=== PATIENT | male | born 1970 | race Caucasian/White ===

== ENCOUNTER 2017-08-23 12:36 | Inpatient (IN) ==
[2017-08-23 15:19] VITALS: BMI 29.9
[2017-08-23] MEDS: HYDRALAZINE 25 MG TABLET PO SCH (18:23)
[2017-08-23] MEDS: GlipiZIDE 5 MG TABLET PO SCH (18:23)
[2017-08-23] MEDS: METFORMIN 500 MG TABLET PO SCH (18:23)
[2017-08-23] MEDS: HYDROCODONE/APAP 5mg/325mg TABLET PO PRN (20:31)
[2017-08-23] MEDS: CLARITHROMYCIN 500 MG TABLET PO SCH (20:33)
[2017-08-23] MEDS: TAMSULOSIN 0.4 MG CAPSULE PO SCH (20:34)
[2017-08-23] MEDS: MAGNESIUM OXIDE 400 MG TABLET PO SCH (20:35)
[2017-08-23] MEDS: BACLOFEN 10 MG TABLET PO SCH (20:36)
[2017-08-23] MEDS: LEVETIRACETAM 500 MG TABLET PO SCH (20:38)
[2017-08-23] MEDS: ATORVASTATIN 40 MG TABLET PO SCH (20:39)
[2017-08-23] MEDS: SENNA + DOCUSATE TABLET PO SCH (20:40)
[2017-08-23] MEDS: GABAPENTIN 100 MG CAPSULE PO SCH (20:40)
[2017-08-23] MEDS: ENOXAPARIN 30 MG/0.3 ML INJECTION SQ SCH (20:40)
[2017-08-23] MEDS ORDERED: LIDOCAINE 2% JELLY (Urojet) 20ml MM ONE (22:09)
[2017-08-24] MEDS: GlipiZIDE 5 MG TABLET PO SCH ×2 (08:49→17:31)
[2017-08-24] MEDS: BACLOFEN 10 MG TABLET PO SCH ×3 (08:49→21:09)
[2017-08-24] MEDS: CLARITHROMYCIN 500 MG TABLET PO SCH ×2 (08:49→17:32)
[2017-08-24] MEDS: FUROSEMIDE 20 MG TABLET PO SCH (08:50)
[2017-08-24] MEDS: LISINOPRIL 40 MG TABLET PO SCH (08:51)
[2017-08-24] MEDS: HYDRALAZINE 25 MG TABLET PO SCH ×3 (08:52→17:32)
[2017-08-24] MEDS: ASPIRIN *EC* 81 MG TABLET PO SCH (08:52)
[2017-08-24] MEDS: METFORMIN 500 MG TABLET PO SCH ×2 (08:52→17:31)
[2017-08-24] MEDS: LEVETIRACETAM 500 MG TABLET PO SCH ×2 (08:52→21:16)
[2017-08-24] MEDS: MAGNESIUM OXIDE 400 MG TABLET PO SCH ×2 (08:52→21:42)
[2017-08-24] MEDS: GABAPENTIN 100 MG CAPSULE PO SCH ×3 (08:53→21:15)
--- NOTE | 2017-08-24 08:58 | Consult Note ---
Consult Information - Data of Consult Consult date: 08/24/17 Requesting Physician: Chucho Solis MD Primary Care Provider: None Family Provider: Dr Bro - Consult Narrative Reason for consult: medical management History of present illness: Patient is a 47-year-old male who has right hemophoresis secondary to history of stroke. On 08/19 he lost his balance and fell. He was found to have a right hip fracture. He was taken to [facility] where he was admitted. On he underwent a right heme arthroplasty by Dr. Minor. Postoperatively, he has continued to have increased blood pressures in the 180s currently. Records from [facility] indicated that blood pressure be greater than 200 at times during activity. As he has been stable. He was evaluated and accepted to [facility] for inpatient rehabilitation for ongoing strengthening and postoperative function improvement. Patient is seen today for initial consultation. He is alert, oriented and pleasant. He does have significant amount of this expressive aphasia, however, can answer easy questions. He does not appear to be in any distress. He does indicate that his bowels have not yet moved since surgery. Morning labs are reviewed. CBC is stable with a hemoglobin of 11.9. Chemistry panel is unremarkable. Past Medical History Medical History: Medical History (Last Updated 08/24/17 @ 09:02 by Mae Diaz APRN) MYRON (obstructive sleep apnea) CVA (cerebral vascular accident) Cerebral seizure Diabetes HTN (hypertension) Hyperlipidemia Osteoarthritis Surgical History: Right hip arthoplasty- 08/20/17- Dr Minor at [place]. Cholecystectomy. CABG x3. Appendectomy. Liver biopsy. Left pelvis ORIF Family History: Unable to Obtain - Social History Smoking status: Never smoker Substance use type: does not use Alcohol intake frequency: does not drink Housing: house Household members: family (Brother) Current occupational status: disabled Social history: Resides at home with brother It appears that primary care provider is Dr. Bro Review of Systems All systems PM: 10-point ROS was reviewed, no additional remarkable complaints except - Musculoskeletal Musculoskeletal Comments: Post-op right hip pain Medications Home Medications Medication Instructions Recorded Confirmed Type Aspirin [Adult Low Dose Aspirin EC] 81 mg PO DAILY 10/27/16 08/23/17 History Atorvastatin Calcium 10 mg PO HS 10/27/16 08/23/17 History Baclofen [Lioresal] 5 mg PO TID 10/27/16 08/23/17 History Furosemide [Lasix] 20 mg PO DAILY 10/27/16 08/23/17 History Gabapentin [Neurontin] 100 mg PO TID 10/27/16 08/23/17 History Hydralazine HCl 50 mg PO TID 10/27/16 08/23/17 History Lisinopril [Prinivil] 40 mg PO DAILY 10/27/16 08/23/17 History Magnesium Oxide [Magnesium] 400 mg PO BID 10/27/16 08/23/17 History Metformin HCl [Fortamet] 500 mg PO BID 10/27/16 08/23/17 History Metoprolol Succinate 25 mg PO BID 10/27/16 08/23/17 History Potassium Chloride [K-Dur] 10 meq PO DAILY 10/27/16 08/23/17 History Tamsulosin [Flomax] 0.4 mg PO HS 10/27/16 08/23/17 History glipiZIDE [Glipizide] 5 mg PO BID 10/27/16 08/23/17 History levETIRAcetam [Keppra Xr] 500 mg PO Q12HR 10/27/16 08/23/17 History clarithromycin 500 mg tablet 500 mg PO BID 01/31/17 08/23/17 History Allergies Allergy/AdvReac Type Severity Reaction Status Date / Time codeine Allergy Verified 10/26/16 22:56 Penicillins Allergy Verified 10/26/16 22:56 Sulfa (Sulfonamide Allergy Verified 10/26/16 22:56 Antibiotics) Exam Vital Signs: Temperature 97.9 F 08/24/17 07:00 Pulse Rate 72 08/24/17 07:00 Respiratory Rate 20 08/24/17 07:00 Blood Pressure 182/86 H 08/24/17 07:00 Pulse Oximetry 93 08/24/17 07:00 Height/Weight/BMI: Height 1.83 m Weight 100.3 kg Body Mass Index 29.9 - Constitutional Present: no acute distress, well nourished, well developed - Routine HEENT Exam Eye: Present: EOMI ENT: Present: mucous membranes moist, dentition normal - Routine Respiratory Exam Present: CTA bilaterally. Absent: wheezes - Routine Cardiovascular Exam Present: RRR, S1, S2. Absent: murmur - Routine Abdominal Exam Present: soft, normoactive bowel sounds, non distended. Absent: tenderness - Routine Skin Exam Present: intact, dry, warm - Routine Neurological Exam Present: alert, oriented X3, CN II-XII intact, motor deficit (Right arm) Aphasia - Routine Psychiatric Exam Present: cooperative Results - Labs CBC & Chem 7: 08/24/17 05:35 08/24/17 05:35 Assessment and Plan (1) S/P hip hemiarthroplasty Current visit: Yes Status: Acute Assessment and Plan: Impression Uncontrolled blood pressure Status post right humeral arthroplasty-repaired 08/20/17 Fall Hx of CVA with right hemiparesis Chronic dysphasia Coronary artery disease Hypertension Diabetes Seizures Obstructive sleep apnea Plan Agree with admission to inpatient rehabilitation for ongoing strengthening and improved function. Patient continues to have uncontrolled hypertension 180s systolic. Medication list reviewed carefully along with marked from Gerald. Different beta jonathan was reconciled on admission from medication list. Toprol-XL discontinued, patient placed on metoprolol tartrate, Lopressor 50 milligrams 3 times a day. Continue with lisinopril 40, hydralazine 50mg 3 times a day. Hgb is has remained stable at 11.9. Patient is on Keppra for history of seizures. Patient also takes clarithromycin 500 twice a day. Brother does confirm patient was on this prior to hospitalization, however, exact reason is unknown Monitor Accu-Cheks and continue on metformin twice a day. Dalton as needed for postoperative pain control. Will add MiraLAX and senna plus twice a day for postoperative bowel motivation. Encouraged patient to work with PT and OT for ongoing strengthening At time of discharge medical care will return to primary care provider at [facility], Dr. Bro DVT Prophylaxis: Lovenox Resuscitation Status: Full Code - Physician Narrative Physician: Zee Izquierdo MD Narrative: Date: 08/24/17 Time: 2124 I have independently evaluated and examined this patient. I reviewed the chart, the patient's history, and the NUCLEAR TEST TECHNICIAN/PA's documented findings as above. We discussed and formulated the assessment and plan as above with additions as below: Mr. Ling was seen this evening at which time he reports having a bad headache today-this is atypical has not been associated with nausea or visual changes. Nursing expressed concern that therapy has been working aggressively with the patient to mobilize his right arm and on upper extremity strengthening today and that he may have increased motor pain in the upper back. Patient in the hip has had variable response to Dalton and headache is poorly controlled with Dalton. Patient is drowsy as he was sleeping shortly before I arrived There is tenderness on palpation in the right upper back although I do not appreciate spasm per se Respirations nonlabored, airflow good, breath sounds clear Regular rhythm Right hemiparesis present-upper/lower extremity In addition to above diagnoses please add: Headache, probable muscle spasm Flexeril added at 5 mg 3 times a day when necessary and Dilaudid IM ordered if it becomes necessary. Warm packs as needed-may benefit from alternating cold packs. Blood pressure improving-most recent reading 148/82. Hospital Course Summary Disclaimer: The visit summary below is not to be considered part of the above Progress Note. 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 Patient continues to have uncontrolled hypertension 180s systolic. Medication list reviewed carefully along with marked from Gerald. Different beta jonathan was reconciled on admission from medication list. Toprol-XL discontinued, patient placed on metoprolol tartrate, Lopressor 50 milligrams 3 times a day. Continue with lisinopril 40, hydralazine 50mg 3 times a day. Hgb is has remained stable at 11.9. Patient is on Keppra for history of seizures. Patient also takes clarithromycin 500 twice a day. Brother does confirm patient was on this prior to hospitalization, however, exact reason is unknown Monitor Accu-Cheks and continue on metformin twice a day. Dalton as needed for postoperative pain control. Will add MiraLAX and senna plus twice a day for postoperative bowel motivation. Encouraged patient to work with PT and OT for ongoing strengthening At time of discharge medical care [facility] Bro
[2017-08-24] MEDS: ENOXAPARIN 30 MG/0.3 ML INJECTION SQ SCH ×2 (09:23→21:08)
[2017-08-24] MEDS: HYDROCODONE/APAP 5mg/325mg TABLET PO PRN ×4 (09:23→22:16)
--- NOTE | 2017-08-24 09:35 | IRU History & Physical Report ---
[facility] IRU Date: Date: 08/24/17 Time: 931 HPI: 47-year-old male admitted with post surgical treatment for a right hip fracture. He sustained this fracture on August 19 and was treated in [place]. He underwent a right hemiarthroplasty by Dr. Minor. Postoperatively, he has had problems with blood pressure historically he has expressive aphasia from prior CVA. He is transferred here for rehabilitation. [facility] Patient Stated Medical History Cerebrovascular Accident Yes Migraine Yes Paralysis Yes Seizures Yes Transient Ischemic Attacks ( Yes TIA) Dental Problems Yes: partials Dysphagia Yes Other HEENT Yes: WEARS GLASSES Coronary Artery Disease Yes Hypertension Yes Other Cardiology Yes: CHRONIC EDEMA LE Bronchitis Yes Sleep Apnea Yes Diabetes Mellitus Type 2 Yes Hx Incontinence Yes Osteoarthritis Yes Other Musculoskeletal Yes: CRUSH INJURY LT HIP/PELVIS Cellulitis Yes Other Infectious Yes: MULTIPLE OPEN SORES DOCUMENTED Depression Yes Clinic Medical History (Last Updated 08/24/17 @ 09:02 by Mae Diaz, AIME) MYRON (obstructive sleep apnea) (Acute Medical) CVA (cerebral vascular accident) (Chronic Medical) Cerebral seizure (Chronic Medical) Diabetes (Chronic Medical) HTN (hypertension) (Chronic Medical) Hyperlipidemia (Chronic Medical) Osteoarthritis (Chronic Medical) Surgical History: Right hip arthoplasty- 08/20/17- Dr Minor at [place]. Cholecystectomy. CABG x3. Appendectomy. Liver biopsy. Left pelvis ORIF - Social History Smoking status: Never smoker Substance use type: does not use Alcohol intake frequency: does not drink Housing: house Household members: family (Brother) Current occupational status: disabled Current residence: Apartment/Private Home Review of Systems Comprehensive ROS: completed and no additional positive findings except those as stated - Musculoskeletal Musculoskeletal: Present: as per [facility] Medications Home Medications Medication Instructions Recorded Confirmed Type Aspirin [Adult Low Dose Aspirin EC] 81 mg PO DAILY 10/27/16 08/23/17 History Atorvastatin Calcium 10 mg PO HS 10/27/16 08/23/17 History Baclofen [Lioresal] 5 mg PO TID 10/27/16 08/23/17 History Furosemide [Lasix] 20 mg PO DAILY 10/27/16 08/23/17 History Gabapentin [Neurontin] 100 mg PO TID 10/27/16 08/23/17 History Hydralazine HCl 50 mg PO TID 10/27/16 08/23/17 History Lisinopril [Prinivil] 40 mg PO DAILY 10/27/16 08/23/17 History Magnesium Oxide [Magnesium] 400 mg PO BID 10/27/16 08/23/17 History Metformin HCl [Fortamet] 500 mg PO BID 10/27/16 08/23/17 History Metoprolol Succinate 25 mg PO BID 10/27/16 08/23/17 History Potassium Chloride [K-Dur] 10 meq PO DAILY 10/27/16 08/23/17 History Tamsulosin [Flomax] 0.4 mg PO HS 10/27/16 08/23/17 History glipiZIDE [Glipizide] 5 mg PO BID 10/27/16 08/23/17 History levETIRAcetam [Keppra Xr] 500 mg PO Q12HR 10/27/16 08/23/17 History clarithromycin 500 mg tablet 500 mg PO BID 01/31/17 08/23/17 History Allergies Allergy/AdvReac Type Severity Reaction Status Date / Time codeine Allergy Verified 10/26/16 22:56 Penicillins Allergy Verified 10/26/16 22:56 Sulfa (Sulfonamide Allergy Verified 10/26/16 22:56 Antibiotics) Exam Vital Signs: Temperature 97.9 F 08/24/17 07:00 Pulse Rate 72 08/24/17 07:00 Respiratory Rate 20 08/24/17 07:00 Blood Pressure 182/86 H 08/24/17 07:00 Pulse Oximetry 93 08/24/17 07:00 Height/Weight/BMI: Height 1.83 m Weight 100.3 kg Body Mass Index 29.9 - Constitutional Present: mild distress, well nourished - Routine HEENT Exam Head: Present: normocephalic - Routine Respiratory Exam Present: CTA bilaterally. Absent: accessory muscle use, decreased breath sounds , prolonged expiratory phase, rales, respiratory distress, rhonchi, stridor, wheezes, crackles, distant breath sounds - Routine Cardiovascular Exam Present: RRR - Routine Abdominal Exam Present: soft - Routine Extremities Exam Comments: R side weak Leg ext rotated - Routine Neurological Exam Present: alert aphasia IRU A/P (1) S/P hip hemiarthroplasty Current visit: Yes Status: Acute improve mobility DVT Prophylaxis: Lovenox Resuscitation Status: Full Code - Course Hospital Course: Chucho Solis MD: - Interventions to Obtain Goals PT Treatment Plan: Functional Activities, Gait Training, Therapeutic Exercise OT Treatment Plan: ADL (Basic Care), Balance Training, IADL, Pt./Family Education, Ther. Exercise for ADL
--- NOTE | 2017-08-24 09:47 | IRU 24Hr Post Admit Eval ---
24 Hr Post Admission Physical - Relevant Changes Reviewed: I have reviewed the patient's information and concur with the finding and results of the pre-admission screen. Certification: I certify the patient for rehabilitation. - Patient Condition (1) S/P hip hemiarthroplasty Status: Acute Code(s): Z96.649 - Presence of unspecified artificial hip joint Classification: Present on IRF Admission (2) Hypertension Status: Acute Qualifiers: Hypertension type: unspecified Qualified Code(s): I10 - Essential (primary ) hypertension Code(s): I10 - Essential (primary) hypertension Classification: Present on IRF Admission Additional Information: to be managed by hospitalist - Prior Functional Status Lives With: Sibiling Residence Type: Apartment/Private Home Assitive Devices: Standard Walker Prior Functional Status: Need assist w/ home ADL, Unable to Work-2 Sx - Current Functional Status Current Level of Function: recovering from hip surgery Failed Alternative Therapy: Arrived from Acute Care Patient Requirements: The patient requires oversight by rehabilitation physician to manage their rehabilitation treatment plan and multidisciplinary approach to care that can only be provided in an IRF and requires a multidisciplinary approach to care, provided by professional PTs, OTs, STs, dieticians, RTs, rehabilitation nurses and is not available in lesser levels of care. Limitations Req: Mobility Impairment, ADL Impairment Physical Therapy Minutes: 90 Occupational Therapy Minutes: 90 Therapy: The patient is to receive therapy at least 5 days a week. - Complications/Comorbidities Barriers to Discharge: Weakness, Balance, Medical Limitation - Plan to Avoid Complications Plan to Avoid Complications: The patient cannot receive this care in a lesser intensive setting such as Shelter or Outpatient Therapy due to the patient requiring the following .
--- NOTE | 2017-08-24 10:39 | IRU Plan of Care ---
IRU Overall Plan of Care - Patient Impairments (1) S/P hip hemiarthroplasty Code(s): Z96.649 - Presence of unspecified artificial hip joint Status: Acute Classification: Present on IRF Admission (2) Hypertension Qualifiers: Hypertension type: unspecified Qualified Code(s): I10 - Essential (primary ) hypertension Code(s): I10 - Essential (primary) hypertension Status: Acute Classification: Present on IRF Admission - Relevant Changes Relevant Changes: No Reviewed: I have reviewed the patient's information and concur with the finding and results of the pre-admission screen. Certification: I certify the patient for rehabilitation. - Medical Prognosis Medical Prognosis: Fair Vital Signs: Last Vital Signs Temp 97.9 F 08/24/17 07:00 Pulse 72 08/24/17 07:00 Resp 20 08/24/17 07:00 BP 182/86 H 08/24/17 07:00 Pulse Ox 93 08/24/17 07:00 - Anticipated Interventions Anticipated Interventions: The patient requires inpatient IRF care for PT, OT, and/or ST for residuals remaining from [] resulting in muscular weakness and strength deficits. ROM Deficit: Right Upper Extremity, Right Lower Extremity Strength Deficits: Right Upper Extremity, Right Lower Extremity - Current Functional Status Failed Alternative Therapy: Arrived from Acute Care Patient Requires: The patient requires oversight by rehabilitation physician to manage their rehabilitation treatment plan and multidisciplinary approach to care that can only be provided in an IRF and requires a multidisciplinary approach to care, provided by professional PTs, OTs, STs, rehabilitation nurses, and may require STs, dieticians, and RTS. This is not available in lesser levels of care. Physical Therapy Minutes: 90 Occupational Therapy Minutes: 90 Therapy: The patient is to receive therapy at least 5 days a week. - Anticipated LOS/Outcomes Anticipated Functional Outcome: gain ambulatory function Anticipated Length of Stay (days): 14 Anticipated DC Destination: Home Health Service Home Safety Plan: The patient will be provided with the development of a Home Safety Plan for return to a home or home-like environment and and to ensure safety post discharge. - Plan to Avoid Complications Barriers to Attaining Goals: Weakness, Balance, Endurance, Comprehension Plan to Avoid Complications: The patient cannot receive this care in a lesser intensive setting such as [facility] or Outpatient Therapy due to the patient requiring the following .
--- NOTE | 2017-08-24 11:09 | IRU Progress Note ---
- Subjective/Serverity of Illness Date: 08/24/17 fairly comfortable has stood at bedside needed to be cathed last night Exam Vital Signs: Temperature 97.9 F 08/24/17 07:00 Pulse Rate 72 08/24/17 07:00 Respiratory Rate 20 08/24/17 07:00 Blood Pressure 182/86 H 08/24/17 07:00 Pulse Oximetry 93 08/24/17 07:00 Height/Weight/BMI: Height 1.83 m Weight 100.3 kg Body Mass Index 29.9 - Constitutional Present: no acute distress - Routine Extremities Exam Comments: Right hip dressing dry IRU A/P (1) S/P hip hemiarthroplasty Current visit: Yes Status: Acute (2) Hypertension Qualifiers: Hypertension type: unspecified Qualified Code(s): I10 - Essential (primary ) hypertension Current visit: Yes Status: Acute DVT Prophylaxis: Lovenox Resuscitation Status: Full Code - Course Hospital Course: Chucho Solis MD: - Interventions to Obtain Goals PT Treatment Plan: Functional Activities, Gait Training, Therapeutic Exercise OT Treatment Plan: ADL (Basic Care), Balance Training, IADL, Pt./Family Education, Ther. Exercise for ADL Goals Progress/Modifications: continue PT
[2017-08-24] MEDS: INSULIN ASPART 100unit/ml INJECTION SQ PRN ×2 (11:23→21:08)
[2017-08-24] MEDS: POLYETHYL GLYCOL 3350 17gm PACKET PO SCH (11:23)
[2017-08-24] MEDS ORDERED: FALL RISK - PHARMACY CONSULT MC ONE (14:16)
[2017-08-24] MEDS: SENNA + DOCUSATE TABLET PO SCH ×2 (20:11→21:15)
[2017-08-24] MEDS: ATORVASTATIN 40 MG TABLET PO SCH (21:09)
[2017-08-24] MEDS: TAMSULOSIN 0.4 MG CAPSULE PO SCH (21:10)
[2017-08-24] MEDS ORDERED: HYDROMORPHONE 2 MG/ML INJECTION IM PRN (21:27)
[2017-08-25] MEDS: GABAPENTIN 100 MG CAPSULE PO SCH ×3 (09:11→20:25)
[2017-08-25] MEDS: LISINOPRIL 40 MG TABLET PO SCH (09:11)
[2017-08-25] MEDS: METFORMIN 500 MG TABLET PO SCH ×2 (09:11→17:06)
[2017-08-25] MEDS: MAGNESIUM OXIDE 400 MG TABLET PO SCH ×2 (09:11→20:26)
[2017-08-25] MEDS: LEVETIRACETAM 500 MG TABLET PO SCH ×2 (09:11→20:26)
[2017-08-25] MEDS: ASPIRIN *EC* 81 MG TABLET PO SCH (09:12)
[2017-08-25] MEDS: CLARITHROMYCIN 500 MG TABLET PO SCH (09:12)
[2017-08-25] MEDS: GlipiZIDE 5 MG TABLET PO SCH ×2 (09:12→17:06)
[2017-08-25] MEDS: BACLOFEN 10 MG TABLET PO SCH ×3 (09:13→20:25)
[2017-08-25] MEDS: FUROSEMIDE 20 MG TABLET PO SCH (09:13)
[2017-08-25] MEDS: ENOXAPARIN 30 MG/0.3 ML INJECTION SQ SCH ×2 (09:13→20:26)
[2017-08-25] MEDS: HYDRALAZINE 25 MG TABLET PO SCH ×3 (09:13→17:06)
[2017-08-25] MEDS: SENNA + DOCUSATE TABLET PO SCH ×3 (09:14→21:18)
[2017-08-25] MEDS: POLYETHYL GLYCOL 3350 17gm PACKET PO SCH (09:14)
[2017-08-25] MEDS: HYDROCODONE/APAP 5mg/325mg TABLET PO PRN ×3 (09:14→20:19)
[2017-08-25] MEDS ORDERED: MAG-AL + SIM ORAL LIQUID 30ml PO PRN (10:42)
[2017-08-25] MEDS: INSULIN ASPART 100unit/ml INJECTION SQ PRN (12:32)
--- NOTE | 2017-08-25 14:46 | Progress Note ---
- Date 08/25/17 Subjective: Jorge is seen today in follow up due to nursing concern re: chest pain/pressure with therapy. Nursing was concerned this could be due to reflux, but standard cardiac evaluation was ordered as well as antacid. His troponin was normal, but EKG was concerning for possible ischemia, unknown if acute or chronic. Due to atypical chest pain with EKG changes, pt. was examined. He has a history of stroke with chronic deficits, including expressive aphasia and word finding deficits. He also has chronic right sided weakness. Adamantly says no when asked if he is having chest pain or pressure. He repetitively points to his right shoulder and arm, and down into his leg. Patient reports no history of heart problems when asked in a yes/no fashion. Fortunately, PT is at bedside, and reports they are concerned that patient may have a minor subluxation of his right shoulder. They plan to follow up with occupational therapy for further assessment. Patient does indicate yes, when asked if he feels his pain is primarily in his shoulder. He denies any GI upset or back pain when asked as well. He does appear mildly pale, but he is not clammy or diaphoretic. I did review his prior chart. Records from report a history of CABG in 2016. I do not have a prior EKG to compare this current EKG to, so unclear if changes are acute or chronic. There is no evidence STEMI. I did discuss with patient that I would like to put him on telemetry and monitor serial cardiac enzymes. He is in agreement with plan of care. He is obviously higher risk for vascular issues given past history of significant stroke at a young age. Objective Vital signs: Temperature 98.3 F 08/25/17 07:26 Pulse Rate 64 08/25/17 12:30 Respiratory Rate 18 08/25/17 07:26 Blood Pressure 127/68 08/25/17 12:30 Pulse Oximetry 98 08/25/17 10:40 Height/Weight/BMI: Height 1.83 m Weight 100.3 kg Body Mass Index 29.9 Comments: Gen.: Patient is awake and alert. Again, chronic speech deficits. He is mildly pale, but not diaphoretic or clammy. He is mildly anxious. ENT: No acute ear nose or throat changes. Speech is limited. Neck: Supple. Cardiovascular: S1, S2. Regular rate and rhythm. No focal edema appreciated. Pulmonary: Lungs are clear to auscultation bilaterally. Respirations are even, unlabored. Abdomen: Soft, nontender, nondistended. Active 4 quadrants. Extremities No edema, no cyanosis or clubbing. Right shoulder pain is reported. Neuro: Chronic deficits, including dysarthria, expressive aphasia. Chronic right sided weakness. Results - Labs CBC & Chem 7: 08/24/17 05:35 08/24/17 05:35 Labs: Troponin negative 1 - ECG Data Tracing #1 I reviewed this ECG and interpreted as documented below: Sinus rhythm. Bundle-branch block. Possible septal lateral changes. No acute STEMI appreciated. Assessment and Plan (1) S/P hip hemiarthroplasty Current visit: Yes Status: Acute Assessment and Plan: Impression Uncontrolled blood pressure Status post right humeral arthroplasty-repaired 08/20/17 Fall Hx of CVA with right hemiparesis Chronic dysphasia Coronary artery disease Hypertension Diabetes Seizures Obstructive sleep apnea CAD with history of CABG, 2015 Plan 08/25/2017 Patient was seen today secondary to reports of possible chest pain. Prior baseline is unknown, so will err on the side of caution. Start telemetry. Serial troponin. We'll obtain chest x-ray, as well as a right shoulder film due to concern for subluxation. GI upset is certainly a possibility, particularly since he is on clarithromycin. May need to get further information on that on Sunday from his PCP. We'll continue remainder current care. Assess lab in the morning for stability. Discussed with patient, he is in agreement with plan of care. - Physician Narrative Narrative: Date: 08/25/17 Time: 1439 Hospital Course Summary Disclaimer: The visit summary below is not to be considered part of the above Progress Note. 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 Patient continues to have uncontrolled hypertension 180s systolic. Medication list reviewed carefully along with marked from Gerald. Different beta ojnathan was reconciled on admission from medication list. Toprol-XL discontinued, patient placed on metoprolol tartrate, Lopressor 50 milligrams 3 times a day. Continue with lisinopril 40, hydralazine 50mg 3 times a day. Hgb is has remained stable at 11.9. Patient is on Keppra for history of seizures. Patient also takes clarithromycin 500 twice a day. Brother does confirm patient was on this prior to hospitalization, however, exact reason is unknown Monitor Accu-Cheks and continue on metformin twice a day. [place] as needed for postoperative pain control. Will add MiraLAX and senna plus twice a day for postoperative bowel motivation. Encouraged patient to work with PT and OT for ongoing strengthening At time of discharge medical care will return to primary care provider at [facility], Dr. Adali Izquierdo 08/25/2017 Patient was seen today secondary to reports of possible chest pain. Prior baseline is unknown, so will err on the side of caution. Start telemetry. Serial troponin. We'll obtain chest x-ray, as well as a right shoulder film due to concern for subluxation. GI upset is certainly a possibility, particularly since he is on clarithromycin. May need to get further information on that on Sunday from his PCP. We'll continue remainder current care. Assess lab in the morning for stability. Discussed with patient, he is in agreement with plan of care.
[2017-08-25] MEDS: ATORVASTATIN 10 MG TABLET PO SCH (20:26)
[2017-08-25] MEDS: TAMSULOSIN 0.4 MG CAPSULE PO SCH (20:26)
[2017-08-26] MEDS: HYDROCODONE/APAP 5mg/325mg TABLET PO PRN ×3 (04:14→20:37)
[2017-08-26] MEDS: ASPIRIN *EC* 81 MG TABLET PO SCH (09:16)
[2017-08-26] MEDS: GlipiZIDE 5 MG TABLET PO SCH ×2 (09:16→17:11)
[2017-08-26] MEDS: POLYETHYL GLYCOL 3350 17gm PACKET PO SCH (09:16)
[2017-08-26] MEDS: METFORMIN 500 MG TABLET PO SCH ×2 (09:17→17:12)
[2017-08-26] MEDS: HYDRALAZINE 25 MG TABLET PO SCH ×3 (09:17→17:11)
[2017-08-26] MEDS: BACLOFEN 10 MG TABLET PO SCH ×3 (09:17→20:28)
[2017-08-26] MEDS: FUROSEMIDE 20 MG TABLET PO SCH (09:18)
[2017-08-26] MEDS: ENOXAPARIN 30 MG/0.3 ML INJECTION SQ SCH ×2 (09:18→20:33)
[2017-08-26] MEDS: GABAPENTIN 100 MG CAPSULE PO SCH ×3 (09:19→20:36)
[2017-08-26] MEDS: MAGNESIUM OXIDE 400 MG TABLET PO SCH ×2 (09:19→20:33)
[2017-08-26] MEDS: LEVETIRACETAM 500 MG TABLET PO SCH ×2 (09:19→20:37)
[2017-08-26] MEDS: LISINOPRIL 40 MG TABLET PO SCH (09:19)
[2017-08-26] MEDS: SENNA + DOCUSATE TABLET PO SCH ×3 (09:20→20:39)
--- NOTE | 2017-08-26 10:23 | XRay Report ---
Indication: Chest pain PROCEDURE: XR chest 1V: Encounter: Initial Comparison: None Findings: No focal consolidative pneumonia, gross pleural effusion or pneumothorax. Prior CABG. Heart size and mediastinal contours are within normal limits. Impression: No acute cardiopulmonary disease. .
--- NOTE | 2017-08-26 10:24 | XRay Report ---
Indication: Possible sublux PROCEDURE: XR shoulder RT 2-3 views: Encounter: Initial Comparison: October 26, 2016 Findings: There is no acute fracture, dislocation or malalignment identified. Mild degenerative change in the acromioclavicular and glenohumeral joints. Impression: No acute osseous abnormality. .
[2017-08-26] MEDS: INSULIN ASPART 100unit/ml INJECTION SQ PRN (11:16)
[2017-08-26] MEDS: ATORVASTATIN 10 MG TABLET PO SCH (20:28)
[2017-08-26] MEDS: TAMSULOSIN 0.4 MG CAPSULE PO SCH (20:35)
[2017-08-27] MEDS: HYDROCODONE/APAP 5mg/325mg TABLET PO PRN ×4 (07:24→20:46)
[2017-08-27] MEDS: POLYETHYL GLYCOL 3350 17gm PACKET PO SCH (08:19)
[2017-08-27] MEDS: ENOXAPARIN 30 MG/0.3 ML INJECTION SQ SCH ×2 (08:20→20:44)
[2017-08-27] MEDS: GlipiZIDE 5 MG TABLET PO SCH ×2 (08:20→18:14)
[2017-08-27] MEDS: HYDRALAZINE 25 MG TABLET PO SCH ×3 (08:20→18:15)
[2017-08-27] MEDS: METFORMIN 500 MG TABLET PO SCH ×2 (08:21→18:15)
[2017-08-27] MEDS: SENNA + DOCUSATE TABLET PO SCH ×3 (08:21→21:33)
[2017-08-27] MEDS: MAGNESIUM OXIDE 400 MG TABLET PO SCH ×2 (08:21→20:44)
[2017-08-27] MEDS: GABAPENTIN 100 MG CAPSULE PO SCH ×3 (08:21→20:45)
[2017-08-27] MEDS: ASPIRIN *EC* 81 MG TABLET PO SCH (08:21)
[2017-08-27] MEDS: FUROSEMIDE 20 MG TABLET PO SCH (08:21)
[2017-08-27] MEDS: LISINOPRIL 40 MG TABLET PO SCH (08:21)
[2017-08-27] MEDS: LEVETIRACETAM 500 MG TABLET PO SCH ×2 (08:21→20:45)
[2017-08-27] MEDS: BACLOFEN 10 MG TABLET PO SCH ×3 (08:22→20:45)
--- NOTE | 2017-08-27 10:06 | IRU Progress Note ---
- Subjective/Serverity of Illness Date: 08/27/17 Patient's complaining of pain right shoulder. X-rays revealed no fracture or dislocation. He does have some arthritis in the right AC joint. Otherwise progressing fairly well. Blood pressures remain relatively stable since admission. Exam Vital Signs: Temperature 97.6 F 08/27/17 07:12 Pulse Rate 62 08/27/17 08:32 Respiratory Rate 16 08/27/17 07:12 Blood Pressure 157/82 H 08/27/17 07:12 Pulse Oximetry 98 08/27/17 07:12 Height/Weight/BMI: Height 1.83 m Weight 100.3 kg Body Mass Index 29.9 - Constitutional Present: mild distress - Detailed Upper Extremity Exam Shoulder/Upper Arm: Right normal inspection, Right tenderness IRU A/P (1) S/P hip hemiarthroplasty Current visit: Yes Status: Acute (2) Hypertension Qualifiers: Hypertension type: unspecified Qualified Code(s): I10 - Essential (primary ) hypertension Current visit: Yes Status: Acute DVT Prophylaxis: Lovenox Resuscitation Status: Full Code - Course Hospital Course: Chucho Solis MD: - Interventions to Obtain Goals PT Treatment Plan: Functional Activities, Gait Training, Therapeutic Exercise OT Treatment Plan: ADL (Basic Care), Balance Training, IADL, Pt./Family Education, Ther. Exercise for ADL Goals Progress/Modifications: will try [place] taping to the R shoulder per PT request ontinue rehab
--- NOTE | 2017-08-27 11:42 | Progress Note ---
- Date 08/27/17 Subjective: Jorge is seen today in his room. He is alert and pleasant. He denies having any pain or feeling short of breath. Right hand remains in resting hand splint. He is noted to be bradycardia at time in the 40-50's. blood sugars are well controlled. Objective Vital signs: Temperature 97.6 F 08/27/17 07:12 Pulse Rate 62 08/27/17 08:32 Respiratory Rate 16 08/27/17 07:12 Blood Pressure 157/82 H 08/27/17 07:12 Pulse Oximetry 98 08/27/17 07:12 Height/Weight/BMI: Height 1.83 m Weight 100.3 kg Body Mass Index 29.9 - Constitutional Present: no acute distress, well nourished, well developed - Routine HEENT Exam Eye: Present: EOMI ENT: Present: mucous membranes moist, dentition normal - Routine Respiratory Exam Present: CTA bilaterally. Absent: wheezes - Routine Cardiovascular Exam Present: RRR. Absent: murmur - Routine Abdominal Exam Present: soft, normoactive bowel sounds, non distended. Absent: tenderness - Routine Extremities Exam Present: normal capillary refill - Routine Skin Exam Present: dry, warm - Routine Neurological Exam Present: alert, oriented X3, CN II-XII intact, motor deficit (Right) - Routine Lymphatic Exam Lymphatic: Absent: adenopathy - Routine Psychiatric Exam Present: cooperative Results - Labs CBC & Chem 7: 08/26/17 04:14 08/26/17 04:14 Assessment and Plan (1) S/P hip hemiarthroplasty Current visit: Yes Status: Acute Assessment and Plan: Impression Uncontrolled blood pressure - improved with medication adjustments Status post right humeral arthroplasty-repaired 08/20/17 Fall Hx of CVA with right hemiparesis Chronic dysphasia Coronary artery disease Hypertension Diabetes Seizures Obstructive sleep apnea CAD with history of CABG, 2016 Plan Overall appears to be medically stable. Given bradycardia will decreased Metoprolol to 50mg BID Will need to continue monitor BP. Did contact PCP office at [facility]- their old records from last January patient was not taking erythromycin. It is unclear exactly prescribed clarithromycin and for what reason. Will attempt to contact patient's brother regarding this medication. BGMs are well controlled on current regimen. Continue to encourage work with PT and OT for ongoing strengthening. - Physician Narrative Physician: Franco Figueredo MD Narrative: Date: 08/27/17 Time: 1630 Have independently interviewed & examined pt. Chart reviewed. Case d/w my MOLDER PIPE COVERING. Above care plan developed with my supervision; agree with above. Doing okay. Tolerating therapy-challenging. Pain controlled. Breathing well. BP showing improvement. Lungs: clear bilaterally, no distress CV: regular AB: soft nt Plan: Continue with IRU to maximize functional status. Frequency of metoprolol decrease as HR with decreased. Encourage therapy. Medically doing well - is medically stable for IRU floor activities. Hospital Course Summary Disclaimer: The visit summary below is not to be considered part of the above Progress Note. 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 Patient continues to have uncontrolled hypertension 180s systolic. Medication list reviewed carefully along with marked from Gerald. Different beta jonathan was reconciled on admission from medication list. Toprol-XL discontinued, patient placed on metoprolol tartrate, Lopressor 50 milligrams 3 times a day. Continue with lisinopril 40, hydralazine 50mg 3 times a day. Hgb is has remained stable at 11.9. Patient is on Keppra for history of seizures. Patient also takes clarithromycin 500 twice a day. Brother does confirm patient was on this prior to hospitalization, however, exact reason is unknown Monitor Accu-Cheks and continue on metformin twice a day. [place] as needed for postoperative pain control. Will add MiraLAX and senna plus twice a day for postoperative bowel motivation. Encouraged patient to work with PT and OT for ongoing strengthening At time of discharge medical care will return to primary [facility] provider at [facility], Dr. Bro 08/25/2017 Patient was seen today secondary to reports of possible chest pain. Prior baseline is unknown, so will err on the side of caution. Start telemetry. Serial troponin. We'll obtain chest x-ray, as well as a right shoulder film due to concern for subluxation. GI upset is certainly a possibility, particularly since he is on clarithromycin. May need to get further information on that on Sunday from his PCP. We'll continue remainder current care. Assess lab in the morning for stability. Discussed with patient, he is in agreement with plan of care. 08/27/17 Overall appears to be medically stable. Given bradycardia will decreased Metoprolol to 50mg BID Will need to continue monitor BP. Did contact PCP office at [facility]- their old records from last January patient was not taking erythromycin. It is unclear exactly prescribed clarithromycin and for what reason. Will attempt to contact patient's brother regarding this medication. BGMs are well controlled on current regimen. Continue to encourage work with PT and OT for ongoing strengthening.
[2017-08-27] MEDS: TAMSULOSIN 0.4 MG CAPSULE PO SCH (20:44)
[2017-08-27] MEDS: CYCLOBENZAPRINE 5 MG TABLET PO PRN (20:44)
[2017-08-27] MEDS: ATORVASTATIN 10 MG TABLET PO SCH (20:45)
[2017-08-27] MEDS: INSULIN ASPART 100unit/ml INJECTION SQ PRN (21:39)
[2017-08-28] MEDS: CYCLOBENZAPRINE 5 MG TABLET PO PRN (06:12)
[2017-08-28] MEDS: HYDROCODONE/APAP 5mg/325mg TABLET PO PRN ×3 (06:12→17:34)
[2017-08-28] MEDS: POLYETHYL GLYCOL 3350 17gm PACKET PO SCH (08:34)
[2017-08-28] MEDS: ENOXAPARIN 30 MG/0.3 ML INJECTION SQ SCH ×2 (08:34→20:09)
[2017-08-28] MEDS: HYDRALAZINE 25 MG TABLET PO SCH ×3 (08:35→17:35)
[2017-08-28] MEDS: GlipiZIDE 5 MG TABLET PO SCH ×2 (08:35→17:35)
[2017-08-28] MEDS: LEVETIRACETAM 500 MG TABLET PO SCH ×2 (08:35→20:09)
[2017-08-28] MEDS: FUROSEMIDE 20 MG TABLET PO SCH (08:35)
[2017-08-28] MEDS: GABAPENTIN 100 MG CAPSULE PO SCH ×3 (08:35→20:09)
[2017-08-28] MEDS: METFORMIN 500 MG TABLET PO SCH ×2 (08:35→17:34)
[2017-08-28] MEDS: MAGNESIUM OXIDE 400 MG TABLET PO SCH ×2 (08:35→20:09)
[2017-08-28] MEDS: ASPIRIN *EC* 81 MG TABLET PO SCH (08:35)
[2017-08-28] MEDS: BACLOFEN 10 MG TABLET PO SCH ×3 (08:36→20:08)
[2017-08-28] MEDS: LISINOPRIL 40 MG TABLET PO SCH (08:36)
[2017-08-28] MEDS: SENNA + DOCUSATE TABLET PO SCH ×3 (08:37→20:10)
--- NOTE | 2017-08-28 14:53 | IRU Progress Note ---
- Subjective/Serverity of Illness Date: 08/28/17 continues to complain of pain in the shoulder and elbow shoulder xrays negativewill check elbow Exam Vital Signs: Temperature 98.1 F 08/28/17 07:28 Pulse Rate 55 L 08/28/17 12:24 Respiratory Rate 16 08/28/17 07:28 Blood Pressure 139/74 08/28/17 12:24 Pulse Oximetry 97 08/28/17 07:28 Height/Weight/BMI: Height 1.83 m Weight 100.3 kg Body Mass Index 29.9 - Constitutional Present: moderate distress - Detailed Upper Extremity Exam Elbow: Right swelling, Right tenderness, Right decreased ROM, Right pain with passive ROM IRU A/P (1) S/P hip hemiarthroplasty Problem details: Surgery done for subcapital , femoral neck Fx Current visit: Yes Status: Acute (2) Hypertension Qualifiers: Hypertension type: unspecified Qualified Code(s): I10 - Essential (primary ) hypertension Current visit: Yes Status: Acute (3) Right shoulder pain Qualifiers: Chronicity: acute Qualified Code(s): M25.511 - Pain in right shoulder Current visit: No Status: Acute (4) Right elbow pain Current visit: Yes Status: Acute will check xray DVT Prophylaxis: Lovenox Resuscitation Status: Full Code - Course Hospital Course: Chucho Solis MD: - Interventions to Obtain Goals PT Treatment Plan: Functional Activities, Gait Training, Therapeutic Exercise OT Treatment Plan: ADL (Basic Care), Balance Training, IADL, Pt./Family Education, Ther. Exercise for ADL
--- NOTE | 2017-08-28 15:29 | XRay Report ---
Indication: pain PROCEDURE: XR elbow RT min 3V: Encounter: Initial Comparison: None Findings: Nondisplaced radial head fracture with a small elbow joint effusion. No additional acute fracture. No dislocation. Impression: Closed posttraumatic radial head fracture. .
[2017-08-28] MEDS: ATORVASTATIN 10 MG TABLET PO SCH (20:09)
[2017-08-28] MEDS: TAMSULOSIN 0.4 MG CAPSULE PO SCH (20:09)
[2017-08-29] MEDS: HYDROCODONE/APAP 5mg/325mg TABLET PO PRN ×3 (00:59→20:06)
[2017-08-29] MEDS: LEVETIRACETAM 500 MG TABLET PO SCH ×2 (08:39→20:10)
[2017-08-29] MEDS: ASPIRIN *EC* 81 MG TABLET PO SCH (08:39)
[2017-08-29] MEDS: HYDRALAZINE 25 MG TABLET PO SCH ×3 (08:39→17:43)
[2017-08-29] MEDS: MAGNESIUM OXIDE 400 MG TABLET PO SCH ×2 (08:39→20:11)
[2017-08-29] MEDS: GABAPENTIN 100 MG CAPSULE PO SCH ×3 (08:39→20:08)
[2017-08-29] MEDS: FUROSEMIDE 20 MG TABLET PO SCH (08:40)
[2017-08-29] MEDS: METFORMIN 500 MG TABLET PO SCH ×2 (08:40→17:43)
[2017-08-29] MEDS: BACLOFEN 10 MG TABLET PO SCH ×3 (08:40→20:09)
[2017-08-29] MEDS: GlipiZIDE 5 MG TABLET PO SCH ×2 (08:41→17:43)
[2017-08-29] MEDS: LISINOPRIL 40 MG TABLET PO SCH (08:41)
[2017-08-29] MEDS: SENNA + DOCUSATE TABLET PO SCH ×3 (08:42→20:14)
[2017-08-29] MEDS: POLYETHYL GLYCOL 3350 17gm PACKET PO SCH (08:42)
[2017-08-29] MEDS: ENOXAPARIN 30 MG/0.3 ML INJECTION SQ SCH ×2 (08:51→20:12)
--- NOTE | 2017-08-29 13:14 | Orthopedic Consult Note ---
Orthopedic Consultation HPI - Consultation Info Consult Date: 08/29/17 Attending Physician: Chucho Solis MD - History of Present Illness Patient is a 47-year-old male who has right hemophoresis and expressive aphasia secondary to history of stroke. On 08/19 he lost his balance and fell. He was found to have a right hip fracture. He was taken to [facility] where he was admitted. On 08/20/17 he underwent a right heme arthroplasty by Dr. Minor. He continued to report right shoulder and elbow pain. Xrays completed, right nondisplaced radial head fracture noted. Patient has been in sling for comfort. PT has been working on ROM. Patient has limited ROM due to hemophoresis. Review of Systems - Constitutional Constitutional: Present: as per HPI - Musculoskeletal Musculoskeletal: Present: as per HPI, limited range of motion, muscle weakness - Neurological Neurological: Present: as per HPI PFSH Patient Stated Medical History Cerebrovascular Accident Yes Migraine Yes Paralysis Yes Seizures Yes Transient Ischemic Attacks ( Yes TIA) Dental Problems Yes: partials Dysphagia Yes Other HEENT Yes: WEARS GLASSES Coronary Artery Disease Yes Hypertension Yes Other Cardiology Yes: CHRONIC EDEMA LE Bronchitis Yes Sleep Apnea Yes Diabetes Mellitus Type 2 Yes Hx Incontinence Yes Osteoarthritis Yes Other Musculoskeletal Yes: CRUSH INJURY LT HIP/PELVIS Cellulitis Yes Other Infectious Yes: MULTIPLE OPEN SORES DOCUMENTED Depression Yes Clinic Medical History (Last Updated 08/24/17 @ 09:02 by Mae Diaz APRN) MYRON (obstructive sleep apnea) (Acute Medical) CVA (cerebral vascular accident) (Chronic Medical) Cerebral seizure (Chronic Medical) Diabetes (Chronic Medical) HTN (hypertension) (Chronic Medical) Hyperlipidemia (Chronic Medical) Osteoarthritis (Chronic Medical) Surgical History: Right hip arthoplasty- 08/20/17- Dr Minor at [place]. Cholecystectomy. CABG x3. Appendectomy. Liver biopsy. Left pelvis ORIF - Social History Smoking status: Never smoker Substance use type: does not use Alcohol intake frequency: does not drink Housing: house Household members: family (Brother) Current occupational status: disabled Current residence: Apartment/Private Home Medications Home Medications Medication Instructions Recorded Confirmed Type Aspirin [Adult Low Dose Aspirin EC] 81 mg PO DAILY 10/27/16 08/23/17 History Atorvastatin Calcium 10 mg PO HS 10/27/16 08/23/17 History Baclofen [Lioresal] 5 mg PO TID 10/27/16 08/23/17 History Furosemide [Lasix] 20 mg PO DAILY 10/27/16 08/23/17 History Gabapentin [Neurontin] 100 mg PO TID 10/27/16 08/23/17 History Hydralazine HCl 50 mg PO TID 10/27/16 08/23/17 History Lisinopril [Prinivil] 40 mg PO DAILY 10/27/16 08/23/17 History Magnesium Oxide [Magnesium] 400 mg PO BID 10/27/16 08/23/17 History Metformin HCl [Fortamet] 500 mg PO BID 10/27/16 08/23/17 History Metoprolol Succinate 25 mg PO BID 10/27/16 08/23/17 History Potassium Chloride [K-Dur] 10 meq PO DAILY 10/27/16 08/23/17 History Tamsulosin [Flomax] 0.4 mg PO HS 10/27/16 08/23/17 History glipiZIDE [Glipizide] 5 mg PO BID 10/27/16 08/23/17 History levETIRAcetam [Keppra Xr] 500 mg PO Q12HR 10/27/16 08/23/17 History clarithromycin 500 mg tablet 500 mg PO BID 01/31/17 08/23/17 History Allergies Allergy/AdvReac Type Severity Reaction Status Date / Time codeine Allergy Verified 10/26/16 22:56 Penicillins Allergy Verified 10/26/16 22:56 Sulfa (Sulfonamide Allergy Verified 10/26/16 22:56 Antibiotics) Exam - Constitutional Vital Signs: Temperature 98 F 08/29/17 07:26 Pulse Rate 60 08/29/17 08:00 Respiratory Rate 18 08/29/17 07:26 Blood Pressure 151/79 H 08/29/17 07:26 Pulse Oximetry 94 08/29/17 07:26 General: cooperative, well developed Orientation: alert Constitutional Comments: expressive aphasia. is able to communicate well. - RUE General: no obvious deformity Skin: wounds noted (right lateral elbow with serous drainage- cleansed and mepilex applied ) Range of Motion: Limited ROM of right elbow, with minimal tenderness Neurological: other (right hemiparesthesis ) - Labs Result Diagrams: 08/26/17 04:14 08/26/17 04:14 H & H 08/24/17 08/26/17 Range/Units 05:35 04:14 Hgb 11.9 L 11.2 L (13.5-17.5) GM/DL Hct 34.5 L 33.0 L (41-53) % Impression and Recommendation (1) Nondisplaced fracture of head of right radius Current visit: Yes Qualifiers: Encounter type: initial encounter Fracture type: closed Qualified Code(s) : S52.124A - Nondisplaced fracture of head of right radius, initial encounter for closed fracture Status: Acute Sling for comfort. PT/OT may perform active assist ROM. No weight bearing through right arm. Recommend repeating films in 2 weeks. Follow up with ortho outpatient. Hospital Course Summary Disclaimer: The visit summary below is not to be considered part of the above Progress Note. 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 Patient continues to have uncontrolled hypertension 180s systolic. Medication list reviewed carefully along with marked from Gerald. Different beta jonathan was reconciled on admission from medication list. Toprol-XL discontinued, patient placed on metoprolol tartrate, Lopressor 50 milligrams 3 times a day. Continue with lisinopril 40, hydralazine 50mg 3 times a day. Hgb is has remained stable at 11.9. Patient is on Keppra for history of seizures. Patient also takes clarithromycin 500 twice a day. Brother does confirm patient was on this prior to hospitalization, however, exact reason is unknown Monitor Accu-Cheks and continue on metformin twice a day. [place] as needed for postoperative pain control. Will add MiraLAX and senna plus twice a day for postoperative bowel motivation. Encouraged patient to work with PT and OT for ongoing strengthening At time of discharge medical care will return to primary care provider at [facility], Dr. Bro 08/25/2017 Patient was seen today secondary to reports of possible chest pain. Prior baseline is unknown, so will err on the side of caution. Start telemetry. Serial troponin. We'll obtain chest x-ray, as well as a right shoulder film due to concern for subluxation. GI upset is certainly a possibility, particularly since he is on clarithromycin. May need to get further information on that on Sunday from his PCP. We'll continue remainder current care. Assess lab in the morning for stability. Discussed with patient, he is in agreement with plan of care. 08/27/17 Overall appears to be medically stable. Given bradycardia will decreased Metoprolol to 50mg BID Will need to continue monitor BP. Did contact PCP office at [facility]- their old records from last January patient was not taking erythromycin. It is unclear exactly prescribed clarithromycin and for what reason. Will attempt to contact patient's brother regarding this medication. BGMs are well controlled on current regimen. Continue to encourage work with PT and OT for ongoing strengthening.
--- NOTE | 2017-08-29 13:52 | IRU Team Meeting ---
IRU Team Meeting - Nursing Bladder Assistive Devices Utilized:: Catheter Bladder Management Level of Assist: Total Assistance Bladder Frequency of Accidents: No accidents Bowel Assistive Devices Utilized:: Medication Bowel Management Level of Assist: Modified Independent Bowel Frequency of Accidents: No accidents Number of Bowel Accidents: 1 Vital Signs: Vital Signs - 24 hr 08/28/17 15:15 08/28/17 15:39 08/28/17 17:54 Temperature 98.5 F Pulse Rate 59 L 62 57 L Respiratory Rate 18 Blood Pressure 144/76 H 154/71 H Pulse Oximetry 97 08/28/17 20:43 08/29/17 00:00 08/29/17 07:26 Temperature 98.4 F 98 F Pulse Rate 60 51 L 56 L Respiratory Rate 18 18 Blood Pressure 143/75 H 151/79 H Pulse Oximetry 95 94 08/29/17 08:00 Temperature Pulse Rate 60 Respiratory Rate Blood Pressure Pulse Oximetry Current Medications: Hydrocodone Bitart/Acetaminophen ([place] 5/325) 1 - 2 tab PO Q4H PRN PRN Reason: Pain Last Admin: 08/29/17 11:55 Dose: 2 tab Al Hydroxide/Mg Hydroxide (Maalox Plus) 30 ml PO Q3H PRN PRN Reason: Indigestion Last Admin: 08/25/17 10:48 Dose: 30 ml Aspirin (Ecotrin) 81 mg PO DAILY [facility] Last Admin: 08/29/17 08:39 Dose: 81 mg Atorvastatin Calcium (Lipitor) 10 mg PO [facility] Last Admin: 08/28/17 20:09 Dose: 10 mg Baclofen (Lioresal) 5 mg PO TID [facility] Last Admin: 08/29/17 08:40 Dose: 5 mg Clonidine HCl (Catapres) 0.2 mg PO TID [facility] Last Admin: 08/29/17 08:39 Dose: 0.2 mg Cyclobenzaprine HCl (Flexeril) 5 mg PO TID PRN PRN Reason: Muscle spasm Last Admin: 08/28/17 06:12 Dose: 5 mg Enoxaparin Sodium (Lovenox) 30 mg SQ BID [facility] Last Admin: 08/29/17 08:51 Dose: 30 mg Furosemide (Lasix 20 Mg Tab) 20 mg PO DAILY [facility] Last Admin: 08/29/17 08:40 Dose: 20 mg Gabapentin (Neurontin) 100 mg PO TID [facility] Last Admin: 08/29/17 08:39 Dose: 100 mg Glipizide (Glucotrol) 5 mg PO BIDBS [facility] Last Admin: 08/29/17 08:41 Dose: 5 mg Hydralazine HCl (Apresoline) 50 mg PO WM [facility] Last Admin: 08/29/17 12:30 Dose: 50 mg Hydromorphone HCl (Dilaudid) 0.5 mg IM Q3H PRN PRN Reason: Pain uncontrolled by po meds Insulin Aspart (Novolog) 1 - 5 unit SQ SS PRN; Protocol PRN Reason: Hyperglycemia Last Admin: 08/27/17 21:39 Dose: 1 unit Levetiracetam (Keppra) 500 mg PO Q12HR [facility] Last Admin: 08/29/17 08:39 Dose: 500 mg Lisinopril (Prinivil) 40 mg PO DAILY [facility] Last Admin: 08/29/17 08:41 Dose: 40 mg Magnesium Hydroxide (Mom) 30 ml PO DAILY PRN PRN Reason: Constipation Magnesium Oxide (Magox) 400 mg PO BID [facility] Last Admin: 08/29/17 08:39 Dose: 400 mg Metformin HCl (Glucophage) 500 mg PO BIDBS [facility] Last Admin: 08/29/17 08:40 Dose: 500 mg Metoprolol Tartrate (Lopressor) 50 mg PO BIDWM [facility] Last Admin: 08/29/17 08:39 Dose: 50 mg Polyethylene Glycol (Miralax) 17 gm PO DAILY [facility] Last Admin: 08/29/17 08:42 Dose: Not Given Potassium Chloride (K-Dur 10 Meq Tablet) 10 meq PO WB [facility] Last Admin: 08/29/17 08:40 Dose: 10 meq Senna/Docusate Sodium (Senna Plus Tablet) 2 tab PO [facility] Last Admin: 08/28/17 20:10 Dose: Not Given Senna/Docusate Sodium (Senna Plus Tablet) 2 tab PO BID [facility] Last Admin: 08/29/17 08:42 Dose: Not Given Tamsulosin HCl (Flomax) 0.4 mg PO [facility] Last Admin: 08/28/17 20:09 Dose: 0.4 mg - Physical Therapy Bed, Chair, Wheelchair Transfer Assist: Maximal Assistance Ambulation Ability: Total Assistance, 1 Person Assist Ambulation Distance: 12 Wheelchair Propulsion Ability: Stand By Assist/Supervision, Household Exception Wheelchair Propulsion Distance: 103 Stair Climbing Ability: Patient Unsafe/Unable Car Transfer Ability: Moderate Assistance - Occupational Therapy Eating Ability: Stand By Assist/Supervision Grooming Ability: Stand By Assist/Supervision Bathing Ability: Moderate Assistance, 1 Person Assist Upper Body Dressing Ability: Stand By Assist/Supervision Lower Body Dressing Ability: Moderate Assistance Tub Transfer Assist: Patient Unsafe/Unable Toileting Assist: Total Assistance Toilet Transfer Assist: Moderate Assistance, 1 Person Assist - Goals Physical Therapy Goals: 08/29/17 Goals: 1.) Consistency with transfers requiring supervision. 2.) Ambulation going 50 feet with supervision. Occupational Therapy Goals: OT goals 08/29/17: 1.) Lower body dressing with minimal assistance. 2.) Toileting with minimal assistance. 3.) Toilet transfer with supervison. - Care Plan Anticipated Length of Stay (days): 14 Anticipated DC Destination: Home Health Service I have led this team conference and agree with the plan. Interventions/Goals: has fracture of R radial head-non displaced. Will protect with sling and allow gentle ROM
--- NOTE | 2017-08-29 13:57 | IRU Progress Note ---
- Subjective/Serverity of Illness Date: 08/29/17 xrays of R elbow show a non-displaced fracture of the radial head Exam Vital Signs: Temperature 98 F 08/29/17 07:26 Pulse Rate 60 08/29/17 08:00 Respiratory Rate 18 08/29/17 07:26 Blood Pressure 151/79 H 08/29/17 07:26 Pulse Oximetry 94 08/29/17 07:26 Height/Weight/BMI: Height 1.83 m Weight 100.3 kg Body Mass Index 29.9 - Routine Extremities Exam Comments: swelling and tenderness of right eibow decreased ROM IRU A/P (1) S/P hip hemiarthroplasty Problem details: Surgery done for subcapital , femoral neck Fx Current visit: Yes Status: Acute (2) Hypertension Qualifiers: Hypertension type: unspecified Qualified Code(s): I10 - Essential (primary ) hypertension Current visit: Yes Status: Acute (3) Right shoulder pain Qualifiers: Chronicity: acute Qualified Code(s): M25.511 - Pain in right shoulder Current visit: No Status: Acute (4) Right elbow pain Current visit: Yes Status: Acute DVT Prophylaxis: Lovenox Resuscitation Status: Full Code - Course Hospital Course: Chucho Solis MD: - Interventions to Obtain Goals PT Treatment Plan: Functional Activities, Gait Training, Therapeutic Exercise OT Treatment Plan: ADL (Basic Care), Balance Training, IADL, Pt./Family Education, Ther. Exercise for ADL Goals Progress/Modifications: continue PT but be protective of R elbow
[2017-08-29] MEDS: ATORVASTATIN 10 MG TABLET PO SCH (20:11)
[2017-08-29] MEDS: TAMSULOSIN 0.4 MG CAPSULE PO SCH (20:12)
[2017-08-30] MEDS: HYDROCODONE/APAP 5mg/325mg TABLET PO PRN ×3 (06:25→17:50)
[2017-08-30] MEDS: LEVETIRACETAM 500 MG TABLET PO SCH ×2 (08:53→20:03)
[2017-08-30] MEDS: ASPIRIN *EC* 81 MG TABLET PO SCH (08:53)
[2017-08-30] MEDS: MAGNESIUM OXIDE 400 MG TABLET PO SCH ×2 (08:53→20:03)
[2017-08-30] MEDS: GlipiZIDE 5 MG TABLET PO SCH ×2 (08:53→17:50)
[2017-08-30] MEDS: BACLOFEN 10 MG TABLET PO SCH ×3 (08:53→20:03)
[2017-08-30] MEDS: METFORMIN 500 MG TABLET PO SCH ×2 (08:54→17:50)
[2017-08-30] MEDS: LISINOPRIL 40 MG TABLET PO SCH (08:54)
[2017-08-30] MEDS: HYDRALAZINE 25 MG TABLET PO SCH ×3 (08:54→17:50)
[2017-08-30] MEDS: GABAPENTIN 100 MG CAPSULE PO SCH ×3 (08:55→20:03)
[2017-08-30] MEDS: POLYETHYL GLYCOL 3350 17gm PACKET PO SCH (08:55)
[2017-08-30] MEDS: ENOXAPARIN 30 MG/0.3 ML INJECTION SQ SCH ×2 (08:55→20:03)
[2017-08-30] MEDS: FUROSEMIDE 20 MG TABLET PO SCH (08:55)
[2017-08-30] MEDS: SENNA + DOCUSATE TABLET PO SCH ×2 (08:56→20:03)
--- NOTE | 2017-08-30 14:36 | IRU Progress Note ---
- Subjective/Serverity of Illness Date: 08/30/17 was complaining of R hip pain portable xray shows hip in good position and no evidence of fracture Exam Vital Signs: Temperature 97.5 F 08/30/17 08:00 Pulse Rate 55 L 08/30/17 14:25 Respiratory Rate 08/30/17 08:00 Blood Pressure 144/71 H 08/30/17 14:25 Pulse Oximetry 97 08/30/17 08:00 Height/Weight/BMI: Height 1.83 m Weight 100.3 kg Body Mass Index 29.9 - Constitutional Present: mild distress - Detailed Lower Extremity Exam Hip: Right swelling, Right tenderness IRU A/P (1) S/P hip hemiarthroplasty Problem details: Surgery done for subcapital , femoral neck Fx Current visit: Yes Status: Acute continue with therapy (2) Hypertension Qualifiers: Hypertension type: unspecified Qualified Code(s): I10 - Essential (primary ) hypertension Current visit: Yes Status: Acute (3) Right shoulder pain Qualifiers: Chronicity: acute Qualified Code(s): M25.511 - Pain in right shoulder Current visit: No Status: Acute (4) Right elbow pain Current visit: Yes Status: Acute DVT Prophylaxis: Lovenox Resuscitation Status: Full Code - Course Hospital Course: Chucho Solis MD: - Interventions to Obtain Goals PT Treatment Plan: Functional Activities, Gait Training, Therapeutic Exercise OT Treatment Plan: ADL (Basic Care), Balance Training, IADL, Pt./Family Education, Ther. Exercise for ADL
--- NOTE | 2017-08-30 15:19 | XRay Report ---
Indication: right hip pain PROCEDURE: XR hip RT 1V: Encounter: Initial Comparison: October 26, 2016 Findings: Postoperative changes of right hip replacement are noted. Surgical skin alyssa are noted. No evidence of hardware loosening or failure. Arterial vascular calcifications. No acute fracture. Impression: Findings as above. .
--- NOTE | 2017-08-30 16:50 | Wound Care Progress Note ---
Wound Center Progress Note: Pt seen for wound consultation r/t small open area to R buttock. Pt resting in bed watching TV, no complaints of pain. R arm in sling. Pt speaks in a whisper and uses hand gestures to communicate. Chris WEI reports she was told of small open area to buttocks by beater lead nurse. It is noted in charting the pt is refusing turns. Nursing staff has been applying barrier cream to this area. When asked about sore to R buttock, pt denies any sore to bottom and declines assessment. Wound not visualized at this time. Pt did show me wound to his R elbow. There is a small open area to R anterior elbow, dressing had dried scant serous drainage, no active drainage, no pain. When asked how long pt has had this wound, he pointed to the date on his erase board, 08/23/17. Wound bed: scant yellow slough. Periwound: blanchable erythema. Spoke to Chris WEI, stated if wound to R buttock progressed to consult wound care team PRN. If pt allows dressing to R elbow: apply hydrofera blue to wound bed, cover with Mepilex, change q 3 days.
--- NOTE | 2017-08-30 16:54 | Wound Care Progress Note ---
Wound Management - Patient Status Premedicated Prior to Dressing Change: No - Wound Right Anterior Elbow Wound Type: Open Wound Length: 0.5 Width: 0.6 Depth: 0.1 Wound Bed Appearance: Slough Tunneling: No Undermining: No Drainage Amount: None Drainage Odor: No Odor Secondary Dressing: Foam Dressing (Wound tx plan: Hydrofera blue to wound bed, cover with Mepilex, change q 3 days.)
[2017-08-30] MEDS: TAMSULOSIN 0.4 MG CAPSULE PO SCH (20:03)
[2017-08-30] MEDS: ATORVASTATIN 10 MG TABLET PO SCH (20:03)
[2017-08-31] MEDS: HYDROCODONE/APAP 5mg/325mg TABLET PO PRN ×3 (06:23→21:15)
[2017-08-31] MEDS: GlipiZIDE 5 MG TABLET PO SCH ×2 (08:47→17:24)
[2017-08-31] MEDS: METFORMIN 500 MG TABLET PO SCH ×2 (08:48→17:24)
[2017-08-31] MEDS: HYDRALAZINE 25 MG TABLET PO SCH ×3 (08:48→17:24)
[2017-08-31] MEDS: BACLOFEN 10 MG TABLET PO SCH ×3 (08:49→21:11)
[2017-08-31] MEDS: ASPIRIN *EC* 81 MG TABLET PO SCH (08:49)
[2017-08-31] MEDS: GABAPENTIN 100 MG CAPSULE PO SCH ×3 (08:51→21:14)
[2017-08-31] MEDS: FUROSEMIDE 20 MG TABLET PO SCH (08:51)
[2017-08-31] MEDS: LEVETIRACETAM 500 MG TABLET PO SCH ×2 (08:52→21:13)
[2017-08-31] MEDS: LISINOPRIL 40 MG TABLET PO SCH (08:52)
[2017-08-31] MEDS: MAGNESIUM OXIDE 400 MG TABLET PO SCH ×2 (08:52→21:12)
[2017-08-31] MEDS: SENNA + DOCUSATE TABLET PO SCH ×2 (08:52→21:14)
[2017-08-31] MEDS: POLYETHYL GLYCOL 3350 17gm PACKET PO SCH (08:54)
[2017-08-31] MEDS: ENOXAPARIN 30 MG/0.3 ML INJECTION SQ SCH ×2 (09:58→21:10)
--- NOTE | 2017-08-31 11:43 | IRU Progress Note ---
- Subjective/Serverity of Illness Date: 08/31/17 Still having pain in his right upper extremity and right hip region. Is slowly progressing with therapy. Exam Vital Signs: Temperature 97.5 F 08/31/17 07:45 Pulse Rate 55 L 08/31/17 08:00 Respiratory Rate 18 08/31/17 07:45 Blood Pressure 158/78 H 08/31/17 07:45 Pulse Oximetry 98 08/31/17 07:45 Height/Weight/BMI: Height 1.83 m Weight 100.3 kg Body Mass Index 29.9 - Constitutional Present: mild distress - Detailed Upper Extremity Exam Elbow: Right swelling, Right tenderness over the lateral epicondyle, Right decreased ROM - Routine Neurological Exam Present: alert difficulty with expression IRU A/P (1) S/P hip hemiarthroplasty Problem details: Surgery done for subcapital , femoral neck Fx Current visit: Yes Status: Acute (2) Hypertension Qualifiers: Hypertension type: unspecified Qualified Code(s): I10 - Essential (primary ) hypertension Current visit: Yes Status: Acute (3) Right shoulder pain Qualifiers: Chronicity: acute Qualified Code(s): M25.511 - Pain in right shoulder Current visit: No Status: Acute (4) Right elbow pain Current visit: Yes Status: Acute (5) Nondisplaced fracture of head of right radius Qualifiers: Encounter type: initial encounter Fracture type: closed Qualified Code(s) : S52.124A - Nondisplaced fracture of head of right radius, initial encounter for closed fracture Current visit: Yes Status: Acute DVT Prophylaxis: Lovenox GI Prophylaxis: other Resuscitation Status: Full Code - Course Hospital Course: Chucho Solis MD: - Interventions to Obtain Goals PT Treatment Plan: Functional Activities, Gait Training, Therapeutic Exercise OT Treatment Plan: ADL (Basic Care), Balance Training, IADL, Pt./Family Education, Ther. Exercise for ADL
[2017-08-31] MEDS: INSULIN ASPART 100unit/ml INJECTION SQ PRN (21:10)
[2017-08-31] MEDS: CYCLOBENZAPRINE 5 MG TABLET PO PRN (21:11)
[2017-08-31] MEDS: ATORVASTATIN 10 MG TABLET PO SCH (21:13)
[2017-08-31] MEDS: TAMSULOSIN 0.4 MG CAPSULE PO SCH (21:13)
[2017-09-01] MEDS: HYDROCODONE/APAP 5mg/325mg TABLET PO PRN ×3 (06:17→20:00)
[2017-09-01] MEDS: GlipiZIDE 5 MG TABLET PO SCH ×2 (09:05→17:30)
[2017-09-01] MEDS: HYDRALAZINE 25 MG TABLET PO SCH ×3 (09:05→17:30)
[2017-09-01] MEDS: BACLOFEN 10 MG TABLET PO SCH ×3 (09:06→20:02)
[2017-09-01] MEDS: METFORMIN 500 MG TABLET PO SCH ×2 (09:06→17:30)
[2017-09-01] MEDS: ASPIRIN *EC* 81 MG TABLET PO SCH (09:06)
[2017-09-01] MEDS: FUROSEMIDE 20 MG TABLET PO SCH (09:07)
[2017-09-01] MEDS: ENOXAPARIN 30 MG/0.3 ML INJECTION SQ SCH ×2 (09:07→20:03)
[2017-09-01] MEDS: GABAPENTIN 100 MG CAPSULE PO SCH ×3 (09:07→20:02)
[2017-09-01] MEDS: LISINOPRIL 40 MG TABLET PO SCH (09:08)
[2017-09-01] MEDS: LEVETIRACETAM 500 MG TABLET PO SCH ×2 (09:08→20:02)
[2017-09-01] MEDS: POLYETHYL GLYCOL 3350 17gm PACKET PO SCH (09:08)
[2017-09-01] MEDS: MAGNESIUM OXIDE 400 MG TABLET PO SCH ×2 (09:08→20:01)
[2017-09-01] MEDS: SENNA + DOCUSATE TABLET PO SCH ×2 (09:08→20:08)
[2017-09-01] MEDS: CYCLOBENZAPRINE 5 MG TABLET PO PRN (20:01)
[2017-09-01] MEDS: TAMSULOSIN 0.4 MG CAPSULE PO SCH (20:02)
[2017-09-01] MEDS: ATORVASTATIN 10 MG TABLET PO SCH (20:03)
[2017-09-02] MEDS: HYDROCODONE/APAP 5mg/325mg TABLET PO PRN ×3 (06:12→20:55)
[2017-09-02] MEDS: POLYETHYL GLYCOL 3350 17gm PACKET PO SCH (09:13)
[2017-09-02] MEDS: METFORMIN 500 MG TABLET PO SCH ×2 (09:14→18:01)
[2017-09-02] MEDS: HYDRALAZINE 25 MG TABLET PO SCH ×3 (09:14→18:01)
[2017-09-02] MEDS: GlipiZIDE 5 MG TABLET PO SCH ×2 (09:14→18:00)
[2017-09-02] MEDS: LISINOPRIL 40 MG TABLET PO SCH (09:15)
[2017-09-02] MEDS: ASPIRIN *EC* 81 MG TABLET PO SCH (09:15)
[2017-09-02] MEDS: BACLOFEN 10 MG TABLET PO SCH ×3 (09:15→20:52)
[2017-09-02] MEDS: GABAPENTIN 100 MG CAPSULE PO SCH ×3 (09:15→20:53)
[2017-09-02] MEDS: SENNA + DOCUSATE TABLET PO SCH ×2 (09:16→20:54)
[2017-09-02] MEDS: FUROSEMIDE 20 MG TABLET PO SCH (09:16)
[2017-09-02] MEDS: LEVETIRACETAM 500 MG TABLET PO SCH ×2 (09:16→20:53)
[2017-09-02] MEDS: MAGNESIUM OXIDE 400 MG TABLET PO SCH ×2 (09:16→20:54)
[2017-09-02] MEDS: ENOXAPARIN 30 MG/0.3 ML INJECTION SQ SCH ×2 (09:16→20:53)
[2017-09-02] MEDS: INSULIN ASPART 100unit/ml INJECTION SQ PRN ×2 (11:35→20:56)
[2017-09-02] MEDS: ATORVASTATIN 10 MG TABLET PO SCH (20:51)
[2017-09-02] MEDS: TAMSULOSIN 0.4 MG CAPSULE PO SCH (20:54)
[2017-09-02] MEDS: CYCLOBENZAPRINE 5 MG TABLET PO PRN (20:56)
[2017-09-03] MEDS: HYDROCODONE/APAP 5mg/325mg TABLET PO PRN ×3 (06:27→19:43)
[2017-09-03] MEDS: GABAPENTIN 100 MG CAPSULE PO SCH ×3 (09:56→22:32)
[2017-09-03] MEDS: MAGNESIUM OXIDE 400 MG TABLET PO SCH ×2 (09:56→22:32)
[2017-09-03] MEDS: LEVETIRACETAM 500 MG TABLET PO SCH ×2 (09:56→22:32)
[2017-09-03] MEDS: ASPIRIN *EC* 81 MG TABLET PO SCH (09:56)
[2017-09-03] MEDS: ENOXAPARIN 30 MG/0.3 ML INJECTION SQ SCH ×2 (09:56→22:32)
[2017-09-03] MEDS: LISINOPRIL 40 MG TABLET PO SCH (09:56)
[2017-09-03] MEDS: SENNA + DOCUSATE TABLET PO SCH ×2 (09:56→22:36)
[2017-09-03] MEDS: GlipiZIDE 5 MG TABLET PO SCH ×2 (09:57→17:36)
[2017-09-03] MEDS: HYDRALAZINE 25 MG TABLET PO SCH ×4 (09:57→17:37)
[2017-09-03] MEDS: METFORMIN 500 MG TABLET PO SCH ×2 (09:57→17:36)
[2017-09-03] MEDS: FUROSEMIDE 20 MG TABLET PO SCH (09:57)
[2017-09-03] MEDS: BACLOFEN 10 MG TABLET PO SCH ×3 (09:57→22:34)
[2017-09-03] MEDS: POLYETHYL GLYCOL 3350 17gm PACKET PO SCH (09:58)
[2017-09-03] MEDS ORDERED: FALL RISK - PHARMACY CONSULT MC ONE (11:20)
--- NOTE | 2017-09-03 13:50 | Progress Note ---
- Date 09/03/17 Subjective: Hermes was seen after lunch. He was appropriate and shook my hand in greeting ( although he used his left hand). He was in no acute distress, but when I asked if he was hurting he used his left arm to point to his right shoulder and elbow. An x-ray done on 08/25 was neg. His responses are limited to one-word answers, usually "Yes". He has been eating well. Last BM on 09/01. Objective Vital signs: Temperature 98.1 F 09/03/17 07:19 Pulse Rate 52 L 09/03/17 12:27 Respiratory Rate 18 09/03/17 07:19 Blood Pressure 143/68 H 09/03/17 12:27 Pulse Oximetry 98 09/03/17 07:19 Height/Weight/BMI: Height 1.83 m Weight 99.3 kg Body Mass Index 29.9 - Constitutional Present: no acute distress, well nourished, well developed - Routine HEENT Exam Head: Present: normocephalic Eye: Present: PERRL. Absent: conjunctival icterus, scleral injection - Routine Respiratory Exam Present: CTA bilaterally - Routine Cardiovascular Exam Present: RRR, S1, S2 - Routine Abdominal Exam Present: soft, normoactive bowel sounds, non distended, non tender - Routine Extremities Exam Present: pulses intact, normal capillary refill Comments: right arm in sling - Routine Musculoskeletal Exam Musculoskeletal: Absent: moving extremities well - Routine Skin Exam Present: intact, dry, warm - Routine Neurological Exam Present: alert, motor deficit (right hemiparesis). Absent: normal speech ( expressive aphasia) - Routine Psychiatric Exam Present: cooperative Results - Labs CBC & Chem 7: 08/26/17 04:14 08/26/17 04:14 Assessment and Plan (1) S/P hip hemiarthroplasty Problem details: Surgery done for subcapital , femoral neck Fx Current visit: Yes Status: Acute Assessment and Plan: Impression Uncontrolled blood pressure - improved with medication adjustments Status post right humeral arthroplasty-repaired 08/20/17 right nondisplaced radial head fracture Fall Hx of CVA with right hemiparesis Chronic dysphasia Coronary artery disease Hypertension Diabetes Seizures Obstructive sleep apnea CAD with history of CABG, 2016 Plan Sling to right arm - ortho recommends rechecking films ~09/11/17 HTN - increase hydralazine from 50 to 75 mg TID. Consider further w/u for HTN and r/o pheochromocytoma. He's on multiple classes of antiHTN with suboptimal control, including metoprolol, clonidine, lasix, furosemide, lisinopril + hydralazine. Bradycardia in the 50s precludes increasing BB. Will discuss with attending. Check CBC, CMP, mg tomorrow am. BGMs overall stable. DVT Prophylaxis: Lovenox Resuscitation Status: Full Code - Physician Narrative Physician: Zee Izquierdo MD Narrative: Date: 09/03/17 Time: 1949 I have independently evaluated and examined this patient. I reviewed the chart, the patient's history, and the [employer]OW[employer] ENGINEER/PA's documented findings as above. We discussed and formulated the assessment and plan as above with additions as below: Mr. Ling was watching television when seen earlier this evening. He continues to describe significant pain in his right arm and leg-pointing to indicate areas of pain. He additionally nodded yes when asked if he is ever seen a heart or kidney doctor who might have evaluated his high blood pressure but could not identify which financial analysis advisor he is previously seen nor could he be verbalize what testing had been done. He indicated that he feels puffy but denied dyspnea. Regular rhythm with soft systolic murmur +1 pitting edema RLE, trace-+1 edema LLE Labs being checked in a.m.-if unremarkable would give several doses of IV Lasix to improve volume status and determine if that helps blood pressure in addition to changes already described. May need to clarify with PCP if prior workup for hypertension has been undertaken or what financial analysis advisor patient has seen. Hospital Course Summary Disclaimer: The visit summary below is not to be considered part of the above Progress Note. 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 Patient continues to have uncontrolled hypertension 180s systolic. Medication list reviewed carefully along with marked from Gerald. Different beta jonathan was reconciled on admission from medication list. Toprol-XL discontinued, patient placed on metoprolol tartrate, Lopressor 50 milligrams 3 times a day. Continue with lisinopril 40, hydralazine 50mg 3 times a day. Hgb is has remained stable at 11.9. Patient is on Keppra for history of seizures. Patient also takes clarithromycin 500 twice a day. Brother does confirm patient was on this prior to hospitalization, however, exact reason is unknown Monitor Accu-Cheks and continue on metformin twice a day. [place] as needed for postoperative pain control. Will add MiraLAX and senna plus twice a day for postoperative bowel motivation. Encouraged patient to work with PT and OT for ongoing strengthening At time of discharge medical care will return to primary care provider at [facility], Dr. Bro 08/25/2017 Patient was seen today secondary to reports of possible chest pain. Prior baseline is unknown, so will err on the side of caution. Start telemetry. Serial troponin. We'll obtain chest x-ray, as well as a right shoulder film due to concern for subluxation. GI upset is certainly a possibility, particularly since he is on clarithromycin. May need to get further information on that on Sunday from his PCP. We'll continue remainder current care. Assess lab in the morning for stability. Discussed with patient, he is in agreement with plan of care. 08/27/17 Overall appears to be medically stable. Given bradycardia will decreased Metoprolol to 50mg BID Will need to continue monitor BP. Did contact PCP office at [facility]- their old records from last January patient was not taking erythromycin. It is unclear exactly prescribed clarithromycin and for what reason. Will attempt to contact patient's brother regarding this medication. BGMs are well controlled on current regimen. Continue to encourage work with PT and OT for ongoing strengthening. 09/03/17 Sling to right arm - ortho recommends rechecking films ~09/11/17 HTN - increase hydralazine from 50 to 75 mg TID. Consider further w/u for HTN and r/o pheochromocytoma. He's on multiple classes of antiHTN with suboptimal control, including metoprolol, clonidine, lasix, furosemide, lisinopril + hydralazine. Bradycardia in the 50s precludes increasing BB.
--- NOTE | 2017-09-03 15:09 | IRU Progress Note ---
- Subjective/Serverity of Illness Date: 09/03/17 Mr. Ling is here after repair of a right hip fracture. He has a remote history of CVA with right hemiparesis. The patient fell at home apparently on August 20 sustaining a right hip fracture. He was taken [facility] for this was repaired by Dr. Salgado. Postoperatively he did have quite a bit of hypertension. Blood pressures continued to be a bit elevated. After arriving here he did complain of elbow pain. Radiographs were obtained demonstrating a nondisplaced closed fracture of the right radial head. He was seen by Dr. Angel who recommended a sling and conservative management. The patient continues to complain of discomfort in the right elbow area. Also complains of pain in the right leg as anticipated. Neurologically he seems to be stable to present time. Tends to speak in a whisper. He is cooperative and resting with therapy. He is able to ambulate with a hemiwalker. Medical issues were actively monitoring and managing as follows: 1. Right hip fracture and right radial head fracture with pain 2. Diabetes mellitus type 2 with sugars adequately controlled at present on sliding scale and oral agents 3. Hypertension: Blood pressures continued to be a bit elevated. Hospitalists to manage. 4. Remote history of CVA with right hemiparesis Exam Vital Signs: Temperature 98.1 F 09/03/17 07:19 Pulse Rate 52 L 09/03/17 12:27 Respiratory Rate 18 09/03/17 07:19 Blood Pressure 143/68 H 09/03/17 12:27 Pulse Oximetry 98 09/03/17 07:19 Height/Weight/BMI: Height 1.83 m Weight 99.3 kg Body Mass Index 29.9 - Constitutional Present: mild distress (pain in right hip and right elbow), well nourished, well developed, cooperative - Routine HEENT Exam Head: Present: normocephalic Eye: Present: EOMI ENT: Present: mucous membranes moist, oropharynx clear - Routine Neck Exam Present: supple - Routine Respiratory Exam Present: CTA bilaterally. Absent: wheezes - Routine Cardiovascular Exam Present: RRR, S1, S2, murmur (systolic 2nd right interspace?) - Routine Abdominal Exam Present: soft, normoactive bowel sounds, non distended. Absent: tenderness - Routine Extremities Exam Present: no edema, normal capillary refill - Routine Skin Exam Present: dry, warm - Routine Neurological Exam Present: alert, oriented X3, CN II-XII intact Reduced strength right arm and leg - Routine Psychiatric Exam Present: normal affect, cooperative Results IRU - Labs Labs: Have reviewed other providers notes, imaging and labs. IRU A/P (1) S/P hip hemiarthroplasty Problem details: Surgery done for subcapital , femoral neck Fx Current visit: Yes Status: Acute Patient complains of pain in the right hip as anticipated. Nevertheless, he is cooperative with therapy and making functional gains. (2) Diabetes mellitus type 2 in nonobese Current visit: Yes Status: Chronic Blood sugars are reviewed. He remains on glipizide and sliding scale. Sugars are adequately controlled at present. (3) Hypertension Qualifiers: Hypertension type: essential hypertension Qualified Code(s): I10 - Essential (primary) hypertension Current visit: Yes Status: Chronic Blood pressures continue to be a bit elevated. Management per hospitalists. (4) Nondisplaced fracture of head of right radius Qualifiers: Encounter type: initial encounter Fracture type: closed Qualified Code(s) : S52.124A - Nondisplaced fracture of head of right radius, initial encounter for closed fracture Current visit: Yes Status: Acute Patient remains in a sling with conservative management. He was seen by Dr. Angel. Does complain of pain in this area. DVT Prophylaxis: Lovenox Resuscitation Status: Full Code - Course Hospital Course: Chucho Solis MD: 09/03/17 15:14 Pain in right elbow and right hip as anticipated. Blood sugars are controlled. Blood pressures remain a bit elevated. - Interventions to Obtain Goals PT Treatment Plan: Functional Activities, Gait Training, Therapeutic Exercise OT Treatment Plan: ADL (Basic Care), Balance Training, IADL, Pt./Family Education, Ther. Exercise for ADL Goals Progress/Modifications: Patient is progressing with therapy and able to ambulate with a hemiwalker. Does complain of pain in the right elbow. At present we will not change any management in this regard. His blood sugars are reviewed and appear to be adequately controlled. He does not display evidence of any new neurologic events and does have history of CVA remotely.
[2017-09-03] MEDS: INSULIN ASPART 100unit/ml INJECTION SQ PRN (22:31)
[2017-09-03] MEDS: TAMSULOSIN 0.4 MG CAPSULE PO SCH (22:32)
[2017-09-03] MEDS: ATORVASTATIN 10 MG TABLET PO SCH (22:33)
[2017-09-04] MEDS: HYDROCODONE/APAP 5mg/325mg TABLET PO PRN ×2 (06:25→15:29)
[2017-09-04] MEDS: LEVETIRACETAM 500 MG TABLET PO SCH ×2 (08:39→21:40)
[2017-09-04] MEDS: METFORMIN 500 MG TABLET PO SCH ×2 (08:39→17:58)
[2017-09-04] MEDS: ASPIRIN *EC* 81 MG TABLET PO SCH (08:39)
[2017-09-04] MEDS: GABAPENTIN 100 MG CAPSULE PO SCH ×3 (08:39→21:40)
[2017-09-04] MEDS: FUROSEMIDE 20 MG TABLET PO SCH (08:39)
[2017-09-04] MEDS: LISINOPRIL 40 MG TABLET PO SCH (08:39)
[2017-09-04] MEDS: MAGNESIUM OXIDE 400 MG TABLET PO SCH ×2 (08:40→21:40)
[2017-09-04] MEDS: ENOXAPARIN 30 MG/0.3 ML INJECTION SQ SCH ×2 (08:40→21:40)
[2017-09-04] MEDS: HYDRALAZINE 25 MG TABLET PO SCH ×3 (08:40→17:58)
[2017-09-04] MEDS: GlipiZIDE 5 MG TABLET PO SCH ×2 (08:40→17:57)
[2017-09-04] MEDS: BACLOFEN 10 MG TABLET PO SCH ×3 (08:40→21:39)
[2017-09-04] MEDS: POLYETHYL GLYCOL 3350 17gm PACKET PO SCH (08:41)
[2017-09-04] MEDS: SENNA + DOCUSATE TABLET PO SCH ×2 (09:44→21:40)
[2017-09-04] MEDS: CYCLOBENZAPRINE 5 MG TABLET PO PRN (09:44)
--- NOTE | 2017-09-04 12:43 | IRU Progress Note ---
- Subjective/Serverity of Illness Date: 09/04/17 Jorge was reassessed in his room on inpatient rehabilitation. His speech appears to be a bit worse today. He is able to nod his head and begin a whisper at times. Seems to have word finding difficulty. Indicates his stroke was sometime in the last year. Continues to have pain in the right elbow as anticipated secondary to the radial head fracture. He is cooperative with therapy. He is able to ambulate with a hemiwalker 63 ft with SBA. His blood pressures continue to run a bit high. I imagine this is related to his pain in the right elbow. Exam Vital Signs: Temperature 97.8 F 09/04/17 08:00 Pulse Rate 52 L 09/04/17 08:00 Respiratory Rate 16 09/04/17 08:00 Blood Pressure 152/75 H 09/04/17 08:00 Pulse Oximetry 94 09/04/17 08:00 Height/Weight/BMI: Height 1.83 m Weight 99.3 kg Body Mass Index 29.9 - Constitutional Present: mild distress (right elbow), well nourished, well developed, cooperative - Routine HEENT Exam Eye: Present: EOMI ENT: Present: mucous membranes moist, oropharynx clear - Routine Neck Exam Present: supple - Routine Respiratory Exam Present: CTA bilaterally. Absent: wheezes - Routine Cardiovascular Exam Present: RRR, S1, S2. Absent: murmur - Routine Abdominal Exam Present: soft, normoactive bowel sounds, non distended. Absent: tenderness - Routine Extremities Exam Present: no edema, normal capillary refill - Routine Skin Exam Present: dry, warm - Routine Neurological Exam Present: alert, CN II-XII intact, motor deficit (right upper extremity nearly flaccid. Able to ambulate however with right lower extremity even though it is weak.) - Routine Psychiatric Exam Present: normal affect, anxious IRU A/P (1) S/P hip hemiarthroplasty Problem details: Surgery done for subcapital , femoral neck Fx Current visit: Yes Status: Acute Seems to be stable with regard to his right hip fracture and repair. Ambulating is improving. (2) Diabetes mellitus type 2 in nonobese Current visit: Yes Status: Chronic Blood sugars are reviewed and looked excellent. (3) Hypertension Qualifiers: Hypertension type: essential hypertension Qualified Code(s): I10 - Essential (primary) hypertension Current visit: Yes Status: Chronic Blood pressures continue to run a bit high. (4) Nondisplaced fracture of head of right radius Qualifiers: Encounter type: initial encounter Fracture type: closed Qualified Code(s) : S52.124A - Nondisplaced fracture of head of right radius, initial encounter for closed fracture Current visit: Yes Status: Acute DVT Prophylaxis: Lovenox Resuscitation Status: Full Code - Course Hospital Course: Chucho Solis MD: 09/03/17 15:14 Pain in right elbow and right hip as anticipated. Blood sugars are controlled. Blood pressures remain a bit elevated. 09/04/17 12:44 Progressing with therapy. Blood sugars look excellent. Pain in right elbow seems to be a major issue. - Interventions to Obtain Goals PT Treatment Plan: Functional Activities, Gait Training, Therapeutic Exercise OT Treatment Plan: ADL (Basic Care), Balance Training, IADL, Pt./Family Education, Ther. Exercise for ADL Goals Progress/Modifications: I reviewed the situation with the patient's right elbow. He is wearing a sling at the present time. He does have hydromorphone and hydrocodone available for pain relief. At this time I'm uncertain as mentions we can do to alleviate that problem. He is progressing with therapy and appears to have a generally positive attitude. His blood pressures remain a bit elevated. Management of that per hospitalists. Blood sugars look good.
--- NOTE | 2017-09-04 14:02 | IRU Team Meeting ---
IRU Team Meeting - Nursing Bladder Assistive Devices Utilized:: Catheter Bladder Management Level of Assist: Total Assistance Bladder Frequency of Accidents: No accidents Bowel Assistive Devices Utilized:: Medication Bowel Management Level of Assist: Modified Independent Bowel Frequency of Accidents: No accidents Number of Bowel Accidents: 1 Vital Signs: Vital Signs - 24 hr 09/03/17 15:50 09/03/17 16:00 09/03/17 20:34 Temperature 98.0 F 98.5 F Pulse Rate 53 L 53 L 66 Respiratory Rate 16 18 Blood Pressure 145/75 H 131/68 Pulse Oximetry 96 95 09/04/17 08:00 09/04/17 13:13 Temperature 97.8 F Pulse Rate 52 L 53 L Respiratory Rate 16 16 Blood Pressure 152/75 H 129/69 Pulse Oximetry 94 100 Current Medications: Hydrocodone Bitart/Acetaminophen ([place] 5/325) 1 - 2 tab PO Q4H PRN PRN Reason: Pain Last Admin: 09/04/17 06:25 Dose: 2 tab Al Hydroxide/Mg Hydroxide (Maalox Plus) 30 ml PO Q3H PRN PRN Reason: Indigestion Last Admin: 08/25/17 10:48 Dose: 30 ml Aspirin (Ecotrin) 81 mg PO DAILY [facility] Last Admin: 09/04/17 08:39 Dose: 81 mg Atorvastatin Calcium (Lipitor) 10 mg PO [facility] Last Admin: 09/03/17 22:33 Dose: 10 mg Baclofen (Lioresal) 5 mg PO TID [facility] Last Admin: 09/04/17 08:40 Dose: 5 mg Clonidine HCl (Catapres) 0.2 mg PO TID [facility] Last Admin: 09/04/17 08:39 Dose: 0.2 mg Cyclobenzaprine HCl (Flexeril) 5 mg PO TID PRN PRN Reason: Muscle spasm Last Admin: 09/04/17 09:44 Dose: 5 mg Enoxaparin Sodium (Lovenox) 30 mg SQ BID [facility] Last Admin: 09/04/17 08:40 Dose: 30 mg Furosemide (Lasix 20 Mg Tab) 20 mg PO DAILY [facility] Last Admin: 09/04/17 08:39 Dose: 20 mg Gabapentin (Neurontin) 100 mg PO TID [facility] Last Admin: 09/04/17 08:39 Dose: 100 mg [facility]otrol) [facility] Last Admin: 09/04/17 08:40 Dose: 5 mg Hydralazine HCl (Apresoline) 75 mg PO WM [facility] Last Admin: 09/04/17 13:16 Dose: 75 mg Hydromorphone HCl (Dilaudid) 0.5 mg IM Q3H PRN PRN Reason: Pain uncontrolled by po meds Insulin Aspart (Novolog) 1 - 5 unit SQ SS PRN; Protocol PRN Reason: Hyperglycemia Last Admin: 09/03/17 22:31 Dose: 1 unit Levetiracetam (Keppra) 500 mg PO Q12HR [facility] Last Admin: 09/04/17 08:39 Dose: 500 mg Lisinopril (Prinivil) 40 mg PO DAILY [facility] Last Admin: 09/04/17 08:39 Dose: 40 mg Magnesium Hydroxide (Mom) 30 ml PO DAILY PRN PRN Reason: Constipation Magnesium Oxide (Magox) 400 mg PO BID [facility] Last Admin: 09/04/17 08:40 Dose: 400 mg Metformin HCl (Glucophage) 500 mg PO BIDBS [facility] Last Admin: 09/04/17 08:39 Dose: 500 mg Metoprolol Tartrate (Lopressor) 50 mg PO BIDWM [facility] Last Admin: 09/04/17 08:39 Dose: 50 mg Polyethylene Glycol (Miralax) 17 gm PO DAILY [facility] Last Admin: 09/04/17 08:41 Dose: Not Given Potassium Chloride (K-Dur 10 Meq Tablet) 10 meq PO WB [facility] Last Admin: 09/04/17 08:40 Dose: 10 meq Senna/Docusate Sodium (Senna Plus Tablet) 2 tab PO BID [facility] Last Admin: 09/04/17 09:44 Dose: Not Given Tamsulosin HCl (Flomax) 0.4 mg PO HS [facility] Last Admin: 09/03/17 22:32 Dose: 0.4 mg Current Medical Issues: Remote CVA, diabetes mellitus, fracture of right femur and right radial head, urinary retention, hypertension Comments: I certify that I personally led the interdisciplinary team meeting and agree with comments, barriers and goals indicated. Team meeting was held in the patient's room with the patient and the following family members present: patient's brother Tank via phone Mr. Ling is very cooperative. His blood sugars are monitored and are doing well. His blood pressures range between 130 and 150. Does complain of pain in the right radial head fracture area. Tolerating therapy well. Headley was attempted to be removed but had to be replaced due to retention. - Physical Therapy Bed, Chair, Wheelchair Transfer Assist: Stand By Assist/Supervision, 1 Person Assist Ambulation Ability: Stand By Assist/Supervision, Household Exception, 1 Person Assist Ambulation Distance: 107 Wheelchair Propulsion Ability: Stand By Assist/Supervision, Household Exception Wheelchair Propulsion Distance: 61 Stair Climbing Ability: Stand By Assist/Supervision, Household Exception, 1 Person Assist Number of Steps Climbed: 6 Car Transfer Ability: Minimal Assistance, 1 Person Assist Comments: Patient is cooperative with therapy but his right lower extremity mobility is limited due to pain. He is able to walk with a hemiwalker. He is walking over 100 feet with standby assist with the hemiwalker. He is making significant progress with therapy. - Occupational Therapy Eating Ability: Modified Independent Grooming Ability: Stand By Assist/Supervision Bathing Ability: Stand By Assist/Supervision Upper Body Dressing Ability: Minimal Assistance Lower Body Dressing Ability: Minimal Assistance Tub Transfer Assist: Patient Unsafe/Unable Toileting Assist: Minimal Assistance Toilet Transfer Assist: Stand By Assist/Supervision Comments: He is making progress toward occupational therapy goals. Upper and lower body dressing is performed with minimum assistance. Bathing ability is with standby assistance. Additional goals are established. - Goals Physical Therapy Goals: 08/29/17 Goals: 1.) Consistency with transfers requiring supervision - met. 2.) Ambulation going 50 feet with supervision. - met. 09/04 Goals: 1.) Ambulation going 150 feet with supervision. 2.) Car transfer with supervision Occupational Therapy Goals: OT goals 08/29/17: 1.) Lower body dressing with minimal assistance. - goal met. 2.) Toileting with minimal assistance. -goal met. 3.) Toilet transfer with supervison. - goal met. 09/04/17: 1.) Lower body dressing with supervision. 2.) Toileting with supervision. 3.) Perform microwaveable meal with supervision. - Barriers to Discharge Barriers to Attaining Goals: Weakness (progressive resistive exercises are offered to improve strength.), Endurance (recommendation for fewer rest breaks and increased activity time to improve endurance.), Medical Limitation ( swelling to right lower extremity noted. Lymphedema massage techniques offered.) - Care Plan Anticipated Length of Stay (days): 10 Anticipated DC Destination: Other I have led this team conference and agree with the plan. Interventions/Goals: Efforts are underway to allow the patient to be as independent as possible prior to transfer to assisted living versus long-term care.
[2017-09-04] MEDS: ATORVASTATIN 10 MG TABLET PO SCH (21:39)
[2017-09-04] MEDS: TAMSULOSIN 0.4 MG CAPSULE PO SCH (21:40)
[2017-09-05] MEDS: HYDRALAZINE 25 MG TABLET PO SCH ×3 (08:43→17:36)
[2017-09-05] MEDS: METFORMIN 500 MG TABLET PO SCH ×2 (08:43→17:36)
[2017-09-05] MEDS: GlipiZIDE 5 MG TABLET PO SCH ×2 (08:43→17:30)
[2017-09-05] MEDS: ASPIRIN *EC* 81 MG TABLET PO SCH (08:45)
[2017-09-05] MEDS: ENOXAPARIN 30 MG/0.3 ML INJECTION SQ SCH ×2 (08:45→20:01)
[2017-09-05] MEDS: BACLOFEN 10 MG TABLET PO SCH ×3 (08:45→20:00)
[2017-09-05] MEDS: MAGNESIUM OXIDE 400 MG TABLET PO SCH ×2 (08:46→20:02)
[2017-09-05] MEDS: LEVETIRACETAM 500 MG TABLET PO SCH ×2 (08:46→20:02)
[2017-09-05] MEDS: FUROSEMIDE 20 MG TABLET PO SCH (08:46)
[2017-09-05] MEDS: SENNA + DOCUSATE TABLET PO SCH ×2 (08:47→20:02)
[2017-09-05] MEDS: POLYETHYL GLYCOL 3350 17gm PACKET PO SCH (08:47)
[2017-09-05] MEDS: GABAPENTIN 100 MG CAPSULE PO SCH ×3 (08:47→20:02)
[2017-09-05] MEDS: LISINOPRIL 40 MG TABLET PO SCH (08:50)
[2017-09-05] MEDS: HYDROCODONE/APAP 5mg/325mg TABLET PO PRN ×2 (11:12→19:59)
[2017-09-05] MEDS ORDERED: FUROSEMIDE 20 MG TABLET PO ONE (16:24)
--- NOTE | 2017-09-05 16:29 | Progress Note ---
- Date 09/05/17 Subjective: Patient is seen this afternoon resting in bed. He is able to answer questions with yes/no answers but is unable to answer beyond this. In asking about his hernandez cath, he answers that he did not come here with it. In discussion with nursing, he had the hernandez pulled prior to coming here and then had it replaced due to urinary retention. He is on Flomax, but is unclear if this was a medicine he was on prior to his hospitalization, started during his recent hospitalization, or started here on IRU. He is eating well. Denies CP, SOA, fever/chills or probs with his urinary catheter. Objective Vital signs: Temperature 97.7 F 09/05/17 08:00 Pulse Rate 51 L 09/05/17 08:00 Respiratory Rate 16 09/05/17 08:00 Blood Pressure 166/80 H 09/05/17 08:00 Pulse Oximetry 98 09/05/17 08:00 Height/Weight/BMI: Height 1.83 m Weight 113.6 kg Body Mass Index 29.9 - Constitutional Present: no acute distress, well nourished, well developed - Routine HEENT Exam Head: Present: normocephalic, atraumatic - Routine Respiratory Exam Present: CTA bilaterally. Absent: wheezes - Routine Cardiovascular Exam Present: RRR, no murmur - Routine Abdominal Exam Present: soft, non distended, non tender - Routine Extremities Exam Present: edema (pitting edema b/l but R slightly >L), normal capillary refill - Routine Skin Exam Present: dry, warm - Routine Neurological Exam Present: alert - Routine Lymphatic Exam Lymphatic: Absent: adenopathy - Routine Psychiatric Exam Present: normal affect, cooperative Results - Labs CBC & Chem 7: 09/04/17 04:11 09/04/17 04:11 Assessment and Plan (1) S/P hip hemiarthroplasty Problem details: Surgery done for subcapital , femoral neck Fx Current visit: Yes Status: Acute Assessment and Plan: Impression Uncontrolled blood pressure - improved with medication adjustments Status post right hip hemiarthroplasty-repaired 08/20/[address] Minor Right nondisplaced radial head fracture - nonsurgical tx S/P Fall Hx of CVA with right hemiparesis Chronic dysphasia Coronary artery disease Bradycardia - likely secondary to multiple cardiac meds for tx of HTN Hypertension Diabetes Seizures Obstructive sleep apnea CAD with history of CABG, 2016 Plan Start bladder retraining. May pull catheter tomorrow if pt is having bladder filling sensation. HTN - hydralazine increased from 50 to 75 mg TID 2 days ago. Will give a second dose of Lasix now. (Currently on Lasix 20mg q am.) Given his LE edema, HTN and (questionable) weight gain since admission, will increase his Lasix to 40mg q am and follow weights, edema, BP and electrolytes. Increase KCl from 10mEq to 20mEq given the increase in Lasix dosing. Check daily weights. Weight on admission 100.3 and today is 113kg. Question accuracy of today's weight. Consider further w/u for HTN and r/o pheochromocytoma. He's on multiple classes of antiHTN with suboptimal control, including metoprolol, clonidine, lasix, furosemide, lisinopril + hydralazine. May need to clarify with PCP if prior workup for hypertension has been undertaken or which cia agent patient has seen. Sling to right arm - ortho recommends rechecking films ~09/11/17 BGMs overall stable. - Physician Narrative Narrative: Date: 09/05/17 Time: 1625 Hospital Course Summary Disclaimer: The visit summary below is not to be considered part of the above Progress Note. 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 Patient continues to have uncontrolled hypertension 180s systolic. Medication list reviewed carefully along with marked from [facility]. Different beta jonathan was reconciled on admission from medication list. Toprol-XL discontinued, patient placed on metoprolol tartrate, Lopressor 50 milligrams 3 times a day. Continue with lisinopril 40, hydralazine 50mg 3 times a day. Hgb is has remained stable at 11.9. Patient is on Keppra for history of seizures. Patient also takes clarithromycin 500 twice a day. Brother does confirm patient was on this prior to hospitalization, however, exact reason is unknown Monitor Accu-Cheks and continue on metformin twice a day. Tatums as needed for postoperative pain control. Will add MiraLAX and senna plus twice a day for postoperative bowel motivation. Encouraged patient to work with PT and OT for ongoing strengthening At time of discharge medical care will return to primary care provider at [facility], Dr. Bro 08/25/2017 Patient was seen today secondary to reports of possible chest pain. Prior baseline is unknown, so will err on the side of caution. Start telemetry. Serial troponin. We'll obtain chest x-ray, as well as a right shoulder film due to concern for subluxation. GI upset is certainly a possibility, particularly since he is on clarithromycin. May need to get further information on that on Sunday from his PCP. We'll continue remainder current care. Assess lab in the morning for stability. Discussed with patient, he is in agreement with plan of care. 08/27/17 Overall appears to be medically stable. Given bradycardia will decreased Metoprolol to 50mg BID Will need to continue monitor BP. Did contact PCP office at [facility]- their old records from last January patient was not taking erythromycin. It is unclear exactly prescribed clarithromycin and for what reason. Will attempt to contact patient's brother regarding this medication. BGMs are well controlled on current regimen. Continue to encourage work with PT and OT for ongoing strengthening. 09/03/17 Sling to right arm - ortho recommends rechecking films ~09/11/17 HTN - increase hydralazine from 50 to 75 mg TID. Consider further w/u for HTN and r/o pheochromocytoma. He's on multiple classes of antiHTN with suboptimal control, including metoprolol, clonidine, lasix, furosemide, lisinopril + hydralazine. Bradycardia in the 50s precludes increasing BB. 09/05/17 Start bladder retraining. May pull catheter tomorrow if pt is having bladder filling sensation. Will give a second dose of Lasix now. Given his LE edema, HTN and (questionable) weight gain since admission, will increase his Lasix to 40mg q am (from 20mg q am) and follow weights, edema, BP and electrolytes. Increase KCl from 10mEq to 20mEq given the increase in Lasix dosing. Check daily weights. Weight on admission 100.3 and today is 113kg. Question accuracy of today's weight. Consider further w/u for HTN and r/o pheochromocytoma. He's on multiple classes of antiHTN with suboptimal control, including metoprolol, clonidine, lasix, furosemide, lisinopril + hydralazine. May need to clarify with PCP if prior workup for hypertension has been undertaken or which cia agent patient has seen.
[2017-09-05] MEDS: ATORVASTATIN 10 MG TABLET PO SCH (20:00)
[2017-09-05] MEDS: TAMSULOSIN 0.4 MG CAPSULE PO SCH (20:03)
[2017-09-06] MEDS: HYDROCODONE/APAP 5mg/325mg TABLET PO PRN (06:37)
[2017-09-06] MEDS: MAGNESIUM OXIDE 400 MG TABLET PO SCH ×2 (08:28→21:43)
[2017-09-06] MEDS: ASPIRIN *EC* 81 MG TABLET PO SCH (08:28)
[2017-09-06] MEDS: SENNA + DOCUSATE TABLET PO SCH ×2 (08:28→21:43)
[2017-09-06] MEDS: HYDRALAZINE 25 MG TABLET PO SCH ×3 (08:29→17:02)
[2017-09-06] MEDS: LEVETIRACETAM 500 MG TABLET PO SCH ×2 (08:29→21:43)
[2017-09-06] MEDS: GlipiZIDE 5 MG TABLET PO SCH ×2 (08:30→17:02)
[2017-09-06] MEDS: FUROSEMIDE 20 MG TABLET PO SCH ×2 (08:30→11:35)
[2017-09-06] MEDS: GABAPENTIN 100 MG CAPSULE PO SCH ×4 (08:30→21:43)
[2017-09-06] MEDS: METFORMIN 500 MG TABLET PO SCH ×2 (08:31→17:03)
[2017-09-06] MEDS: BACLOFEN 10 MG TABLET PO SCH ×4 (08:33→21:42)
[2017-09-06] MEDS: ENOXAPARIN 30 MG/0.3 ML INJECTION SQ SCH ×2 (08:36→21:42)
[2017-09-06] MEDS: LISINOPRIL 40 MG TABLET PO SCH (08:37)
[2017-09-06] MEDS: POLYETHYL GLYCOL 3350 17gm PACKET PO SCH (08:37)
--- NOTE | 2017-09-06 11:48 | IRU Progress Note ---
- Subjective/Serverity of Illness Date: 09/06/17 Mr. Ling was reassessed in his room and I also observed him with therapy. Speech remains difficult for him secondary to his previous CVA. He does complain of a lot of discomfort. He tends to point to the entire right arm but likely the discomfort is related to the radial head fracture with any movement. He is wearing a sling. He has been seen by Dr. Angel in this regard. Currently he is on hydrocodone. We'll discontinue the hydrocodone and switch to oxycodone for better pain relief. In addition this may assist with his blood pressure control. From a therapy standpoint. He is requiring minimum assistance for upper and lower body dressing. He is able to ambulate over 100 feet with a hemiwalker with standby assist to supervision. He is certainly improving from a functional standpoint but requires continued therapy. With regard to his blood pressures, they're a bit elevated today. He has been running some significant bradycardia although this is asymptomatic. Obviously this is likely due to his beta jonathan which is needed for his blood pressure. It is my hope that with improved pain management his blood pressure will be able to be more well controlled. Hospitalists are following his blood pressure as well. His right leg does display more edema today. Hospitalists are aware of this and are using increased Lasix dosing. In addition his blood pressure medication has been adjusted. Exam Vital Signs: Temperature 96.5 F L 09/06/17 07:49 Pulse Rate 54 L 09/06/17 07:49 Respiratory Rate 16 09/06/17 07:49 Blood Pressure 197/87 H 09/06/17 07:49 Pulse Oximetry 97 09/06/17 07:49 Height/Weight/BMI: Height 1.83 m Weight 113.6 kg Body Mass Index 29.9 - Constitutional Present: moderate distress (right elbow/arm), well nourished, well developed, obese, cooperative - Routine HEENT Exam Eye: Present: EOMI ENT: Present: mucous membranes moist, oropharynx clear - Routine Respiratory Exam Present: CTA bilaterally. Absent: wheezes - Routine Cardiovascular Exam Present: RRR, S1, S2. Absent: murmur - Routine Abdominal Exam Present: soft, normoactive bowel sounds, non distended. Absent: tenderness - Routine Extremities Exam Present: edema (right lower extremity.), normal capillary refill - Routine Skin Exam Present: dry, warm - Routine Neurological Exam Present: alert, CN II-XII intact aphasic - Routine Psychiatric Exam Present: anxious Results IRU - Labs Labs: I have reviewed other providers notes and chart data. IRU A/P (1) S/P hip hemiarthroplasty Problem details: Surgery done for subcapital , femoral neck Fx Current visit: Yes Status: Acute Pain management in the right hip appears to be adequate. His main pain is in the right elbow as well as both knees according to the patient. In this regard we will change to oxycodone. (2) Diabetes mellitus type 2 in nonobese Current visit: Yes Status: Chronic The patient's blood sugars are well controlled at the present time. (3) Hypertension Qualifiers: Hypertension type: essential hypertension Qualified Code(s): I10 - Essential (primary) hypertension Current visit: Yes Status: Chronic Blood pressures are reviewed and are running a bit high. Hospitalists have adjusted medications. Lasix has been increased. Hopefully with improved pain management in the right elbow, his blood pressures will be improved as well. (4) Nondisplaced fracture of head of right radius Qualifiers: Encounter type: initial encounter Fracture type: closed Qualified Code(s) : S52.124A - Nondisplaced fracture of head of right radius, initial encounter for closed fracture Current visit: Yes Status: Acute This appears to be the primary source of his pain. DVT Prophylaxis: Lovenox Resuscitation Status: Full Code - Course Hospital Course: Chucho Solis MD: 09/03/17 15:14 Pain in right elbow and right hip as anticipated. Blood sugars are controlled. Blood pressures remain a bit elevated. 09/04/17 12:44 Progressing with therapy. Blood sugars look excellent. Pain in right elbow seems to be a major issue. 09/06/17 11:50 Improving with therapy. Blood pressures remain elevated. Lasix has been increased. I will increase gabapentin and switch to oxycodone today. - Interventions to Obtain Goals PT Treatment Plan: Functional Activities, Gait Training, Therapeutic Exercise OT Treatment Plan: ADL (Basic Care), Balance Training, IADL, Pt./Family Education, Ther. Exercise for ADL Goals Progress/Modifications: This gentleman has had a difficult time with pain management in the right elbow. This is due to his radial head fracture no doubt. We will stop hydrocodone today and start oxycodone for improved pain management. Over this will improve his blood pressure control as well. We are aware of his right lower extremity edema. His Lasix has been increased. This is the side of the hip fracture and should resolve with time.
[2017-09-06] MEDS: Oxycodone *IR* 15 MG TABLET PO PRN ×3 (12:05→22:03)
[2017-09-06] MEDS: INSULIN ASPART 100unit/ml INJECTION SQ PRN (18:38)
[2017-09-06] MEDS: ATORVASTATIN 10 MG TABLET PO SCH (21:42)
[2017-09-06] MEDS: TAMSULOSIN 0.4 MG CAPSULE PO SCH (21:43)
[2017-09-07] MEDS: Oxycodone *IR* 15 MG TABLET PO PRN ×3 (08:46→15:37)
[2017-09-07] MEDS: MAGNESIUM OXIDE 400 MG TABLET PO SCH ×2 (08:48→21:37)
[2017-09-07] MEDS: LISINOPRIL 40 MG TABLET PO SCH (08:48)
[2017-09-07] MEDS: HYDRALAZINE 25 MG TABLET PO SCH ×3 (08:48→17:48)
[2017-09-07] MEDS: LEVETIRACETAM 500 MG TABLET PO SCH ×2 (08:48→21:40)
[2017-09-07] MEDS: ASPIRIN *EC* 81 MG TABLET PO SCH (08:49)
[2017-09-07] MEDS: BACLOFEN 10 MG TABLET PO SCH ×3 (08:49→21:40)
[2017-09-07] MEDS: GlipiZIDE 5 MG TABLET PO SCH ×2 (08:50→17:48)
[2017-09-07] MEDS: FUROSEMIDE 20 MG TABLET PO SCH (08:50)
[2017-09-07] MEDS: GABAPENTIN 100 MG CAPSULE PO SCH ×3 (08:50→21:37)
[2017-09-07] MEDS: POLYETHYL GLYCOL 3350 17gm PACKET PO SCH (08:51)
[2017-09-07] MEDS: METFORMIN 500 MG TABLET PO SCH ×2 (08:51→17:48)
[2017-09-07] MEDS: ENOXAPARIN 30 MG/0.3 ML INJECTION SQ SCH ×2 (08:51→21:38)
[2017-09-07] MEDS: SENNA + DOCUSATE TABLET PO SCH ×2 (08:51→21:37)
--- NOTE | 2017-09-07 11:20 | IRU Progress Note ---
- Subjective/Serverity of Illness Date: 09/07/17 Jorge was reassessed and is remind patient rehabilitation. We switched from hydrocodone to oxycodone yesterday. Patient indicates that it is much better with regard to pain management. Continues to point to the entire right arm as well as the right and left knees as areas of his increased pain. He is tolerating therapy reasonably well. He is able to ambulate with a hemiwalker. Despite improved pain management, his blood pressures continue to be a bit elevated. Exam Vital Signs: Temperature 97.5 F 09/07/17 08:00 Pulse Rate 49 L 09/07/17 08:00 Respiratory Rate 20 09/07/17 08:00 Blood Pressure 174/76 H 09/07/17 08:00 Pulse Oximetry 98 09/07/17 08:00 Height/Weight/BMI: Height 1.83 m Weight 113.6 kg Body Mass Index 29.9 - Constitutional Present: mild distress (pain in right elbow/arm), well nourished, well developed , cooperative - Routine HEENT Exam Eye: Present: EOMI ENT: Present: mucous membranes moist - Routine Neck Exam Present: supple - Routine Respiratory Exam Present: CTA bilaterally. Absent: wheezes - Routine Cardiovascular Exam Present: RRR, S1, S2. Absent: murmur - Routine Abdominal Exam Present: soft, normoactive bowel sounds, non distended. Absent: tenderness - Routine Extremities Exam Present: edema (right lower extremity 1+), normal capillary refill - Routine Skin Exam Present: dry, warm - Routine Neurological Exam Present: alert, motor deficit (right upper extremity markedly weak and in a sling.), facial asymmetry. Absent: CN II-XII intact, normal speech - Routine Psychiatric Exam Present: depressed, anxious IRU A/P (1) S/P hip hemiarthroplasty Problem details: Surgery done for subcapital , femoral neck Fx Current visit: Yes Status: Acute Clinically doing well regarding the arthroplasty. Able to ambulate with a hemiwalker and improving clinically. (2) Diabetes mellitus type 2 in nonobese Current visit: Yes Status: Chronic The patient's blood sugars are well controlled. (3) Hypertension Qualifiers: Hypertension type: essential hypertension Qualified Code(s): I10 - Essential (primary) hypertension Current visit: Yes Status: Chronic His blood pressures remain elevated. Hopefully with continued improved pain management, his pressures will come down. He remains bradycardic related to beta jonathan usage as well as clonidine. (4) Nondisplaced fracture of head of right radius Qualifiers: Encounter type: initial encounter Fracture type: closed Qualified Code(s) : S52.124A - Nondisplaced fracture of head of right radius, initial encounter for closed fracture Current visit: Yes Status: Acute DVT Prophylaxis: Lovenox Resuscitation Status: Full Code - Course Hospital Course: Chucho Solis MD: 09/03/17 15:14 Pain in right elbow and right hip as anticipated. Blood sugars are controlled. Blood pressures remain a bit elevated. 09/04/17 12:44 Progressing with therapy. Blood sugars look excellent. Pain in right elbow seems to be a major issue. 09/06/17 11:50 Improving with therapy. Blood pressures remain elevated. Lasix has been increased. I will increase gabapentin and switch to oxycodone today. 09/07/17 11:20 Continues to have some edema in the right lower extremity. He is progressing with therapy with regard to ambulation. Pain management hopefully is improved with the use of oxycodone. - Interventions to Obtain Goals PT Treatment Plan: Functional Activities, Gait Training, Therapeutic Exercise OT Treatment Plan: ADL (Basic Care), Balance Training, IADL, Pt./Family Education, Ther. Exercise for ADL Goals Progress/Modifications: I spent some time discussing with the patient his progress as well as the pain management. We discussed his use of oxycodone. I indicated the risk of constipation etc. Patient states that the oxycodone has been of greater benefit than the hydrocodone. We will continue to monitor this carefully. Does have some edema in the right lower extremity. However does not have any evidence of heart failure or fluid excess with regard to his lung exam. Management per hospitalists in this regard. Remains on Lasix.
[2017-09-07] MEDS: ACETAMINOPHEN 325 MG TABLET PO PRN (11:56)
[2017-09-07] MEDS: INSULIN ASPART 100unit/ml INJECTION SQ PRN (21:38)
[2017-09-07] MEDS: ATORVASTATIN 10 MG TABLET PO SCH (21:39)
[2017-09-07] MEDS: CYCLOBENZAPRINE 5 MG TABLET PO PRN (21:39)
[2017-09-07] MEDS: TAMSULOSIN 0.4 MG CAPSULE PO SCH (21:39)
[2017-09-08] MEDS: Oxycodone *IR* 15 MG TABLET PO PRN ×2 (05:52→15:19)
[2017-09-08] MEDS: POLYETHYL GLYCOL 3350 17gm PACKET PO SCH (08:49)
[2017-09-08] MEDS: LEVETIRACETAM 500 MG TABLET PO SCH ×2 (08:50→20:50)
[2017-09-08] MEDS: HYDRALAZINE 25 MG TABLET PO SCH ×3 (08:50→17:29)
[2017-09-08] MEDS: ASPIRIN *EC* 81 MG TABLET PO SCH (08:50)
[2017-09-08] MEDS: FUROSEMIDE 20 MG TABLET PO SCH (08:50)
[2017-09-08] MEDS: MAGNESIUM OXIDE 400 MG TABLET PO SCH ×2 (08:50→20:49)
[2017-09-08] MEDS: METFORMIN 500 MG TABLET PO SCH ×2 (08:50→17:29)
[2017-09-08] MEDS: GlipiZIDE 5 MG TABLET PO SCH ×2 (08:50→17:29)
[2017-09-08] MEDS: GABAPENTIN 100 MG CAPSULE PO SCH ×3 (08:50→20:49)
[2017-09-08] MEDS: SENNA + DOCUSATE TABLET PO SCH ×2 (08:51→20:49)
[2017-09-08] MEDS: BACLOFEN 10 MG TABLET PO SCH ×3 (08:51→20:49)
[2017-09-08] MEDS: LISINOPRIL 40 MG TABLET PO SCH (08:51)
[2017-09-08] MEDS: ENOXAPARIN 30 MG/0.3 ML INJECTION SQ SCH ×2 (09:17→20:50)
--- NOTE | 2017-09-08 13:02 | Progress Note ---
- Date 09/08/17 Subjective: Mr. Ling was in his room, sitting in his recliner. Verbal communication is limited. He complains of right knee pain, but clarified that he's been having this pain since surgery. He also pointed to his left knee. His right arm also hurts, but mostly c/o right knee pain today. His right leg is swollen and he indicated this has been present since surgery as well. He denies SOA or chest pain, abdominal pain or GI complaints. He's been able to void since the catheter was discontinued. Per nursing, he's been communicating more effectively. Objective Vital signs: Temperature 98.2 F 09/08/17 08:00 Pulse Rate 49 L 09/08/17 08:00 Respiratory Rate 12 09/08/17 08:00 Blood Pressure 131/67 09/08/17 08:00 Pulse Oximetry 97 09/08/17 08:00 Height/Weight/BMI: Height 1.83 m Weight 113.6 kg Body Mass Index 29.9 - Constitutional Present: no acute distress, well nourished, well developed - Routine HEENT Exam Head: Present: normocephalic Eye: Present: EOMI. Absent: conjunctival icterus, scleral injection - Routine Respiratory Exam Present: CTA bilaterally - Routine Cardiovascular Exam Present: RRR, S1, S2 - Routine Abdominal Exam Present: soft, normoactive bowel sounds, non distended, non tender - Routine Extremities Exam Present: edema (RLE) - Routine Musculoskeletal Exam Musculoskeletal: Present: limited range of motion - Routine Skin Exam Present: dry, warm - Routine Neurological Exam Present: alert. Absent: facial asymmetry - Routine Psychiatric Exam Present: cooperative Results - Labs CBC & Chem 7: 09/04/17 04:11 09/04/17 04:11 Assessment and Plan (1) S/P hip hemiarthroplasty Problem details: Surgery done for subcapital , femoral neck Fx Current visit: Yes Status: Acute Assessment and Plan: Impression Uncontrolled blood pressure - improved with medication adjustments Status post right hip hemiarthroplasty-repaired 08/20/[address] Minor Right nondisplaced radial head fracture - nonsurgical tx S/P Fall Hx of CVA with right hemiparesis Chronic dysphasia Coronary artery disease Bradycardia - likely secondary to multiple cardiac meds for tx of HTN Hypertension Diabetes Seizures Obstructive sleep apnea CAD with history of CABG, 2016 Plan Headley catheter dc'd 09/07/17 and he's been voiding since. Switching from hydrocodone to oxycodone, has been helpful for pain control. In addition, BP under better control. Continue hydralazine 75 mg and increased Lasix/KCl doses. Check BMP in am. Sinus aram on tele - will dc tele. DVT Prophylaxis: Lovenox Resuscitation Status: Full Code - Physician Narrative Narrative: Date: 09/08/17 Time: 1302 Hospital Course Summary Disclaimer: The visit summary below is not to be considered part of the above Progress Note. 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 Patient continues to have uncontrolled hypertension 180s systolic. Medication list reviewed carefully along with marked from Gerald. Different beta jonathan was reconciled on admission from medication list. Toprol-XL discontinued, patient placed on metoprolol tartrate, Lopressor 50 milligrams 3 times a day. Continue with lisinopril 40, hydralazine 50mg 3 times a day. Hgb is has remained stable at 11.9. Patient is on Keppra for history of seizures. Patient also takes clarithromycin 500 twice a day. Brother does confirm patient was on this prior to hospitalization, however, exact reason is unknown Monitor Accu-Cheks and continue on metformin twice a day. [place] as needed for postoperative pain control. Will add MiraLAX and senna plus twice a day for postoperative bowel motivation. Encouraged patient to work with PT and OT for ongoing strengthening At time of discharge medical care will return to primary care provider at [facility], Dr. Bro 08/25/2017 Patient was seen today secondary to reports of possible chest pain. Prior baseline is unknown, so will err on the side of caution. Start telemetry. Serial troponin. We'll obtain chest x-ray, as well as a right shoulder film due to concern for subluxation. GI upset is certainly a possibility, particularly since he is on clarithromycin. May need to get further information on that on Sunday from his PCP. We'll continue remainder current care. Assess lab in the morning for stability. Discussed with patient, he is in agreement with plan of care. 08/27/17 Overall appears to be medically stable. Given bradycardia will decreased Metoprolol to 50mg BID Will need to continue monitor BP. Did contact PCP office at [facility]- their old records from last January patient was not taking erythromycin. It is unclear exactly prescribed clarithromycin and for what reason. Will attempt to contact patient's brother regarding this medication. BGMs are well controlled on current regimen. Continue to encourage work with PT and OT for ongoing strengthening. 09/03/17 Sling to right arm - ortho recommends rechecking films ~09/11/17 HTN - increase hydralazine from 50 to 75 mg TID. Consider further w/u for HTN and r/o pheochromocytoma. He's on multiple classes of antiHTN with suboptimal control, including metoprolol, clonidine, lasix, furosemide, lisinopril + hydralazine. Bradycardia in the 50s precludes increasing BB. 09/05/17 Start bladder retraining. May pull catheter tomorrow if pt is having bladder filling sensation. Will give a second dose of Lasix now. Given his LE edema, HTN and (questionable) weight gain since admission, will increase his Lasix to 40mg q am (from 20mg q am) and follow weights, edema, BP and electrolytes. Increase KCl from 10mEq to 20mEq given the increase in Lasix dosing. Check daily weights. Weight on admission 100.3 and today is 113kg. Question accuracy of today's weight. Consider further w/u for HTN and r/o pheochromocytoma. He's on multiple classes of antiHTN with suboptimal control, including metoprolol, clonidine, lasix, furosemide, lisinopril + hydralazine. May need to clarify with PCP if prior workup for hypertension has been undertaken or which property master patient has seen. 09/08/17 Headley catheter dc'd 09/07/17 and he's been voiding since. Switching from hydrocodone to oxycodone, has been helpful for pain control. In addition, BP under better control. Continue hydralazine 75 mg and increased Lasix/KCl doses. Check BMP in am. Sinus aram on tele - will dc tele.
[2017-09-08] MEDS: ATORVASTATIN 10 MG TABLET PO SCH (20:49)
[2017-09-08] MEDS: TAMSULOSIN 0.4 MG CAPSULE PO SCH (20:50)
[2017-09-09] MEDS: HYDRALAZINE 25 MG TABLET PO SCH ×3 (09:01→17:37)
[2017-09-09] MEDS: MAGNESIUM OXIDE 400 MG TABLET PO SCH ×2 (09:01→20:43)
[2017-09-09] MEDS: LISINOPRIL 40 MG TABLET PO SCH (09:01)
[2017-09-09] MEDS: GABAPENTIN 100 MG CAPSULE PO SCH ×3 (09:01→20:44)
[2017-09-09] MEDS: METFORMIN 500 MG TABLET PO SCH ×2 (09:02→17:37)
[2017-09-09] MEDS: FUROSEMIDE 20 MG TABLET PO SCH (09:02)
[2017-09-09] MEDS: BACLOFEN 10 MG TABLET PO SCH ×3 (09:02→20:45)
[2017-09-09] MEDS: LEVETIRACETAM 500 MG TABLET PO SCH ×2 (09:02→20:43)
[2017-09-09] MEDS: ASPIRIN *EC* 81 MG TABLET PO SCH (09:02)
[2017-09-09] MEDS: GlipiZIDE 5 MG TABLET PO SCH ×2 (09:02→17:37)
[2017-09-09] MEDS: SENNA + DOCUSATE TABLET PO SCH ×2 (09:03→22:12)
[2017-09-09] MEDS: POLYETHYL GLYCOL 3350 17gm PACKET PO SCH (09:03)
[2017-09-09] MEDS: Oxycodone *IR* 15 MG TABLET PO PRN ×2 (09:28→20:43)
[2017-09-09] MEDS: ENOXAPARIN 30 MG/0.3 ML INJECTION SQ SCH ×2 (09:28→20:46)
[2017-09-09] MEDS: ATORVASTATIN 10 MG TABLET PO SCH (20:42)
[2017-09-09] MEDS: CYCLOBENZAPRINE 5 MG TABLET PO PRN (20:42)
[2017-09-09] MEDS: TAMSULOSIN 0.4 MG CAPSULE PO SCH (20:44)
[2017-09-10] MEDS: Oxycodone *IR* 15 MG TABLET PO PRN ×2 (05:49→09:45)
[2017-09-10] MEDS: POLYETHYL GLYCOL 3350 17gm PACKET PO SCH (08:36)
[2017-09-10] MEDS: LEVETIRACETAM 500 MG TABLET PO SCH ×2 (08:37→21:48)
[2017-09-10] MEDS: GlipiZIDE 5 MG TABLET PO SCH ×2 (08:37→17:34)
[2017-09-10] MEDS: LISINOPRIL 40 MG TABLET PO SCH (08:40)
[2017-09-10] MEDS: HYDRALAZINE 25 MG TABLET PO SCH ×3 (08:40→17:34)
[2017-09-10] MEDS: GABAPENTIN 100 MG CAPSULE PO SCH ×3 (08:40→21:52)
[2017-09-10] MEDS: MAGNESIUM OXIDE 400 MG TABLET PO SCH ×2 (08:40→21:46)
[2017-09-10] MEDS: BACLOFEN 10 MG TABLET PO SCH ×3 (08:41→21:47)
[2017-09-10] MEDS: METFORMIN 500 MG TABLET PO SCH ×2 (08:41→17:35)
[2017-09-10] MEDS: ASPIRIN *EC* 81 MG TABLET PO SCH (08:42)
[2017-09-10] MEDS: ACETAMINOPHEN 325 MG TABLET PO PRN (08:42)
[2017-09-10] MEDS: FUROSEMIDE 20 MG TABLET PO SCH (08:42)
[2017-09-10] MEDS: ENOXAPARIN 30 MG/0.3 ML INJECTION SQ SCH ×2 (08:43→21:48)
[2017-09-10] MEDS: SENNA + DOCUSATE TABLET PO SCH ×2 (08:43→21:46)
--- NOTE | 2017-09-10 12:04 | IRU Progress Note ---
- Subjective/Serverity of Illness Date: 09/10/17 Jorge was evaluated in his room on inpatient rehabilitation. Remains a phasic but able to make a few words and indicate his needs. Continues to struggle with pain management regarding the right elbow. This continues to be quite painful. He is on oxycodone on an as-needed basis. However he goes quite a bit of time in between doses. We will try giving regular doses of this medication while awake at least. He denies any chest pain. He denies shortness of breath. Since the catheters been removed he has been able to void although he does have occasional residuals. Continue to monitor this. In addition, his blood pressures remain elevated at times which I imagine is due to his pain in the right elbow. Also points to the right knee as a source of pain. Based on notes from late last week, he is dressing with minimum assistance. He is able to transfer with standby assist. He was able to ambulate with a platform walker 130 feet. Today he is able to ambulate a bit shorter distance due to weakness in the right lower extremity. Does have history of previous stroke affecting the right side of his body. Patient's blood pressures and blood sugars are reviewed. His sugars are adequately controlled with occasional sliding scale insulin. Exam Vital Signs: Temperature 97.8 F 09/10/17 08:00 Pulse Rate 48 L 09/10/17 08:00 Respiratory Rate 14 09/10/17 08:00 Blood Pressure 143/74 H 09/10/17 08:00 Pulse Oximetry 97 09/10/17 08:00 Height/Weight/BMI: Height 1.83 m Weight 99.6 kg Body Mass Index 29.9 - Constitutional Present: mild distress (regarding his right elbow fracture.), well nourished, well developed, cooperative - Routine HEENT Exam Eye: Present: EOMI ENT: Present: mucous membranes moist, oropharynx clear - Routine Respiratory Exam Present: CTA bilaterally. Absent: wheezes - Routine Cardiovascular Exam Present: RRR, S1, S2. Absent: murmur - Routine Abdominal Exam Present: soft, normoactive bowel sounds, non distended. Absent: tenderness - Routine Extremities Exam Present: edema (right lower extremity as before.), normal capillary refill - Routine Skin Exam Present: dry, warm - Routine Neurological Exam Present: alert, motor deficit (right upper extremity has markedly reduced strength. He is wearing a sling at present. Right lower extremity also week. This was due to prior stroke.). Absent: CN II-XII intact - Routine Psychiatric Exam Present: normal affect, cooperative Results IRU - Labs Labs: Have reviewed other providers notes, chart data and labs etc. IRU A/P (1) S/P hip hemiarthroplasty Problem details: Surgery done for subcapital , femoral neck Fx Current visit: Yes Status: Acute Patient seems stable with regard to his fracture and repair. Does have edema in the right lower extremity. Complains of pain mainly in the right knee. He is making functional progress although slow at this time. (2) Diabetes mellitus type 2 in nonobese Current visit: Yes Status: Chronic Blood sugars appear to be adequately controlled. (3) Hypertension Qualifiers: Hypertension type: essential hypertension Qualified Code(s): I10 - Essential (primary) hypertension Current visit: Yes Status: Chronic (4) Nondisplaced fracture of head of right radius Qualifiers: Encounter type: initial encounter Fracture type: closed Qualified Code(s) : S52.124A - Nondisplaced fracture of head of right radius, initial encounter for closed fracture Current visit: Yes Status: Acute This is providing significant pain. We will increase his pain medication to be given on a regular basis every 3 hours. DVT Prophylaxis: Lovenox Resuscitation Status: Full Code - Course Hospital Course: Chucho Solis MD: 09/03/17 15:14 Pain in right elbow and right hip as anticipated. Blood sugars are controlled. Blood pressures remain a bit elevated. 09/04/17 12:44 Progressing with therapy. Blood sugars look excellent. Pain in right elbow seems to be a major issue. 09/06/17 11:50 Improving with therapy. Blood pressures remain elevated. Lasix has been increased. I will increase gabapentin and switch to oxycodone today. 09/07/17 11:20 Continues to have some edema in the right lower extremity. He is progressing with therapy with regard to ambulation. Pain management hopefully is improved with the use of oxycodone. 09/10/17 12:06 Pain management is difficult. We'll schedule the oxycodone. Blood pressures remain elevated likely related to pain management. He is voiding although does have occasional residuals identified. - Interventions to Obtain Goals PT Treatment Plan: Functional Activities, Gait Training, Therapeutic Exercise OT Treatment Plan: ADL (Basic Care), Balance Training, IADL, Pt./Family Education, Ther. Exercise for ADL Goals Progress/Modifications: The patient is cooperative with therapy. Today he had difficulty walking as far as he did late last week. Pain management is difficult with regard to the right elbow. We were giving oxycodone as needed but we will change this to a scheduled dose. We will hold this if he is too sedated etc. He is able to void but occasionally does have residual urine noted on scan. Blood pressures are elevated and this is likely due to his pain. With the scheduled dose of oxycodone, hopefully the blood pressures will become more well controlled.
[2017-09-10] MEDS: Oxycodone *IR* 15 MG TABLET PO SCH ×4 (12:18→21:47)
--- NOTE | 2017-09-10 13:59 | Orthopedic Progress Note ---
Date: Date: 09/10/17 Time: 1355 Subjective/Severity of Illness: Jorge is sitting up in the chair. He is aphasic but able to communicate with yes /no. He reports pain of right elbow that radiates up to his right shoulder. Has been in sling and removing for active assist. Pain medications were increased and scheduled for pain control. Exam - Constitutional Vital Signs: Temperature 97.8 F 09/10/17 08:00 Pulse Rate 51 L 09/10/17 13:48 Respiratory Rate 14 09/10/17 08:00 Blood Pressure 122/66 09/10/17 13:48 Pulse Oximetry 95 09/10/17 13:48 General: cooperative, well developed Orientation: alert - RUE General: normal to inspection Skin: no rashes or lesions noted Wrist Range of Motion: within normal limits Vascular: radial pulse within normal limits Right Upper Extremity Comments: Hemiparesis right arm, able to get to full extension right elbow with assistance. compartments soft - Wound Right Anterior Elbow Wound Drainage Amount: None Wound Drainage Odor: No Odor Wound Bed Appearance: Slough - Labs Result Diagrams: 09/04/17 04:11 09/09/17 05:41 H & H 08/24/17 08/26/17 09/04/17 Range/Units 05:35 04:14 04:11 Hgb 11.9 L 11.2 L 11.6 L (13.5-17.5) GM/DL Hct 34.5 L 33.0 L 34.3 L (41-53) % Orthopedic Assessment and Plan (1) Right shoulder pain Status: Acute Qualifiers: Chronicity: acute Qualified Code(s): M25.511 - Pain in right shoulder Assessment and Plan: Xray films reviewed with Dr. Angel, no fractures or abnormalities noted . Continue activity as tolerated. (2) S/P hip hemiarthroplasty Status: Acute Problem Details: Surgery done for subcapital , femoral neck Fx (3) Hypertension Status: Chronic Qualifiers: Hypertension type: essential hypertension Qualified Code(s): I10 - Essential (primary) hypertension (4) Right elbow pain Status: Acute (5) Nondisplaced fracture of head of right radius Status: Acute Qualifiers: Encounter type: initial encounter Fracture type: closed Qualified Code(s) : S52.124A - Nondisplaced fracture of head of right radius, initial encounter for closed fracture Assessment and Plan: Repeat xray today- no changes, nondisplaced radial head fracture. Continue sling, active assist ROM of right elbow. Hospital Course Summary Disclaimer: The visit summary below is not to be considered part of the above Progress Note. 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 Patient continues to have uncontrolled hypertension 180s systolic. Medication list reviewed carefully along with marked from Gerald. Different beta jonathan was reconciled on admission from medication list. Toprol-XL discontinued, patient placed on metoprolol tartrate, Lopressor 50 milligrams 3 times a day. Continue with lisinopril 40, hydralazine 50mg 3 times a day. Hgb is has remained stable at 11.9. Patient is on Keppra for history of seizures. Patient also takes clarithromycin 500 twice a day. Brother does confirm patient was on this prior to hospitalization, however, exact reason is unknown Monitor Accu-Cheks and continue on metformin twice a day. [place] as needed for postoperative pain control. Will add MiraLAX and senna plus twice a day for postoperative bowel motivation. Encouraged patient to work with PT and OT for ongoing strengthening At time of discharge medical care will return to primary care provider at [facility], Dr. Bro 08/25/2017 Patient was seen today secondary to reports of possible chest pain. Prior baseline is unknown, so will err on the side of caution. Start telemetry. Serial troponin. We'll obtain chest x-ray, as well as a right shoulder film due to concern for subluxation. GI upset is certainly a possibility, particularly since he is on clarithromycin. May need to get further information on that on Sunday from his PCP. We'll continue remainder current care. Assess lab in the morning for stability. Discussed with patient, he is in agreement with plan of care. 08/27/17 Overall appears to be medically stable. Given bradycardia will decreased Metoprolol to 50mg BID Will need to continue monitor BP. Did contact PCP office at [facility]- their old records from last January patient was not taking erythromycin. It is unclear exactly prescribed clarithromycin and for what reason. Will attempt to contact patient's brother regarding this medication. BGMs are well controlled on current regimen. Continue to encourage work with PT and OT for ongoing strengthening. 09/03/17 Sling to right arm - ortho recommends rechecking films ~09/11/17 HTN - increase hydralazine from 50 to 75 mg TID. Consider further w/u for HTN and r/o pheochromocytoma. He's on multiple classes of antiHTN with suboptimal control, including metoprolol, clonidine, lasix, furosemide, lisinopril + hydralazine. Bradycardia in the 50s precludes increasing BB. 09/05/17 Start bladder retraining. May pull catheter tomorrow if pt is having bladder filling sensation. Will give a second dose of Lasix now. Given his LE edema, HTN and (questionable) weight gain since admission, will increase his Lasix to 40mg q am (from 20mg q am) and follow weights, edema, BP and electrolytes. Increase KCl from 10mEq to 20mEq given the increase in Lasix dosing. Check daily weights. Weight on admission 100.3 and today is 113kg. Question accuracy of today's weight. Consider further w/u for HTN and r/o pheochromocytoma. He's on multiple classes of antiHTN with suboptimal control, including metoprolol, clonidine, lasix, furosemide, lisinopril + hydralazine. May need to clarify with PCP if prior workup for hypertension has been undertaken or which sba underwriter patient has seen. 09/08/17 Headley catheter dc'd 09/07/17 and he's been voiding since. Switching from hydrocodone to oxycodone, has been helpful for pain control. In addition, BP under better control. Continue hydralazine 75 mg and increased Lasix/KCl doses. Check BMP in am. Sinus aram on tele - will dc tele.
--- NOTE | 2017-09-10 14:02 | IRU Team Meeting ---
IRU Team Meeting - Nursing Bladder Assistive Devices Utilized:: Absorbent Pad Bladder Management Level of Assist: Modified Independent Bladder Frequency of Accidents: No accidents Bowel Assistive Devices Utilized:: Medication Bowel Management Level of Assist: Modified Independent Bowel Frequency of Accidents: No accidents Number of Bowel Accidents: 1 Vital Signs: Vital Signs - 24 hr 09/09/17 15:44 09/09/17 19:00 09/10/17 08:00 Temperature 98.3 F 98 F 97.8 F Pulse Rate 50 L 50 L 48 L Respiratory Rate 16 16 14 Blood Pressure 162/83 H 193/86 H 143/74 H Pulse Oximetry 95 100 97 09/10/17 13:48 Temperature Pulse Rate 51 L Respiratory Rate Blood Pressure 122/66 Pulse Oximetry 95 Current Medications: Acetaminophen (Tylenol) 650 mg PO Q4H PRN PRN Reason: Pain Last Admin: 09/10/17 08:42 Dose: 650 mg Al Hydroxide/Mg Hydroxide (Maalox Plus) 30 ml PO Q3H PRN PRN Reason: Indigestion Last Admin: 08/25/17 10:48 Dose: 30 ml Aspirin (Ecotrin) 81 mg PO DAILY [facility] Last Admin: 09/10/17 08:42 Dose: 81 mg Atorvastatin Calcium (Lipitor) 10 mg PO HS [facility] Last Admin: 09/09/17 20:42 Dose: 10 mg Baclofen (Lioresal) 5 mg PO TID [facility] Last Admin: 09/10/17 08:41 Dose: 5 mg Clonidine HCl (Catapres) 0.2 mg PO TID [facility] Last Admin: 09/10/17 08:37 Dose: 0.2 mg Cyclobenzaprine HCl (Flexeril) 5 mg PO TID PRN PRN Reason: Muscle spasm Last Admin: 09/09/17 20:42 Dose: 5 mg Enoxaparin Sodium (Lovenox) 30 mg SQ BID [facility] Last Admin: 09/10/17 08:43 Dose: 30 mg Furosemide (Lasix 20 Mg Tab) 40 mg PO DAILY [facility] Last Admin: 09/10/17 08:42 Dose: 40 mg Gabapentin (Neurontin) 200 mg PO TID [facility] Last Admin: 09/10/17 08:40 Dose: 200 [facility] Last Admin: 09/10/17 08:37 Dose: 5 mg Hydralazine HCl (Apresoline) 75 mg PO WM [facility] Last Admin: 09/10/17 12:18 Dose: 75 mg Ibuprofen (Motrin) 400 mg PO Q4H PRN PRN Reason: Headache /Pain Insulin Aspart (Novolog) 1 - 5 unit SQ SS PRN; Protocol PRN Reason: Hyperglycemia Last Admin: 09/07/17 21:38 Dose: 1 unit Levetiracetam (Keppra) 500 mg PO Q12HR [facility] Last Admin: 09/10/17 08:37 Dose: 500 mg Lisinopril (Prinivil) 40 mg PO DAILY [facility] Last Admin: 09/10/17 08:40 Dose: 40 mg Magnesium Hydroxide (Mom) 30 ml PO DAILY PRN PRN Reason: Constipation Magnesium Oxide (Magox) 400 mg PO BID [facility] Last Admin: 09/10/17 08:40 Dose: 400 mg Metformin HCl (Glucophage) 500 mg PO BIDBS [facility] Last Admin: 09/10/17 08:41 Dose: 500 mg Metoprolol Tartrate (Lopressor) 50 mg PO BIDWM [facility] Last Admin: 09/10/17 08:41 Dose: 50 mg Oxycodone HCl (Roxicodone *Ir*) 15 mg PO Q3HWA [facility] Last Admin: 09/10/17 12:18 Dose: 15 mg Polyethylene Glycol (Miralax) 17 gm PO DAILY [facility] Last Admin: 09/10/17 08:36 Dose: 17 gm Potassium Chloride (K-Dur 10 Meq Tablet) 20 meq PO WB [facility] Last Admin: 09/10/17 08:41 Dose: 20 meq Senna/Docusate Sodium (Senna Plus Tablet) 2 tab PO BID [facility] Last Admin: 09/10/17 08:43 Dose: 2 tab Tamsulosin HCl (Flomax) 0.4 mg PO HS [facility] Last Admin: 09/09/17 20:44 Dose: 0.4 mg Current Medical Issues: Status post ORIF right hip fracture, diabetes mellitus type 2, hypertension, headache, urinary retention Comments: I certify that I personally led the interdisciplinary team meeting and agree with comments, barriers and goals indicated. Team meeting was held in the patient's room with the patient and the following family members present: Patient alone. (Patient's brother was called during the meeting but did not answer.) Mr. Ling continues to struggle with pain management with regard to the right elbow. Today he has developed a headache. He had a headache previously upon admission but then it went away but is now back. His blood sugars have done quite well with a very low-dose sliding scale of insulin. His blood pressures remain elevated, likely related to his pain. Pain is predominantly in the right elbow. His bowels are moving adequately. He has struggled with urinary retention and required straight catheterization in the last 24 hours. - Physical Therapy Bed, Chair, Wheelchair Transfer Assist: Stand By Assist/Supervision, 1 Person Assist Ambulation Ability: Stand By Assist/Supervision, Household Exception, 1 Person Assist Ambulation Distance: 54 Wheelchair Propulsion Ability: Modified Independent Wheelchair Propulsion Distance: 61 Stair Climbing Ability: Stand By Assist/Supervision, Household Exception, 1 Person Assist Number of Steps Climbed: 6 Car Transfer Ability: Stand By Assist/Supervision, 1 Person Assist Comments: Able to ambulate 54 feet with standby assist/supervision with household exception. Platform walker utilized. Exercise tolerance limited by headache today. - Occupational Therapy Eating Ability: Modified Independent Grooming Ability: Modified Independent Bathing Ability: Minimal Assistance Upper Body Dressing Ability: Modified Independent Lower Body Dressing Ability: Minimal Assistance Tub Transfer Assist: Stand By Assist/Supervision Toileting Assist: Minimal Assistance Toilet Transfer Assist: Stand By Assist/Supervision Comments: Patient completed sponge bath at the sink at minimum assistance level for upper body bathing and dressing. Unable to progress with regard to lower extremity issues as long as hip precautions remain in place. Requires minimum assistance to bring legs into bed. - Goals Physical Therapy Goals: 09/04/17 Goals: 1.) Ambulation going 150 feet with supervision. - 50 ft with supervision. 2.) Car transfer with supervision - met. 09/10/17 Goals: 1.) Discharge Planning Occupational Therapy Goals: OT goals 08/29/17: 1.) Lower body dressing with minimal assistance. - goal met. 2.) Toileting with minimal assistance. -goal met. 3.) Toilet transfer with supervison. - goal met. 09/04/17: 1.) Lower body dressing with supervision. 2.) Toileting with supervision. 3.) Perform microwaveable meal with supervision. 09/10/17. 1. Lower body dress at sba. 2. Toileting at S[facility]. 3. perform kitchen meal at S[facility]. continue POC - Barriers to Discharge Barriers to Attaining Goals: Weakness (to address, progressive resistive exercises are offered.), Endurance (to address, recommend fewer rest breaks and increased activity time.), Medical Limitation (edema right lower extremity status post ORIF right hip fracture. Lymphedema massage techniques are offered.) - Care Plan Anticipated Length of Stay (days): 1 Anticipated DC Destination: Shelter/Facility, Other I have led this team conference and agree with the plan. Interventions/Goals: Patient is plateauing with regard to his progress with OT and PT. Pain management has been adjusted with regard to the right elbow pain. Arrangements are underway for placement. Anticipate he will need 24-hour supervision in a facility for the short-term and hopefully assisted living for the longer term.
[2017-09-10] MEDS: IBUPROFEN 400 MG TABLET PO PRN (14:07)
--- NOTE | 2017-09-10 14:20 | XRay Report ---
EXAM: XR elbow RT min 3V DATE: 09/10/2017 1:50 PM ENCOUNTER: Subsequent INDICATION: Right radial head fracture COMPARISON: 08/28/2017 TECHNIQUE: 4 views of the elbow were obtained. FINDINGS: Suggestion of mild osteopenia. Previously identified nondisplaced radial head fracture is not as well-demonstrated on today's examination. The joint spaces are maintained. There may be a persistent small joint effusion. No focal radiographically apparent soft tissue swelling seen. No radiopaque foreign body. Atherosclerotic vascular calcifications. IMPRESSION: Possible small persistent joint effusion with previously identified nondisplaced radial head fracture not as well demonstrated on today's examination. .
[2017-09-10] MEDS: TAMSULOSIN 0.4 MG CAPSULE PO SCH (21:47)
[2017-09-10] MEDS: ATORVASTATIN 10 MG TABLET PO SCH (21:51)
[2017-09-10] MEDS: CYCLOBENZAPRINE 5 MG TABLET PO PRN (21:55)
[2017-09-11] MEDS: Oxycodone *IR* 15 MG TABLET PO SCH ×6 (06:25→20:54)
[2017-09-11] MEDS: SENNA + DOCUSATE TABLET PO SCH ×2 (08:19→21:02)
[2017-09-11] MEDS: FUROSEMIDE 20 MG TABLET PO SCH (08:19)
[2017-09-11] MEDS: ASPIRIN *EC* 81 MG TABLET PO SCH (08:19)
[2017-09-11] MEDS: HYDRALAZINE 25 MG TABLET PO SCH ×3 (08:19→17:49)
[2017-09-11] MEDS: ENOXAPARIN 30 MG/0.3 ML INJECTION SQ SCH ×2 (08:19→20:53)
[2017-09-11] MEDS: MAGNESIUM OXIDE 400 MG TABLET PO SCH ×2 (08:19→20:54)
[2017-09-11] MEDS: LEVETIRACETAM 500 MG TABLET PO SCH ×2 (08:20→20:54)
[2017-09-11] MEDS: GABAPENTIN 100 MG CAPSULE PO SCH ×3 (08:21→20:53)
[2017-09-11] MEDS: LISINOPRIL 40 MG TABLET PO SCH (08:21)
[2017-09-11] MEDS: GlipiZIDE 5 MG TABLET PO SCH ×2 (08:21→17:48)
[2017-09-11] MEDS: BACLOFEN 10 MG TABLET PO SCH ×3 (08:21→20:52)
[2017-09-11] MEDS: METFORMIN 500 MG TABLET PO SCH ×2 (08:21→17:49)
[2017-09-11] MEDS: POLYETHYL GLYCOL 3350 17gm PACKET PO SCH (08:22)
--- NOTE | 2017-09-11 08:39 | XRay Report ---
Indication: radial head fx f/u PROCEDURE: XR elbow RT min 3V: Encounter: Subsequent Comparison: September 10, 2017 and August 28, 2017 Findings: Nondisplaced radial head fracture is stable in alignment. No new fracture or dislocation. Elbow joint effusion has resolved. Arterial vascular calcifications. Impression: Stable alignment of the nondisplaced radial head fracture. .
--- NOTE | 2017-09-11 11:57 | IRU Progress Note ---
- Subjective/Serverity of Illness Date: 09/11/17 Jorge was interviewed and examined on inpatient rehabilitation. He is cooperative with therapy but beginning to plateau. He is noted to have a new abrasion on the dorsal aspect of his right great toe. He indicates this was due to trauma from his hemiwalker. The area will be cleansed with sterile saline and dressed and we will ask when therapy to see him. His previously noted headaches have resolved. When he awakened this morning he states he did not have a headache. His pain management appears to be better with regular dosing of the oxycodone. Pain is predominantly in the right elbow. The patient's blood pressures are doing better at the present time. There are more well controlled. Exam Vital Signs: Temperature 97.9 F 09/11/17 08:00 Pulse Rate 55 L 09/11/17 08:00 Respiratory Rate 20 09/11/17 08:00 Blood Pressure 165/82 H 09/11/17 08:00 Pulse Oximetry 97 09/11/17 08:00 Height/Weight/BMI: Height 1.83 m Weight 102.6 kg Body Mass Index 29.9 - Constitutional Present: no acute distress, well nourished, well developed, obese, cooperative Comments: Severe dysphasia. Able to gesture and nod head. - Routine HEENT Exam Eye: Present: EOMI ENT: Present: mucous membranes moist - Routine Neck Exam Present: supple - Routine Respiratory Exam Present: CTA bilaterally. Absent: wheezes - Routine Cardiovascular Exam Present: RRR, S1, S2. Absent: murmur - Routine Abdominal Exam Present: soft, normoactive bowel sounds, non distended. Absent: tenderness - Routine Extremities Exam Present: edema, normal capillary refill - Routine Skin Exam Present: dry, warm Comments: Patient has a rounded abrasion noted on the dorsal aspect of the right great toe. This measures approximately 1/2 cm in diameter. No evidence of infection at present. - Routine Neurological Exam Present: alert, oriented X3, motor deficit (as before, right hemiparesthesias noted although able to walk with hemiwalker.). Absent: CN II-XII intact - Routine Psychiatric Exam Present: cooperative, depressed, anxious IRU A/P (1) S/P hip hemiarthroplasty Problem details: Surgery done for subcapital , femoral neck Fx Current visit: Yes Status: Acute Patient able to ambulate with hemiwalker but also uses wheelchair. (2) Diabetes mellitus type 2 in nonobese Current visit: Yes Status: Chronic Blood sugars are reviewed and are well controlled at present. (3) Hypertension Qualifiers: Hypertension type: essential hypertension Qualified Code(s): I10 - Essential (primary) hypertension Current visit: Yes Status: Chronic Review blood pressures indicates much better control. Likely this correlates with improved pain management as well with regular doses of oxycodone. (4) Nondisplaced fracture of head of right radius Qualifiers: Encounter type: initial encounter Fracture type: closed Qualified Code(s) : S52.124A - Nondisplaced fracture of head of right radius, initial encounter for closed fracture Current visit: Yes Status: Acute (5) Toe abrasion, non-infected Current visit: Yes Status: Acute Today was the first day the right great toe abrasion was discovered. Patient indicates it was not noted previously either. He indicates it may have been due to a hemiwalker injury. No evidence of infection. We will ask wound therapy to see him as well. DVT Prophylaxis: Lovenox Resuscitation Status: Full Code - Course Hospital Course: Chucho Solis MD: 09/03/17 15:14 Pain in right elbow and right hip as anticipated. Blood sugars are controlled. Blood pressures remain a bit elevated. 09/04/17 12:44 Progressing with therapy. Blood sugars look excellent. Pain in right elbow seems to be a major issue. 09/06/17 11:50 Improving with therapy. Blood pressures remain elevated. Lasix has been increased. I will increase gabapentin and switch to oxycodone today. 09/07/17 11:20 Continues to have some edema in the right lower extremity. He is progressing with therapy with regard to ambulation. Pain management hopefully is improved with the use of oxycodone. 09/10/17 12:06 Pain management is difficult. We'll schedule the oxycodone. Blood pressures remain elevated likely related to pain management. He is voiding although does have occasional residuals identified. 09/11/17 11:58 Headache is resolved. Improved pain management with oxycodone regularly scheduled. Blood pressures are improved with regular doses of oxycodone. New evidence of abrasion to right great toe. - Interventions to Obtain Goals PT Treatment Plan: Functional Activities, Gait Training, Therapeutic Exercise OT Treatment Plan: ADL (Basic Care), Balance Training, IADL, Pt./Family Education, Ther. Exercise for ADL Goals Progress/Modifications: Blood pressures are improved. We'll ask wound care to evaluate the right great toe abrasion. Currently no evidence of infection. His blood sugars are well controlled at present.
--- NOTE | 2017-09-11 15:17 | Wound Care Progress Note ---
Wound Management - Patient Status Premedicated Prior to Dressing Change: No - Wound Right Dorsal Great Toe Wound Type: Abrasion Wound Present on Admission?: No Length: 1.2 Width: 1 Depth: 0.1 Wound Bed Appearance: Beefy Red Tunneling: No Undermining: No Drainage Description: Sanguineous Drainage Amount: Scant Drainage Odor: No Odor Dressing Status: Changed Primary Dressing: Collagen Secondary Dressing: Foam Dressing Dressing Change Date: 09/11/17 Dressing Change Time: 15:17 Dressing Change Patient Tolerance: Tolerated Well (Change every 3 days and PRN Promogren and Mepilx)
[2017-09-11] MEDS: ATORVASTATIN 10 MG TABLET PO SCH (20:52)
[2017-09-11] MEDS: TAMSULOSIN 0.4 MG CAPSULE PO SCH (20:55)
[2017-09-12] MEDS: ACETAMINOPHEN 325 MG TABLET PO PRN ×2 (03:09→15:23)
[2017-09-12] MEDS: Oxycodone *IR* 15 MG TABLET PO SCH ×6 (06:36→20:25)
[2017-09-12] MEDS: POLYETHYL GLYCOL 3350 17gm PACKET PO SCH (08:51)
[2017-09-12] MEDS: LEVETIRACETAM 500 MG TABLET PO SCH ×2 (08:52→20:20)
[2017-09-12] MEDS: METFORMIN 500 MG TABLET PO SCH ×2 (08:52→17:32)
[2017-09-12] MEDS: HYDRALAZINE 25 MG TABLET PO SCH ×3 (08:52→17:33)
[2017-09-12] MEDS: GlipiZIDE 5 MG TABLET PO SCH ×2 (08:52→17:32)
[2017-09-12] MEDS: ASPIRIN *EC* 81 MG TABLET PO SCH (08:53)
[2017-09-12] MEDS: MAGNESIUM OXIDE 400 MG TABLET PO SCH ×2 (08:53→20:20)
[2017-09-12] MEDS: FUROSEMIDE 20 MG TABLET PO SCH (08:54)
[2017-09-12] MEDS: GABAPENTIN 100 MG CAPSULE PO SCH ×3 (08:54→20:21)
[2017-09-12] MEDS: BACLOFEN 10 MG TABLET PO SCH ×3 (08:54→20:21)
[2017-09-12] MEDS: LISINOPRIL 40 MG TABLET PO SCH (08:54)
[2017-09-12] MEDS: SENNA + DOCUSATE TABLET PO SCH ×2 (08:55→20:25)
[2017-09-12] MEDS: ENOXAPARIN 30 MG/0.3 ML INJECTION SQ SCH ×2 (08:55→20:22)
[2017-09-12] MEDS ORDERED: FALL RISK - PHARMACY CONSULT MC ONE (11:25)
[2017-09-12] MEDS: IBUPROFEN 400 MG TABLET PO PRN (13:01)
[2017-09-12] MEDS: TAMSULOSIN 0.4 MG CAPSULE PO SCH (20:20)
[2017-09-12] MEDS: ATORVASTATIN 10 MG TABLET PO SCH (20:21)
[2017-09-13] MEDS: Oxycodone *IR* 15 MG TABLET PO SCH ×6 (09:14→21:42)
[2017-09-13] MEDS: GlipiZIDE 5 MG TABLET PO SCH ×2 (09:15→18:05)
[2017-09-13] MEDS: BACLOFEN 10 MG TABLET PO SCH ×3 (09:15→21:44)
[2017-09-13] MEDS: ASPIRIN *EC* 81 MG TABLET PO SCH (09:15)
[2017-09-13] MEDS: LEVETIRACETAM 500 MG TABLET PO SCH ×2 (09:16→21:44)
[2017-09-13] MEDS: MAGNESIUM OXIDE 400 MG TABLET PO SCH ×2 (09:16→21:43)
[2017-09-13] MEDS: GABAPENTIN 100 MG CAPSULE PO SCH ×3 (09:16→21:43)
[2017-09-13] MEDS: METFORMIN 500 MG TABLET PO SCH ×2 (09:16→18:05)
[2017-09-13] MEDS: FUROSEMIDE 20 MG TABLET PO SCH (09:16)
[2017-09-13] MEDS: HYDRALAZINE 25 MG TABLET PO SCH ×3 (09:17→18:05)
[2017-09-13] MEDS: LISINOPRIL 40 MG TABLET PO SCH (09:17)
[2017-09-13] MEDS: POLYETHYL GLYCOL 3350 17gm PACKET PO SCH (09:17)
[2017-09-13] MEDS: SENNA + DOCUSATE TABLET PO SCH ×2 (09:17→21:45)
[2017-09-13] MEDS: ENOXAPARIN 30 MG/0.3 ML INJECTION SQ SCH ×2 (09:26→21:42)
--- NOTE | 2017-09-13 13:48 | IRU Progress Note ---
- Subjective/Serverity of Illness Date: 09/13/17 Jorge was reassessed in his room on inpatient rehabilitation. He has redeveloped his headache which appears to be more muscle contraction. He is currently undergoing some posterior neck massage by therapy in this regard. He has no new neurologic changes. His right great toe lesion is reviewed by wound therapy as well and appears to be stable. His blood pressure continues to be a bit elevated at times likely related to his discomfort. He is using oxycodone on a regular basis. Pain is primarily in the right elbow but also somewhat in the head at this time. Labs were repeated and his white count is up to 13,000 for unknown reasons. He has no evidence of infection. Hemoglobin is stable. His sugars are reviewed and appear to be adequately controlled at present. Exam Vital Signs: Temperature 98.8 F 09/13/17 09:12 Pulse Rate 57 L 09/13/17 12:45 Respiratory Rate 12 09/13/17 09:12 Blood Pressure 163/71 H 09/13/17 12:45 Pulse Oximetry 98 09/13/17 12:45 Height/Weight/BMI: Height 1.83 m Weight 102.3 kg Body Mass Index 29.9 - Constitutional Present: mild distress (headache and right elbow pain), well nourished, well developed, obese - Routine HEENT Exam Head: Present: normocephalic Eye: Present: EOMI ENT: Present: mucous membranes moist - Routine Neck Exam Present: supple - Routine Respiratory Exam Present: CTA bilaterally. Absent: wheezes - Routine Cardiovascular Exam Present: RRR, S1, S2. Absent: murmur - Routine Abdominal Exam Present: soft, normoactive bowel sounds, non distended. Absent: tenderness - Routine Extremities Exam Present: edema (as before.), normal capillary refill - Routine Skin Exam Present: dry, warm - Routine Neurological Exam Present: alert, motor deficit (his motor exam is unchanged. Right upper extremity not moving. Right lower extremity weak but stable.). Absent: CN II- XII intact - Routine Psychiatric Exam Present: normal affect, cooperative, anxious IRU A/P (1) S/P hip hemiarthroplasty Problem details: Surgery done for subcapital , femoral neck Fx Current visit: Yes Status: Acute Clinically the hip fracture appears to be stable. He is able to ambulate with a hemiwalker. (2) Diabetes mellitus type 2 in nonobese Current visit: Yes Status: Chronic Blood sugars are reviewed and appear to be adequately controlled. (3) Hypertension Qualifiers: Hypertension type: essential hypertension Qualified Code(s): I10 - Essential (primary) hypertension Current visit: Yes Status: Chronic Blood pressures today are running a bit higher, likely related to increased pain both headache and right elbow. (4) Nondisplaced fracture of head of right radius Qualifiers: Encounter type: initial encounter Fracture type: closed Qualified Code(s) : S52.124A - Nondisplaced fracture of head of right radius, initial encounter for closed fracture Current visit: Yes Status: Acute (5) Toe abrasion, non-infected Current visit: Yes Status: Acute Please see wound team note in this regard. (6) Leukocytosis Qualifiers: Leukocytosis type: unspecified Qualified Code(s): D72.829 - Elevated white blood cell count, unspecified Current visit: Yes Status: Acute Patient's white count is up to 13,000. He has no other evidence nor source of infection identified. The foot abrasion does not appear to be infected. We will monitor this carefully and monitor for signs of infection. DVT Prophylaxis: Lovenox Resuscitation Status: Full Code - Course Hospital Course: Chucho Solis MD: 09/03/17 15:14 Pain in right elbow and right hip as anticipated. Blood sugars are controlled. Blood pressures remain a bit elevated. 09/04/17 12:44 Progressing with therapy. Blood sugars look excellent. Pain in right elbow seems to be a major issue. 09/06/17 11:50 Improving with therapy. Blood pressures remain elevated. Lasix has been increased. I will increase gabapentin and switch to oxycodone today. 09/07/17 11:20 Continues to have some edema in the right lower extremity. He is progressing with therapy with regard to ambulation. Pain management hopefully is improved with the use of oxycodone. 09/10/17 12:06 Pain management is difficult. We'll schedule the oxycodone. Blood pressures remain elevated likely related to pain management. He is voiding although does have occasional residuals identified. 09/11/17 11:58 Headache is resolved. Improved pain management with oxycodone regularly scheduled. Blood pressures are improved with regular doses of oxycodone. New evidence of abrasion to right great toe. 09/13/17 13:51 White count to 13,000. No evidence of source of infection at present. Sugars are well controlled. Cooperative with therapy. Headache returned but less intense. - Interventions to Obtain Goals PT Treatment Plan: Functional Activities, Gait Training, Therapeutic Exercise OT Treatment Plan: ADL (Basic Care), Balance Training, IADL, Pt./Family Education, Ther. Exercise for ADL Goals Progress/Modifications: Patient's white count is noted to 13,000 for uncertain reasons. Does not have any localized source of infection that I can determine. His lungs sound clear. The toe abrasion does not appear to be infected. We will continue to monitor for evidence of infection. His headache did return. Local treatment of posterior neck muscles is offered.
[2017-09-13] MEDS: CYCLOBENZAPRINE 5 MG TABLET PO PRN ×2 (15:11→21:44)
[2017-09-13] MEDS: IBUPROFEN 400 MG TABLET PO PRN (15:15)
[2017-09-13] MEDS: TAMSULOSIN 0.4 MG CAPSULE PO SCH (21:45)
[2017-09-13] MEDS: ATORVASTATIN 10 MG TABLET PO SCH (21:45)
[2017-09-14] MEDS: Oxycodone *IR* 15 MG TABLET PO SCH ×6 (05:12→20:19)
[2017-09-14] MEDS: ASPIRIN *EC* 81 MG TABLET PO SCH (08:56)
[2017-09-14] MEDS: ENOXAPARIN 30 MG/0.3 ML INJECTION SQ SCH ×2 (08:56→20:17)
[2017-09-14] MEDS: GABAPENTIN 100 MG CAPSULE PO SCH ×3 (08:57→20:17)
[2017-09-14] MEDS: HYDRALAZINE 25 MG TABLET PO SCH ×3 (08:57→17:30)
[2017-09-14] MEDS: LISINOPRIL 40 MG TABLET PO SCH (08:57)
[2017-09-14] MEDS: GlipiZIDE 5 MG TABLET PO SCH ×2 (08:57→17:29)
[2017-09-14] MEDS: FUROSEMIDE 20 MG TABLET PO SCH (08:57)
[2017-09-14] MEDS: MAGNESIUM OXIDE 400 MG TABLET PO SCH ×2 (08:57→20:18)
[2017-09-14] MEDS: LEVETIRACETAM 500 MG TABLET PO SCH ×2 (08:58→20:17)
[2017-09-14] MEDS: METFORMIN 500 MG TABLET PO SCH ×2 (08:58→17:30)
[2017-09-14] MEDS: POLYETHYL GLYCOL 3350 17gm PACKET PO SCH (08:58)
[2017-09-14] MEDS: SENNA + DOCUSATE TABLET PO SCH ×2 (08:58→20:18)
[2017-09-14] MEDS: BACLOFEN 10 MG TABLET PO SCH ×3 (08:58→20:15)
--- NOTE | 2017-09-14 09:47 | Progress Note ---
- Date 09/14/17 Subjective: Patient is seen sitting in his wheelchair this am. He is nonverbal other than he can whisper "yes." He points to the R side of his face in the confucianism region and to his R upper arm and elbow when asked about pain. Denies ST, fever/chills , abd pain. Objective Vital signs: Temperature 98.3 F 09/14/17 07:48 Pulse Rate 57 L 09/14/17 07:48 Respiratory Rate 16 09/14/17 07:48 Blood Pressure 163/74 H 09/14/17 07:48 Pulse Oximetry 95 09/14/17 07:48 Height/Weight/BMI: Height 1.83 m Weight 102.3 kg Body Mass Index 29.9 - Constitutional Present: no acute distress, well nourished, well developed - Routine HEENT Exam Head: Present: normocephalic, atraumatic Eye: Present: EOMI, PERRL - Routine Respiratory Exam Present: CTA bilaterally. Absent: wheezes - Routine Cardiovascular Exam Present: no murmur, bradycardia (mild) - Routine Abdominal Exam Present: soft, non distended, non tender - Routine Extremities Exam Present: edema (1+ pitting to LE's, R>L - swelling into thigh on R (s/p R hip surg)), normal capillary refill - Routine Skin Exam Present: dry, warm - Routine Neurological Exam Present: alert. Absent: normal speech - Routine Lymphatic Exam Lymphatic: Absent: adenopathy - Routine Psychiatric Exam Present: normal affect, cooperative Results - Labs CBC & Chem 7: 09/14/17 09:07 09/14/17 09:07 Assessment and Plan (1) S/P hip hemiarthroplasty Problem details: Surgery done for subcapital , femoral neck Fx Current visit: Yes Status: Acute Assessment and Plan: Impression Uncontrolled blood pressure - improved with medication adjustments Status post right hip hemiarthroplasty-repaired 08/20/[address] Minor Right nondisplaced radial head fracture - nonsurgical tx S/P Fall Hx of CVA with right hemiparesis Chronic dysphasia Coronary artery disease Bradycardia - likely secondary to multiple cardiac meds for tx of HTN Hypertension Diabetes Seizures Obstructive sleep apnea CAD with history of CABG, 2016 Plan Headley catheter dc'd 09/07/17 and he's been voiding since. BP's are slightly elevated but likely r/t pain. He is already on 4 agents, will continue to monitor. Headache is not new. PT working with him in re: to possible muscle contraction etiology. Sinusitis would be in the DDx, but no c/o fever, sinus drainage, ST, etc. WBC down today from yesterday. 13.3-->11.0. BS's stable. Hgb stable. Wound team following wound on R great toe. - Physician Narrative Narrative: Date: 09/14/17 Time: 940 Hospital Course Summary Disclaimer: The visit summary below is not to be considered part of the above Progress Note. 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 Patient continues to have uncontrolled hypertension 180s systolic. Medication list reviewed carefully along with marked from Gerald. Different beta jonathan was reconciled on admission from medication list. Toprol-XL discontinued, patient placed on metoprolol tartrate, Lopressor 50 milligrams 3 times a day. Continue with lisinopril 40, hydralazine 50mg 3 times a day. Hgb is has remained stable at 11.9. Patient is on Keppra for history of seizures. Patient also takes clarithromycin 500 twice a day. Brother does confirm patient was on this prior to hospitalization, however, exact reason is unknown Monitor Accu-Cheks and continue on metformin twice a day. [place] as needed for postoperative pain control. Will add MiraLAX and senna plus twice a day for postoperative bowel motivation. Encouraged patient to work with PT and OT for ongoing strengthening At time of discharge medical care will return to primary care provider at [facility], Dr. Bro 08/25/2017 Patient was seen today secondary to reports of possible chest pain. Prior baseline is unknown, so will err on the side of caution. Start telemetry. Serial troponin. We'll obtain chest x-ray, as well as a right shoulder film due to concern for subluxation. GI upset is certainly a possibility, particularly since he is on clarithromycin. May need to get further information on that on Sunday from his PCP. We'll continue remainder current care. Assess lab in the morning for stability. Discussed with patient, he is in agreement with plan of care. 08/27/17 Overall appears to be medically stable. Given bradycardia will decreased Metoprolol to 50mg BID Will need to continue monitor BP. Did contact PCP office at [facility]- their old records from last January patient was not taking erythromycin. It is unclear exactly prescribed clarithromycin and for what reason. Will attempt to contact patient's brother regarding this medication. BGMs are well controlled on current regimen. Continue to encourage work with PT and OT for ongoing strengthening. 09/03/17 Sling to right arm - ortho recommends rechecking films ~09/11/17 HTN - increase hydralazine from 50 to 75 mg TID. Consider further w/u for HTN and r/o pheochromocytoma. He's on multiple classes of antiHTN with suboptimal control, including metoprolol, clonidine, lasix, furosemide, lisinopril + hydralazine. Bradycardia in the 50s precludes increasing BB. 09/05/17 Start bladder retraining. May pull catheter tomorrow if pt is having bladder filling sensation. Will give a second dose of Lasix now. Given his LE edema, HTN and (questionable) weight gain since admission, will increase his Lasix to 40mg q am (from 20mg q am) and follow weights, edema, BP and electrolytes. Increase KCl from 10mEq to 20mEq given the increase in Lasix dosing. Check daily weights. Weight on admission 100.3 and today is 113kg. Question accuracy of today's weight. Consider further w/u for HTN and r/o pheochromocytoma. He's on multiple classes of antiHTN with suboptimal control, including metoprolol, clonidine, lasix, furosemide, lisinopril + hydralazine. May need to clarify with PCP if prior workup for hypertension has been undertaken or which biology manager patient has seen. 09/08/17 Headley catheter dc'd 09/07/17 and he's been voiding since. Switching from hydrocodone to oxycodone, has been helpful for pain control. In addition, BP under better control. Continue hydralazine 75 mg and increased Lasix/KCl doses. Check BMP in am. Sinus aram on tele - will dc tele. 09/14/17 BP's are slightly elevated but likely r/t pain. He is already on 4 agents, will continue to monitor. Headache is not new. PT working with him in re: to possible muscle contraction etiology. Sinusitis would be in the DDx, but no c/o fever, sinus drainage, ST, etc. WBC down today from yesterday. 13.3-->11.0. BS's stable. Hgb stable. Wound team following wound on R great toe.
--- NOTE | 2017-09-14 11:37 | IRU Progress Note ---
- Subjective/Serverity of Illness Date: 09/14/17 Mr. Ling continues to complain of a headache. This tends to come and go. Neck massage yesterday by therapy was of great benefit for him. Otherwise he continues to point to his right elbow as the source of discomfort. He is on fairly potent doses of oxycodone on a regular basis. His blood pressure remains elevated which I assume is related to the pain. Progress with therapy is slow. Placement arrangements are pending. Exam Vital Signs: Temperature 98.3 F 09/14/17 07:48 Pulse Rate 57 L 09/14/17 07:48 Respiratory Rate 16 09/14/17 07:48 Blood Pressure 163/74 H 09/14/17 07:48 Pulse Oximetry 95 09/14/17 07:48 Height/Weight/BMI: Height 1.83 m Weight 102.3 kg Body Mass Index 29.9 - Constitutional Present: mild distress (Headache), well nourished, well developed - Routine HEENT Exam Eye: Present: EOMI ENT: Present: mucous membranes moist, oropharynx clear - Routine Respiratory Exam Present: CTA bilaterally. Absent: wheezes - Routine Cardiovascular Exam Present: RRR, S1, S2. Absent: murmur - Routine Abdominal Exam Present: soft, normoactive bowel sounds, non distended. Absent: tenderness - Routine Extremities Exam Present: normal capillary refill - Routine Skin Exam Present: dry, warm - Routine Neurological Exam Present: alert, motor deficit (right sided weakness). Absent: CN II-XII intact - Routine Psychiatric Exam Present: normal affect IRU A/P (1) S/P hip hemiarthroplasty Problem details: Surgery done for subcapital , femoral neck Fx Current visit: Yes Status: Acute Continues to work with therapy although slow progress. (2) Diabetes mellitus type 2 in nonobese Current visit: Yes Status: Chronic Blood sugars are reasonably well controlled. (3) Hypertension Qualifiers: Hypertension type: essential hypertension Qualified Code(s): I10 - Essential (primary) hypertension Current visit: Yes Status: Chronic (4) Nondisplaced fracture of head of right radius Qualifiers: Encounter type: initial encounter Fracture type: closed Qualified Code(s) : S52.124A - Nondisplaced fracture of head of right radius, initial encounter for closed fracture Current visit: Yes Status: Acute (5) Toe abrasion, non-infected Current visit: Yes Status: Acute (6) Leukocytosis Qualifiers: Leukocytosis type: unspecified Qualified Code(s): D72.829 - Elevated white blood cell count, unspecified Current visit: Yes Status: Acute (7) Headache Qualifiers: Headache type: tension-type Headache chronicity pattern: chronic headache Current visit: Yes Status: Acute Continues to struggle with headache. At this time he is pointing to his right cheondoism area. Reports that the massage did help. In view of the localization to the right cheondoism area, we will do a sedimentation rate for completeness. I do not feel any enlargement of temporal artery nor is there particular tenderness here. Neurologically he is unchanged. DVT Prophylaxis: Lovenox Resuscitation Status: Full Code - Course Hospital Course: Chucho Solis MD: 09/03/17 15:14 Pain in right elbow and right hip as anticipated. Blood sugars are controlled. Blood pressures remain a bit elevated. 09/04/17 12:44 Progressing with therapy. Blood sugars look excellent. Pain in right elbow seems to be a major issue. 09/06/17 11:50 Improving with therapy. Blood pressures remain elevated. Lasix has been increased. I will increase gabapentin and switch to oxycodone today. 09/07/17 11:20 Continues to have some edema in the right lower extremity. He is progressing with therapy with regard to ambulation. Pain management hopefully is improved with the use of oxycodone. 09/10/17 12:06 Pain management is difficult. We'll schedule the oxycodone. Blood pressures remain elevated likely related to pain management. He is voiding although does have occasional residuals identified. 09/11/17 11:58 Headache is resolved. Improved pain management with oxycodone regularly scheduled. Blood pressures are improved with regular doses of oxycodone. New evidence of abrasion to right great toe. 09/13/17 13:51 White count to 13,000. No evidence of source of infection at present. Sugars are well controlled. Cooperative with therapy. Headache returned but less intense. 09/14/17 11:37 Headache continues to come and go. Seems to be localized in right temporal area. We will check a sedimentation rate. Neurologically he is otherwise unchanged. - Interventions to Obtain Goals PT Treatment Plan: Functional Activities, Gait Training, Therapeutic Exercise OT Treatment Plan: ADL (Basic Care), Balance Training, IADL, Pt./Family Education, Ther. Exercise for ADL Goals Progress/Modifications: Continues to struggle with headache. We will check a sedimentation rate. Otherwise neurologically he is intact. Progress with therapy remains slow.
[2017-09-14] MEDS: ACETAMINOPHEN 325 MG TABLET PO PRN (11:42)
[2017-09-14] MEDS: INSULIN ASPART 100unit/ml INJECTION SQ PRN (12:18)
[2017-09-14] MEDS: ATORVASTATIN 10 MG TABLET PO SCH (20:15)
[2017-09-14] MEDS: TAMSULOSIN 0.4 MG CAPSULE PO SCH (20:18)
[2017-09-15] MEDS: Oxycodone *IR* 15 MG TABLET PO SCH ×6 (05:53→20:45)
[2017-09-15] MEDS: POLYETHYL GLYCOL 3350 17gm PACKET PO SCH (08:58)
[2017-09-15] MEDS: METFORMIN 500 MG TABLET PO SCH ×2 (08:59→17:48)
[2017-09-15] MEDS: FUROSEMIDE 20 MG TABLET PO SCH (08:59)
[2017-09-15] MEDS: GlipiZIDE 5 MG TABLET PO SCH ×2 (09:00→17:48)
[2017-09-15] MEDS: MAGNESIUM OXIDE 400 MG TABLET PO SCH ×2 (09:00→20:48)
[2017-09-15] MEDS: LISINOPRIL 40 MG TABLET PO SCH (09:00)
[2017-09-15] MEDS: HYDRALAZINE 25 MG TABLET PO SCH ×3 (09:00→17:48)
[2017-09-15] MEDS: LEVETIRACETAM 500 MG TABLET PO SCH ×2 (09:00→20:48)
[2017-09-15] MEDS: BACLOFEN 10 MG TABLET PO SCH ×3 (09:00→20:46)
[2017-09-15] MEDS: ASPIRIN *EC* 81 MG TABLET PO SCH (09:00)
[2017-09-15] MEDS: GABAPENTIN 100 MG CAPSULE PO SCH ×3 (09:01→20:48)
[2017-09-15] MEDS: SENNA + DOCUSATE TABLET PO SCH ×2 (09:01→20:48)
[2017-09-15] MEDS: ENOXAPARIN 30 MG/0.3 ML INJECTION SQ SCH ×2 (10:38→20:47)
[2017-09-15] MEDS: ATORVASTATIN 10 MG TABLET PO SCH (20:46)
[2017-09-15] MEDS: TAMSULOSIN 0.4 MG CAPSULE PO SCH (20:49)
[2017-09-15] MEDS: INSULIN ASPART 100unit/ml INJECTION SQ PRN (21:01)
[2017-09-16] MEDS: Oxycodone *IR* 15 MG TABLET PO SCH ×6 (05:28→21:42)
[2017-09-16] MEDS: METFORMIN 500 MG TABLET PO SCH ×2 (09:05→17:39)
[2017-09-16] MEDS: HYDRALAZINE 25 MG TABLET PO SCH ×3 (09:05→17:40)
[2017-09-16] MEDS: GlipiZIDE 5 MG TABLET PO SCH ×2 (09:05→17:39)
[2017-09-16] MEDS: MAGNESIUM OXIDE 400 MG TABLET PO SCH ×2 (09:06→21:43)
[2017-09-16] MEDS: LISINOPRIL 40 MG TABLET PO SCH (09:06)
[2017-09-16] MEDS: LEVETIRACETAM 500 MG TABLET PO SCH ×2 (09:07→21:43)
[2017-09-16] MEDS: FUROSEMIDE 20 MG TABLET PO SCH (09:07)
[2017-09-16] MEDS: ENOXAPARIN 30 MG/0.3 ML INJECTION SQ SCH ×2 (09:07→21:45)
[2017-09-16] MEDS: GABAPENTIN 100 MG CAPSULE PO SCH ×3 (09:09→21:43)
[2017-09-16] MEDS: ASPIRIN *EC* 81 MG TABLET PO SCH (09:09)
[2017-09-16] MEDS: BACLOFEN 10 MG TABLET PO SCH ×3 (09:09→21:43)
[2017-09-16] MEDS: SENNA + DOCUSATE TABLET PO SCH ×2 (09:10→21:46)
[2017-09-16] MEDS: POLYETHYL GLYCOL 3350 17gm PACKET PO SCH (09:10)
--- NOTE | 2017-09-16 16:48 | Progress Note ---
Progress Note: Chart review. BP trending up. A bit bradycardic. Will decrease metoprolol to home dosing. Decrease clonidine as higher risk with BB therapy. Add amlodipine and continue to follow. If BP remains elevated, may need to taper down hydralazine due to risk of reflex hypertension. Labs reviewed.
[2017-09-16] MEDS: TAMSULOSIN 0.4 MG CAPSULE PO SCH (21:43)
[2017-09-16] MEDS: ATORVASTATIN 10 MG TABLET PO SCH (21:43)
[2017-09-16] MEDS: AMLODIPINE 5 MG TABLET PO SCH (21:44)
[2017-09-17] MEDS: Oxycodone *IR* 15 MG TABLET PO SCH ×6 (05:41→22:01)
[2017-09-17] MEDS: HYDRALAZINE 25 MG TABLET PO SCH ×3 (08:19→17:17)
[2017-09-17] MEDS: LEVETIRACETAM 500 MG TABLET PO SCH ×2 (08:19→22:02)
[2017-09-17] MEDS: SENNA + DOCUSATE TABLET PO SCH ×2 (08:20→22:01)
[2017-09-17] MEDS: ASPIRIN *EC* 81 MG TABLET PO SCH (08:20)
[2017-09-17] MEDS: GlipiZIDE 5 MG TABLET PO SCH ×2 (08:20→17:17)
[2017-09-17] MEDS: GABAPENTIN 100 MG CAPSULE PO SCH ×3 (08:20→22:02)
[2017-09-17] MEDS: BACLOFEN 10 MG TABLET PO SCH ×3 (08:21→22:02)
[2017-09-17] MEDS: METFORMIN 500 MG TABLET PO SCH ×2 (08:21→17:17)
[2017-09-17] MEDS: MAGNESIUM OXIDE 400 MG TABLET PO SCH ×2 (08:21→22:01)
[2017-09-17] MEDS: FUROSEMIDE 20 MG TABLET PO SCH (08:21)
[2017-09-17] MEDS: LISINOPRIL 40 MG TABLET PO SCH (08:21)
[2017-09-17] MEDS: AMLODIPINE 5 MG TABLET PO SCH ×2 (08:22→22:02)
[2017-09-17] MEDS: ENOXAPARIN 30 MG/0.3 ML INJECTION SQ SCH ×2 (08:22→22:02)
[2017-09-17] MEDS: POLYETHYL GLYCOL 3350 17gm PACKET PO SCH (08:23)
--- NOTE | 2017-09-17 11:54 | IRU Progress Note ---
- Subjective/Serverity of Illness Date: 09/17/17 Hermes reports that his headache has resolved. I did do a sedimentation rate which was indeed elevated at 93. With the headache having resolved I'm less likely to think this is temporal arteritis. He has no tenderness on palpation of the temporal area. His primary pain is that of the right elbow. He is cooperative with therapy. We are awaiting placement. Exam Vital Signs: Temperature 97.7 F 09/17/17 07:37 Pulse Rate 50 L 09/17/17 07:37 Respiratory Rate 16 09/17/17 07:37 Blood Pressure 163/73 H 09/17/17 07:37 Pulse Oximetry 96 09/17/17 07:37 Height/Weight/BMI: Height 1.83 m Weight 101.5 kg Body Mass Index 29.9 - Constitutional Present: mild distress (right elbow), well nourished, well developed, cooperative - Routine HEENT Exam Eye: Present: EOMI - Routine Respiratory Exam Present: CTA bilaterally. Absent: wheezes - Routine Cardiovascular Exam Present: RRR, S1, S2. Absent: murmur - Routine Abdominal Exam Present: soft, normoactive bowel sounds, non distended. Absent: tenderness - Routine Extremities Exam Present: edema (right lower extremity), normal capillary refill - Routine Skin Exam Present: dry, warm - Routine Neurological Exam Present: alert, motor deficit, facial asymmetry. Absent: CN II-XII intact, normal speech - Routine Psychiatric Exam Present: normal affect IRU A/P (1) S/P hip hemiarthroplasty Problem details: Surgery done for subcapital , femoral neck Fx Current visit: Yes Status: Acute Patient appears to be orthopedically stable. He is able to ambulate with a hemiwalker. Pain management continues to be a challenge. (2) Diabetes mellitus type 2 in nonobese Current visit: Yes Status: Chronic Blood sugars are well controlled at present. (3) Hypertension Qualifiers: Hypertension type: essential hypertension Qualified Code(s): I10 - Essential (primary) hypertension Current visit: Yes Status: Chronic Blood pressure medications have been adjusted by the hospitalist service. Pressures remain a bit elevated likely multifactorial and related to his pain as well as anxiety etc. (4) Nondisplaced fracture of head of right radius Qualifiers: Encounter type: initial encounter Fracture type: closed Qualified Code(s) : S52.124A - Nondisplaced fracture of head of right radius, initial encounter for closed fracture Current visit: Yes Status: Acute (5) Toe abrasion, non-infected Current visit: Yes Status: Acute (6) Leukocytosis Qualifiers: Leukocytosis type: unspecified Qualified Code(s): D72.829 - Elevated white blood cell count, unspecified Current visit: Yes Status: Acute (7) Headache Qualifiers: Headache type: tension-type Headache chronicity pattern: chronic headache Current visit: Yes Status: Acute At this point the patient states that his headache has resolved. Etiology is likely muscle contraction. Sedimentation rate was done and is indeed elevated. However with the headache having resolved and with it having improved previously from massage of the posterior neck musculature, I think it is more likely related to muscle contraction. Migraine cannot be ruled out of course. DVT Prophylaxis: Lovenox Resuscitation Status: Full Code - Course Hospital Course: Chucho Solis MD: 09/03/17 15:14 Pain in right elbow and right hip as anticipated. Blood sugars are controlled. Blood pressures remain a bit elevated. 09/04/17 12:44 Progressing with therapy. Blood sugars look excellent. Pain in right elbow seems to be a major issue. 09/06/17 11:50 Improving with therapy. Blood pressures remain elevated. Lasix has been increased. I will increase gabapentin and switch to oxycodone today. 09/07/17 11:20 Continues to have some edema in the right lower extremity. He is progressing with therapy with regard to ambulation. Pain management hopefully is improved with the use of oxycodone. 09/10/17 12:06 Pain management is difficult. We'll schedule the oxycodone. Blood pressures remain elevated likely related to pain management. He is voiding although does have occasional residuals identified. 09/11/17 11:58 Headache is resolved. Improved pain management with oxycodone regularly scheduled. Blood pressures are improved with regular doses of oxycodone. New evidence of abrasion to right great toe. 09/13/17 13:51 White count to 13,000. No evidence of source of infection at present. Sugars are well controlled. Cooperative with therapy. Headache returned but less intense. 09/14/17 11:37 Headache continues to come and go. Seems to be localized in right temporal area. We will check a sedimentation rate. Neurologically he is otherwise unchanged. 09/17/17 11:54 Headache reportedly resolved. No new neurologic changes. Pain management is a challenge. Blood pressures remain elevated although medications have been adjusted. - Interventions to Obtain Goals PT Treatment Plan: Functional Activities, Gait Training, Therapeutic Exercise OT Treatment Plan: ADL (Basic Care), Balance Training, IADL, Pt./Family Education, Ther. Exercise for ADL
--- NOTE | 2017-09-17 14:23 | Progress Note ---
- Date 09/17/17 Subjective: Hermes was resting in bed, sleeping comfortably after lunch. He woke up briefly, and denied any new complaints. His right elbow continues to hurt. His right arm was in a sling. He has been eating well and has been having regular bowel movements. Objective Vital signs: Temperature 97.7 F 09/17/17 07:37 Pulse Rate 50 L 09/17/17 07:37 Respiratory Rate 16 09/17/17 07:37 Blood Pressure 163/73 H 09/17/17 07:37 Pulse Oximetry 96 09/17/17 07:37 Height/Weight/BMI: Height 1.83 m Weight 101.5 kg Body Mass Index 29.9 - Constitutional Present: no acute distress, well nourished, well developed - Routine HEENT Exam Head: Present: normocephalic - Routine Respiratory Exam Present: CTA bilaterally - Routine Cardiovascular Exam Present: RRR, S1, S2 - Routine Abdominal Exam Present: soft, normoactive bowel sounds, non distended, non tender - Routine Extremities Exam Present: edema (right arm, bilateral lower extremities) - Routine Musculoskeletal Exam Musculoskeletal: Absent: moving extremities well (right arm in a sling) - Routine Skin Exam Present: intact, dry, warm - Routine Neurological Exam Absent: alert (very drowsy) - Routine Psychiatric Exam Present: unable to assess Results - Labs CBC & Chem 7: 09/14/17 09:07 09/14/17 09:07 Assessment and Plan (1) S/P hip hemiarthroplasty Problem details: Surgery done for subcapital , femoral neck Fx Current visit: Yes Status: Acute Assessment and Plan: Impression Uncontrolled blood pressure - improved with medication adjustments Status post right hip hemiarthroplasty-repaired 08/20/[address] Minor Right nondisplaced radial head fracture - nonsurgical tx S/P Fall Hx of CVA with right hemiparesis Chronic dysphasia Coronary artery disease Bradycardia - likely secondary to multiple cardiac meds for tx of HTN Hypertension Diabetes Seizures Obstructive sleep apnea CAD with history of CABG, 2016 Plan Blood pressures continue to run high. He remains bradycardic with heart rates in the 50s. Metoprolol reduced to 25 mg. Clonidine was started on 09/16/17. Monitor response before further adjustments are made. Awaiting insurance approval, and discharge plans are to go to [facility] and rehabilitation. Dr. Briones's note reviewed. Continue PT/OT. DVT Prophylaxis: Lovenox Resuscitation Status: Full Code - Physician Narrative Narrative: Date: 09/17/17 Time: 1420 Hospital Course Summary Disclaimer: The visit summary below is not to be considered part of the above Progress Note. 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 Patient continues to have uncontrolled hypertension 180s systolic. Medication list reviewed carefully along with marked from Gerald. Different beta jonathan was reconciled on admission from medication list. Toprol-XL discontinued, patient placed on metoprolol tartrate, Lopressor 50 milligrams 3 times a day. Continue with lisinopril 40, hydralazine 50mg 3 times a day. Hgb is has remained stable at 11.9. Patient is on Keppra for history of seizures. Patient also takes clarithromycin 500 twice a day. Brother does confirm patient was on this prior to hospitalization, however, exact reason is unknown Monitor Accu-Cheks and continue on metformin twice a day. [place] as needed for postoperative pain control. Will add MiraLAX and senna plus twice a day for postoperative bowel motivation. Encouraged patient to work with PT and OT for ongoing strengthening At time of discharge medical care will return to primary care provider at [facility], Dr. Bro 08/25/2017 Patient was seen today secondary to reports of possible chest pain. Prior baseline is unknown, so will err on the side of caution. Start telemetry. Serial troponin. We'll obtain chest x-ray, as well as a right shoulder film due to concern for subluxation. GI upset is certainly a possibility, particularly since he is on clarithromycin. May need to get further information on that on Sunday from his PCP. We'll continue remainder current care. Assess lab in the morning for stability. Discussed with patient, he is in agreement with plan of care. 08/27/17 Overall appears to be medically stable. Given bradycardia will decreased Metoprolol to 50mg BID Will need to continue monitor BP. Did contact PCP office at [facility]- their old records from last January patient was not taking erythromycin. It is unclear exactly prescribed clarithromycin and for what reason. Will attempt to contact patient's brother regarding this medication. BGMs are well controlled on current regimen. Continue to encourage work with PT and OT for ongoing strengthening. 09/03/17 Sling to right arm - ortho recommends rechecking films ~09/11/17 HTN - increase hydralazine from 50 to 75 mg TID. Consider further w/u for HTN and r/o pheochromocytoma. He's on multiple classes of antiHTN with suboptimal control, including metoprolol, clonidine, lasix, furosemide, lisinopril + hydralazine. Bradycardia in the 50s precludes increasing BB. 09/05/17 Start bladder retraining. May pull catheter tomorrow if pt is having bladder filling sensation. Will give a second dose of Lasix now. Given his LE edema, HTN and (questionable) weight gain since admission, will increase his Lasix to 40mg q am (from 20mg q am) and follow weights, edema, BP and electrolytes. Increase KCl from 10mEq to 20mEq given the increase in Lasix dosing. Check daily weights. Weight on admission 100.3 and today is 113kg. Question accuracy of today's weight. Consider further w/u for HTN and r/o pheochromocytoma. He's on multiple classes of antiHTN with suboptimal control, including metoprolol, clonidine, lasix, furosemide, lisinopril + hydralazine. 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 09/08/17 [place] catheter dc'd 09/07/17 and he's been voiding since. Switching from hydrocodone to oxycodone, has been helpful for pain control. In addition, BP under better control. Continue hydralazine 75 mg and increased Lasix/KCl doses. Check BMP in am. Sinus aram on tele - will dc tele. 09/14/17 BP's are slightly elevated but likely r/t pain. He is already on 4 agents, will continue to monitor. Headache is not new. PT working with him in re: to possible muscle contraction etiology. Sinusitis would be in the DDx, but no c/o fever, sinus drainage, ST, etc. WBC down today from yesterday. 13.3-->11.0. BS's stable. Hgb stable. Wound team following wound on R great toe. 09/17/17 Blood pressures continue to run high. He remains bradycardic with heart rates in the 50s. Metoprolol reduced to 25 mg. Clonidine was started on 09/16/17. Monitor response before further adjustments are made. Awaiting insurance approval, and discharge plans are to go to [facility] and rehabilitation. Dr. Briones's note reviewed. Continue PT/OT.
--- NOTE | 2017-09-17 15:07 | IRU Team Meeting ---
IRU Team Meeting - Nursing Bladder Assistive Devices Utilized:: Medication, Absorbent Pad Bladder Management Level of Assist: Modified Independent Bladder Frequency of Accidents: No accidents Number of Bladder Accidents: 1 Bowel Assistive Devices Utilized:: Medication, Absorbent Pad Bowel Management Level of Assist: Total Assistance Bowel Frequency of Accidents: 2 accidents this shift Number of Bowel Accidents: 1 Vital Signs: Vital Signs - 24 hr 09/16/17 16:00 09/16/17 17:10 09/16/17 20:45 Temperature 97.5 F 98.1 F Pulse Rate 52 L 51 L 52 L Respiratory Rate 20 16 18 Blood Pressure 197/83 H 159/86 H 180/92 H Pulse Oximetry 98 98 97 09/17/17 07:37 Temperature 97.7 F Pulse Rate 50 L Respiratory Rate 16 Blood Pressure 163/73 H Pulse Oximetry 96 Current Medications: Acetaminophen (Tylenol) 650 mg PO Q4H PRN PRN Reason: Pain Last Admin: 09/14/17 11:42 Dose: 650 mg Al Hydroxide/Mg Hydroxide (Maalox Plus) 30 ml PO Q3H PRN PRN Reason: Indigestion Last Admin: 08/25/17 10:48 Dose: 30 ml Amlodipine Besylate (Norvasc) 5 mg PO BID [facility] Last Admin: 09/17/17 08:22 Dose: 5 mg Aspirin (Ecotrin) 81 mg PO DAILY [facility] Last Admin: 09/17/17 08:20 Dose: 81 mg Atorvastatin Calcium (Lipitor) 10 mg PO [facility] Last Admin: 09/16/17 21:43 Dose: 10 mg Baclofen (Lioresal) 5 mg PO TID [facility] Last Admin: 09/17/17 08:21 Dose: 5 mg Clonidine HCl (Catapres) 0.1 mg PO TID [facility] Last Admin: 09/17/17 08:21 Dose: 0.1 mg Cyclobenzaprine HCl (Flexeril) 5 mg PO TID PRN PRN Reason: Muscle spasm Last Admin: 09/13/17 21:44 Dose: 5 mg Enoxaparin Sodium (Lovenox) 30 mg SQ BID [facility] Last Admin: 09/17/17 08:22 Dose: 30 mg Furosemide (Lasix 20 Mg Tab) 40 mg PO DAILY [facility] Last Admin: 09/17/17 08:21 Dose: 40 mg Gabapentin (Neurontin) 200 mg PO TID [facility] Last Admin: 09/17/17 08:20 Dose: 200 mg Glipizide (Glucotrol) 5 mg PO BIDBS [facility] Last Admin: 09/17/17 08:20 Dose: 5 mg Hydralazine HCl (Apresoline) 75 mg PO WM [facility] Last Admin: 09/17/17 12:22 Dose: 75 mg Ibuprofen (Motrin) 400 mg PO Q4H PRN PRN Reason: Headache /Pain Last Admin: 09/13/17 15:15 Dose: 400 mg Insulin Aspart (Novolog) 1 - 5 unit SQ SS PRN; Protocol PRN Reason: Hyperglycemia Last Admin: 09/15/17 21:01 Dose: 1 unit Levetiracetam (Keppra) 500 mg PO Q12HR [facility] Last Admin: 09/17/17 08:19 Dose: 500 mg Lisinopril (Prinivil) 40 mg PO DAILY [facility] Last Admin: 09/17/17 08:21 Dose: 40 mg Magnesium Hydroxide (Mom) 30 ml PO DAILY PRN PRN Reason: Constipation Magnesium Oxide (Magox) 400 mg PO BID [facility] Last Admin: 09/17/17 08:21 Dose: 400 mg Metformin HCl (Glucophage) 500 mg PO BIDBS [facility] Last Admin: 09/17/17 08:21 Dose: 500 mg Metoprolol Tartrate (Lopressor) 25 mg PO BIDWM [facility] Last Admin: 09/17/17 08:22 Dose: 25 mg Oxycodone HCl (Roxicodone *Ir*) 15 mg PO Q3HWA [facility] Last Admin: 09/17/17 12:22 Dose: 15 mg Polyethylene Glycol (Miralax) 17 gm PO DAILY [facility] Last Admin: 09/17/17 08:23 Dose: Not Given Potassium Chloride (K-Dur 10 Meq Tablet) 20 meq PO WB [facility] Last Admin: 09/17/17 08:20 Dose: 20 meq Senna/Docusate Sodium (Senna Plus Tablet) 2 tab PO BID [facility] Last Admin: 09/17/17 08:20 Dose: 2 tab Tamsulosin HCl (Flomax) 0.4 mg PO HS [facility] Last Admin: 09/16/17 21:43 Dose: 0.4 mg Current Medical Issues: Right hip fracture, right elbow fracture, pain management, headache, diabetes mellitus type 2, hypertension Comments: I certify that I personally led the interdisciplinary team meeting and agree with comments, barriers and goals indicated. Team meeting was held in the patient's room with the patient and the following family members present: patient alone Jorge reports his headache has resolved. He continues to have discomfort in the right elbow and right hip. Medically he is stable. His blood sugars are doing well. His blood pressures are a bit elevated. - Physical Therapy Bed, Chair, Wheelchair Transfer Assist: Stand By Assist/Supervision Ambulation Ability: Stand By Assist/Supervision, Household Exception Ambulation Distance: 103 Wheelchair Propulsion Ability: Modified Independent Wheelchair Propulsion Distance: 155 Stair Climbing Ability: Total Assistance, 1 Person Assist Number of Steps Climbed: 4 Car Transfer Ability: Stand By Assist/Supervision Comments: Patient able to ambulate with standby assist 103 feet with a hemiwalker. Does demonstrate motivation and activity participation with therapy. Currently working on maintenance of current abilities. - Occupational Therapy Eating Ability: Stand By Assist/Supervision Grooming Ability: Independent Bathing Ability: Stand By Assist/Supervision, Minimal Assistance, Patient Refuses Upper Body Dressing Ability: Independent Lower Body Dressing Ability: Moderate Assistance Tub Transfer Assist: Stand By Assist/Supervision Toileting Assist: Maximal Assistance Toilet Transfer Assist: Stand By Assist/Supervision Comments: Continues to work on ADL retraining. Patient completed a sponge bath at minimum assistance level for upper body and max assist for lower body bathing. - Goals Physical Therapy Goals: 09/04/17 Goals: 1.) Ambulation going 150 feet with supervision. - 50 ft with supervision. 2.) Car transfer with supervision - met. 09/10/17 Goals: 1.) Discharge Planning - continuing. 09/17/17 Goals: 1.) Discharge Planning Occupational Therapy Goals: OT goals 08/29/17: 1.) Lower body dressing with minimal assistance. - goal met. 2.) Toileting with minimal assistance. -goal met. 3.) Toilet transfer with supervison. - goal met. 09/04/17, 09/17/17: 1.) Lower body dressing with supervision.- continue. 2.) Toileting with supervision. -continue. 3.) Perform microwaveable meal with supervision. - Barriers to Discharge Barriers to Attaining Goals: Weakness (to address this, progressive resistive exercises are offered.), Endurance (to address this, fewer rest breaks and increased activity time are offered.), Medical Limitation (swelling right lower extremity: Lymphedema massage techniques are offered.) - Care Plan Anticipated Length of Stay (days): 1 Anticipated DC Destination: Jail/Facility, Other I have led this team conference and agree with the plan. Interventions/Goals: Anticipate safe transfer to senior living when bed is available and arrangements are made.
[2017-09-17] MEDS: ATORVASTATIN 10 MG TABLET PO SCH (22:02)
[2017-09-17] MEDS: CYCLOBENZAPRINE 5 MG TABLET PO PRN (22:02)
[2017-09-17] MEDS: TAMSULOSIN 0.4 MG CAPSULE PO SCH (22:03)
[2017-09-18] MEDS: CYCLOBENZAPRINE 5 MG TABLET PO PRN ×2 (06:20→21:19)
[2017-09-18] MEDS: Oxycodone *IR* 15 MG TABLET PO SCH ×2 (06:20→09:49)
[2017-09-18] MEDS: GlipiZIDE 5 MG TABLET PO SCH ×2 (08:47→17:30)
[2017-09-18] MEDS: HYDRALAZINE 25 MG TABLET PO SCH ×3 (08:47→17:30)
[2017-09-18] MEDS: SENNA + DOCUSATE TABLET PO SCH ×2 (08:47→21:20)
[2017-09-18] MEDS: MAGNESIUM OXIDE 400 MG TABLET PO SCH ×2 (08:47→21:18)
[2017-09-18] MEDS: FUROSEMIDE 20 MG TABLET PO SCH (08:47)
[2017-09-18] MEDS: METFORMIN 500 MG TABLET PO SCH ×2 (08:48→17:30)
[2017-09-18] MEDS: GABAPENTIN 100 MG CAPSULE PO SCH ×3 (08:48→21:18)
[2017-09-18] MEDS: ASPIRIN *EC* 81 MG TABLET PO SCH (08:48)
[2017-09-18] MEDS: BACLOFEN 10 MG TABLET PO SCH ×3 (08:48→21:19)
[2017-09-18] MEDS: LISINOPRIL 40 MG TABLET PO SCH (08:48)
[2017-09-18] MEDS: AMLODIPINE 5 MG TABLET PO SCH ×2 (08:48→21:20)
[2017-09-18] MEDS: LEVETIRACETAM 500 MG TABLET PO SCH ×2 (08:48→21:19)
[2017-09-18] MEDS: POLYETHYL GLYCOL 3350 17gm PACKET PO SCH (08:49)
[2017-09-18] MEDS: ENOXAPARIN 30 MG/0.3 ML INJECTION SQ SCH ×2 (08:49→21:20)
--- NOTE | 2017-09-18 11:35 | IRU Progress Note ---
- Subjective/Serverity of Illness Date: 09/18/17 Mr. Ling was reexamined and interviewed in his room on rehabilitation. He complains of discomfort in the right side of his body. He is unable to localize this. I asked him directly if he was having a headache he indicated that he was not. Palpation of the right temporal artery provides no discomfort nor tenderness. I do not feel any enlarged arteries. I reinspected the right great toe abrasion. It is certainly much better without evidence of inflammation. The right leg continues to be quite edematous. This is the operative side. We will assess a venous Doppler in this regard. He denies any shortness of breath. He is able to perform toilet transfers with standby assist. Bed/chair/ wheelchair transfers are also performed with standby assistance. He is able to ambulate with a hemiwalker 104 feet with standby assistance. He is able to perform upper body dressing independently and requires moderate assistance for lower body dressing. Exam Vital Signs: Temperature 98.0 F 09/18/17 07:18 Pulse Rate 56 L 09/18/17 07:18 Respiratory Rate 18 09/18/17 07:18 Blood Pressure 176/73 H 09/18/17 07:18 Pulse Oximetry 93 09/18/17 07:18 Height/Weight/BMI: Height 1.83 m Weight 98.7 kg Body Mass Index 29.9 - Constitutional Present: mild distress (pain in right elbow? vs general concerns on the patient' s part about his prior CVA with right hemiparesis), well nourished, well developed, cooperative - Routine HEENT Exam Eye: Present: EOMI ENT: Present: mucous membranes moist Comments: Palpation of right temporal artery area fails to reveal evidence of tenderness. - Routine Neck Exam Present: supple - Routine Respiratory Exam Present: CTA bilaterally. Absent: wheezes - Routine Cardiovascular Exam Present: RRR, S1, S2. Absent: murmur - Routine Abdominal Exam Present: soft, normoactive bowel sounds, non distended. Absent: tenderness - Routine Extremities Exam Present: edema (Right leg), normal capillary refill Comments: Exam of the patient's right foot indicates edema. However this is a generalized edema and extends up into his right leg as well. Inspection of the right toe abrasion was performed. This is unremarkable and is healing nicely. No evidence of infection/discharge. It is quite superficial. - Routine Skin Exam Present: dry, warm - Routine Neurological Exam Present: alert, oriented X3, motor deficit. Absent: CN II-XII intact, normal speech - Routine Psychiatric Exam Present: normal affect, normal thought process, cooperative Results IRU - Labs Labs: I have reviewed recent labs, chart data and other providers notes. IRU A/P (1) S/P hip hemiarthroplasty Problem details: Surgery done for subcapital , femoral neck Fx Current visit: Yes Status: Acute Pain management has been difficult. However, he is unable to express himself as to what he is actually feeling. He continues to point to his entire right side and I'm wondering if much of this is related to his concern about the previous stroke more than pain. He is on fairly maximal doses of oxycodone which we would like to cut back on. We will try cutting back on this today. In addition, he does have right leg edema and we'll check a venous Doppler. (2) Diabetes mellitus type 2 in nonobese Current visit: Yes Status: Chronic Blood sugars appear to be adequately controlled. (3) Hypertension Qualifiers: Hypertension type: essential hypertension Qualified Code(s): I10 - Essential (primary) hypertension Current visit: Yes Status: Chronic Continues to have significant elevation of his blood pressures despite blood pressure medication adjustment. Uncertain how much of this is related to anxiety etc. (4) Nondisplaced fracture of head of right radius Qualifiers: Encounter type: initial encounter Fracture type: closed Qualified Code(s) : S52.124A - Nondisplaced fracture of head of right radius, initial encounter for closed fracture Current visit: Yes Status: Acute (5) Toe abrasion, non-infected Current visit: Yes Status: Acute Toe abrasion is healing nicely without evidence of infection. (6) Leukocytosis Qualifiers: Leukocytosis type: unspecified Qualified Code(s): D72.829 - Elevated white blood cell count, unspecified Current visit: Yes Status: Acute (7) Headache Qualifiers: Headache type: tension-type Headache chronicity pattern: chronic headache Current visit: Yes Status: Acute Currently denies headache. DVT Prophylaxis: Lovenox Resuscitation Status: Full Code - Course Hospital Course: Chucho Solis MD: 09/03/17 15:14 Pain in right elbow and right hip as anticipated. Blood sugars are controlled. Blood pressures remain a bit elevated. 09/04/17 12:44 Progressing with therapy. Blood sugars look excellent. Pain in right elbow seems to be a major issue. 09/06/17 11:50 Improving with therapy. Blood pressures remain elevated. Lasix has been increased. I will increase gabapentin and switch to oxycodone today. 09/07/17 11:20 Continues to have some edema in the right lower extremity. He is progressing with therapy with regard to ambulation. Pain management hopefully is improved with the use of oxycodone. 09/10/17 12:06 Pain management is difficult. We'll schedule the oxycodone. Blood pressures remain elevated likely related to pain management. He is voiding although does have occasional residuals identified. 09/11/17 11:58 Headache is resolved. Improved pain management with oxycodone regularly scheduled. Blood pressures are improved with regular doses of oxycodone. New evidence of abrasion to right great toe. 09/13/17 13:51 White count to 13,000. No evidence of source of infection at present. Sugars are well controlled. Cooperative with therapy. Headache returned but less intense. 09/14/17 11:37 Headache continues to come and go. Seems to be localized in right temporal area. We will check a sedimentation rate. Neurologically he is otherwise unchanged. 09/17/17 11:54 Headache reportedly resolved. No new neurologic changes. Pain management is a challenge. Blood pressures remain elevated although medications have been adjusted. 09/18/17 11:39 Headache appears to have resolved. Abrasion on toe improved. Edema right leg remains. Venous Doppler ordered. We will try to reduce pain medications. - Interventions to Obtain Goals PT Treatment Plan: Functional Activities, Gait Training, Therapeutic Exercise OT Treatment Plan: ADL (Basic Care), Balance Training, IADL, Pt./Family Education, Ther. Exercise for ADL Goals Progress/Modifications: Today we will work on reducing his pain medication intake. In addition, because of his continued edema in the right lower extremity we will check a venous Doppler study. The abrasion on the right great toe is much improved without evidence of infection. Reviewed therapy notes. Making slow progress. Anticipate successful transfer to skilled care when appropriate arrangements have been made.
[2017-09-18] MEDS ORDERED: Oxycodone *IR* 15 MG TABLET PO SCH (11:41)
[2017-09-18] MEDS: Oxycodone *IR* 5 MG TABLET PO SCH ×4 (12:28→21:18)
--- NOTE | 2017-09-18 17:24 | Ultrasound Report ---
Indication: right leg edema US venous doppler LE RT: Comparison: None Technique: Real-time and color flow imaging and spectral Doppler analysis utilized from the right groin to the lower calf. Findings: Patient demonstrates normal compression, augmentation and color flow Impression: No DVT currently appreciated. .
[2017-09-18] MEDS: ATORVASTATIN 10 MG TABLET PO SCH (21:19)
[2017-09-18] MEDS: TAMSULOSIN 0.4 MG CAPSULE PO SCH (21:20)
[2017-09-19] MEDS: Oxycodone *IR* 5 MG TABLET PO SCH ×6 (05:35→22:07)
[2017-09-19] MEDS: GABAPENTIN 100 MG CAPSULE PO SCH ×3 (08:33→22:08)
[2017-09-19] MEDS: ENOXAPARIN 30 MG/0.3 ML INJECTION SQ SCH ×2 (08:33→22:08)
[2017-09-19] MEDS: POLYETHYL GLYCOL 3350 17gm PACKET PO SCH (08:33)
[2017-09-19] MEDS: AMLODIPINE 5 MG TABLET PO SCH (08:35)
[2017-09-19] MEDS: FUROSEMIDE 20 MG TABLET PO SCH (08:35)
[2017-09-19] MEDS: BACLOFEN 10 MG TABLET PO SCH ×3 (08:35→22:08)
[2017-09-19] MEDS: LISINOPRIL 40 MG TABLET PO SCH (08:36)
[2017-09-19] MEDS: ASPIRIN *EC* 81 MG TABLET PO SCH (08:36)
[2017-09-19] MEDS: SENNA + DOCUSATE TABLET PO SCH ×2 (08:36→22:17)
[2017-09-19] MEDS: HYDRALAZINE 25 MG TABLET PO SCH ×3 (08:36→17:58)
[2017-09-19] MEDS: MAGNESIUM OXIDE 400 MG TABLET PO SCH ×2 (08:36→22:07)
[2017-09-19] MEDS: METFORMIN 500 MG TABLET PO SCH ×2 (08:36→17:59)
[2017-09-19] MEDS: LEVETIRACETAM 500 MG TABLET PO SCH ×2 (08:37→22:08)
[2017-09-19] MEDS: GlipiZIDE 5 MG TABLET PO SCH ×2 (08:37→17:59)
--- NOTE | 2017-09-19 13:56 | Progress Note ---
- Date 09/19/17 Subjective: F/U: right hip hemiarthroplasty, radial head fracture, hypertension. Jorge is seen today while resting in bed. He speaks softly and reports right sided pain which he indicates is not new. He is unable to localize his pain. He denies any chest pain, shortness of breath, abdominal pain, nausea, vomiting or diarrhea. He continues to struggle with pain management and he has difficulty expressing how he is actually feeling. Blood sugars are fairly well controlled. Blood pressures remain variable and elevated. Due to persistent edema in his right leg, doppler was obtained and revealed no acute DVT. Case management is working on placement. Objective Vital signs: Temperature 97.5 F 09/19/17 08:00 Pulse Rate 54 L 09/19/17 11:43 Respiratory Rate 18 09/19/17 08:00 Blood Pressure 149/71 H 09/19/17 11:43 Pulse Oximetry 100 09/19/17 11:30 Height/Weight/BMI: Height 6 ft Weight 218 lb 14.704 oz Body Mass Index 29.9 Comments: Resting in bed. - Constitutional Present: no acute distress, well nourished, well developed, cooperative - Routine HEENT Exam Head: Present: normocephalic, atraumatic Eye: Present: PERRL. Absent: conjunctival icterus ENT: Present: mucous membranes moist - Routine Respiratory Exam Present: CTA bilaterally. Absent: respiratory distress, wheezes - Routine Cardiovascular Exam Present: RRR, S1, S2 - Routine Abdominal Exam Present: soft, normoactive bowel sounds, non distended, non tender - Routine Extremities Exam Present: edema, pulses intact, normal capillary refill Comments: Right arm in sling. - Routine Musculoskeletal Exam Musculoskeletal: Present: no clubbing or cyanosis - Routine Skin Exam Present: dry, warm Comments: Afebrile. - Routine Neurological Exam Present: alert, hearing grossly intact - Routine Lymphatic Exam Lymphatic: Absent: lymphedema - Routine Psychiatric Exam Present: cooperative Results - Labs CBC & Chem 7: 09/14/17 09:07 09/14/17 09:07 Assessment and Plan (1) S/P hip hemiarthroplasty Problem details: Surgery done for subcapital , femoral neck Fx Current visit: Yes Status: Acute Assessment and Plan: Impression Uncontrolled blood pressure - improved with medication adjustments Status post right hip hemiarthroplasty-repaired 08/20/[address] Minor Right nondisplaced radial head fracture - nonsurgical tx S/P Fall Hx of CVA with right hemiparesis Chronic dysphasia Coronary artery disease Bradycardia - likely secondary to multiple cardiac meds for tx of HTN Hypertension Diabetes Seizures Obstructive sleep apnea CAD with history of CABG, 2016 Plan - 09/19/17 Patient continues to struggle with pain control. Continue pain medications and therapy plan per Dr. Briones. Persistent edema to right leg (operative side). Doppler obtained 09/18/17 and was negative for DVT. Recommend elevation as able with compression stockings/ SCDs. Continue to monitor closely. Blood pressures remain elevated and variable with bradycardia in the 50s. Metoprolol reduced to 25 mg BID on 09/17/17. Clonidine TID was started on . Will increase amlodipine to 10mg daily in AM and change Clonidine to TID PRN. Continue home Lasix 40mg daily and lisinopril 40mg daily. Monitor weight closely for signs of fluid overload. Patient may need additional diuresis. Awaiting insurance approval, and discharge plans are to go to [facility] rehabilitation. Will recheck labs in AM to monitor blood counts, electrolytes and renal function. DVT Prophylaxis: Lovenox Resuscitation Status: Full Code - Time spent with patient Time with patient PN: 35 minutes - Physician Narrative Physician: Zee Izquierdo MD Narrative: Date: 09/19/17 Time: 1351 Hospital Course Summary Disclaimer: The visit summary below is not to be considered part of the above Progress Note. 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 Patient continues to have uncontrolled hypertension 180s systolic. Medication list reviewed carefully along with marked from Gerald. Different beta jonathan was reconciled on admission from medication list. Toprol-XL discontinued, patient placed on metoprolol tartrate, Lopressor 50 milligrams 3 times a day. Continue with lisinopril 40, hydralazine 50mg 3 times a day. Hgb is has remained stable at 11.9. Patient is on Keppra for history of seizures. Patient also takes clarithromycin 500 twice a day. Brother does confirm patient was on this prior to hospitalization, however, exact reason is unknown Monitor Accu-Cheks and continue on metformin twice a day. [place] as needed for postoperative pain control. Will add MiraLAX and senna plus twice a day for postoperative bowel motivation. Encouraged patient to work with PT and OT for ongoing strengthening At time of discharge medical care will return to primary care provider at [facility], Dr. Bro 08/25/2017 Patient was seen today secondary to reports of possible chest pain. Prior baseline is unknown, so will err on the side of caution. Start telemetry. Serial troponin. We'll obtain chest x-ray, as well as a right shoulder film due to concern for subluxation. GI upset is certainly a possibility, particularly since he is on clarithromycin. May need to get further information on that on Sunday from his PCP. We'll continue remainder current care. Assess lab in the morning for stability. Discussed with patient, he is in agreement with plan of care. 08/27/17 Overall appears to be medically stable. Given bradycardia will decreased Metoprolol to 50mg BID Will need to continue monitor BP. Did contact PCP office at [facility]- their old records from last January patient was not taking erythromycin. It is unclear exactly prescribed clarithromycin and for what reason. Will attempt to contact patient's brother regarding this medication. BGMs are well controlled on current regimen. Continue to encourage work with PT and OT for ongoing strengthening. 09/03/17 Sling to right arm - ortho recommends rechecking films ~09/11/17 HTN - increase hydralazine from 50 to 75 mg TID. Consider further w/u for HTN and r/o pheochromocytoma. He's on multiple classes of antiHTN with suboptimal control, including metoprolol, clonidine, lasix, furosemide, lisinopril + hydralazine. Bradycardia in the 50s precludes increasing BB. 09/05/17 Start bladder retraining. May pull catheter tomorrow if pt is having bladder filling sensation. Will give a second dose of Lasix now. Given his LE edema, HTN and (questionable) weight gain since admission, will increase his Lasix to 40mg q am (from 20mg q am) and follow weights, edema, BP and electrolytes. Increase KCl from 10mEq to 20mEq given the increase in Lasix dosing. Check daily weights. Weight on admission 100.3 and today is 113kg. Question accuracy of today's weight. Consider further w/u for HTN and r/o pheochromocytoma. He's on multiple classes of antiHTN with suboptimal control, including metoprolol, clonidine, lasix, furosemide, lisinopril + hydralazine. 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 09/08/17 Headley catheter dc'd 09/07/17 and he's been voiding since. Switching from hydrocodone to oxycodone, has been helpful for pain control. In addition, BP under better control. Continue hydralazine 75 mg and increased Lasix/KCl doses. Check BMP in am. Sinus aram on tele - will dc tele. 09/14/17 BP's are slightly elevated but likely r/t pain. He is already on 4 agents, will continue to monitor. Headache is not new. PT working with him in re: to possible muscle contraction etiology. Sinusitis would be in the DDx, but no c/o fever, sinus drainage, ST, etc. WBC down today from yesterday. 13.3-->11.0. BS's stable. Hgb stable. Wound team following wound on R great toe. 09/17/17 Blood pressures continue to run high. He remains bradycardic with heart rates in the 50s. Metoprolol reduced to 25 mg. Clonidine was started on 09/16/17. Monitor response before further adjustments are made. Awaiting insurance approval, and discharge plans are to go to [facility] rehabilitation. Dr. Briones's note reviewed. Continue PT/OT. 09/19/17 Patient continues to struggle with pain control. Continue pain medications and therapy plan per Dr. Briones. Persistent edema to right leg (operative side). Doppler obtained 09/18/17 and was negative for DVT. Recommend elevation as able with compression stockings/ SCDs. Continue to monitor closely. Blood pressures remain elevated and variable with bradycardia in the 50s. Metoprolol reduced to 25 mg BID on 09/17/17. Clonidine TID was started on . Will increase amlodipine to 10mg daily in AM and change Clonidine to TID PRN. Continue home Lasix 40mg daily and lisinopril 40mg daily. Monitor weight closely for signs of fluid overload. Patient may need additional diuresis. Awaiting insurance approval, and discharge plans are to go to [facility] rehabilitation. Will recheck labs in AM to monitor blood counts, electrolytes and renal function.
[2017-09-19] MEDS: INSULIN ASPART 100unit/ml INJECTION SQ PRN (17:58)
[2017-09-19] MEDS: TAMSULOSIN 0.4 MG CAPSULE PO SCH (22:07)
[2017-09-19] MEDS: ATORVASTATIN 10 MG TABLET PO SCH (22:08)
[2017-09-20] MEDS: Oxycodone *IR* 5 MG TABLET PO SCH ×5 (05:41→20:45)
[2017-09-20] MEDS: METFORMIN 500 MG TABLET PO SCH (09:17)
[2017-09-20] MEDS: ENOXAPARIN 30 MG/0.3 ML INJECTION SQ SCH ×2 (09:17→20:48)
[2017-09-20] MEDS: HYDRALAZINE 25 MG TABLET PO SCH ×3 (09:17→17:27)
[2017-09-20] MEDS: FUROSEMIDE 20 MG TABLET PO SCH (09:18)
[2017-09-20] MEDS: GABAPENTIN 100 MG CAPSULE PO SCH ×3 (09:18→20:45)
[2017-09-20] MEDS: ASPIRIN *EC* 81 MG TABLET PO SCH (09:18)
[2017-09-20] MEDS: MAGNESIUM OXIDE 400 MG TABLET PO SCH (09:19)
[2017-09-20] MEDS: LEVETIRACETAM 500 MG TABLET PO SCH ×2 (09:19→20:47)
[2017-09-20] MEDS: LISINOPRIL 40 MG TABLET PO SCH ×2 (09:19→13:37)
[2017-09-20] MEDS: BACLOFEN 10 MG TABLET PO SCH ×3 (09:19→20:46)
[2017-09-20] MEDS: GlipiZIDE 5 MG TABLET PO SCH ×2 (09:19→17:27)
[2017-09-20] MEDS: POLYETHYL GLYCOL 3350 17gm PACKET PO SCH (09:25)
[2017-09-20] MEDS: SENNA + DOCUSATE TABLET PO SCH (09:25)
[2017-09-20] MEDS ORDERED: PROCHLORPERAZINE 10 MG TABLET PO PRN (10:52)
[2017-09-20] MEDS: AMLODIPINE 10 MG TABLET PO SCH (11:02)
--- NOTE | 2017-09-20 11:48 | IRU Progress Note ---
- Subjective/Serverity of Illness Date: 09/20/17 Mr. Ling has had a difficult morning. He was able to eat breakfast adequately. He then suddenly had with her projectile vomiting of large quantity of partially digested food. He denies any abdominal pain. He apparently had a formed stool this morning but subsequently has had some loose stools. He remains afebrile. His blood pressures remain elevated. His blood sugar was low as well. At the present time he is awake and alert but not wanting to eat anything. He continues to deny any abdominal pain. He reports that he feels better (based on head nods). His abdomen is soft and he has normal active bowel sounds. We will continue to monitor him but we will need to hold therapy for the time being. Venous Doppler right leg was negative. Exam Vital Signs: Temperature 97.6 F 09/20/17 08:00 Pulse Rate 83 09/20/17 08:00 Respiratory Rate 18 09/20/17 08:00 Blood Pressure 182/103 H 09/20/17 09:14 Pulse Oximetry 95 09/20/17 08:00 Height/Weight/BMI: Height 1.83 m Weight 95.8 kg Body Mass Index 29.9 - Constitutional Present: well nourished, well developed - Routine HEENT Exam Eye: Present: EOMI ENT: Present: mucous membranes moist - Routine Respiratory Exam Present: CTA bilaterally. Absent: wheezes - Routine Cardiovascular Exam Present: RRR, S1, S2. Absent: murmur - Routine Abdominal Exam Present: soft, normoactive bowel sounds, non distended. Absent: tenderness Comments: Careful abdominal exam is benign. He has normoactive bowel sounds. The abdomen is soft. He is nontender. - Routine Extremities Exam Present: normal capillary refill - Routine Skin Exam Present: dry, warm - Routine Neurological Exam Present: alert, oriented X3, CN II-XII intact - Routine Psychiatric Exam Present: normal affect Results IRU - Labs Labs: Have reviewed chart data and venous Doppler results. IRU A/P (1) S/P hip hemiarthroplasty Problem details: Surgery done for subcapital , femoral neck Fx Current visit: Yes Status: Acute Patient's pain appears to be adequately controlled. We will reduce the dose of the oxycodone. (2) Diabetes mellitus type 2 in nonobese Current visit: Yes Status: Chronic Blood sugars are running low likely due to his current illness. (3) Hypertension Qualifiers: Hypertension type: essential hypertension Qualified Code(s): I10 - Essential (primary) hypertension Current visit: Yes Status: Chronic Blood pressure once again is elevated. (4) Nondisplaced fracture of head of right radius Qualifiers: Encounter type: initial encounter Fracture type: closed Qualified Code(s) : S52.124A - Nondisplaced fracture of head of right radius, initial encounter for closed fracture Current visit: Yes Status: Acute (5) Toe abrasion, non-infected Current visit: Yes Status: Acute (6) Leukocytosis Qualifiers: Leukocytosis type: unspecified Qualified Code(s): D72.829 - Elevated white blood cell count, unspecified Current visit: Yes Status: Acute (7) Headache Qualifiers: Headache type: tension-type Headache chronicity pattern: chronic headache Current visit: Yes Status: Acute DVT Prophylaxis: Lovenox Resuscitation Status: Full Code - Course Hospital Course: Chucho Solis MD: 09/03/17 15:14 Pain in right elbow and right hip as anticipated. Blood sugars are controlled. Blood pressures remain a bit elevated. 09/04/17 12:44 Progressing with therapy. Blood sugars look excellent. Pain in right elbow seems to be a major issue. 09/06/17 11:50 Improving with therapy. Blood pressures remain elevated. Lasix has been increased. I will increase gabapentin and switch to oxycodone today. 09/07/17 11:20 Continues to have some edema in the right lower extremity. He is progressing with therapy with regard to ambulation. Pain management hopefully is improved with the use of oxycodone. 09/10/17 12:06 Pain management is difficult. We'll schedule the oxycodone. Blood pressures remain elevated likely related to pain management. He is voiding although does have occasional residuals identified. 09/11/17 11:58 Headache is resolved. Improved pain management with oxycodone regularly scheduled. Blood pressures are improved with regular doses of oxycodone. New evidence of abrasion to right great toe. 09/13/17 13:51 White count to 13,000. No evidence of source of infection at present. Sugars are well controlled. Cooperative with therapy. Headache returned but less intense. 09/14/17 11:37 Headache continues to come and go. Seems to be localized in right temporal area. We will check a sedimentation rate. Neurologically he is otherwise unchanged. 09/17/17 11:54 Headache reportedly resolved. No new neurologic changes. Pain management is a challenge. Blood pressures remain elevated although medications have been adjusted. 09/18/17 11:39 Headache appears to have resolved. Abrasion on toe improved. Edema right leg remains. Venous Doppler ordered. We will try to reduce pain medications. 09/20/17 11:48 Vomiting this morning. Anorectic now. Loose stools. Abdomen remained soft. Venous Doppler right leg negative. We will need to hold therapy. - Interventions to Obtain Goals PT Treatment Plan: Functional Activities, Gait Training, Therapeutic Exercise OT Treatment Plan: ADL (Basic Care), Balance Training, IADL, Pt./Family Education, Ther. Exercise for ADL Goals Progress/Modifications: Patient has developed an acute illness characterized by nausea and vomiting with anorexia. Also had loose stools this morning. He remains afebrile. We will hold therapy for the time being. We will assess with lab work if he continues to have problems. Finally, I will reduce his pain medication regimen.
[2017-09-20] MEDS ORDERED: NS 1,000 ML IV ONE (14:16)
[2017-09-20] MEDS ORDERED: ONDANSETRON 4 MG/2 ML INJECTION IVP PRN (14:17)
[2017-09-20] MEDS: NS 1,000 ML IV SCH (18:13)
--- NOTE | 2017-09-20 19:32 | Progress Note ---
- Date 09/20/17 Subjective: Patient seen this evening resting in bed. He had vomiting x 1 this am and has had several bouts of diarrhea throughout the day. He has had nausea. No fever or chills. No CP, SOA. No dysuria or hematuria. Objective Vital signs: Temperature 100.9 F H 09/20/17 16:00 Pulse Rate 74 09/20/17 16:00 Respiratory Rate 18 09/20/17 16:00 Blood Pressure 160/88 H 09/20/17 16:00 Pulse Oximetry 93 09/20/17 16:00 Height/Weight/BMI: Height 1.83 m Weight 95.8 kg Body Mass Index 29.9 - Constitutional Present: no acute distress, well nourished, well developed - Routine HEENT Exam Head: Present: normocephalic, atraumatic - Routine Respiratory Exam Present: CTA bilaterally. Absent: wheezes - Routine Cardiovascular Exam Present: RRR - Routine Abdominal Exam Present: soft, normoactive bowel sounds, non distended, non tender - Routine Extremities Exam Present: edema, normal capillary refill - Routine Skin Exam Present: dry, warm - Routine Neurological Exam Absent: alert (resting) - Routine Lymphatic Exam Lymphatic: Absent: adenopathy - Routine Psychiatric Exam Present: normal affect, cooperative Results - Labs CBC & Chem 7: 09/20/17 04:25 09/20/17 04:25 Assessment and Plan (1) S/P hip hemiarthroplasty Problem details: Surgery done for subcapital , femoral neck Fx Current visit: Yes Status: Acute Assessment and Plan: Impression n/v/diarrhea - suspect gastroenteritis vs sxs r/t abrupt w/drawal of clonidine - 09/20/17 Uncontrolled blood pressure - improved with medication adjustments Status post right hip hemiarthroplasty-repaired 08/20/[address] Minor Right nondisplaced radial head fracture - nonsurgical tx S/P Fall Hx of CVA with right hemiparesis Chronic dysphasia Coronary artery disease Bradycardia - likely secondary to multiple cardiac meds for tx of HTN Hypertension Diabetes Seizures Obstructive sleep apnea CAD with history of CABG, 2016 Plan Resume clonidine at 0.1mg BID in the event his sxs are r/t clonidine w/drawal. Continue amlodipine. Check UA given the new onset of fever. If he continues to run fever, have diarrhea and has increase in WBC, will check for c diff. CBC and CMP in am. Labs today were stable w/ no elevation in white count. Hold metformin. NS 250cc bolus given and then tra 100cc/hr as pt isn't taking po well d/t nausea. PRN Zofran. - Physician Narrative Narrative: Date: 09/20/17 Time: 1927 Hospital Course Summary Disclaimer: The visit summary below is not to be considered part of the above Progress Note. 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 Patient continues to have uncontrolled hypertension 180s systolic. Medication list reviewed carefully along with marked from Gerald. Different beta jonathan was reconciled on admission from medication list. Toprol-XL discontinued, patient placed on metoprolol tartrate, Lopressor 50 milligrams 3 times a day. Continue with lisinopril 40, hydralazine 50mg 3 times a day. Hgb is has remained stable at 11.9. Patient is on Keppra for history of seizures. Patient also takes clarithromycin 500 twice a day. Brother does confirm patient was on this prior to hospitalization, however, exact reason is unknown Monitor Accu-Cheks and continue on metformin twice a day. [place] as needed for postoperative pain control. Will add MiraLAX and senna plus twice a day for postoperative bowel motivation. Encouraged patient to work with PT and OT for ongoing strengthening At time of discharge medical care will return to primary care provider at [facility], Dr. Bro 08/25/2017 Patient was seen today secondary to reports of possible chest pain. Prior baseline is unknown, so will err on the side of caution. Start telemetry. Serial troponin. We'll obtain chest x-ray, as well as a right shoulder film due to concern for subluxation. GI upset is certainly a possibility, particularly since he is on clarithromycin. May need to get further information on that on Sunday from his PCP. We'll continue remainder current care. Assess lab in the morning for stability. Discussed with patient, he is in agreement with plan of care. 08/27/17 Overall appears to be medically stable. Given bradycardia will decreased Metoprolol to 50mg BID Will need to continue monitor BP. Did contact PCP office at [facility]- their old records from last January patient was not taking erythromycin. It is unclear exactly prescribed clarithromycin and for what reason. Will attempt to contact patient's brother regarding this medication. BGMs are well controlled on current regimen. Continue to encourage work with PT and OT for ongoing strengthening. 09/03/17 Sling to right arm - ortho recommends rechecking films ~09/11/17 HTN - increase hydralazine from 50 to 75 mg TID. Consider further w/u for HTN and r/o pheochromocytoma. He's on multiple classes of antiHTN with suboptimal control, including metoprolol, clonidine, lasix, furosemide, lisinopril + hydralazine. Bradycardia in the 50s precludes increasing BB. 09/05/17 Start bladder retraining. May pull catheter tomorrow if pt is having bladder filling sensation. Will give a second dose of Lasix now. Given his LE edema, HTN and (questionable) weight gain since admission, will increase his Lasix to 40mg q am (from 20mg q am) and follow weights, edema, BP and electrolytes. Increase KCl from 10mEq to 20mEq given the increase in Lasix dosing. Check daily weights. Weight on admission 100.3 and today is 113kg. Question accuracy of today's weight. Consider further w/u for HTN and r/o pheochromocytoma. He's on multiple classes of antiHTN with suboptimal control, including metoprolol, clonidine, lasix, furosemide, lisinopril + hydralazine. 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 09/08/17 [place] catheter dc'd 09/07/17 and he's been voiding since. Switching from hydrocodone to oxycodone, has been helpful for pain control. In addition, BP under better control. Continue hydralazine 75 mg and increased Lasix/KCl doses. Check BMP in am. Sinus aram on tele - will dc tele. 09/14/17 BP's are slightly elevated but likely r/t pain. He is already on 4 agents, will continue to monitor. Headache is not new. PT working with him in re: to possible muscle contraction etiology. Sinusitis would be in the DDx, but no c/o fever, sinus drainage, ST, etc. WBC down today from yesterday. 13.3-->11.0. BS's stable. Hgb stable. Wound team following wound on R great toe. 09/17/17 Blood pressures continue to run high. He remains bradycardic with heart rates in the 50s. Metoprolol reduced to 25 mg. Clonidine was started on 09/16/17. Monitor response before further adjustments are made. Awaiting insurance approval, and discharge plans are to go to [facility]. Dr. Briones's note reviewed. Continue PT/OT. 09/19/17 Patient continues to struggle with pain control. Continue pain medications and therapy plan per Dr. Briones. Persistent edema to right leg (operative side). Doppler obtained 09/18/17 and was negative for DVT. Recommend elevation as able with compression stockings/ SCDs. Continue to monitor closely. Blood pressures remain elevated and variable with bradycardia in the 50s. Metoprolol reduced to 25 mg BID on 09/17/17. Clonidine TID was started on . Will increase amlodipine to 10mg daily in AM and change Clonidine to TID PRN. Continue home Lasix 40mg daily and lisinopril 40mg daily. Monitor weight closely for signs of fluid overload. Patient may need additional diuresis. Awaiting insurance approval, and discharge plans are to go to [facility]. Will recheck labs in AM to monitor blood counts, electrolytes and renal function. 09/20/17 Resume clonidine at 0.1mg BID in the event his sxs are r/t clonidine w/drawal. Continue amlodipine, Lasix and lisinopril. Check UA given the new onset of fever. If he continues to run fever, have diarrhea and has increase in WBC, will check for c diff. No cough or SOA. CBC and CMP in am. Hold metformin. NS 250cc bolus given and then tra 100cc/hr as pt isn't taking po well d/t nausea. PRN Zofran.
[2017-09-20] MEDS: ATORVASTATIN 10 MG TABLET PO SCH (20:45)
[2017-09-20] MEDS: TAMSULOSIN 0.4 MG CAPSULE PO SCH (20:47)
[2017-09-20] MEDS: ACETAMINOPHEN 325 MG TABLET PO PRN (23:03)
[2017-09-21] MEDS: Oxycodone *IR* 5 MG TABLET PO SCH ×6 (00:16→20:54)
[2017-09-21] MEDS: NS 1,000 ML IV SCH ×2 (01:35→17:19)
[2017-09-21] MEDS: FUROSEMIDE 20 MG TABLET PO SCH (09:06)
[2017-09-21] MEDS: GABAPENTIN 100 MG CAPSULE PO SCH ×3 (09:06→20:54)
[2017-09-21] MEDS: HYDRALAZINE 25 MG TABLET PO SCH ×3 (09:06→17:17)
[2017-09-21] MEDS: AMLODIPINE 10 MG TABLET PO SCH (09:07)
[2017-09-21] MEDS: GlipiZIDE 5 MG TABLET PO SCH ×2 (09:08→17:17)
[2017-09-21] MEDS: BACLOFEN 10 MG TABLET PO SCH ×3 (09:08→20:55)
[2017-09-21] MEDS: LEVETIRACETAM 500 MG TABLET PO SCH ×2 (09:08→20:55)
[2017-09-21] MEDS: ENOXAPARIN 30 MG/0.3 ML INJECTION SQ SCH ×2 (09:09→20:55)
[2017-09-21] MEDS: ASPIRIN *EC* 81 MG TABLET PO SCH (09:30)
[2017-09-21] MEDS: CIPROFLOXACIN 500 MG TABLET PO SCH ×2 (09:30→20:54)
[2017-09-21] MEDS: LISINOPRIL 40 MG TABLET PO SCH (09:38)
--- NOTE | 2017-09-21 10:47 | IRU Progress Note ---
- Subjective/Serverity of Illness Date: 09/21/17 Jorge developed vomiting yesterday along with nausea. He had some loose stools. He was evaluated by myself as well as the hospitalist service. Therapy was held. Today he is doing much better. He is awake and alert. He denies any headaches. He denies any nausea or vomiting and denies abdominal pain. Evaluation was undertaken with lateral examination but also blood work. His white count was normal yesterday and today. Hemoglobin around 12 g percent. Chemistry is unremarkable except for some low protein/albumin. Interestingly, the urinalysis was markedly positive for a urinary tract infection. Culture is pending. He had a low-grade temperature of 100.9 yesterday but is afebrile now. He is now on Cipro. Since he is feeling better, we will resume therapy. Exam Vital Signs: Temperature 97.7 F 09/21/17 08:00 Pulse Rate 69 09/21/17 08:00 Respiratory Rate 14 09/21/17 08:00 Blood Pressure 178/88 H 09/21/17 08:00 Pulse Oximetry 97 09/21/17 08:00 Height/Weight/BMI: Height 1.83 m Weight 95.8 kg Body Mass Index 29.9 - Constitutional Present: no acute distress, well nourished, well developed, cooperative Comments: Overall he looks much better this morning. - Routine HEENT Exam Eye: Present: EOMI ENT: Present: mucous membranes dry, oropharynx clear - Routine Neck Exam Present: supple - Routine Respiratory Exam Present: CTA bilaterally. Absent: wheezes - Routine Cardiovascular Exam Present: RRR, S1, S2. Absent: murmur - Routine Abdominal Exam Present: soft, normoactive bowel sounds, non distended. Absent: tenderness Comments: He denies any nausea. His abdomen remained soft. He has normoactive bowel sounds. No masses are present. No rebound noted. - Routine Extremities Exam Present: edema (right lower extremity which is the side of the fracture. Venous Doppler negative.), normal capillary refill - Routine Skin Exam Present: dry, warm - Routine Neurological Exam Present: alert, motor deficit (as before, predominantly relating to the right upper extremity.) - Routine Psychiatric Exam Present: normal affect, cooperative Results IRU - Labs Labs: I have reviewed other providers notes, all chart data and labs etc. IRU A/P (1) S/P hip hemiarthroplasty Problem details: Surgery done for subcapital , femoral neck Fx Current visit: Yes Status: Acute Right hip fracture appears to be stable. He is plateauing with therapy. (2) Diabetes mellitus type 2 in nonobese Current visit: Yes Status: Chronic Metformin was held due to the nausea and vomiting. Sugars are stable. (3) Hypertension Qualifiers: Hypertension type: essential hypertension Qualified Code(s): I10 - Essential (primary) hypertension Current visit: Yes Status: Chronic Blood pressures remained difficult to control despite adjustment of medications. He is now back on clonidine 0.1 mg twice daily. (4) Nondisplaced fracture of head of right radius Qualifiers: Encounter type: initial encounter Fracture type: closed Qualified Code(s) : S52.124A - Nondisplaced fracture of head of right radius, initial encounter for closed fracture Current visit: Yes Status: Acute (5) Toe abrasion, non-infected Current visit: Yes Status: Acute (6) Leukocytosis Qualifiers: Leukocytosis type: unspecified Qualified Code(s): D72.829 - Elevated white blood cell count, unspecified Current visit: Yes Status: Acute (7) Headache Qualifiers: Headache type: tension-type Headache chronicity pattern: chronic headache Current visit: Yes Status: Resolved (8) UTI (urinary tract infection) Qualifiers: Urinary tract infection type: acute cystitis Hematuria presence: with hematuria Qualified Code(s): N30.01 - Acute cystitis with hematuria Current visit: Yes Status: Acute Patient has evidence of acute urinary tract infection. Culture is pending. He is on Cipro. He was febrile. He had an episode of nausea and vomiting with loose stools yesterday which may be related to this. He is looking much better today. DVT Prophylaxis: Lovenox Resuscitation Status: Full Code - Course Hospital Course: Chucho Solis MD: 09/03/17 15:14 Pain in right elbow and right hip as anticipated. Blood sugars are controlled. Blood pressures remain a bit elevated. 09/04/17 12:44 Progressing with therapy. Blood sugars look excellent. Pain in right elbow seems to be a major issue. 09/06/17 11:50 Improving with therapy. Blood pressures remain elevated. Lasix has been increased. I will increase gabapentin and switch to oxycodone today. 09/07/17 11:20 Continues to have some edema in the right lower extremity. He is progressing with therapy with regard to ambulation. Pain management hopefully is improved with the use of oxycodone. 09/10/17 12:06 Pain management is difficult. We'll schedule the oxycodone. Blood pressures remain elevated likely related to pain management. He is voiding although does have occasional residuals identified. 09/11/17 11:58 Headache is resolved. Improved pain management with oxycodone regularly scheduled. Blood pressures are improved with regular doses of oxycodone. New evidence of abrasion to right great toe. 09/13/17 13:51 White count to 13,000. No evidence of source of infection at present. Sugars are well controlled. Cooperative with therapy. Headache returned but less intense. 09/14/17 11:37 Headache continues to come and go. Seems to be localized in right temporal area. We will check a sedimentation rate. Neurologically he is otherwise unchanged. 09/17/17 11:54 Headache reportedly resolved. No new neurologic changes. Pain management is a challenge. Blood pressures remain elevated although medications have been adjusted. 09/18/17 11:39 Headache appears to have resolved. Abrasion on toe improved. Edema right leg remains. Venous Doppler ordered. We will try to reduce pain medications. 09/20/17 11:48 Vomiting this morning. Anorectic now. Loose stools. Abdomen remained soft. Venous Doppler right leg negative. We will need to hold therapy. 09/21/17 10:48 UTI diagnosed. No further nausea or vomiting. Low-grade fever yesterday without recurrence. He is now on Cipro. He looks and feels better. - Interventions to Obtain Goals PT Treatment Plan: Balance/Proprioception, Functional Activities, Gait Training , Patient/Family Education, Therapeutic Exercise OT Treatment Plan: ADL (Basic Care), Balance Training, IADL, Pt./Family Education, Ther. Exercise for ADL Goals Progress/Modifications: It appears as though the patient has had a urinary tract infection which is resulted in nausea vomiting, diarrhea, low-grade temperature and lethargy. Symptoms are much improved this morning. He is now on Cipro and tolerating it well. Culture is pending. I have reassessed him and feel as though it is safe to resume therapy. His therapy hold will be rescinded. In addition, efforts are underway for safe discharge plan to facility.
[2017-09-21] MEDS: ACETAMINOPHEN 325 MG TABLET PO PRN (15:04)
--- NOTE | 2017-09-21 16:19 | Progress Note ---
- Date 09/21/17 Subjective: Patient is seen this morning coming back from breakfast. He reports he is feeling better. No further diarrhea or vomiting. Had a solid stool this am. On questioning, does admit to urinary frequency and dysuria. No CP, SOA. Nausea is improved. Ate breakfast. Objective Vital signs: Temperature 97.7 F 09/21/17 08:00 Pulse Rate 69 09/21/17 08:00 Respiratory Rate 14 09/21/17 08:00 Blood Pressure 178/88 H 09/21/17 08:00 Pulse Oximetry 97 09/21/17 08:00 Height/Weight/BMI: Height 1.83 m Weight 95.8 kg Body Mass Index 29.9 - Constitutional Present: no acute distress, well nourished, well developed - Routine HEENT Exam Head: Present: normocephalic, atraumatic - Routine Respiratory Exam Present: CTA bilaterally. Absent: wheezes - Routine Cardiovascular Exam Present: RRR, no murmur - Routine Abdominal Exam Present: soft, tenderness (slight suprapubic), non distended - Routine Extremities Exam Present: edema (tr), normal capillary refill - Routine Skin Exam Present: dry, warm - Routine Neurological Exam Present: alert - Routine Lymphatic Exam Lymphatic: Absent: adenopathy - Routine Psychiatric Exam Present: normal affect, cooperative Results - Labs CBC & Chem 7: 09/21/17 04:33 09/21/17 04:33 Labs: Laboratory Tests 09/21/17 06:13 Urine Color Yellow Urine Clarity Cloudy Urine pH 6.0 Ur Specific Russell 1.025 Urine Protein 3+ A Urine Glucose (UA) Negative Urine Ketones Negative Urine Occult Blood 2+ A Urine Nitrate Negative Urine Bilirubin Negative Urine Urobilinogen 1.0 Ur Leukocyte Esterase 3+ Urine RBC 5-10 H Urine WBC Tntc H Ur Squamous Epith Cells 0-5 Urine Bacteria 2+ H Microbiology Results: Microbiology 09/21/17 06:13 Urine, Voided (Cc/notcc) Urine Culture - Preliminary Culture Initiated - Results Pending Assessment and Plan (1) S/P hip hemiarthroplasty Problem details: Surgery done for subcapital , femoral neck Fx Current visit: Yes Status: Acute Assessment and Plan: Impression n/v/diarrhea - suspect gastroenteritis vs sxs r/t abrupt w/drawal of clonidine - 09/20/17 Uncontrolled blood pressure - improved with medication adjustments Status post right hip hemiarthroplasty-repaired 08/20/[address] Minor Right nondisplaced radial head fracture - nonsurgical tx S/P Fall Hx of CVA with right hemiparesis Chronic dysphasia Coronary artery disease Bradycardia - likely secondary to multiple cardiac meds for tx of HTN Hypertension Diabetes Seizures Obstructive sleep apnea CAD with history of CABG, 2016 Plan Cipro started for UTI. Culture pending. WBC is stable. Resume metformin in the am now that he is eating again. Continue to follow BP's. Amlodipine was increased to 10mg the day before yesterday. He likely had elevated BP yesterday d/t abrupt clonidine w/drawal and it was restarted at lower dose of 0.1mg BID. No changes today. - Physician Narrative Narrative: Date: 09/21/17 Time: 1616 Hospital Course Summary Disclaimer: The visit summary below is not to be considered part of the above Progress Note. 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 Patient continues to have uncontrolled hypertension 180s systolic. Medication list reviewed carefully along with marked from Gerald. Different beta jonathan was reconciled on admission from medication list. Toprol-XL discontinued, patient placed on metoprolol tartrate, Lopressor 50 milligrams 3 times a day. Continue with lisinopril 40, hydralazine 50mg 3 times a day. Hgb is has remained stable at 11.9. Patient is on Keppra for history of seizures. Patient also takes clarithromycin 500 twice a day. Brother does confirm patient was on this prior to hospitalization, however, exact reason is unknown Monitor Accu-Cheks and continue on metformin twice a day. [place] as needed for postoperative pain control. Will add MiraLAX and senna plus twice a day for postoperative bowel motivation. Encouraged patient to work with PT and OT for ongoing strengthening At time of discharge medical care [facility], Dr. Bro 08/25/2017 Patient was seen today secondary to reports of possible chest pain. Prior baseline is unknown, so will err on the side of caution. Start telemetry. Serial troponin. We'll obtain chest x-ray, as well as a right shoulder film due to concern for subluxation. GI upset is certainly a possibility, particularly since he is on clarithromycin. May need to get further information on that on Sunday from his PCP. We'll continue remainder current care. Assess lab in the morning for stability. Discussed with patient, he is in agreement with plan of care. 08/27/17 Overall appears to be medically stable. Given bradycardia will decreased Metoprolol to 50mg BID Will need to continue monitor BP. Did contact PCP office at [facility]- their old records from last January patient was not taking erythromycin. It is unclear exactly prescribed clarithromycin and for what reason. Will attempt to contact patient's brother regarding this medication. BGMs are well controlled on current regimen. Continue to encourage work with PT and OT for ongoing strengthening. 09/03/17 Sling to right arm - ortho recommends rechecking films ~09/11/17 HTN - increase hydralazine from 50 to 75 mg TID. Consider further w/u for HTN and r/o pheochromocytoma. He's on multiple classes of antiHTN with suboptimal control, including metoprolol, clonidine, lasix, furosemide, lisinopril + hydralazine. Bradycardia in the 50s precludes increasing BB. 09/05/17 Start bladder retraining. May pull catheter tomorrow if pt is having bladder filling sensation. Will give a second dose of Lasix now. Given his LE edema, HTN and (questionable) weight gain since admission, will increase his Lasix to 40mg q am (from 20mg q am) and follow weights, edema, BP and electrolytes. Increase KCl from 10mEq to 20mEq given the increase in Lasix dosing. Check daily weights. Weight on admission 100.3 and today is 113kg. Question accuracy of today's weight. Consider further w/u for HTN and r/o pheochromocytoma. He's on multiple classes of antiHTN with suboptimal control, including metoprolol, clonidine, lasix, furosemide, lisinopril + hydralazine. 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 09/08/17 Headley catheter dc'd 09/07/17 and he's been voiding since. Switching from hydrocodone to oxycodone, has been helpful for pain control. In addition, BP under better control. Continue hydralazine 75 mg and increased Lasix/KCl doses. Check BMP in am. Sinus aram on tele - will dc tele. 09/14/17 BP's are slightly elevated but likely r/t pain. He is already on 4 agents, will continue to monitor. Headache is not new. PT working with him in re: to possible muscle contraction etiology. Sinusitis would be in the DDx, but no c/o fever, sinus drainage, ST, etc. WBC down today from yesterday. 13.3-->11.0. BS's stable. Hgb stable. Wound team following wound on R great toe. 09/17/17 Blood pressures continue to run high. He remains bradycardic with heart rates in the 50s. Metoprolol reduced to 25 mg. Clonidine was started on 09/16/17. Monitor response before further adjustments are made. Awaiting insurance approval, and discharge plans are to go to [facility] and rehabilitation. Dr. Briones's note reviewed. Continue PT/OT. 09/19/17 Patient continues to struggle with pain control. Continue pain medications and therapy plan per Dr. Briones. Persistent edema to right leg (operative side). Doppler obtained 09/18/17 and was negative for DVT. Recommend elevation as able with compression stockings/ SCDs. Continue to monitor closely. Blood pressures remain elevated and variable with bradycardia in the 50s. Metoprolol reduced to 25 mg BID on 09/17/17. Clonidine TID was started on . Will increase amlodipine to 10mg daily in AM and change Clonidine to TID PRN. Continue home Lasix 40mg daily and lisinopril 40mg daily. Monitor weight closely for signs of fluid overload. Patient may need additional diuresis. Awaiting insurance approval, and discharge plans are to go to [facility] and rehabilitation. Will recheck labs in AM to monitor blood counts, electrolytes and renal function. 09/20/17 Resume clonidine at 0.1mg BID in the event his sxs are r/t clonidine w/drawal. Continue amlodipine, Lasix and lisinopril. Check UA given the new onset of fever. If he continues to run fever, have diarrhea and has increase in WBC, will check for c diff. No cough or SOA. CBC and CMP in am. Hold metformin. NS 250cc bolus given and then tra 100cc/hr as pt isn't taking po well d/t nausea. PRN Zofran. 09/21/17 Cipro started for UTI. Culture pending. WBC is stable. Resume metformin in the am now that he is eating again. Continue to follow BP's. Amlodipine was increased to 10mg the day before yesterday. He likely had elevated BP yesterday d/t abrupt clonidine w/drawal and it was restarted at lower dose of 0.1mg BID. No changes today.
[2017-09-21] MEDS: TAMSULOSIN 0.4 MG CAPSULE PO SCH (20:54)
[2017-09-21] MEDS: ATORVASTATIN 10 MG TABLET PO SCH (20:55)
[2017-09-22] MEDS: Oxycodone *IR* 5 MG TABLET PO SCH ×7 (05:01→21:17)
[2017-09-22] MEDS: ENOXAPARIN 30 MG/0.3 ML INJECTION SQ SCH ×2 (08:25→21:17)
[2017-09-22] MEDS: CIPROFLOXACIN 500 MG TABLET PO SCH ×2 (08:25→21:18)
[2017-09-22] MEDS: ASPIRIN *EC* 81 MG TABLET PO SCH (08:26)
[2017-09-22] MEDS: GlipiZIDE 5 MG TABLET PO SCH ×2 (08:26→17:16)
[2017-09-22] MEDS: GABAPENTIN 100 MG CAPSULE PO SCH ×3 (08:26→21:18)
[2017-09-22] MEDS: FUROSEMIDE 20 MG TABLET PO SCH (08:26)
[2017-09-22] MEDS: HYDRALAZINE 25 MG TABLET PO SCH ×3 (08:26→17:15)
[2017-09-22] MEDS: LEVETIRACETAM 500 MG TABLET PO SCH ×2 (08:27→21:18)
[2017-09-22] MEDS: BACLOFEN 10 MG TABLET PO SCH ×3 (08:27→21:18)
[2017-09-22] MEDS: LISINOPRIL 40 MG TABLET PO SCH (08:27)
[2017-09-22] MEDS: AMLODIPINE 10 MG TABLET PO SCH (08:27)
[2017-09-22] MEDS ORDERED: FALL RISK - PHARMACY CONSULT MC ONE (09:34)
[2017-09-22] MEDS: ACETAMINOPHEN 325 MG TABLET PO PRN (12:07)
[2017-09-22] MEDS: CYCLOBENZAPRINE 5 MG TABLET PO PRN (15:11)
[2017-09-22] MEDS ORDERED: Oxycodone *IR* 5 MG TABLET PO ONE (15:37)
--- NOTE | 2017-09-22 16:00 | Progress Note ---
- Date 09/22/17 Subjective: Hermes is seen this afternoon in follow-up. He is resting in bed watching television. He does complain of having increased pain to the right arm and right leg. Blood pressures noted to be elevated at 180s systolic, likely secondary to pain. He otherwise denies feeling short of breath or having GI concerns. Discussed with nursing staff regarding better pain. Chart reviewed Objective Vital signs: Temperature 98.1 F 09/22/17 15:13 Pulse Rate 65 09/22/17 15:13 Respiratory Rate 18 09/22/17 15:13 Blood Pressure 188/85 H 09/22/17 15:13 Pulse Oximetry 99 09/22/17 15:13 Height/Weight/BMI: Height 1.83 m Weight 98.3 kg Body Mass Index 29.9 - Constitutional Present: no acute distress, well nourished, well developed - Routine HEENT Exam Eye: Present: EOMI ENT: Present: mucous membranes moist, dentition normal - Routine Respiratory Exam Present: CTA bilaterally. Absent: wheezes - Routine Cardiovascular Exam Present: RRR, S1, S2. Absent: murmur - Routine Abdominal Exam Present: soft, normoactive bowel sounds, non distended. Absent: tenderness - Routine Extremities Exam Present: pulses intact Comments: Right arm pain - Routine Skin Exam Present: dry, warm - Routine Neurological Exam Present: alert, oriented X3, CN II-XII intact - Routine Lymphatic Exam Lymphatic: Absent: adenopathy - Routine Psychiatric Exam Present: normal affect Results - Labs CBC & Chem 7: 09/21/17 04:33 09/21/17 04:33 Microbiology Results: Microbiology 09/21/17 06:13 Urine, Voided (Cc/notcc) Urine Culture - Preliminary Gram Positive Cocci Assessment and Plan (1) S/P hip hemiarthroplasty Problem details: Surgery done for subcapital , femoral neck Fx Current visit: Yes Status: Acute Assessment and Plan: Impression n/v/diarrhea - 09/20/17-resolved Uncontrolled blood pressure -currently on hydralazine, clonidine, Norvasc, lisinopril, metoprolol-1 edema increased today Status post right hip hemiarthroplasty-repaired 08/20/[address] Minor Right nondisplaced radial head fracture - nonsurgical tx S/P Fall Hx of CVA with right hemiparesis Chronic dysphasia Coronary artery disease Bradycardia - likely secondary to multiple cardiac meds for tx of HTN-improved Diabetes -fair control on glipizide and sliding scale insulin Seizures Obstructive sleep apnea CAD with history of CABG, 2016 Plan Continue with Cipro for treatment of UTI- C/S pending monitor blood sugars Will increase clonidine to 0.1 milligrams 3 times a day scheduled for hypertension. May need to continue to increase this to his cardiology consult for help with severe hypertension. There is when necessary available as needed for systolic greater than 160 Did ask nursing staff to contact Dr. Briones for further pain control if need be. Continue to follow carefully 09/22/2017-7:18 PM-I examined the patient independently. I reviewed this chart, the patient history, and the DIESEL [employer] TECHNICIAN's/PA's documented findings as above. We discussed and formulated the assessment and plan as above with the additions below.-Dr. Almonte The patient was seen this evening in his room. He was sitting up in a chair. He points to his right shoulder, elbow and knees when asked if he is having pain. He declines a pain pill at this time. He denies any chest pain or abdominal pain. He states that he is eating and drinking okay. He denies any nausea, vomiting, diarrhea or constipation. His nurse states that his nausea, vomiting and diarrhea seems to have resolved. On exam he is alert and in no acute distress. Chest is clear to auscultation. Cardiovascular reveals a regular rate and rhythm. Abdomen is soft and nontender. Impression and plan Await urine culture results. Monitor blood pressure carefully, may need cardiology consultation for difficult to control blood pressure. He is currently on 5 medications. Monitor blood sugars closely. - Physician Narrative Narrative: Date: 09/22/17 Time: 7926 Hospital Course Summary Disclaimer: The visit summary below is not to be considered part of the above Progress Note. 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 Patient continues to have uncontrolled hypertension 180s systolic. Medication list reviewed carefully along with marked from Gerald. Different beta jonathan was reconciled on admission from medication list. Toprol-XL discontinued, patient placed on metoprolol tartrate, Lopressor 50 milligrams 3 times a day. Continue with lisinopril 40, hydralazine 50mg 3 times a day. Hgb is has remained stable at 11.9. Patient is on Keppra for history of seizures. Patient also takes clarithromycin 500 twice a day. Brother does confirm patient was on this prior to hospitalization, however, exact reason is unknown Monitor Accu-Cheks and continue on metformin twice a day. [place] as needed for postoperative pain control. Will add MiraLAX and senna plus twice a day for postoperative bowel motivation. Encouraged patient to work with PT and OT for ongoing strengthening At time of discharge medical care will return to primary care provider at [facility], Dr. Bro 08/25/2017 Patient was seen today secondary to reports of possible chest pain. Prior baseline is unknown, so will err on the side of caution. Start telemetry. Serial troponin. We'll obtain chest x-ray, as well as a right shoulder film due to concern for subluxation. GI upset is certainly a possibility, particularly since he is on clarithromycin. May need to get further information on that on Sunday from his PCP. We'll continue remainder current care. Assess lab in the morning for stability. Discussed with patient, he is in agreement with plan of care. 08/27/17 Overall appears to be medically stable. Given bradycardia will decreased Metoprolol to 50mg BID Will need to continue monitor BP. Did contact PCP office at [facility]- their old records from last January patient was not taking erythromycin. It is unclear exactly prescribed clarithromycin and for what reason. Will attempt to contact patient's brother regarding this medication. BGMs are well controlled on current regimen. Continue to encourage work with PT and OT for ongoing strengthening. 09/03/17 Sling to right arm - ortho recommends rechecking films ~09/11/17 HTN - increase hydralazine from 50 to 75 mg TID. Consider further w/u for HTN and r/o pheochromocytoma. He's on multiple classes of antiHTN with suboptimal control, including metoprolol, clonidine, lasix, furosemide, lisinopril + hydralazine. Bradycardia in the 50s precludes increasing BB. 09/05/17 Start bladder retraining. May pull catheter tomorrow if pt is having bladder filling sensation. Will give a second dose of Lasix now. Given his LE edema, HTN and (questionable) weight gain since admission, will increase his Lasix to 40mg q am (from 20mg q am) and follow weights, edema, BP and electrolytes. Increase KCl from 10mEq to 20mEq given the increase in Lasix dosing. Check daily weights. Weight on admission 100.3 and today is 113kg. Question accuracy of today's weight. Consider further w/u for HTN and r/o pheochromocytoma. He's on multiple classes of antiHTN with suboptimal control, including metoprolol, clonidine, lasix, furosemide, lisinopril + hydralazine. May need to clarify with PCP if prior workup for hypertension has been undertaken or which credit support specialist patient has seen. 09/08/17 Headley catheter dc'd 09/07/17 and he's been voiding since. Switching from hydrocodone to oxycodone, has been helpful for pain control. In addition, BP under better control. Continue hydralazine 75 mg and increased Lasix/KCl doses. Check BMP in am. Sinus aram on tele - will dc tele. 09/14/17 BP's are slightly elevated but likely r/t pain. He is already on 4 agents, will continue to monitor. Headache is not new. PT working with him in re: to possible muscle contraction etiology. Sinusitis would be in the DDx, but no c/o fever, sinus drainage, ST, etc. WBC down today from yesterday. 13.3-->11.0. BS's stable. Hgb stable. Wound team following wound on R great toe. 09/17/17 Blood pressures continue to run high. He remains bradycardic with heart rates in the 50s. Metoprolol reduced to 25 mg. Clonidine was started on 09/16/17. Monitor response before further adjustments are made. Awaiting insurance approval, and discharge plans are to go to [facility] and rehabilitation. Dr. Briones's note reviewed. Continue PT/OT. 09/19/17 Patient continues to struggle with pain control. Continue pain medications and therapy plan per Dr. Briones. Persistent edema to right leg (operative side). Doppler obtained 09/18/17 and was negative for DVT. Recommend elevation as able with compression stockings/ SCDs. Continue to monitor closely. Blood pressures remain elevated and variable with bradycardia in the 50s. Metoprolol reduced to 25 mg BID on 09/17/17. Clonidine TID was started on . Will increase amlodipine to 10mg daily in AM and change Clonidine to TID PRN. Continue home Lasix 40mg daily and lisinopril 40mg daily. Monitor weight closely for signs of fluid overload. Patient may need additional diuresis. Awaiting insurance approval, and discharge plans are to go to [facility] and rehabilitation. Will recheck labs in AM to monitor blood counts, electrolytes and renal function. 09/20/17 Resume clonidine at 0.1mg BID in the event his sxs are r/t clonidine w/drawal. Continue amlodipine, Lasix and lisinopril. Check UA given the new onset of fever. If he continues to run fever, have diarrhea and has increase in WBC, will check for c diff. No cough or SOA. CBC and CMP in am. Hold metformin. NS 250cc bolus given and then tra 100cc/hr as pt isn't taking po well d/t nausea. PRN Zofran. 09/21/17 Cipro started for UTI. Culture pending. WBC is stable. Resume metformin in the am now that he is eating again. Continue to follow BP's. Amlodipine was increased to 10mg the day before yesterday. He likely had elevated BP yesterday d/t abrupt clonidine w/drawal and it was restarted at lower dose of 0.1mg BID. No changes today. 09/22/17 Continue with Cipro for treatment of UTI- C/S pending Data monitor blood sugars, metformin was started yesterday, 09/21. Will increase monitoring to 0.1 milligrams 3 times a day scheduled. May need to continue to increase this. There is when necessary available as needed for systolic greater than 160 Did ask nursing staff to contact Dr. Briones for further pain control if need be. Continue to follow carefully
[2017-09-22] MEDS: TAMSULOSIN 0.4 MG CAPSULE PO SCH (21:18)
[2017-09-22] MEDS: ATORVASTATIN 10 MG TABLET PO SCH (21:18)
[2017-09-23] MEDS: Oxycodone *IR* 5 MG TABLET PO SCH ×6 (05:19→22:37)
[2017-09-23] MEDS: CYCLOBENZAPRINE 5 MG TABLET PO PRN ×3 (05:22→19:05)
[2017-09-23] MEDS: GlipiZIDE 5 MG TABLET PO SCH ×2 (08:17→17:27)
[2017-09-23] MEDS: LISINOPRIL 40 MG TABLET PO SCH (08:17)
[2017-09-23] MEDS: LEVETIRACETAM 500 MG TABLET PO SCH ×2 (08:17→21:42)
[2017-09-23] MEDS: BACLOFEN 10 MG TABLET PO SCH ×3 (08:17→21:42)
[2017-09-23] MEDS: HYDRALAZINE 25 MG TABLET PO SCH ×3 (08:17→17:27)
[2017-09-23] MEDS: FUROSEMIDE 20 MG TABLET PO SCH (08:17)
[2017-09-23] MEDS: CIPROFLOXACIN 500 MG TABLET PO SCH (08:18)
[2017-09-23] MEDS: AMLODIPINE 10 MG TABLET PO SCH (08:18)
[2017-09-23] MEDS: ASPIRIN *EC* 81 MG TABLET PO SCH (08:18)
[2017-09-23] MEDS: ENOXAPARIN 30 MG/0.3 ML INJECTION SQ SCH ×2 (08:18→21:42)
[2017-09-23] MEDS: GABAPENTIN 100 MG CAPSULE PO SCH ×3 (08:18→21:42)
[2017-09-23] MEDS ORDERED: NITROFURANTOIN (MACROBID) 100 MG CAPSULE PO ONE (10:17)
--- NOTE | 2017-09-23 10:25 | Progress Note ---
- Date 09/23/17 Subjective: Jorge is seen this morning while resting in bed, watching TV. He complains of diffuse right sided pain including his shoulder, arm, leg and knee as well as his left knee. His pain was addressed by Dr. Briones yesterday and his oxycodone 10mg was increased to every 3 hours. Nursing reports that he slept through the night without waking to request pain medications but rated his pain this morning at 8/10. Currently his pain is 6/10. He denies any chest pain, shortness of breath, abdominal pain, nausea, vomiting or diarrhea. He was found to have a UTI on 09/21/17 and started on cipro. UA cultures revealed enterococcus faecalis sensitive to ampicillin, linezolid, nitrofurantoin and vancomycin. Due to his allergy to pencillin, he was started on nitrofurantoin and the cipro was discontinued today 09/23/17. Blood sugars remain relatively stable. Blood pressures remain elevated, ranging from 140s to 180s. He remains on Norvasc, lasix, lisinopril and metoprolol. Clonidine was increased to TID on 09/22/17. He denies having a fur joiner or ever seeing a fur joiner in the past. Objective Vital signs: Temperature 97.6 F 09/23/17 07:15 Pulse Rate 57 L 09/23/17 07:15 Respiratory Rate 18 09/23/17 07:15 Blood Pressure 160/80 H 09/23/17 09:00 Pulse Oximetry 98 09/23/17 07:15 Height/Weight/BMI: Height 6 ft Weight 208 lb 12.444 oz Body Mass Index 29.9 Comments: Resting in bed, watching TV. - Constitutional Present: no acute distress, well nourished, well developed, cooperative - Routine HEENT Exam Head: Present: normocephalic, atraumatic Eye: Present: PERRL. Absent: conjunctival icterus ENT: Present: mucous membranes moist, oropharynx clear - Routine Respiratory Exam Present: CTA bilaterally. Absent: respiratory distress, wheezes - Routine Cardiovascular Exam Present: RRR, S1, S2, murmur - Routine Abdominal Exam Present: soft, normoactive bowel sounds, non distended - Routine Extremities Exam Present: edema (1+ bilaterally), pulses intact Comments: Right arm in sling. - Routine Musculoskeletal Exam Musculoskeletal: Present: moving extremities well - Routine Skin Exam Present: dry, warm Comments: Afebrile. - Routine Neurological Exam Present: alert, hearing grossly intact - Routine Psychiatric Exam Present: cooperative Results - Labs CBC & Chem 7: 09/21/17 04:33 09/21/17 04:33 Microbiology Results: Microbiology 09/21/17 06:13 Urine, Voided (Cc/notcc) Urine Culture - Final Enterococcus faecalis Assessment and Plan (1) S/P hip hemiarthroplasty Problem details: Surgery done for subcapital , femoral neck Fx Current visit: Yes Status: Acute Assessment and Plan: Impression n/v/diarrhea - 09/20/17-resolved Uncontrolled blood pressure -currently on hydralazine, clonidine, Norvasc, lisinopril, metoprolol Status post right hip hemiarthroplasty-repaired 08/20/[address] Minor Right nondisplaced radial head fracture - nonsurgical tx S/P Fall Hx of CVA with right hemiparesis Chronic dysphasia Coronary artery disease Bradycardia - likely secondary to multiple cardiac meds for tx of HTN-improved Diabetes -fair control on glipizide and sliding scale insulin Seizures Obstructive sleep apnea CAD with history of CABG, 2016 Plan - 09/23/17 Patient continues to struggle with pain control. Pain addressed by Dr. Briones and oxycodone 10mg increased to Q3H for additional pain control Continue pain control and therapies per Dr. Briones. UTI diagnosed 09/21/17. UA revealed enterococcus faecalis sensitive to ampicillin, linezolid, nitrofurantoin, vancomycin. Currently on cipro. Will discontinue cipro and initiate nitrofurantoin per sensitivities today. Blood sugars remain relatively stable. Continue to monitor closely. Blood pressures remain elevated despite multiple medications. Clonidine 0.1mg increased to TID on 09/22/17. Will continue to monitor closely with PRN clonidine as needed. Patient denies having fur joiner. Will consult Dr. Oropeza for further evaluation and expertise. Recheck labs in AM to monitor blood counts, electrolytes and renal function. DVT Prophylaxis: Lovenox Resuscitation Status: Full Code - Time spent with patient Time with patient PN: 30 minutes - Physician Narrative Physician: Sandy Almonte MD Narrative: Date: 09/23/17 Time: 1016 Hospital Course Summary Disclaimer: The visit summary below is not to be considered part of the above Progress Note. 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 Patient continues to have uncontrolled hypertension 180s systolic. Medication list reviewed carefully along with marked from Gerald. Different beta jonathan was reconciled on admission from medication list. Toprol-XL discontinued, patient placed on metoprolol tartrate, Lopressor 50 milligrams 3 times a day. Continue with lisinopril 40, hydralazine 50mg 3 times a day. Hgb is has remained stable at 11.9. Patient is on Keppra for history of seizures. Patient also takes clarithromycin 500 twice a day. Brother does confirm patient was on this prior to hospitalization, however, exact reason is unknown Monitor Accu-Cheks and continue on metformin twice a day. [place] as needed for postoperative pain control. Will add MiraLAX and senna plus twice a day for postoperative bowel motivation. Encouraged patient to work with PT and OT for ongoing strengthening At time of discharge medical care will return to primary care provider at [facility], Dr. Bro 08/25/2017 Patient was seen today secondary to reports of possible chest pain. Prior baseline is unknown, so will err on the side of caution. Start telemetry. Serial troponin. We'll obtain chest x-ray, as well as a right shoulder film due to concern for subluxation. GI upset is certainly a possibility, particularly since he is on clarithromycin. May need to get further information on that on Sunday from his PCP. We'll continue remainder current care. Assess lab in the morning for stability. Discussed with patient, he is in agreement with plan of care. 08/27/17 Overall appears to be medically stable. Given bradycardia will decreased Metoprolol to 50mg BID Will need to continue monitor BP. Did contact PCP office at [facility]- their old records from last January patient was not taking erythromycin. It is unclear exactly prescribed clarithromycin and for what reason. Will attempt to contact patient's brother regarding this medication. BGMs are well controlled on current regimen. Continue to encourage work with PT and OT for ongoing strengthening. 09/03/17 Sling to right arm - ortho recommends rechecking films ~09/11/17 HTN - increase hydralazine from 50 to 75 mg TID. Consider further w/u for HTN and r/o pheochromocytoma. He's on multiple classes of antiHTN with suboptimal control, including metoprolol, clonidine, lasix, furosemide, lisinopril + hydralazine. Bradycardia in the 50s precludes increasing BB. 09/05/17 Start bladder retraining. May pull catheter tomorrow if pt is having bladder filling sensation. Will give a second dose of Lasix now. Given his LE edema, HTN and (questionable) weight gain since admission, will increase his Lasix to 40mg q am (from 20mg q am) and follow weights, edema, BP and electrolytes. Increase KCl from 10mEq to 20mEq given the increase in Lasix dosing. Check daily weights. Weight on admission 100.3 and today is 113kg. Question accuracy of today's weight. Consider further w/u for HTN and r/o pheochromocytoma. He's on multiple classes of antiHTN with suboptimal control, including metoprolol, clonidine, lasix, furosemide, lisinopril + hydralazine. May need to clarify with PCP if prior workup for hypertension has been undertaken or which fur joiner patient has seen. 09/08/17 Headley catheter dc'd 09/07/17 and he's been voiding since. Switching from hydrocodone to oxycodone, has been helpful for pain control. In addition, BP under better control. Continue hydralazine 75 mg and increased Lasix/KCl doses. Check BMP in am. Sinus aram on tele - will dc tele. 09/14/17 BP's are slightly elevated but likely r/t pain. He is already on 4 agents, will continue to monitor. Headache is not new. PT working with him in re: to possible muscle contraction etiology. Sinusitis would be in the DDx, but no c/o fever, sinus drainage, ST, etc. WBC down today from yesterday. 13.3-->11.0. BS's stable. Hgb stable. Wound team following wound on R great toe. 09/17/17 Blood pressures continue to run high. He remains bradycardic with heart rates in the 50s. Metoprolol reduced to 25 mg. Clonidine was started on 09/16/17. Monitor response before further adjustments are made. Awaiting insurance approval, and discharge plans are to go to [facility]. [place]. Briones's note reviewed. Continue PT/OT. 09/19/17 Patient continues to struggle with pain control. Continue pain medications and therapy plan per Dr. Briones. Persistent edema to right leg (operative side). Doppler obtained 09/18/17 and was negative for DVT. Recommend elevation as able with compression stockings/ SCDs. Continue to monitor closely. Blood pressures remain elevated and variable with bradycardia in the 50s. Metoprolol reduced to 25 mg BID on 09/17/17. Clonidine TID was started on . Will increase amlodipine to 10mg daily in AM and change Clonidine to TID PRN. Continue home Lasix 40mg daily and lisinopril 40mg daily. Monitor weight closely for signs of fluid overload. Patient may need additional diuresis. Awaiting insurance approval, and discharge plans are to go to [facility] [place]. Will recheck labs in AM to monitor blood counts, electrolytes and renal function. 09/20/17 Resume clonidine at 0.1mg BID in the event his sxs are r/t clonidine w/drawal. Continue amlodipine, Lasix and lisinopril. Check UA given the new onset of fever. If he continues to run fever, have diarrhea and has increase in WBC, will check for c diff. No cough or SOA. CBC and CMP in am. Hold metformin. NS 250cc bolus given and then tra 100cc/hr as pt isn't taking po well d/t nausea. PRN Zofran. 09/21/17 Cipro started for UTI. Culture pending. WBC is stable. Resume metformin in the am now that he is eating again. Continue to follow BP's. Amlodipine was increased to 10mg the day before yesterday. He likely had elevated BP yesterday d/t abrupt clonidine w/drawal and it was restarted at lower dose of 0.1mg BID. No changes today. 09/22/17 Continue with Cipro for treatment of UTI- C/S pending Data monitor blood sugars, metformin was started yesterday, 09/21. Will increase monitoring to 0.1 milligrams 3 times a day scheduled. May need to continue to increase this. There is when necessary available as needed for systolic greater than 160 Did ask nursing staff to contact Dr. Briones for further pain control if need be. Continue to follow carefully Plan - 09/23/17 Patient continues to struggle with pain control. Pain addressed by Dr. Briones and oxycodone 10mg increased to Q3H for additional pain control Continue pain control and therapies per Dr. Briones. UTI diagnosed 09/21/17. UA revealed enterococcus faecalis sensitive to ampicillin, linezolid, nitrofurantoin, vancomycin. Currently on cipro. Will discontinue cipro and initiate nitrofurantoin per sensitivities today. Blood sugars remain relatively stable. Continue to monitor closely. Blood pressures remain elevated despite multiple medications. Clonidine 0.1mg increased to TID on 09/22/17. Will continue to monitor closely with PRN clonidine as needed. Patient denies having fur joiner. Will consult Dr. Oropeza for further evaluation and expertise. Recheck labs in AM to monitor blood counts, electrolytes and renal function.
[2017-09-23] MEDS: ACETAMINOPHEN 325 MG TABLET PO PRN (13:54)
--- NOTE | 2017-09-23 16:52 | Cardiology Consult Note ---
<Lisa Rincon - Last Filed: 09/23/17 23:22> History of Present Illness Consult date: 09/23/17 Requesting physician: Sandy Almonte Consult reason: hypertension Chief complaint: hypertension History of present illness: This is a 47 year old male with hx of HTN, CVA w/right hemiparesis, CAD s/p CABG. He recently had a fall, resulting in a fractured right hip and elbow. He was admitted for repair and now is in IRU for rehab. He denies chest pain, admits to mild dyspnea. His bp remains hypertensive despite a four drug regimen. Hospitalist service consulted cardiology for assistance with hypertension management. Review of Systems - Cardiovascular Cardiovascular: Present: edema. Absent: chest pain, palpitations, syncope - Neurological Neurological: Present: abnormal gait, abnormal speech [facility] Patient Stated Medical History Cerebrovascular Accident Yes Migraine Yes Paralysis Yes Seizures Yes Transient Ischemic Attacks ( Yes TIA) Dental Problems Yes: partials Dysphagia Yes Other HEENT Yes: WEARS GLASSES Coronary Artery Disease Yes Hypertension Yes Other Cardiology Yes: CHRONIC EDEMA LE Bronchitis Yes Sleep Apnea Yes Diabetes Mellitus Type 2 Yes Hx Incontinence Yes Osteoarthritis Yes Other Musculoskeletal Yes: CRUSH INJURY LT HIP/PELVIS Cellulitis Yes Other Infectious Yes: MULTIPLE OPEN SORES DOCUMENTED Depression Yes Clinic Medical History (Last Updated 08/24/17 @ 09:02 by Mae Diaz APRN) MYRON (obstructive sleep apnea) (Acute Medical) CVA (cerebral vascular accident) (Chronic Medical) Cerebral seizure (Chronic Medical) Diabetes (Chronic Medical) HTN (hypertension) (Chronic Medical) Hyperlipidemia (Chronic Medical) Osteoarthritis (Chronic Medical) Surgical History: Right hip arthoplasty- 08/20/17- Dr Minor at [place]. Cholecystectomy. CABG x3. Appendectomy. Liver biopsy. Left pelvis ORIF - Social History Smoking status: Never smoker Substance use type: does not use Alcohol intake frequency: does not drink Housing: house Household members: family (Brother) Current occupational status: disabled Current residence: Apartment/Private Home Medications Home Medications Medication Instructions Recorded Confirmed Type Aspirin [Adult Low Dose Aspirin EC] 81 mg PO DAILY 10/27/16 08/23/17 History Atorvastatin Calcium 10 mg PO HS 10/27/16 08/23/17 History Baclofen [Lioresal] 5 mg PO TID 10/27/16 08/23/17 History Lisinopril [Prinivil] 40 mg PO DAILY 10/27/16 08/23/17 History Magnesium Oxide [Magnesium] 400 mg PO BID 10/27/16 08/23/17 History Tamsulosin [Flomax] 0.4 mg PO HS 10/27/16 08/23/17 History levETIRAcetam [Keppra Xr] 500 mg PO Q12HR 10/27/16 08/23/17 History Chlorthalidone [Hygroton] 25 mg PO WB tab 10/01/17 Rx CloNIDine [Catapres] 0.1 mg PO TID tab 10/01/17 Rx Cyclobenzaprine [Flexeril] 5 mg PO TID PRN tab 10/01/17 Rx Diclofenac Top Gel [Voltaren] 1 applicatio TP QID tube 10/01/17 Rx Gabapentin [Neurontin] 200 mg PO TID cap 10/01/17 Rx GlipiZIDE [Glucotrol] 5 mg PO BIDBS tab 10/01/17 Rx Hydralazine [Apresoline] 75 mg PO WM tab 10/01/17 Rx Insulin Aspart [NovoLOG] 1 - 5 unit SQ SS PRN vial 10/01/17 Rx Labetalol [Normodyne] 200 mg PO BID tab 10/01/17 Rx Mag-Al + Sim Oral Liq [Maalox Plus] 30 ml PO Q3H PRN udc 10/01/17 Rx Metformin [Glucophage] 500 mg PO BIDBS tab 10/01/17 Rx Milk of Magnesia [Mom] 30 ml PO DAILY PRN udc 10/01/17 Rx NIFEdipine [Nifedipine ER] 90 mg PO DAILY tab.er.24 10/01/17 Rx PEG 3350 17gm PACKET [Miralax] 17 gm PO DAILY PRN packet 10/01/17 Rx Potassium Chloride [K-DUR 10 mEq 20 meq PO WB tab 10/01/17 Rx Tablet] Senna + Docusate [Senna Plus 2 tab PO BID PRN tab 10/01/17 Rx Tablet] Allergies Allergy/AdvReac Type Severity Reaction Status Date / Time codeine Allergy Verified 10/26/16 22:56 Penicillins Allergy Verified 10/26/16 22:56 Sulfa (Sulfonamide Allergy Verified 10/26/16 22:56 Antibiotics) Exam Vital signs: Temperature 98.0 F 09/23/17 15:58 Pulse Rate 57 L 09/23/17 15:58 Respiratory Rate 18 09/23/17 15:58 Blood Pressure 162/78 H 09/23/17 15:58 Pulse Oximetry 99 09/23/17 15:58 - Constitutional no acute distress - Routine HEENT Exam Head: Present: normocephalic, atraumatic Eye: Present: PERRL ENT: Present: mucous membranes moist - Routine Neck Exam Absent: JVD, carotid bruit - Routine Respiratory Exam Present: CTA bilaterally - Routine Cardiovascular Exam Present: RRR, no murmur - Routine Abdominal Exam Present: soft, normoactive bowel sounds - Routine Extremities Exam Present: no edema - Routine Skin Exam Present: intact - Routine Neurological Exam Present: alert, oriented X3 - Routine Psychiatric Exam Present: normal affect Results 09/21/17 04:33 09/21/17 04:33 Intake and Output 09/23/17 09/23/17 09/23/17 06:59 14:59 22:59 Intake Total 653 / 653 Output Total 375 / 375 600 / 600 Balance -375 / -375 53 / 53 Intake: Oral 653 / 653 Output: Urine 375 / 375 600 / 600 Other: Urine Appearance Cloudy Clear Urine Color Dark Riri Yellow Urine Odor Strong Normal # Voids 2 1 # Incontinent Voids 1 Weight 94.7 kg Laboratory Results - last 24 hr 09/22/17 09/23/17 09/23/17 19:23 05:27 11:06 Glucometer 179 80 106 09/23/17 09/23/17 16:46 21:46 Glucometer 106 81 Assessment and Plan - Assessment and Plan (1) Hypertension Current visit: Yes Status: Chronic (2) Diabetes mellitus type 2 in nonobese Current visit: Yes Status: Chronic (3) CAD (coronary artery disease) Current visit: Yes Status: Acute - Assessment and Plan DC metoprolol and change to labetolol 100mg bid for improved bp control Continue clonidine .1mg tid, norvasc 10mg and lisinopril 40mg daily Will obtain a renal artery sono Nursing to take bp in arm and thigh to rule out coarctation Hospital Course Summary Disclaimer: The visit summary below is not to be considered part of the above Progress Note. 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 Patient continues to have uncontrolled hypertension 180s systolic. Medication list reviewed carefully along with marked from Gerald. Different beta jonathan was reconciled on admission from medication list. Toprol-XL discontinued, patient placed on metoprolol tartrate, Lopressor 50 milligrams 3 times a day. Continue with lisinopril 40, hydralazine 50mg 3 times a day. Hgb is has remained stable at 11.9. Patient is on Keppra for history of seizures. Patient also takes clarithromycin 500 twice a day. Brother does confirm patient was on this prior to hospitalization, however, exact reason is unknown Monitor Accu-Cheks and continue on metformin twice a day. [place] as needed for postoperative pain control. Will add MiraLAX and senna plus twice a day for postoperative bowel motivation. Encouraged patient to work with PT and OT for ongoing strengthening At time of discharge medical care will return to primary care provider at [facility], Dr. Bro 08/25/2017 Patient was seen today secondary to reports of possible chest pain. Prior baseline is unknown, so will err on the side of caution. Start telemetry. Serial troponin. We'll obtain chest x-ray, as well as a right shoulder film due to concern for subluxation. GI upset is certainly a possibility, particularly since he is on clarithromycin. May need to get further information on that on Sunday from his PCP. We'll continue remainder current care. Assess lab in the morning for stability. Discussed with patient, he is in agreement with plan of care. 08/27/17 Overall appears to be medically stable. Given bradycardia will decreased Metoprolol to 50mg BID Will need to continue monitor BP. Did contact PCP office at [facility]- their old records from last January patient was not taking erythromycin. It is unclear exactly prescribed clarithromycin and for what reason. Will attempt to contact patient's brother regarding this medication. BGMs are well controlled on current regimen. Continue to encourage work with PT and OT for ongoing strengthening. 09/03/17 Sling to right arm - ortho recommends rechecking films ~09/11/17 HTN - increase hydralazine from 50 to 75 mg TID. Consider further w/u for HTN and r/o pheochromocytoma. He's on multiple classes of antiHTN with suboptimal control, including metoprolol, clonidine, lasix, furosemide, lisinopril + hydralazine. Bradycardia in the 50s precludes increasing BB. 09/05/17 Start bladder retraining. May pull catheter tomorrow if pt is having bladder filling sensation. Will give a second dose of Lasix now. Given his LE edema, HTN and (questionable) weight gain since admission, will increase his Lasix to 40mg q am (from 20mg q am) and follow weights, edema, BP and electrolytes. Increase KCl from 10mEq to 20mEq given the increase in Lasix dosing. Check daily weights. Weight on admission 100.3 and today is 113kg. Question accuracy of today's weight. Consider further w/u for HTN and r/o pheochromocytoma. He's on multiple classes of antiHTN with suboptimal control, including metoprolol, clonidine, lasix, furosemide, lisinopril + hydralazine. May need to clarify with PCP if prior workup for hypertension has been undertaken or which flanging operator patient has seen. 09/08/17 [place] catheter dc'd 09/07/17 and he's been voiding since. Switching from hydrocodone to oxycodone, has been helpful for pain control. In addition, BP under better control. Continue hydralazine 75 mg and increased Lasix/KCl doses. Check BMP in am. Sinus aram on tele - will dc tele. 09/14/17 BP's are slightly elevated but likely r/t pain. He is already on 4 agents, will continue to monitor. Headache is not new. PT working with him in re: to possible muscle contraction etiology. Sinusitis would be in the DDx, but no c/o fever, sinus drainage, ST, etc. WBC down today from yesterday. 13.3-->11.0. BS's stable. Hgb stable. Wound team following wound on R great toe. 09/17/17 Blood pressures continue to run high. He remains bradycardic with heart rates in the 50s. Metoprolol reduced to 25 mg. Clonidine was started on 09/16/17. Monitor response before further adjustments are made. Awaiting insurance approval, and discharge plans are to go to [facility]. Dr. Briones's note reviewed. Continue PT/OT. 09/19/17 Patient continues to struggle with pain control. Continue pain medications and therapy plan per Dr. Briones. Persistent edema to right leg (operative side). Doppler obtained 09/18/17 and was negative for DVT. Recommend elevation as able with compression stockings/ SCDs. Continue to monitor closely. Blood pressures remain elevated and variable with bradycardia in the 50s. Metoprolol reduced to 25 mg BID on 09/17/17. Clonidine TID was started on . Will increase amlodipine to 10mg daily in AM and change Clonidine to TID PRN. Continue home Lasix 40mg daily and lisinopril 40mg daily. Monitor weight closely for signs of fluid overload. Patient may need additional diuresis. Awaiting insurance approval, and discharge plans are to go to [facility]. Will recheck labs in AM to monitor blood counts, electrolytes and renal function. 09/20/17 Resume clonidine at 0.1mg BID in the event his sxs are r/t clonidine w/drawal. Continue amlodipine, Lasix and lisinopril. Check UA given the new onset of fever. If he continues to run fever, have diarrhea and has increase in WBC, will check for c diff. No cough or SOA. CBC and CMP in am. Hold metformin. NS 250cc bolus given and then tra 100cc/hr as pt isn't taking po well d/t nausea. PRN Zofran. 09/21/17 Cipro started for UTI. Culture pending. WBC is stable. Resume metformin in the am now that he is eating again. Continue to follow BP's. Amlodipine was increased to 10mg the day before yesterday. He likely had elevated BP yesterday d/t abrupt clonidine w/drawal and it was restarted at lower dose of 0.1mg BID. No changes today. 09/22/17 Continue with Cipro for treatment of UTI- C/S pending Data monitor blood sugars, metformin was started yesterday, 09/21. Will increase monitoring to 0.1 milligrams 3 times a day scheduled. May need to continue to increase this. There is when necessary available as needed for systolic greater than 160 Did ask nursing staff to contact Dr. Briones for further pain control if need be. Continue to follow carefully Plan - 09/23/17 Patient continues to struggle with pain control. Pain addressed by Dr. Briones and oxycodone 10mg increased to Q3H for additional pain control Continue pain control and therapies per Dr. Briones. UTI diagnosed 09/21/17. UA revealed enterococcus faecalis sensitive to ampicillin, linezolid, nitrofurantoin, vancomycin. Currently on cipro. Will discontinue cipro and initiate nitrofurantoin per sensitivities today. Blood sugars remain relatively stable. Continue to monitor closely. Blood pressures remain elevated despite multiple medications. Clonidine 0.1mg increased to TID on 09/22/17. Will continue to monitor closely with PRN clonidine as needed. Patient denies having flanging operator. Will consult Dr. Oropeza for further evaluation and expertise. Recheck labs in AM to monitor blood counts, electrolytes and renal function. <Felix Oropeza - Last Filed: 10/02/17 07:41> [facility] Patient Stated Medical History Cerebrovascular Accident Yes Migraine Yes Paralysis Yes Seizures Yes Transient Ischemic Attacks ( Yes TIA) Dental Problems Yes: partials Dysphagia Yes Other HEENT Yes: WEARS GLASSES Coronary Artery Disease Yes Hypertension Yes Other Cardiology Yes: CHRONIC EDEMA LE Bronchitis Yes Sleep Apnea Yes Diabetes Mellitus Type 2 Yes Hx Incontinence Yes Osteoarthritis Yes Other Musculoskeletal Yes: CRUSH INJURY LT HIP/PELVIS Cellulitis Yes Other Infectious Yes: MULTIPLE OPEN SORES DOCUMENTED Depression Yes Clinic Medical History (Last Updated 08/24/17 @ 09:02 by Mae Diaz APRN) MYRON (obstructive sleep apnea) (Acute Medical) CVA (cerebral vascular accident) (Chronic Medical) Cerebral seizure (Chronic Medical) Diabetes (Chronic Medical) HTN (hypertension) (Chronic Medical) Hyperlipidemia (Chronic Medical) Osteoarthritis (Chronic Medical) Exam Vital signs: Temperature 98.6 F 10/01/17 19:43 Pulse Rate 67 10/01/17 19:43 Respiratory Rate 16 10/01/17 21:11 Blood Pressure 157/85 H 10/01/17 19:43 Pulse Oximetry 100 10/01/17 19:43 Results 10/01/17 16:51 10/01/17 16:51 CBC 10/01/17 Range/Units 16:51 WBC 7.1 (4.5-11.0) T/MM3 RBC 4.24 L (4.50-5.90) M/MM3 Hgb 12.9 L (13.5-17.5) GM/DL Hct 37.9 L (41-53) % Plt Count 450 H D (130-400) T/MM3 Neut # (Auto) 3.9 (1.8-7.7) T/MM3 Lymph # (Auto) 2.2 (1-4.8) T/MM3 [place] # (Auto) 0.4 (0-0.8) T/MM3 Eos # (Auto) 0.6 H (0-0.5) T/MM3 Baso # (Auto) 0.0 (0-0.2) T/MM3 Comprehensive Metabolic Panel 10/01/17 Range/Units 16:51 Sodium 142 (136-146) MEQ/L Potassium 4.2 (3.6-5) MEQ/L Chloride 102 (98-107) MEQ/L Carbon Dioxide 30 (22-30) MEQ/L BUN 21.0 H (9-20) MG/DL Creatinine 0.8 (0.8-1.5) mg/dL Glucose 93 (75-110) MG/DL Calcium 8.9 (8.4-10.2) MG/DL Intake and Output 10/01/17 10/02/17 10/02/17 22:59 06:59 14:59 Other: # Voids 1 # Incontinent Voids 1 Assessment and Plan - Attestation Attestation Narrative: 10/02/17 07:41 Recommendation After examining the patient I agree with the above assessment. I am involved in the formulation of the patient's plan of care. - Assessment and Plan (1) Hypertension Current visit: Yes Status: Chronic (2) Diabetes mellitus type 2 in nonobese Current visit: Yes Status: Chronic (3) CAD (coronary artery disease) Current visit: Yes Status: Acute Hospital Course Summary Disclaimer: The visit summary below is not to be considered part of the above Progress Note.
[2017-09-23] MEDS: NITROFURANTOIN (MACROBID) 100 MG CAPSULE PO SCH (17:27)
[2017-09-23] MEDS: TAMSULOSIN 0.4 MG CAPSULE PO SCH (21:42)
[2017-09-23] MEDS: ATORVASTATIN 10 MG TABLET PO SCH (21:42)
[2017-09-23] MEDS: LABETALOL 100 MG TABLET PO SCH (21:42)
[2017-09-24] MEDS: CYCLOBENZAPRINE 5 MG TABLET PO PRN (06:21)
[2017-09-24] MEDS: Oxycodone *IR* 5 MG TABLET PO SCH ×6 (06:21→20:00)
[2017-09-24] MEDS: GABAPENTIN 100 MG CAPSULE PO SCH ×3 (08:18→20:08)
[2017-09-24] MEDS: HYDRALAZINE 25 MG TABLET PO SCH ×3 (08:18→17:31)
[2017-09-24] MEDS: LEVETIRACETAM 500 MG TABLET PO SCH ×2 (08:18→20:08)
[2017-09-24] MEDS: NITROFURANTOIN (MACROBID) 100 MG CAPSULE PO SCH ×2 (08:19→17:32)
[2017-09-24] MEDS: LISINOPRIL 40 MG TABLET PO SCH (08:19)
[2017-09-24] MEDS: AMLODIPINE 10 MG TABLET PO SCH (08:19)
[2017-09-24] MEDS: FUROSEMIDE 20 MG TABLET PO SCH (08:19)
[2017-09-24] MEDS: LABETALOL 100 MG TABLET PO SCH ×3 (08:20→20:10)
[2017-09-24] MEDS: BACLOFEN 10 MG TABLET PO SCH ×3 (08:20→20:03)
[2017-09-24] MEDS: GlipiZIDE 5 MG TABLET PO SCH ×2 (08:20→17:31)
[2017-09-24] MEDS: ASPIRIN *EC* 81 MG TABLET PO SCH (08:27)
--- NOTE | 2017-09-24 09:39 | Ultrasound Report ---
Indication: HTN PROCEDURE: US renal doppler: Encounter: Initial Comparison: None Technique: Grayscale and color Doppler sonographic imaging of both kidneys was performed with duplex evaluation of the renal arteries. Findings: Scans of the kidneys demonstrate normal morphology. The right kidney measures 11.7 cm in length. The left kidney measures 12.1 cm in length. There is no collecting system dilatation, contour deforming mass, nephrolithiasis, or abnormal perinephric fluid collection. Color Doppler imaging demonstrates normal vascularization. Resistive indices from the intrarenal arteries in the upper, middle, and lower portions of the right kidney are normal. Resistive indices from the intrarenal arteries in the upper, middle, and lower portions of the left kidney are normal. Arterial waveforms are normal. Impression: No evidence of hemodynamically significant renal arterial stenosis. .
--- NOTE | 2017-09-24 10:33 | IRU Progress Note ---
- Subjective/Serverity of Illness Date: 09/24/17 Hermes was reassessed in his room today. He continues to be restless and, with motions, indicates pain in both knees and right elbow. We will try some Voltaren gel on the knees to see if that helps. We had increased his oxycodone back up to 10 mg every 3 hours while awake. We had tried reducing it down to every 4 hours but it was not effective enough for him. Otherwise he seems to be doing reasonably well. Urine culture grew enterococcus faecalis requiring change to nitrofurantoin for coverage. Upon direct questioning he does state that he does have some burning on urination. Cardiology saw the patient and changed him from metoprolol to labetalol regarding his blood pressure. Otherwise his appetite appears to be adequate. He is cooperative with therapy and has made some gains. Arrangements are pending with regard to transfer to long-term care. Exam Vital Signs: Temperature 98 F 09/24/17 07:44 Pulse Rate 68 09/24/17 07:44 Respiratory Rate 16 09/24/17 07:44 Blood Pressure 144/83 H 09/24/17 07:44 Pulse Oximetry 100 09/24/17 07:44 Height/Weight/BMI: Height 1.83 m Weight 93.4 kg Body Mass Index 29.9 - Constitutional Present: mild distress (both knees), well nourished, well developed, cooperative - Routine HEENT Exam Head: Present: normocephalic Eye: Present: EOMI ENT: Present: mucous membranes moist - Routine Respiratory Exam Present: CTA bilaterally. Absent: wheezes - Routine Cardiovascular Exam Present: RRR, S1, S2. Absent: murmur - Routine Abdominal Exam Present: soft, normoactive bowel sounds, non distended. Absent: tenderness - Routine Extremities Exam Present: edema, normal capillary refill Comments: Knees do not appear to be grossly inflamed. However he is continuously complained of pain in the knees as well as stiffness. Probably does have a level of low-grade osteoarthritis. - Routine Skin Exam Present: dry, warm - Routine Neurological Exam Present: alert, oriented X3, motor deficit. Absent: CN II-XII intact - Routine Psychiatric Exam Present: normal affect Results IRU - Labs Labs: Reviewed other providers notes as well as lab reports. IRU A/P (1) S/P hip hemiarthroplasty Problem details: Surgery done for subcapital , femoral neck Fx Current visit: Yes Status: Acute Clinically he is stable from his hip surgery. (2) Diabetes mellitus type 2 in nonobese Current visit: Yes Status: Chronic The patient's blood sugars are well controlled on the current regimen. (3) Hypertension Qualifiers: Hypertension type: essential hypertension Qualified Code(s): I10 - Essential (primary) hypertension Current visit: Yes Status: Chronic His blood pressures remain elevated. No one this morning was improved. He was changed from metoprolol to labetalol. (4) Nondisplaced fracture of head of right radius Qualifiers: Encounter type: initial encounter Fracture type: closed Qualified Code(s) : S52.124A - Nondisplaced fracture of head of right radius, initial encounter for closed fracture Current visit: Yes Status: Acute (5) Toe abrasion, non-infected Current visit: Yes Status: Acute (6) Leukocytosis Qualifiers: Leukocytosis type: unspecified Qualified Code(s): D72.829 - Elevated white blood cell count, unspecified Current visit: Yes Status: Acute (7) Headache Qualifiers: Headache type: tension-type Headache chronicity pattern: chronic headache Current visit: Yes Status: Resolved (8) UTI (urinary tract infection) Qualifiers: Urinary tract infection type: acute cystitis Hematuria presence: with hematuria Qualified Code(s): N30.01 - Acute cystitis with hematuria Current visit: Yes Status: Acute He was switched to nitrofurantoin because of enterococcus faecalis growth. (9) Knee pain, bilateral Qualifiers: Chronicity: chronic Qualified Code(s): M25.561 - Pain in right knee; M25.562 - Pain in left knee; G89.29 - Other chronic pain Current visit: Yes Status: Chronic Continues to complain of pain in both knees. While I do not see obvious inflammation terms of redness and warmth, we will try Voltaren gel. DVT Prophylaxis: Lovenox Resuscitation Status: Full Code - Course Hospital Course: Chucho Solis MD: 09/03/17 15:14 Pain in right elbow and right hip as anticipated. Blood sugars are controlled. Blood pressures remain a bit elevated. 09/04/17 12:44 Progressing with therapy. Blood sugars look excellent. Pain in right elbow seems to be a major issue. 09/06/17 11:50 Improving with therapy. Blood pressures remain elevated. Lasix has been increased. I will increase gabapentin and switch to oxycodone today. 09/07/17 11:20 Continues to have some edema in the right lower extremity. He is progressing with therapy with regard to ambulation. Pain management hopefully is improved with the use of oxycodone. 09/10/17 12:06 Pain management is difficult. We'll schedule the oxycodone. Blood pressures remain elevated likely related to pain management. He is voiding although does have occasional residuals identified. 09/11/17 11:58 Headache is resolved. Improved pain management with oxycodone regularly scheduled. Blood pressures are improved with regular doses of oxycodone. New evidence of abrasion to right great toe. 09/13/17 13:51 White count to 13,000. No evidence of source of infection at present. Sugars are well controlled. Cooperative with therapy. Headache returned but less intense. 09/14/17 11:37 Headache continues to come and go. Seems to be localized in right temporal area. We will check a sedimentation rate. Neurologically he is otherwise unchanged. 09/17/17 11:54 Headache reportedly resolved. No new neurologic changes. Pain management is a challenge. Blood pressures remain elevated although medications have been adjusted. 09/18/17 11:39 Headache appears to have resolved. Abrasion on toe improved. Edema right leg remains. Venous Doppler ordered. We will try to reduce pain medications. 09/20/17 11:48 Vomiting this morning. Anorectic now. Loose stools. Abdomen remained soft. Venous Doppler right leg negative. We will need to hold therapy. 09/21/17 10:48 UTI diagnosed. No further nausea or vomiting. Low-grade fever yesterday without recurrence. He is now on Cipro. He looks and feels better. 09/24/17 10:34 He was changed from Cipro to nitrofurantoin for E. faecalis UTI. Blood pressure management changed from metoprolol to labetalol. I will add on Voltaren gel for the knee pain. We had increased his oxycodone late last week. - Interventions to Obtain Goals PT Treatment Plan: Balance/Proprioception, Functional Activities, Gait Training , Patient/Family Education, Therapeutic Exercise OT Treatment Plan: ADL (Basic Care), Balance Training, IADL, Pt./Family Education, Ther. Exercise for ADL Goals Progress/Modifications: We had increased his pain management by increasing frequency of oxycodone last week. This is due to pain in the knees and right elbow. He continues to be restless. He is on regular doses of oxycodone. We will add Voltaren gel to the knees to improve his functional ability. Medications were changed from Cipro to nitrofurantoin for his enterococcus faecalis UTI. Finally, his blood pressure management has been modified to change from metoprolol to labetalol. Arrangements are pending with regard to transfer to long-term care.
[2017-09-24] MEDS: ENOXAPARIN 30 MG/0.3 ML INJECTION SQ SCH ×2 (11:30→20:07)
[2017-09-24] MEDS ORDERED: LABETALOL 100 MG TABLET PO ONE (11:33)
--- NOTE | 2017-09-24 11:34 | Cardiology Progress Note ---
<Sharlene Currie M - Last Filed: 09/25/17 07:59> Subjective Principal diagnosis: HTN Interval history: Hermes is seen in follow up for HTN. He is up in the wheelchair with sling in place. He denies chest pain, dyspnea, palpitations or other complaints Exam Vital signs: Temperature 98 F 09/24/17 07:44 Pulse Rate 68 09/24/17 07:44 Respiratory Rate 16 09/24/17 07:44 Blood Pressure 144/83 H 09/24/17 07:44 Pulse Oximetry 100 09/24/17 07:44 Inpatient Medications: Generic Name Dose Route Start Last Admin Trade Name Freq PRN Reason Stop Dose Admin Acetaminophen 650 mg 09/07/17 11:47 09/23/17 13:54 Tylenol PO 650 mg Q4H PRN Administration Pain Al Hydroxide/Mg Hydroxide 30 ml 08/25/17 10:42 08/25/17 10:48 Maalox Plus PO 30 ml Q3H PRN Administration Indigestion Amlodipine Besylate 10 mg 09/20/17 09:00 09/24/17 08:19 Norvasc PO 10 mg DAILY SD Administration Aspirin 81 mg 08/24/17 09:00 09/24/17 08:27 Ecotrin PO 81 mg DAILY SD Administration Atorvastatin Calcium 10 mg 08/25/17 21:00 09/23/17 21:42 Lipitor PO 10 mg HS SD Administration Baclofen 5 mg 08/23/17 21:00 09/24/17 08:20 Lioresal PO 5 mg TID SD Administration Clonidine HCl 0.1 mg 09/22/17 21:00 09/24/17 08:20 Catapres PO 0.1 mg TID SD Administration Cyclobenzaprine HCl 5 mg 08/24/17 21:24 09/24/17 06:21 Flexeril PO 5 mg TID PRN Administration Muscle spasm Diclofenac Sodium 1 applic 09/24/17 13:00 Voltaren TP QID SD Enoxaparin Sodium 30 mg 08/23/17 21:00 09/23/17 21:42 Lovenox SQ 30 mg BID SD Administration Furosemide 40 mg 09/06/17 07:00 09/24/17 08:19 Lasix 20 Mg Tab PO 40 mg DAILY SD Administration Gabapentin 200 mg 09/06/17 10:35 09/24/17 08:18 Neurontin PO 200 mg TID SD Administration Glipizide 5 mg 08/23/17 17:30 09/24/17 08:20 Glucotrol PO 5 mg BIDBS SD Administration Hydralazine HCl 75 mg 09/03/17 14:00 09/24/17 08:18 Apresoline PO 75 mg WM SD Administration Insulin Aspart 1 - 5 unit 08/23/17 17:18 09/19/17 17:58 Novolog SQ 1 unit SS PRN Administration Hyperglycemia Protocol Labetalol HCl 100 mg 09/23/17 21:00 09/24/17 08:20 Normodyne PO 100 mg BID SD Administration Levetiracetam 500 mg 08/23/17 21:00 09/24/17 08:18 Keppra PO 500 mg Q12HR SD Administration Lisinopril 40 mg 08/24/17 09:00 09/24/17 08:19 Prinivil PO 40 mg DAILY SD Administration Magnesium Hydroxide 30 ml 08/23/17 17:12 Mom PO DAILY PRN Constipation Magnesium Oxide 400 mg 08/23/17 21:00 09/20/17 09:19 Magox PO 400 mg BID SD Administration Metformin HCl 500 mg 08/23/17 17:30 09/20/17 09:17 Glucophage PO 500 mg BIDBS [facility] Administration Nitrofurantoin Macrocrystals 100 mg 09/23/17 17:30 09/24/17 08:19 Macrobid PO 09/30/17 23:59 100 mg BIDWM SD Administration Ondansetron HCl 4 mg 09/20/17 14:17 Zofran IVP Q6H PRN Nausea &/or vomiting Oxycodone HCl 10 mg 09/22/17 17:00 09/24/17 08:27 Roxicodone *Ir* PO 10 mg Q3HWA SD Administration Polyethylene Glycol 17 gm 08/24/17 09:30 09/20/17 09:25 Miralax PO Not Given DAILY [facility] Potassium Chloride 20 meq 09/06/17 08:00 09/24/17 08:19 K-Dur 10 Meq Tablet PO 20 meq WB SD Administration Prochlorperazine 10 mg 09/20/17 10:52 09/20/17 11:02 Compazine PO 10 mg TID PRN Administration Senna/Docusate Sodium 2 tab 08/24/17 21:00 09/20/17 09:25 Senna Plus Tablet PO Not Given BID SD Tamsulosin HCl 0.4 mg 08/23/17 21:00 09/23/17 21:42 Flomax PO 0.4 mg HS SD Administration Discontinued Medications Generic Name Dose Route Start Last Admin Trade Name Freq PRN Reason Stop Dose Admin Hydrocodone Bitart/Acetaminophen 1 tab 08/23/17 17:09 08/26/17 04:14 [place] 5/325 PO 1 tab Q4H PRN Administration Pain Hydrocodone Bitart/Acetaminophen 1 - 2 tab 08/26/17 07:15 09/06/17 06:37 [place] 5/325 PO 2 tab Q4H PRN Administration Pain Amlodipine Besylate 5 mg 09/16/17 21:00 09/19/17 08:35 Norvasc PO 5 mg BID SD Administration Atorvastatin Calcium 10 mg 08/23/17 21:00 08/24/17 21:09 Lipitor PO 10 mg HS SD Administration Ciprofloxacin 500 mg 09/21/17 09:00 09/23/17 08:18 Cipro 500 Mg PO 500 mg Q12HR SD Administration Clarithromycin 500 mg 08/23/17 21:00 08/24/17 08:49 Biaxin PO 500 mg BID SD Administration Clarithromycin 500 mg 08/24/17 17:30 08/25/17 09:12 Biaxin PO 500 mg BIDWM SD Administration Clonidine HCl 0.2 mg 08/23/17 21:00 09/16/17 15:40 Catapres PO 0.2 mg TID SD Administration Clonidine HCl 0.1 mg 09/16/17 21:00 09/19/17 08:35 Catapres PO 0.1 mg TID SD Administration Clonidine HCl 0.1 mg 09/19/17 14:08 09/22/17 15:29 Catapres PO 0.1 mg TID PRN Administration Clonidine HCl 0.1 mg 09/20/17 21:00 09/22/17 08:27 Catapres PO 0.1 mg BID SD Administration Clonidine HCl 0.1 mg 09/23/17 08:10 Catapres PO TID PRN GIVE ONLY IF SBP > 160. Furosemide 20 mg 08/24/17 09:00 09/05/17 08:46 Lasix 20 Mg Tab PO 20 mg DAILY SD Administration Furosemide 20 mg 09/05/17 16:24 09/05/17 17:35 Lasix 20 Mg Tab PO 09/05/17 16:25 20 mg O ONE Administration Gabapentin 100 mg 08/23/17 21:00 09/06/17 08:30 Neurontin PO 100 mg TID SD Administration Hydralazine HCl 50 mg 08/23/17 17:30 09/03/17 12:27 Apresoline PO 50 mg WM SD Administration Hydromorphone HCl 0.5 mg 08/24/17 21:27 09/06/17 09:50 Dilaudid IM 0.5 mg Q3H PRN Administration Pain uncontrolled by po meds Sodium Chloride 1,000 mls @ 100 mls/hr 09/20/17 14:15 09/21/17 17:19 Normal Saline IV Not Given .Q10H SD Sodium Chloride 1,000 mls @ 999.9 mls/hr 09/20/17 14:16 09/20/17 18:12 Normal Saline IV 09/20/17 15:15 750 mls/hr .Q1H ONE Infusion Ibuprofen 400 mg 09/10/17 13:58 09/13/17 15:15 Motrin PO 400 mg Q4H PRN Administration Headache /Pain Lidocaine HCl 20 ml 08/23/17 22:09 08/23/17 22:39 Urojet MM 08/23/17 22:10 20 ml O ONE Administration Metoprolol Succinate 25 mg 08/23/17 21:00 08/24/17 08:53 Toprol Xl PO Not Given BID [facility] Metoprolol Succinate 50 mg 08/24/17 09:00 Toprol Xl PO DAILY [facility] Metoprolol Tartrate 50 mg 08/24/17 12:00 08/27/17 08:21 Lopressor PO 50 mg TIDWM [facility] Administration Metoprolol Tartrate 50 mg 08/27/17 17:30 09/16/17 09:06 Lopressor PO 50 mg BIDWM [facility] Administration Metoprolol Tartrate 25 mg 08/31/17 10:00 08/31/17 09:59 Lopressor PO 08/31/17 10:01 25 mg O ONE Administration Metoprolol Tartrate 25 mg 09/16/17 16:31 09/16/17 17:38 Lopressor PO 25 mg BIDWM [facility] Administration Metoprolol Tartrate 25 mg 09/17/17 08:00 09/23/17 08:17 Lopressor PO 25 mg BIDWM SD Administration Nitrofurantoin Macrocrystals 100 mg 09/23/17 10:17 09/23/17 10:59 Macrobid PO 09/23/17 10:18 100 mg O ONE Administration Oxycodone HCl 15 mg 09/06/17 10:34 09/10/17 09:45 Roxicodone *Ir* PO 15 mg Q3H PRN Administration Pain Oxycodone HCl 15 mg 09/10/17 12:00 09/18/17 09:49 Roxicodone *Ir* PO 15 mg Q3HWA SD Administration Oxycodone HCl 10 mg 09/18/17 11:41 09/18/17 13:03 Roxicodone *Ir* PO Not Given Q3HWA SD Oxycodone HCl 10 mg 09/18/17 15:00 09/20/17 09:18 Roxicodone *Ir* PO 10 mg Q3HWA SD Administration Oxycodone HCl 10 mg 09/20/17 12:00 09/22/17 13:53 Roxicodone *Ir* PO 10 mg Q4H SD Administration Oxycodone HCl 5 mg 09/22/17 15:37 09/22/17 15:40 Roxicodone *Ir* PO 09/22/17 15:38 5 mg ONE TIME ONE Administration Pharmacy Consult 1 each 08/24/17 14:16 Pharmacy Consult - Fall Risk 08/24/17 14:17 ONE TIME ONE Pharmacy Consult 1 each 09/03/17 11:20 Pharmacy Consult - Fall Risk 09/03/17 11:21 ONE TIME ONE Pharmacy Consult 1 each 09/12/17 11:25 Pharmacy Consult - Fall Risk 09/12/17 11:26 ONE TIME ONE Pharmacy Consult 1 each 09/22/17 09:34 Pharmacy Consult - Fall Risk 09/22/17 09:35 ONE TIME ONE Potassium Chloride 10 meq 08/24/17 08:00 09/05/17 08:45 K-Dur 10 Meq Tablet PO 10 meq WB SD Administration Senna/Docusate Sodium 2 tab 08/23/17 21:00 08/29/17 20:14 Senna Plus Tablet PO Not Given HS SD - Constitutional no acute distress, well nourished, cooperative - Routine HEENT Exam Head: Present: normocephalic ENT: Present: mucous membranes moist - Routine Neck Exam Absent: JVD, carotid bruit - Routine Chest/Breast/Axilla Exam Chest wall: Absent: tenderness - Routine Respiratory Exam Present: CTA bilaterally. Absent: rales, wheezes - Routine Cardiovascular Exam Present: RRR, no murmur - Routine Abdominal Exam Present: soft, non tender - Routine Extremities Exam Present: edema, pulses intact - Routine Skin Exam Present: intact, dry, warm - Routine Neurological Exam Present: alert, oriented X3 - Routine Psychiatric Exam Present: normal affect, normal thought process - Urinary Catheter Management Urethral Cath placed during this visit: yes, but has since been removed by the nurse Insertion date: 08/23/17 Insertion time: 22:30 Removal date: 09/07/17 Removal time: 08:00 Results 09/24/17 04:16 09/24/17 04:16 CBC 09/24/17 Range/Units 04:16 WBC 8.1 (4.5-11.0) T/MM3 RBC 4.00 L (4.50-5.90) M/MM3 Hgb 12.4 L (13.5-17.5) GM/DL Hct 34.8 L (41-53) % Plt Count 121 L D (130-400) T/MM3 Neut # (Auto) 4.0 (1.8-7.7) T/MM3 Lymph # (Auto) 2.6 (1-4.8) T/MM3 [place] # (Auto) 0.6 (0-0.8) T/MM3 Eos # (Auto) 0.8 H (0-0.5) T/MM3 Baso # (Auto) 0.0 (0-0.2) T/MM3 Comprehensive Metabolic Panel 09/24/17 Range/Units 04:16 Sodium 144 (136-146) MEQ/L Potassium 3.8 (3.6-5) MEQ/L Chloride 106 (98-107) MEQ/L Carbon Dioxide 29 (22-30) MEQ/L BUN 15.0 (9-20) MG/DL Creatinine 0.8 (0.8-1.5) mg/dL Glucose 90 (75-110) MG/DL Calcium 8.8 (8.4-10.2) MG/DL Intake and Output 09/23/17 09/24/17 09/24/17 22:59 06:59 14:59 Intake Total 277 / 277 120 / 120 Output Total 700 / 700 Balance -423 / -423 120 / 120 Intake: Oral 277 / 277 120 / 120 Output: Urine 700 / 700 Other: Urine Appearance Clear Urine Color Dark Yellow Dark Yellow Urine Odor Normal # Voids 2 1 # Incontinent Voids 1 1 Weight 205 lb 14.588 oz - Imaging and Cardiology Imaging & Cardiology Narrative: Date of Exam: 09/24/17 Ordering Provider: Lisa Rincon APRN Type of Exam(s): US renal doppler Reason for Exam(s): HTN Indication: HTN PROCEDURE: US renal doppler: Encounter: Initial Comparison: None Technique: Grayscale and color Doppler sonographic imaging of both kidneys was performed with duplex evaluation of the renal arteries. Findings: Scans of the kidneys demonstrate normal morphology. The right kidney measures 11.7 cm in length. The left kidney measures 12.1 cm in length. There is no collecting system dilatation, contour deforming mass, nephrolithiasis, or abnormal perinephric fluid collection. Color Doppler imaging demonstrates normal vascularization. Resistive indices from the intrarenal arteries in the upper, middle, and lower portions of the right kidney are normal. Resistive indices from the intrarenal arteries in the upper, middle, and lower portions of the left kidney are normal. Arterial waveforms are normal. Impression: No evidence of hemodynamically significant renal arterial stenosis. 09/24/17 11:35 Assessment and Plan - Assessment and Plan (1) Hypertension Current visit: Yes Status: Chronic (2) Diabetes mellitus type 2 in nonobese Current visit: Yes Status: Chronic (3) CAD (coronary artery disease) Current visit: Yes Status: Acute - Assessment and Plan 09/23/17 Hypertension Current visit: Yes Status: Chronic - DC metoprolol and change to labetolol 100mg bid for improved bp control - Continue clonidine .1mg tid, norvasc 10mg and lisinopril 40mg daily - Will obtain a renal artery sono - Nursing to take bp in arm and thigh to rule out coarctation Diabetes mellitus type 2 in nonobese Current visit: Yes Status: Chronic CAD (coronary artery disease) Current visit: Yes Status: Acute 09/24/17 BP remains uncontrolled. - Increase Labetalol to 200mg BID - Renal US: No evidence of hemodynamically significant renal arterial stenosis. - Change Lasix to Chlorthalidone 25mg daily - Change Amlodipine to Nifedipine 60mg daily Hospital Course Summary Disclaimer: The visit summary below is not to be considered part of the above Progress Note. 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 Patient continues to have uncontrolled hypertension 180s systolic. Medication list reviewed carefully along with marked from Gerald. Different beta jonathan was reconciled on admission from medication list. Toprol-XL discontinued, patient placed on metoprolol tartrate, Lopressor 50 milligrams 3 times a day. Continue with lisinopril 40, hydralazine 50mg 3 times a day. Hgb is has remained stable at 11.9. Patient is on Keppra for history of seizures. Patient also takes clarithromycin 500 twice a day. Brother does confirm patient was on this prior to hospitalization, however, exact reason is unknown Monitor Accu-Cheks and continue on metformin twice a day. [place] as needed for postoperative pain control. Will add MiraLAX and senna plus twice a day for postoperative bowel motivation. Encouraged patient to work with PT and OT for ongoing strengthening At time of discharge medical care will return to primary care provider at health system, Dr. Bro 08/25/2017 Patient was seen today secondary to reports of possible chest pain. Prior baseline is unknown, so will err on the side of caution. Start telemetry. Serial troponin. We'll obtain chest x-ray, as well as a right shoulder film due to concern for subluxation. GI upset is certainly a possibility, particularly since he is on clarithromycin. May need to get further information on that on Sunday from his PCP. We'll continue remainder current care. Assess lab in the morning for stability. Discussed with patient, he is in agreement with plan of care. 08/27/17 Overall appears to be medically stable. Given bradycardia will decreased Metoprolol to 50mg BID Will need to continue monitor BP. Did contact PCP office at [facility]- their old records from last January patient was not taking erythromycin. It is unclear exactly prescribed clarithromycin and for what reason. Will attempt to contact patient's brother regarding this medication. BGMs are well controlled on current regimen. Continue to encourage work with PT and OT for ongoing strengthening. 09/03/17 Sling to right arm - ortho recommends rechecking films ~09/11/17 HTN - increase hydralazine from 50 to 75 mg TID. Consider further w/u for HTN and r/o pheochromocytoma. He's on multiple classes of antiHTN with suboptimal control, including metoprolol, clonidine, lasix, furosemide, lisinopril + hydralazine. Bradycardia in the 50s precludes increasing BB. 09/05/17 Start bladder retraining. May pull catheter tomorrow if pt is having bladder filling sensation. Will give a second dose of Lasix now. Given his LE edema, HTN and (questionable) weight gain since admission, will increase his Lasix to 40mg q am (from 20mg q am) and follow weights, edema, BP and electrolytes. Increase KCl from 10mEq to 20mEq given the increase in Lasix dosing. Check daily weights. Weight on admission 100.3 and today is 113kg. Question accuracy of today's weight. Consider further w/u for HTN and r/o pheochromocytoma. He's on multiple classes of antiHTN with suboptimal control, including metoprolol, clonidine, lasix, furosemide, lisinopril + hydralazine. May need to clarify with PCP if prior workup for hypertension has been undertaken or which monologist patient has seen. 09/08/17 [place]ley catheter dc'd 09/07/17 and he's been voiding since. Switching from hydrocodone to oxycodone, has been helpful for pain control. In addition, BP under better control. Continue hydralazine 75 mg and increased Lasix/KCl doses. Check BMP in am. Sinus aram on tele - will dc tele. 09/14/17 BP's are slightly elevated but likely r/t pain. He is already on 4 agents, will continue to monitor. Headache is not new. PT working with him in re: to possible muscle contraction etiology. Sinusitis would be in the DDx, but no c/o fever, sinus drainage, ST, etc. WBC down today from yesterday. 13.3-->11.0. BS's stable. Hgb stable. Wound team following wound on R great toe. 09/17/17 Blood pressures continue to run high. He remains bradycardic with heart rates in the 50s. Metoprolol reduced to 25 mg. Clonidine was started on 09/16/17. Monitor response before further adjustments are made. Awaiting insurance approval, and discharge plans are to go to [facility]. Dr. Briones's note reviewed. Continue PT/OT. 09/19/17 Patient continues to struggle with pain control. Continue pain medications and therapy plan per Dr. Briones. Persistent edema to right leg (operative side). Doppler obtained 09/18/17 and was negative for DVT. Recommend elevation as able with compression stockings/ SCDs. Continue to monitor closely. Blood pressures remain elevated and variable with bradycardia in the 50s. Metoprolol reduced to 25 mg BID on 09/17/17. Clonidine TID was started on . Will increase amlodipine to 10mg daily in AM and change Clonidine to TID PRN. Continue home Lasix 40mg daily and lisinopril 40mg daily. Monitor weight closely for signs of fluid overload. Patient may need additional diuresis. Awaiting insurance approval, and discharge plans are to go to [facility] and [facility]. Will recheck labs in AM to monitor blood counts, electrolytes and renal function. 09/20/17 Resume clonidine at 0.1mg BID in the event his sxs are r/t clonidine w/drawal. Continue amlodipine, Lasix and lisinopril. Check UA given the new onset of fever. If he continues to run fever, have diarrhea and has increase in WBC, will check for c diff. No cough or SOA. CBC and CMP in am. Hold metformin. NS 250cc bolus given and then tra 100cc/hr as pt isn't taking po well d/t nausea. PRN Zofran. 09/21/17 Cipro started for UTI. Culture pending. WBC is stable. Resume metformin in the am now that he is eating again. Continue to follow BP's. Amlodipine was increased to 10mg the day before yesterday. He likely had elevated BP yesterday d/t abrupt clonidine w/drawal and it was restarted at lower dose of 0.1mg BID. No changes today. 09/22/17 Continue with Cipro for treatment of UTI- C/S pending Data monitor blood sugars, metformin was started yesterday, 09/21. Will increase monitoring to 0.1 milligrams 3 times a day scheduled. May need to continue to increase this. There is when necessary available as needed for systolic greater than 160 Did ask nursing staff to contact Dr. Briones for further pain control if need be. Continue to follow carefully Plan - 09/23/17 Patient continues to struggle with pain control. Pain addressed by Dr. Briones and oxycodone 10mg increased to Q3H for additional pain control Continue pain control and therapies per Dr. Briones. UTI diagnosed 09/21/17. UA revealed enterococcus faecalis sensitive to ampicillin, linezolid, nitrofurantoin, vancomycin. Currently on cipro. Will discontinue cipro and initiate nitrofurantoin per sensitivities today. Blood sugars remain relatively stable. Continue to monitor closely. Blood pressures remain elevated despite multiple medications. Clonidine 0.1mg increased to TID on 09/22/17. Will continue to monitor closely with PRN clonidine as needed. Patient denies having monologist. Will consult Dr. Oropeza for further evaluation and expertise. Recheck labs in AM to monitor blood counts, electrolytes and renal function. <Felix Oropeza - Last Filed: 10/04/17 16:28> Exam Vital signs: Temperature 98.5 F 10/04/17 16:00 Pulse Rate 68 10/04/17 16:00 Respiratory Rate 18 10/04/17 16:00 Blood Pressure 128/67 10/04/17 16:00 Pulse Oximetry 96 10/04/17 16:00 Inpatient Medications: Generic Name Dose Route Start Last Admin Trade Name Freq PRN Reason Stop Dose Admin Acetaminophen 650 mg 10/01/17 17:00 10/04/17 16:00 Tylenol Arthritis 650 Mg Sr PO 650 mg Q8HR SD Administration Al Hydroxide/Mg Hydroxide 30 ml 08/25/17 10:42 08/25/17 10:48 Maalox Plus PO 30 ml Q3H PRN Administration Indigestion Aspirin 81 mg 08/24/17 09:00 10/04/17 08:39 Ecotrin PO 81 mg DAILY SD Administration Atorvastatin Calcium 10 mg 08/25/17 21:00 10/03/17 21:04 Lipitor PO 10 mg HS SD Administration Baclofen 5 mg 08/23/17 21:00 10/04/17 15:56 Lioresal PO 5 mg TID SD Administration Chlorthalidone 25 mg 09/25/17 08:00 10/04/17 08:37 [place] PO 25 mg WB SD Administration Clonidine HCl 0.1 mg 09/22/17 21:00 10/04/17 15:57 Catapres PO 0.1 mg TID SD Administration Cyclobenzaprine HCl 5 mg 08/24/17 21:24 10/02/17 12:23 Flexeril PO 5 mg TID PRN Administration Muscle spasm Diclofenac Sodium 1 applic 09/24/17 13:00 10/04/17 12:24 Voltaren TP 1 applic QID SD Administration Gabapentin 200 mg 09/06/17 10:35 10/04/17 15:57 Neurontin PO 200 mg TID SD Administration Glipizide 5 mg 08/23/17 17:30 10/04/17 08:37 Glucotrol PO 5 mg BIDBS SD Administration Hydralazine HCl 75 mg 09/03/17 14:00 10/04/17 12:24 Apresoline PO 75 mg WM SD Administration Sodium Chloride 500 mls @ 0 mls/hr 09/25/17 16:58 Normal Saline IV .Q0M PRN Per Protocol Insulin Aspart 1 - 5 unit 08/23/17 17:18 10/01/17 21:25 Novolog SQ 1 unit SS PRN Administration Hyperglycemia Protocol Labetalol HCl 200 mg 09/24/17 21:00 10/04/17 08:40 Normodyne PO 200 mg BID SD Administration Levetiracetam 500 mg 08/23/17 21:00 10/04/17 08:40 Keppra PO 500 mg Q12HR SD Administration Lisinopril 40 mg 08/24/17 09:00 10/04/17 08:40 Prinivil PO 40 mg DAILY SD Administration Magnesium Hydroxide 30 ml 08/23/17 17:12 Mom PO DAILY PRN Constipation Magnesium Oxide 400 mg 08/23/17 21:00 10/04/17 08:41 Magox PO 400 mg BID SD Administration Metformin HCl 500 mg 08/23/17 17:30 10/04/17 08:38 Glucophage PO 500 mg BIDBS SD Administration Nifedipine 90 mg 09/28/17 09:00 10/04/17 08:41 Procardia Xl PO 90 mg DAILY SD Administration Ondansetron HCl 4 mg 09/20/17 14:17 Zofran IVP Q6H PRN Nausea &/or vomiting Oxycodone HCl 7.5 mg 10/04/17 09:00 10/04/17 12:29 Roxicodone *Ir* PO 7.5 mg QID SD Administration Polyethylene Glycol 17 gm 08/24/17 09:30 09/20/17 09:25 Miralax PO Not Given DAILY SD Potassium Chloride 20 meq 10/04/17 08:15 10/04/17 08:38 K-Dur 20 Meq Tablet PO 20 meq WB SD Administration Prochlorperazine 10 mg 09/20/17 10:52 09/20/17 11:02 Compazine PO 10 mg TID PRN Administration Senna/Docusate Sodium 2 tab 08/24/17 21:00 09/20/17 09:25 Senna Plus Tablet PO Not Given BID SD Sodium Chloride 10 ml 09/27/17 09:16 10/01/17 21:13 Iv Flush IV 10 ml PRN PRN Administration Flushing Tamsulosin HCl 0.4 mg 08/23/17 21:00 10/03/17 21:07 Flomax PO 0.4 mg HS SD Administration Discontinued Medications Generic Name Dose Route Start Last Admin Trade Name Freq PRN Reason Stop Dose Admin Acetaminophen 650 mg 09/07/17 11:47 10/01/17 10:07 Tylenol PO 650 mg Q4H PRN Administration Pain Hydrocodone Bitart/Acetaminophen 1 tab 08/23/17 17:09 08/26/17 04:14 [place] 5/325 PO 1 tab Q4H PRN Administration Pain Hydrocodone Bitart/Acetaminophen 1 - 2 tab 08/26/17 07:15 09/06/17 06:37 [place] 5/325 PO 2 tab Q4H PRN Administration Pain Amlodipine Besylate 5 mg 09/16/17 21:00 09/19/17 08:35 Norvasc PO 5 mg BID SD Administration Amlodipine Besylate 10 mg 09/20/17 09:00 09/24/17 08:19 Norvasc PO 10 mg DAILY SD Administration Atorvastatin Calcium 10 mg 08/23/17 21:00 08/24/17 21:09 Lipitor PO 10 mg HS SD Administration Ciprofloxacin 500 mg 09/21/17 09:00 09/23/17 08:18 Cipro 500 Mg PO 500 mg Q12HR SD Administration Clarithromycin 500 mg 08/23/17 21:00 08/24/17 08:49 Biaxin PO 500 mg BID SD Administration Clarithromycin 500 mg 08/24/17 17:30 08/25/17 09:12 Biaxin PO 500 mg BIDWM SD Administration Clonidine HCl 0.2 mg 08/23/17 21:00 09/16/17 15:40 Catapres PO 0.2 mg TID SD Administration Clonidine HCl 0.1 mg 09/16/17 21:00 09/19/17 08:35 Catapres PO 0.1 mg TID SD Administration Clonidine HCl 0.1 mg 09/19/17 14:08 09/22/17 15:29 Catapres PO 0.1 mg TID PRN Administration Clonidine HCl 0.1 mg 09/20/17 21:00 09/22/17 08:27 Catapres PO 0.1 mg BID SD Administration Clonidine HCl 0.1 mg 09/23/17 08:10 Catapres PO TID PRN GIVE ONLY IF SBP > 160. Enoxaparin Sodium 30 mg 08/23/17 21:00 09/28/17 08:40 Lovenox SQ 30 mg BID SD Administration Furosemide 20 mg 08/24/17 09:00 09/05/17 08:46 Lasix 20 Mg Tab PO 20 mg DAILY SD Administration Furosemide 20 mg 09/05/17 16:24 09/05/17 17:35 Lasix 20 Mg Tab PO 09/05/17 16:25 20 mg O ONE Administration Furosemide 40 mg 09/06/17 07:00 09/24/17 08:19 Lasix 20 Mg Tab PO 40 mg DAILY SD Administration Gabapentin 100 mg 08/23/17 21:00 09/06/17 08:30 Neurontin PO 100 mg TID SD Administration Hydralazine HCl 50 mg 08/23/17 17:30 09/03/17 12:27 Apresoline PO 50 mg WM SD Administration Hydromorphone HCl 0.5 mg 08/24/17 21:27 09/06/17 09:50 Dilaudid IM 0.5 mg Q3H PRN Administration Pain uncontrolled by po meds Sodium Chloride 1,000 mls @ 100 mls/hr 09/20/17 14:15 09/21/17 17:19 Normal Saline IV Not Given .Q10H SD Sodium Chloride 1,000 mls @ 999.9 mls/hr 09/20/17 14:16 09/20/17 18:12 Normal Saline IV 09/20/17 15:15 750 mls/hr .Q1H ONE Infusion Magnesium Sulfate/Dextrose 1 gm in 100 mls @ 100 mls/hr 09/25/17 14:15 19:52 Mag Sulf 1gm Premix IV 09/25/17 16:14 Infused Q1H SD Infusion Ibuprofen 400 mg 09/10/17 13:58 09/13/17 15:15 Motrin PO 400 mg Q4H PRN Administration Headache /Pain Labetalol HCl 100 mg 09/23/17 21:00 09/24/17 20:10 Normodyne PO 09/24/17 21:00 Not Given BID SD Labetalol HCl 100 mg 09/24/17 11:33 09/24/17 12:25 Normodyne PO 09/24/17 11:34 100 mg O ONE Administration Lidocaine HCl 20 ml 08/23/17 22:09 08/23/17 22:39 Urojet MM 08/23/17 22:10 20 ml O ONE Administration Metoprolol Succinate 25 mg 08/23/17 21:00 08/24/17 08:53 Toprol Xl PO Not Given BID SD Metoprolol Succinate 50 mg 08/24/17 09:00 Toprol Xl PO DAILY SD Metoprolol Tartrate 50 mg 08/24/17 12:00 08/27/17 08:21 Lopressor PO 50 mg TIDWM SD Administration Metoprolol Tartrate 50 mg 08/27/17 17:30 09/16/17 09:06 Lopressor PO 50 mg BIDWM SD Administration Metoprolol Tartrate 25 mg 08/31/17 10:00 08/31/17 09:59 Lopressor PO 08/31/17 10:01 25 mg O ONE Administration Metoprolol Tartrate 25 mg 09/16/17 16:31 09/16/17 17:38 Lopressor PO 25 mg BIDWM SD Administration Metoprolol Tartrate 25 mg 09/17/17 08:00 09/23/17 08:17 Lopressor PO 25 mg BIDWM SD Administration Nifedipine 60 mg 09/25/17 09:00 09/27/17 08:50 Procardia Xl PO 60 mg DAILY SD Administration Nifedipine 30 mg 09/27/17 13:30 09/27/17 14:04 Procardia Xl PO 09/27/17 13:31 30 mg O ONE Administration Nitrofurantoin Macrocrystals 100 mg 09/23/17 17:30 09/30/17 17:06 Macrobid PO 09/30/17 23:59 100 mg BIDWM SD Administration Nitrofurantoin Macrocrystals 100 mg 09/23/17 10:17 09/23/17 10:59 Macrobid PO 09/23/17 10:18 100 mg O ONE Administration Oxycodone HCl 15 mg 09/06/17 10:34 09/10/17 09:45 Roxicodone *Ir* PO 15 mg Q3H PRN Administration Pain Oxycodone HCl 15 mg 09/10/17 12:00 09/18/17 09:49 Roxicodone *Ir* PO 15 mg Q3HWA SD Administration Oxycodone HCl 10 mg 09/18/17 11:41 09/18/17 13:03 Roxicodone *Ir* PO Not Given Q3HWA SD Oxycodone HCl 10 mg 09/18/17 15:00 09/20/17 09:18 Roxicodone *Ir* PO 10 mg Q3HWA SD Administration Oxycodone HCl 10 mg 09/20/17 12:00 09/22/17 13:53 Roxicodone *Ir* PO 10 mg Q4H SD Administration Oxycodone HCl 10 mg 09/22/17 17:00 09/27/17 09:09 Roxicodone *Ir* PO 10 mg Q3HWA SD Administration Oxycodone HCl 5 mg 09/22/17 15:37 09/22/17 15:40 Roxicodone *Ir* PO 09/22/17 15:38 5 mg ONE TIME ONE Administration Oxycodone HCl 10 mg 09/27/17 13:00 10/01/17 08:12 Roxicodone *Ir* PO 10 mg QID SD Administration Oxycodone HCl 7.5 mg 10/01/17 13:00 10/03/17 21:07 Roxicodone *Ir* PO 7.5 mg QID SD Administration Pharmacy Consult 1 each 08/24/17 14:16 Pharmacy Consult - Fall Risk [facility] 08/24/17 14:17 ONE TIME ONE Pharmacy Consult 1 each 09/03/17 11:20 Pharmacy Consult - Fall Risk [facility] 09/03/17 11:21 ONE TIME ONE Pharmacy Consult 1 each 09/12/17 11:25 Pharmacy Consult - Fall Risk [facility] 09/12/17 11:26 ONE TIME ONE Pharmacy Consult 1 each 09/22/17 09:34 Pharmacy Consult - Fall Risk [facility] 09/22/17 09:35 ONE TIME ONE Pharmacy Consult each 09/30/17 10:25 Pharmacy Consult - Fall Risk [facility] 09/30/17 10:26 ONE TIME ONE Potassium Chloride 10 meq 08/24/17 08:00 09/05/17 08:45 K-Dur 10 Meq Tablet PO 10 meq WB SD Administration Potassium Chloride 20 meq 09/06/17 08:00 10/03/17 08:18 K-Dur 10 Meq Tablet PO 20 meq WB SD Administration Senna/Docusate Sodium 2 tab 08/23/17 21:00 08/29/17 20:14 Senna Plus Tablet PO Not Given HS SD - Urinary Catheter Management Urethral Cath placed during this visit: no Results 10/01/17 16:51 10/01/17 16:51 Intake and Output 10/04/17 10/04/17 10/04/17 06:59 14:59 22:59 Intake Total 610 / 610 Balance 610 / 610 Intake: Oral 610 / 610 Other: Urine Appearance Clear Clear Urine Color Yellow Yellow Straw Urine Odor Normal Stool Color Brown Stool Consistency Dry and Hard Size of Bowel Movement Moderate # Voids 1 1 1 # Bowel Movements 1 Weight 100.9 kg Patient Weight 10/05/17 06:59 Weight 100.9 kg Assessment and Plan - Assessment and Plan (1) Hypertension Current visit: Yes Status: Chronic (2) Diabetes mellitus type 2 in nonobese Current visit: Yes Status: Chronic (3) CAD (coronary artery disease) Current visit: Yes Status: Acute - Attestation Attestation Narrative: 10/04/17 16:28 Recommendation After examining the patient I agree with the above assessment. I am involved in the formulation of the patient's plan of care. Hospital Course Summary Disclaimer: The visit summary below is not to be considered part of the above Progress Note.
[2017-09-24] MEDS: DICLOFENAC 1% TOP GEL 100gm TP SCH ×4 (11:35→20:07)
--- NOTE | 2017-09-24 13:21 | IRU Team Meeting ---
IRU Team Meeting - Nursing Bladder Assistive Devices Utilized:: Medication, Absorbent Pad Bladder Management Level of Assist: Modified Independent Bladder Frequency of Accidents: No accidents Number of Bladder Accidents: 1 Bowel Assistive Devices Utilized:: Medication, Absorbent Pad Bowel Management Level of Assist: Modified Independent Bowel Frequency of Accidents: No accidents Number of Bowel Accidents: 1 Vital Signs: Vital Signs - 24 hr 09/23/17 15:58 09/23/17 18:57 09/23/17 18:58 Temperature 98.0 F Pulse Rate 57 L Respiratory Rate 18 Blood Pressure 162/78 H 188/84 H 164/78 H Pulse Oximetry 99 09/23/17 19:00 09/23/17 19:02 09/23/17 19:33 Temperature 97.7 F Pulse Rate 60 Respiratory Rate 18 Blood Pressure 184/82 H 170/88 H 184/82 H Pulse Oximetry 98 09/24/17 07:44 Temperature 98 F Pulse Rate 68 Respiratory Rate 16 Blood Pressure 144/83 H Pulse Oximetry 100 Current Medications: Acetaminophen (Tylenol) 650 mg PO Q4H PRN PRN Reason: Pain Last Admin: 09/23/17 13:54 Dose: 650 mg Al Hydroxide/Mg Hydroxide (Maalox Plus) 30 ml PO Q3H PRN PRN Reason: Indigestion Last Admin: 08/25/17 10:48 Dose: 30 ml Amlodipine Besylate (Norvasc) 10 mg PO DAILY [facility] Last Admin: 09/24/17 08:19 Dose: 10 mg Aspirin (Ecotrin) 81 mg PO DAILY [facility] Last Admin: 09/24/17 08:27 Dose: 81 mg Atorvastatin Calcium (Lipitor) 10 mg PO [facility] Last Admin: 09/23/17 21:42 Dose: 10 mg Baclofen (Lioresal) 5 mg PO TID [facility] Last Admin: 09/24/17 08:20 Dose: 5 mg Clonidine HCl (Catapres) 0.1 mg PO TID [facility] Last Admin: 09/24/17 08:20 Dose: 0.1 mg Cyclobenzaprine HCl (Flexeril) 5 mg PO TID PRN PRN Reason: Muscle spasm Last Admin: 09/24/17 06:21 Dose: 5 mg Diclofenac Sodium (Voltaren) 1 applic TP QID [facility] Last Admin: 09/24/17 11:35 Dose: 1 applic Enoxaparin Sodium (Lovenox) 30 mg SQ BID [facility] Last Admin: 09/24/17 11:30 Dose: 30 mg Furosemide (Lasix 20 Mg Tab) 40 mg PO DAILY [facility] Last Admin: 09/24/17 08:19 Dose: 40 mg Gabapentin (Neurontin) 200 mg PO TID [facility] Last Admin: 09/24/17 08:18 Dose: 200 mg Glipizide (Glucotrol) 5 mg PO BIDBS [facility] Last Admin: 09/24/17 08:20 Dose: 5 mg Hydralazine HCl (Apresoline) 75 mg PO WM [facility] Last Admin: 09/24/17 12:26 Dose: 75 mg Insulin Aspart (Novolog) 1 - 5 unit SQ SS PRN; Protocol PRN Reason: Hyperglycemia Last Admin: 09/19/17 17:58 Dose: 1 unit Labetalol HCl (Normodyne) 100 mg PO BID [facility] Stop: 09/24/17 21:00 Last Admin: 09/24/17 08:20 Dose: 100 mg Labetalol HCl (Normodyne) 200 mg PO BID [facility] Levetiracetam (Keppra) 500 mg PO Q12HR [facility] Last Admin: 09/24/17 08:18 Dose: 500 mg Lisinopril (Prinivil) 40 mg PO DAILY [facility] Last Admin: 09/24/17 08:19 Dose: 40 mg Magnesium Hydroxide (Mom) 30 ml PO DAILY PRN PRN Reason: Constipation Magnesium Oxide (Magox) 400 mg PO BID [facility] Last Admin: 09/20/17 09:19 Dose: 400 mg Metformin HCl (Glucophage) 500 mg PO BIDBS [facility] Last Admin: 09/20/17 09:17 Dose: 500 mg Nitrofurantoin Macrocrystals (Macrobid) 100 mg PO BIDWM [facility] Stop: 09/30/17 23:59 Last Admin: 09/24/17 08:19 Dose: 100 mg Ondansetron HCl (Zofran) 4 mg IVP Q6H PRN PRN Reason: Nausea &/or vomiting Oxycodone HCl (Roxicodone *Ir*) 10 mg PO Q3HWA [facility] Last Admin: 09/24/17 12:15 Dose: 10 mg Polyethylene Glycol (Miralax) 17 gm PO DAILY [facility] Last Admin: 09/20/17 09:25 Dose: Not Given Potassium Chloride (K-Dur 10 Meq Tablet) 20 meq PO WB [facility] Last Admin: 09/24/17 08:19 Dose: 20 meq Prochlorperazine (Compazine) 10 mg PO TID PRN Last Admin: 09/20/17 11:02 Dose: 10 mg Senna/Docusate Sodium (Senna Plus Tablet) 2 tab PO BID [facility] Last Admin: 09/20/17 09:25 Dose: Not Given Tamsulosin HCl (Flomax) 0.4 mg PO HS [facility] Last Admin: 09/23/17 21:42 Dose: 0.4 mg Current Medical Issues: Right hip fracture, right elbow fracture, diabetes mellitus, bilateral knee pain presumably related to osteoarthritis, hypertension, urinary tract infection Comments: I certify that I personally led the interdisciplinary team meeting and agree with comments, barriers and goals indicated. Team meeting was held in the patient's room with the patient and the following family members present: patient alone Mr. Ling developed nausea vomiting and loose stools last week. He was determined to have a urinary tract infection and is on antibiotic for Enterococcus faecalis. He is afebrile at present. His appetite is improved. Continues to complain of bilateral knee pain and stiffness and Voltaren gel has been initiated. - Physical Therapy Bed, Chair, Wheelchair Transfer Assist: Stand By Assist/Supervision Ambulation Ability: Minimal Assistance, 1 Person Assist Ambulation Distance: 303 Wheelchair Propulsion Ability: Stand By Assist/Supervision, Household Exception Wheelchair Propulsion Distance: 103 Stair Climbing Ability: Total Assistance, 1 Person Assist Number of Steps Climbed: 4 Car Transfer Ability: Stand By Assist/Supervision Comments: He is demonstrating improved tolerance for gait and less edema in the right lower extremity. He seems to have good motivation. He is able to ambulate 300 feet with minimal assistance with 1 person assist. - Occupational Therapy Eating Ability: Modified Independent Grooming Ability: Modified Independent Bathing Ability: Stand By Assist/Supervision Upper Body Dressing Ability: Independent Lower Body Dressing Ability: Moderate Assistance Tub Transfer Assist: Stand By Assist/Supervision Toileting Assist: Moderate Assistance Toilet Transfer Assist: Stand By Assist/Supervision, Minimal Assistance Comments: Patient has demonstrated improved strength and activity tolerance. He is able to ambulate with a hemiwalker to and from the bathroom with supervision. Upper body dressing is independent and lower body dressing is with moderate assistance. - Goals Physical Therapy Goals: 09/04/17 Goals: 1.) Ambulation going 150 feet with supervision. - 303 ft with minimal assist. 09/17/17 Goals: 1.) Discharge Planning - continue Occupational Therapy Goals: OT goals 08/29/17: 1.) Lower body dressing with minimal assistance. - goal met. 2.) Toileting with minimal assistance. -goal met. 3.) Toilet transfer with supervison. - goal met. 09/04/17, 09/17/17, 09/24/17 : 1.) Lower body dressing with supervision.- continue. 2.) Toileting with supervision. -continue. 3.) Perform microwaveable meal with supervision. 4.) Discharge planning. - Barriers to Discharge Barriers to Attaining Goals: Weakness (to address reduced strength, progressive resistive exercises are offered.), Endurance (to address reduced endurance, if your rest breaks and increased activity time are offered.), Medical Limitation ( prior stroke, lymphedema right lower extremity, improving. Lymphedema massage techniques offered.) - Care Plan Anticipated Length of Stay (days): 1 Anticipated DC Destination: Snf/Facility, Other I have led this team conference and agree with the plan. Interventions/Goals: Dismissal is pending safe discharge plan/location.
[2017-09-24] MEDS: ACETAMINOPHEN 325 MG TABLET PO PRN (16:16)
[2017-09-24] MEDS: ATORVASTATIN 10 MG TABLET PO SCH (20:03)
[2017-09-24] MEDS: TAMSULOSIN 0.4 MG CAPSULE PO SCH (20:09)
[2017-09-25] MEDS: Oxycodone *IR* 5 MG TABLET PO SCH ×5 (06:43→18:50)
--- NOTE | 2017-09-25 08:02 | Cardiology Progress Note ---
<Sharlene Currie M - Last Filed: 09/27/17 13:19> Subjective Principal diagnosis: HTN Interval history: Hermes is seen in follow up for HTN. He is in the dining room for breakfast. He denies chest pain, dyspnea, palpitations or other complaints Exam Vital signs: Temperature 98.1 F 09/25/17 07:40 Pulse Rate 67 09/25/17 07:40 Respiratory Rate 16 09/25/17 07:40 Blood Pressure 180/85 H 09/25/17 07:40 Pulse Oximetry 94 09/25/17 07:40 Inpatient Medications: Generic Name Dose Route Start Last Admin Trade Name Freq PRN Reason Stop Dose Admin Acetaminophen 650 mg 09/07/17 11:47 09/24/17 16:16 Tylenol PO 650 mg Q4H PRN Administration Pain Al Hydroxide/Mg Hydroxide 30 ml 08/25/17 10:42 08/25/17 10:48 Maalox Plus PO 30 ml Q3H PRN Administration Indigestion Aspirin 81 mg 08/24/17 09:00 09/24/17 08:27 Ecotrin PO 81 mg DAILY SD Administration Atorvastatin Calcium 10 mg 08/25/17 21:00 09/24/17 20:03 Lipitor PO 10 mg HS SD Administration Baclofen 5 mg 08/23/17 21:00 09/24/17 20:03 Lioresal PO 5 mg TID SD Administration Chlorthalidone 25 mg 09/25/17 08:00 Hygroton PO WB SD Clonidine HCl 0.1 mg 09/22/17 21:00 09/24/17 20:07 Catapres PO 0.1 mg TID SD Administration Cyclobenzaprine HCl 5 mg 08/24/17 21:24 09/24/17 06:21 Flexeril PO 5 mg TID PRN Administration Muscle spasm Diclofenac Sodium 1 applic 09/24/17 13:00 09/24/17 20:07 Voltaren TP 1 applic QID SD Administration Enoxaparin Sodium 30 mg 08/23/17 21:00 09/24/17 20:07 Lovenox SQ 30 mg BID SD Administration Gabapentin 200 mg 09/06/17 10:35 09/24/17 20:08 Neurontin PO 200 mg TID SD Administration Glipizide 5 mg 08/23/17 17:30 09/24/17 17:31 Glucotrol PO 5 mg BIDBS SD Administration Hydralazine HCl 75 mg 09/03/17 14:00 09/24/17 17:31 Apresoline PO 75 mg WM SD Administration Insulin Aspart 1 - 5 unit 08/23/17 17:18 09/19/17 17:58 Novolog SQ 1 unit SS PRN Administration Hyperglycemia Protocol Labetalol HCl 200 mg 09/24/17 21:00 09/24/17 20:08 Normodyne PO 200 mg BID SD Administration Levetiracetam 500 mg 08/23/17 21:00 09/24/17 20:08 Keppra PO 500 mg Q12HR SD Administration Lisinopril 40 mg 08/24/17 09:00 09/24/17 08:19 Prinivil PO 40 mg DAILY [facility] Administration Magnesium Hydroxide 30 ml 08/23/17 17:12 Mom PO DAILY PRN Constipation Magnesium Oxide 400 mg 08/23/17 21:00 09/20/17 09:19 Magox PO 400 mg BID SD Administration Metformin HCl 500 mg 08/23/17 17:30 09/20/17 09:17 Glucophage PO 500 mg BIDBS [facility] Administration Nifedipine 60 mg 09/25/17 09:00 Procardia Xl PO DAILY [facility] Nitrofurantoin Macrocrystals 100 mg 09/23/17 17:30 09/24/17 17:32 Macrobid PO 09/30/17 23:59 100 mg BIDWM [facility] Administration Ondansetron HCl 4 mg 09/20/17 14:17 Zofran IVP Q6H PRN Nausea &/or vomiting Oxycodone HCl 10 mg 09/22/17 17:00 09/25/17 06:43 Roxicodone *Ir* PO 10 mg Q3HWA [facility] Administration Polyethylene Glycol 17 gm 08/24/17 09:30 09/20/17 09:25 Miralax PO Not Given DAILY [facility] Potassium Chloride 20 meq 09/06/17 08:00 09/24/17 08:19 K-Dur 10 Meq Tablet PO 20 meq WB SD Administration Prochlorperazine 10 mg 09/20/17 10:52 09/20/17 11:02 Compazine PO 10 mg TID PRN Administration Senna/Docusate Sodium 2 tab 08/24/17 21:00 09/20/17 09:25 Senna Plus Tablet PO Not Given BID SD Tamsulosin HCl 0.4 mg 08/23/17 21:00 09/24/17 20:09 Flomax PO 0.4 mg HS SD Administration Discontinued Medications Generic Name Dose Route Start Last Admin Trade Name Freq PRN Reason Stop Dose Admin Hydrocodone Bitart/Acetaminophen 1 tab 08/23/17 17:09 08/26/17 04:14 [place] Daniel 5/325 PO 1 tab Q4H PRN Administration Pain Hydrocodone Bitart/Acetaminophen 1 - 2 tab 08/26/17 07:15 09/06/17 06:37 [place] Daniel 5/325 PO 2 tab Q4H PRN Administration Pain Amlodipine Besylate 5 mg 09/16/17 21:00 09/19/17 08:35 Norvasc PO 5 mg BID SD Administration Amlodipine Besylate 10 mg 09/20/17 09:00 09/24/17 08:19 Norvasc PO 10 mg DAILY SD Administration Atorvastatin Calcium 10 mg 08/23/17 21:00 08/24/17 21:09 Lipitor PO 10 mg HS SD Administration Ciprofloxacin 500 mg 09/21/17 09:00 09/23/17 08:18 Cipro 500 Mg PO 500 mg Q12HR SD Administration Clarithromycin 500 mg 08/23/17 21:00 08/24/17 08:49 Biaxin PO 500 mg BID SD Administration Clarithromycin 500 mg 08/24/17 17:30 08/25/17 09:12 Biaxin PO 500 mg BIDWM SD Administration Clonidine HCl 0.2 mg 08/23/17 21:00 09/16/17 15:40 Catapres PO 0.2 mg TID SD Administration Clonidine HCl 0.1 mg 09/16/17 21:00 09/19/17 08:35 Catapres PO 0.1 mg TID SD Administration Clonidine HCl 0.1 mg 09/19/17 14:08 09/22/17 15:29 Catapres PO 0.1 mg TID PRN Administration Clonidine HCl 0.1 mg 09/20/17 21:00 09/22/17 08:27 Catapres PO 0.1 mg BID SD Administration Clonidine HCl 0.1 mg 09/23/17 08:10 Catapres PO TID PRN GIVE ONLY IF SBP > 160. Furosemide 20 mg 08/24/17 09:00 09/05/17 08:46 Lasix 20 Mg Tab PO 20 mg DAILY SD Administration Furosemide 20 mg 09/05/17 16:24 09/05/17 17:35 Lasix 20 Mg Tab PO 09/05/17 16:25 20 mg O ONE Administration Furosemide 40 mg 09/06/17 07:00 09/24/17 08:19 Lasix 20 Mg Tab PO 40 mg DAILY SD Administration Gabapentin 100 mg 08/23/17 21:00 09/06/17 08:30 Neurontin PO 100 mg TID SD Administration Hydralazine HCl 50 mg 08/23/17 17:30 09/03/17 12:27 Apresoline PO 50 mg WM SD Administration Hydromorphone HCl 0.5 mg 08/24/17 21:27 09/06/17 09:50 Dilaudid IM 0.5 mg Q3H PRN Administration Pain uncontrolled by po meds Sodium Chloride 1,000 mls @ 100 mls/hr 09/20/17 14:15 09/21/17 17:19 Normal Saline IV Not Given .Q10H SD Sodium Chloride 1,000 mls @ 999.9 mls/hr 09/20/17 14:16 09/20/17 18:12 Normal Saline IV 09/20/17 15:15 750 mls/hr .Q1H ONE Infusion Ibuprofen 400 mg 09/10/17 13:58 09/13/17 15:15 Motrin PO 400 mg Q4H PRN Administration Headache /Pain Labetalol HCl 100 mg 09/23/17 21:00 09/24/17 20:10 Normodyne PO 09/24/17 21:00 Not Given BID SD Labetalol HCl 100 mg 09/24/17 11:33 09/24/17 12:25 Normodyne PO 09/24/17 11:34 100 mg O ONE Administration Lidocaine HCl 20 ml 08/23/17 22:09 08/23/17 22:39 Urojet MM 08/23/17 22:10 20 ml O ONE Administration Metoprolol Succinate 25 mg 08/23/17 21:00 08/24/17 08:53 Toprol Xl PO Not Given BID SD Metoprolol Succinate 50 mg 08/24/17 09:00 Toprol Xl PO DAILY [facility] Metoprolol Tartrate 50 mg 08/24/17 12:00 08/27/17 08:21 Lopressor PO 50 mg TIDWM SD Administration Metoprolol Tartrate 50 mg 08/27/17 17:30 09/16/17 09:06 Lopressor PO 50 mg BIDWM SD Administration Metoprolol Tartrate 25 mg 08/31/17 10:00 08/31/17 09:59 Lopressor PO 08/31/17 10:01 25 mg O ONE Administration Metoprolol Tartrate 25 mg 09/16/17 16:31 09/16/17 17:38 Lopressor PO 25 mg BIDWM SD Administration Metoprolol Tartrate 25 mg 09/17/17 08:00 09/23/17 08:17 Lopressor PO 25 mg BIDWM SD Administration Nitrofurantoin Macrocrystals 100 mg 09/23/17 10:17 09/23/17 10:59 Macrobid PO 09/23/17 10:18 100 mg O ONE Administration Oxycodone HCl 15 mg 09/06/17 10:34 09/10/17 09:45 Roxicodone *Ir* PO 15 mg Q3H PRN Administration Pain Oxycodone HCl 15 mg 09/10/17 12:00 09/18/17 09:49 Roxicodone *Ir* PO 15 mg Q3HWA SD Administration Oxycodone HCl 10 mg 09/18/17 11:41 09/18/17 13:03 Roxicodone *Ir* PO Not Given Q3HWA SD Oxycodone HCl 10 mg 09/18/17 15:00 09/20/17 09:18 Roxicodone *Ir* PO 10 mg Q3HWA SD Administration Oxycodone HCl 10 mg 09/20/17 12:00 09/22/17 13:53 Roxicodone *Ir* PO 10 mg Q4H SD Administration Oxycodone HCl 5 mg 09/22/17 15:37 09/22/17 15:40 Roxicodone *Ir* PO 09/22/17 15:38 5 mg ONE TIME ONE Administration Pharmacy Consult 1 each 08/24/17 14:16 Pharmacy Consult - Fall Risk 08/24/17 14:17 ONE TIME ONE Pharmacy Consult 1 each 09/03/17 11:20 Pharmacy Consult - Fall Risk 09/03/17 11:21 ONE TIME ONE Pharmacy Consult 1 each 09/12/17 11:25 Pharmacy Consult - Fall Risk 09/12/17 11:26 ONE TIME ONE Pharmacy Consult 1 each 09/22/17 09:34 Pharmacy Consult - Fall Risk [facility] 09/22/17 09:35 ONE TIME ONE Potassium Chloride 10 meq 08/24/17 08:00 09/05/17 08:45 K-Dur 10 Meq Tablet PO 10 meq WB SD Administration Senna/Docusate Sodium 2 tab 08/23/17 21:00 08/29/17 20:14 Senna Plus Tablet PO Not Given HS SD - Constitutional no acute distress, well nourished, cooperative - Routine HEENT Exam ENT: Present: mucous membranes moist - Routine Neck Exam Absent: JVD, carotid bruit - Routine Chest/Breast/Axilla Exam Chest wall: Absent: tenderness - Routine Respiratory Exam Present: CTA bilaterally. Absent: dyspnea, rales, wheezes - Routine Cardiovascular Exam Present: RRR, no murmur - Routine Abdominal Exam Present: soft, non tender - Routine Extremities Exam Present: edema - Routine Skin Exam Present: intact, dry, warm - Routine Neurological Exam Present: alert, oriented X3 - Routine Psychiatric Exam Present: normal affect - Urinary Catheter Management Urethral Cath placed during this visit: yes, but has since been removed by the nurse Insertion date: 08/23/17 Insertion time: 22:30 Removal date: 09/07/17 Removal time: 08:00 Results 09/24/17 04:16 09/24/17 04:16 Intake and Output 09/24/17 09/25/17 09/25/17 22:59 06:59 14:59 Intake Total 240 / 240 Output Total 400 / 400 200 / 200 Balance -160 / -160 -200 / -200 Intake: Oral 240 / 240 Output: Urine 400 / 400 200 / 200 Other: Urine Appearance Clear Clear Urine Color Yellow Dark Yellow Urine Odor Normal Strong # Voids 1 # Incontinent Voids 1 Assessment and Plan - Assessment and Plan (1) Hypertension Current visit: Yes Status: Chronic (2) Diabetes mellitus type 2 in nonobese Current visit: Yes Status: Chronic (3) CAD (coronary artery disease) Current visit: Yes Status: Acute - Assessment and Plan 09/23/17 Hypertension Current visit: Yes Status: Chronic - DC metoprolol and change to labetolol 100mg bid for improved bp control - Continue clonidine .1mg tid, norvasc 10mg and lisinopril 40mg daily - Will obtain a renal artery sono - Nursing to take bp in arm and thigh to rule out coarctation Diabetes mellitus type 2 in nonobese Current visit: Yes Status: Chronic CAD (coronary artery disease) Current visit: Yes Status: Acute 09/24/17 BP remains uncontrolled. - Increase Labetalol to 200mg BID - Renal US: No evidence of hemodynamically significant renal arterial stenosis. - Change Lasix to Chlorthalidone 25mg daily - Change Amlodipine to Nifedipine 60mg daily 09/25/17 BP remains elevated, will wait and watch given medication changes yesterday Hospital Course Summary Disclaimer: The visit summary below is not to be considered part of the above Progress Note. 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 Patient continues to have uncontrolled hypertension 180s systolic. Medication list reviewed carefully along with marked from Gerald. Different beta jonathan was reconciled on admission from medication list. Toprol-XL discontinued, patient placed on metoprolol tartrate, Lopressor 50 milligrams 3 times a day. Continue with lisinopril 40, hydralazine 50mg 3 times a day. Hgb is has remained stable at 11.9. Patient is on Keppra for history of seizures. Patient also takes clarithromycin 500 twice a day. Brother does confirm patient was on this prior to hospitalization, however, exact reason is unknown Monitor Accu-Cheks and continue on metformin twice a day. Glen Daniel as needed for postoperative pain control. Will add MiraLAX and senna plus twice a day for postoperative bowel motivation. Encouraged patient to work with PT and OT for ongoing strengthening At time of discharge medical [facility] 08/25/2017 Patient was seen today secondary to reports of possible chest pain. Prior baseline is unknown, so will err on the side of caution. Start telemetry. Serial troponin. We'll obtain chest x-ray, as well as a right shoulder film due to concern for subluxation. GI upset is certainly a possibility, particularly since he is on clarithromycin. May need to get further information on that on Sunday from his PCP. We'll continue remainder current care. Assess lab in the morning for stability. Discussed with patient, he is in agreement with plan of care. 08/27/17 Overall appears to be medically stable. Given bradycardia will decreased Metoprolol to 50mg BID Will need to continue monitor BP. Did contact PCP office at [facility]- their old records from last January patient was not taking erythromycin. It is unclear exactly prescribed clarithromycin and for what reason. Will attempt to contact patient's brother regarding this medication. BGMs are well controlled on current regimen. Continue to encourage work with PT and OT for ongoing strengthening. 09/03/17 Sling to right arm - ortho recommends rechecking films ~09/11/17 HTN - increase hydralazine from 50 to 75 mg TID. Consider further w/u for HTN and r/o pheochromocytoma. He's on multiple classes of antiHTN with suboptimal control, including metoprolol, clonidine, lasix, furosemide, lisinopril + hydralazine. Bradycardia in the 50s precludes increasing BB. 09/05/17 Start bladder retraining. May pull catheter tomorrow if pt is having bladder filling sensation. Will give a second dose of Lasix now. Given his LE edema, HTN and (questionable) weight gain since admission, will increase his Lasix to 40mg q am (from 20mg q am) and follow weights, edema, BP and electrolytes. Increase KCl from 10mEq to 20mEq given the increase in Lasix dosing. Check daily weights. Weight on admission 100.3 and today is 113kg. Question accuracy of today's weight. Consider further w/u for HTN and r/o pheochromocytoma. He's on multiple classes of antiHTN with suboptimal control, including metoprolol, clonidine, lasix, furosemide, lisinopril + hydralazine. May need to clarify with PCP if prior workup for hypertension has been undertaken or which repairer resistance welding machines patient has seen. 09/08/17 Headley catheter dc'd 09/07/17 and he's been voiding since. Switching from hydrocodone to oxycodone, has been helpful for pain control. In addition, BP under better control. Continue hydralazine 75 mg and increased Lasix/KCl doses. Check BMP in am. Sinus aram on tele - will dc tele. 09/14/17 BP's are slightly elevated but likely r/t pain. He is already on 4 agents, will continue to monitor. Headache is not new. PT working with him in re: to possible muscle contraction etiology. Sinusitis would be in the DDx, but no c/o fever, sinus drainage, ST, etc. WBC down today from yesterday. 13.3-->11.0. BS's stable. Hgb stable. Wound team following wound on R great toe. 09/17/17 Blood pressures continue to run high. He remains bradycardic with heart rates in the 50s. Metoprolol reduced to 25 mg. Clonidine was started on 09/16/17. Monitor response before further adjustments are made. Awaiting insurance approval, and discharge plans are to go to [facility]. Dr. Briones's note reviewed. Continue PT/OT. 09/19/17 Patient continues to struggle with pain control. Continue pain medications and therapy plan per Dr. Briones. Persistent edema to right leg (operative side). Doppler obtained 09/18/17 and was negative for DVT. Recommend elevation as able with compression stockings/ SCDs. Continue to monitor closely. Blood pressures remain elevated and variable with bradycardia in the 50s. Metoprolol reduced to 25 mg BID on 09/17/17. Clonidine TID was started on . Will increase amlodipine to 10mg daily in AM and change Clonidine to TID PRN. Continue home Lasix 40mg daily and lisinopril 40mg daily. Monitor weight closely for signs of fluid overload. Patient may need additional diuresis. Awaiting insurance approval, and discharge plans are to go to [facility]. Will recheck labs in AM to monitor blood counts, electrolytes and renal function. 09/20/17 Resume clonidine at 0.1mg BID in the event his sxs are r/t clonidine w/drawal. Continue amlodipine, Lasix and lisinopril. Check UA given the new onset of fever. If he continues to run fever, have diarrhea and has increase in WBC, will check for c diff. No cough or SOA. CBC and CMP in am. Hold metformin. NS 250cc bolus given and then tra 100cc/hr as pt isn't taking po well d/t nausea. PRN Zofran. 09/21/17 Cipro started for UTI. Culture pending. WBC is stable. Resume metformin in the am now that he is eating again. Continue to follow BP's. Amlodipine was increased to 10mg the day before yesterday. He likely had elevated BP yesterday d/t abrupt clonidine w/drawal and it was restarted at lower dose of 0.1mg BID. No changes today. 09/22/17 Continue with Cipro for treatment of UTI- C/S pending Data monitor blood sugars, metformin was started yesterday, 09/21. Will increase monitoring to 0.1 milligrams 3 times a day scheduled. May need to continue to increase this. There is when necessary available as needed for systolic greater than 160 Did ask nursing staff to contact Dr. Briones for further pain control if need be. Continue to follow carefully Plan - 09/23/17 Patient continues to struggle with pain control. Pain addressed by Dr. Briones and oxycodone 10mg increased to Q3H for additional pain control Continue pain control and therapies per Dr. Briones. UTI diagnosed 09/21/17. UA revealed enterococcus faecalis sensitive to ampicillin, linezolid, nitrofurantoin, vancomycin. Currently on cipro. Will discontinue cipro and initiate nitrofurantoin per sensitivities today. Blood sugars remain relatively stable. Continue to monitor closely. Blood pressures remain elevated despite multiple medications. Clonidine 0.1mg increased to TID on 09/22/17. Will continue to monitor closely with PRN clonidine as needed. Patient denies having repairer resistance welding machines. Will consult Dr. Oropeza for further evaluation and expertise. Recheck labs in AM to monitor blood counts, electrolytes and renal function. <Felix Oropeza - Last Filed: 10/10/17 12:38> Exam Vital signs: Temperature 98.4 F 10/10/17 08:00 Pulse Rate 68 10/10/17 08:00 Respiratory Rate 20 10/10/17 08:00 Blood Pressure 174/80 H 10/10/17 08:00 Pulse Oximetry 96 10/10/17 08:00 Inpatient Medications: Generic Name Dose Route Start Last Admin Trade Name Freq PRN Reason Stop Dose Admin Acetaminophen 650 mg 10/06/17 17:00 10/10/17 09:07 Tylenol Arthritis 650 Mg Sr PO 650 mg Q8HR SD Administration Al Hydroxide/Mg Hydroxide 30 ml 07/14/18 13:12 Maalox Plus PO Q3H PRN Indigestion Aspirin 81 mg 10/05/17 09:00 10/10/17 09:08 Ecotrin PO 81 mg DAILY SD Administration Atorvastatin Calcium 10 mg 10/06/17 21:00 10/09/17 20:27 Lipitor PO 10 mg HS SD Administration Baclofen 5 mg 10/06/17 15:00 10/10/17 09:08 Lioresal PO 5 mg TID SD Administration Chlorthalidone 25 mg 10/07/17 08:00 10/10/17 09:06 Hygroton PO 25 mg WB SD Administration Clonidine HCl 0.1 mg 10/06/17 15:00 10/10/17 09:08 Catapres PO 0.1 mg TID SD Administration Cyclobenzaprine HCl 5 mg 10/06/17 13:09 10/09/17 14:23 Flexeril PO 5 mg TID PRN Administration Muscle spasm Diclofenac Sodium 1 applic 09/24/17 13:00 10/10/17 12:25 Voltaren TP 1 applic QID SD Administration Gabapentin 200 mg 10/06/17 15:00 10/10/17 09:10 Neurontin PO 200 mg TID SD Administration Glipizide 5 mg 10/06/17 17:30 10/10/17 09:06 Glucotrol PO 5 mg BIDBS SD Administration Hydralazine HCl 75 mg 10/06/17 17:30 10/10/17 12:31 Apresoline PO 75 mg WM SD Administration Sodium Chloride 500 mls @ 0 mls/hr 10/06/17 13:14 Normal Saline IV .Q0M PRN Per Protocol Insulin Aspart 1 - 5 unit 10/06/17 13:11 Novolog SQ SS PRN Hyperglycemia Protocol Labetalol HCl 200 mg 10/06/17 21:00 10/10/17 09:10 Normodyne PO 200 mg BID SD Administration Levetiracetam 500 mg 10/06/17 21:00 10/10/17 09:10 Keppra PO 500 mg Q12HR SD Administration Lisinopril 40 mg 08/24/17 09:00 10/10/17 09:10 Prinivil PO 40 mg DAILY SD Administration Magnesium Hydroxide 30 ml 10/06/17 13:13 Mom PO DAILY PRN Constipation Magnesium Oxide 400 mg 10/06/17 21:00 10/10/17 09:10 Magox PO 400 mg BID SD Administration Metformin HCl 500 mg 10/06/17 17:30 10/10/17 09:07 Glucophage PO 500 mg BIDBS SD Administration Nifedipine 90 mg 10/07/17 09:00 10/10/17 09:11 Procardia Xl PO 90 mg DAILY SD Administration Ondansetron HCl 4 mg 10/06/17 13:14 Zofran IVP Q6H PRN Nausea &/or vomiting Oxycodone HCl 5 mg 10/08/17 13:00 10/10/17 12:25 Roxicodone *Ir* PO 5 mg QID [facility] Administration Polyethylene Glycol 17 gm 10/05/17 09:00 10/10/17 09:09 Miralax PO 17 gm DAILY [facility] Administration Potassium Chloride 20 meq 10/07/17 08:00 10/10/17 09:07 K-Dur 20 Meq Tablet PO 20 meq WB [facility] Administration Prochlorperazine 10 mg 09/20/17 10:52 09/20/17 11:02 Compazine PO 10 mg TID PRN Administration Senna/Docusate Sodium 2 tab 08/24/17 21:00 09/20/17 09:25 Senna Plus Tablet PO Not Given BID [facility] Sodium Chloride 10 ml 10/06/17 13:15 Iv Flush IV PRN PRN Flushing Tamsulosin HCl 0.4 mg 10/06/17 21:00 10/09/17 20:29 Flomax PO 0.4 mg HS SD Administration Discontinued Medications Generic Name Dose Route Start Last Admin Trade Name Freq PRN Reason Stop Dose Admin Acetaminophen 650 mg 09/07/17 11:47 10/01/17 10:07 Tylenol PO 650 mg Q4H PRN Administration Pain Acetaminophen 650 mg 10/01/17 17:00 10/06/17 08:06 Tylenol Arthritis 650 Mg Sr PO 650 mg Q8HR SD Administration Hydrocodone Bitart/Acetaminophen 1 tab 08/23/17 17:09 08/26/17 04:14 [place] Daniel 5/325 PO 1 tab Q4H PRN Administration Pain Hydrocodone Bitart/Acetaminophen 1 - 2 tab 08/26/17 07:15 09/06/17 06:37 [place] Daniel 5/325 PO 2 tab Q4H PRN Administration Pain Al Hydroxide/Mg Hydroxide 30 ml 08/25/17 10:42 08/25/17 10:48 Maalox Plus PO 30 ml Q3H PRN Administration Indigestion Amlodipine Besylate 5 mg 09/16/17 21:00 09/19/17 08:35 Norvasc PO 5 mg BID SD Administration Amlodipine Besylate 10 mg 09/20/17 09:00 09/24/17 08:19 Norvasc PO 10 mg DAILY SD Administration Aspirin 81 mg 08/24/17 09:00 10/04/17 08:39 Ecotrin PO 81 mg DAILY SD Administration Atorvastatin Calcium 10 mg 08/23/17 21:00 08/24/17 21:09 Lipitor PO 10 mg HS SD Administration Atorvastatin Calcium 10 mg 08/25/17 21:00 10/05/17 21:19 Lipitor PO 10 mg HS SD Administration Baclofen 5 mg 08/23/17 21:00 10/06/17 08:07 Lioresal PO 5 mg TID SD Administration Chlorthalidone 25 mg 09/25/17 08:00 10/06/17 08:06 Hygroton PO 25 mg WB SD Administration Ciprofloxacin 500 mg 09/21/17 09:00 09/23/17 08:18 Cipro 500 Mg PO 500 mg Q12HR SD Administration Clarithromycin 500 mg 08/23/17 21:00 08/24/17 08:49 Biaxin PO 500 mg BID SD Administration Clarithromycin 500 mg 08/24/17 17:30 08/25/17 09:12 Biaxin PO 500 mg BIDWM SD Administration Clonidine HCl 0.2 mg 08/23/17 21:00 09/16/17 15:40 Catapres PO 0.2 mg TID SD Administration Clonidine HCl 0.1 mg 09/16/17 21:00 09/19/17 08:35 Catapres PO 0.1 mg TID SD Administration Clonidine HCl 0.1 mg 09/19/17 14:08 09/22/17 15:29 Catapres PO 0.1 mg TID PRN Administration Clonidine HCl 0.1 mg 09/20/17 21:00 09/22/17 08:27 Catapres PO 0.1 mg BID SD Administration Clonidine HCl 0.1 mg 09/22/17 21:00 10/06/17 08:05 Catapres PO 0.1 mg TID SD Administration Clonidine HCl 0.1 mg 09/23/17 08:10 Catapres PO TID PRN GIVE ONLY IF SBP > 160. Cyclobenzaprine HCl 5 mg 08/24/17 21:24 10/05/17 01:23 Flexeril PO 5 mg TID PRN Administration Muscle spasm Enoxaparin Sodium 30 mg 08/23/17 21:00 09/28/17 08:40 Lovenox SQ 30 mg BID SD Administration Furosemide 20 mg 08/24/17 09:00 09/05/17 08:46 Lasix 20 Mg Tab PO 20 mg DAILY SD Administration Furosemide 20 mg 09/05/17 16:24 09/05/17 17:35 Lasix 20 Mg Tab PO 09/05/17 16:25 20 mg O ONE Administration Furosemide 40 mg 09/06/17 07:00 09/24/17 08:19 Lasix 20 Mg Tab PO 40 mg DAILY SD Administration Gabapentin 100 mg 08/23/17 21:00 09/06/17 08:30 Neurontin PO 100 mg TID SD Administration Gabapentin 200 mg 09/06/17 10:35 10/06/17 08:06 Neurontin PO 200 mg TID SD Administration Glipizide 5 mg 08/23/17 17:30 10/06/17 08:06 Glucotrol PO 5 mg BIDBS SD Administration Hydralazine HCl 50 mg 08/23/17 17:30 09/03/17 12:27 Apresoline PO 50 mg WM SD Administration Hydralazine HCl 75 mg 09/03/17 14:00 10/06/17 12:21 Apresoline PO 75 mg WM SD Administration Hydromorphone HCl 0.5 mg 08/24/17 21:27 09/06/17 09:50 Dilaudid IM 0.5 mg Q3H PRN Administration Pain uncontrolled by po meds Sodium Chloride 1,000 mls @ 100 mls/hr 09/20/17 14:15 09/21/17 17:19 Normal Saline IV Not Given .Q10H SD Sodium Chloride 1,000 mls @ 999.9 mls/hr 09/20/17 14:16 09/20/17 18:12 Normal Saline IV 09/20/17 15:15 750 mls/hr .Q1H ONE Infusion Magnesium Sulfate/Dextrose 1 gm in 100 mls @ 100 mls/hr 09/25/17 14:15 19:52 Mag Sulf 1gm Premix IV 09/25/17 16:14 Infused Q1H SD Infusion Sodium Chloride 500 mls @ 0 mls/hr 09/25/17 16:58 Normal Saline IV .Q0M PRN Per Protocol Ibuprofen 400 mg 09/10/17 13:58 09/13/17 15:15 Motrin PO 400 mg Q4H PRN Administration Headache /Pain Insulin Aspart 1 - 5 unit 08/23/17 17:18 10/01/17 21:25 Novolog SQ 1 unit SS PRN Administration Hyperglycemia Protocol Labetalol HCl 100 mg 09/23/17 21:00 09/24/17 20:10 Normodyne PO 09/24/17 21:00 Not Given BID SD Labetalol HCl 100 mg 09/24/17 11:33 09/24/17 12:25 Normodyne PO 09/24/17 11:34 100 mg O ONE Administration Labetalol HCl 200 mg 09/24/17 21:00 10/06/17 08:06 Normodyne PO 200 mg BID SD Administration Levetiracetam 500 mg 08/23/17 21:00 10/06/17 08:06 Keppra PO 500 mg Q12HR SD Administration Lidocaine HCl 20 ml 08/23/17 22:09 08/23/17 22:39 Urojet MM 08/23/17 22:10 20 ml O ONE Administration Magnesium Hydroxide 30 ml 08/23/17 17:12 Mom PO DAILY PRN Constipation Magnesium Oxide 400 mg 08/23/17 21:00 10/06/17 08:07 Magox PO 400 mg BID SD Administration Metformin HCl 500 mg 08/23/17 17:30 10/06/17 08:07 Glucophage PO 500 mg BIDBS SD Administration Metoprolol Succinate 25 mg 08/23/17 21:00 08/24/17 08:53 Toprol Xl PO Not Given BID SD Metoprolol Succinate 50 mg 08/24/17 09:00 Toprol Xl PO DAILY SD Metoprolol Tartrate 50 mg 08/24/17 12:00 08/27/17 08:21 Lopressor PO 50 mg TIDWM SD Administration Metoprolol Tartrate 50 mg 08/27/17 17:30 09/16/17 09:06 Lopressor PO 50 mg BIDWM SD Administration Metoprolol Tartrate 25 mg 08/31/17 10:00 08/31/17 09:59 Lopressor PO 08/31/17 10:01 25 mg O ONE Administration Metoprolol Tartrate 25 mg 09/16/17 16:31 09/16/17 17:38 Lopressor PO 25 mg BIDWM SD Administration Metoprolol Tartrate 25 mg 09/17/17 08:00 09/23/17 08:17 Lopressor PO 25 mg BIDWM SD Administration Nifedipine 60 mg 09/25/17 09:00 09/27/17 08:50 Procardia Xl PO 60 mg DAILY SD Administration Nifedipine 30 mg 09/27/17 13:30 09/27/17 14:04 Procardia Xl PO 09/27/17 13:31 30 mg O ONE Administration Nifedipine 90 mg 09/28/17 09:00 10/06/17 09:13 Procardia Xl PO 90 mg DAILY SD Administration Nitrofurantoin Macrocrystals 100 mg 09/23/17 17:30 09/30/17 17:06 Macrobid PO 09/30/17 23:59 100 mg BIDWM SD Administration Nitrofurantoin Macrocrystals 100 mg 09/23/17 10:17 09/23/17 10:59 Macrobid PO 09/23/17 10:18 100 mg O ONE Administration Ondansetron HCl 4 mg 09/20/17 14:17 Zofran IVP Q6H PRN Nausea &/or vomiting Oxycodone HCl 15 mg 09/06/17 10:34 09/10/17 09:45 Roxicodone *Ir* PO 15 mg Q3H PRN Administration Pain Oxycodone HCl 15 mg 09/10/17 12:00 09/18/17 09:49 Roxicodone *Ir* PO 15 mg Q3HWA SD Administration Oxycodone HCl 10 mg 09/18/17 11:41 09/18/17 13:03 Roxicodone *Ir* PO Not Given Q3HWA SD Oxycodone HCl 10 mg 09/18/17 15:00 09/20/17 09:18 Roxicodone *Ir* PO 10 mg Q3HWA SD Administration Oxycodone HCl 10 mg 09/20/17 12:00 09/22/17 13:53 Roxicodone *Ir* PO 10 mg Q4H SD Administration Oxycodone HCl 10 mg 09/22/17 17:00 09/27/17 09:09 Roxicodone *Ir* PO 10 mg Q3HWA DS Administration Oxycodone HCl 5 mg 09/22/17 15:37 09/22/17 15:40 Roxicodone *Ir* PO 09/22/17 15:38 5 mg ONE TIME ONE Administration Oxycodone HCl 10 mg 09/27/17 13:00 10/01/17 08:12 Roxicodone *Ir* PO 10 mg QID SD Administration Oxycodone HCl 7.5 mg 10/01/17 13:00 10/03/17 21:07 Roxicodone *Ir* PO 7.5 mg QID SD Administration Oxycodone HCl 7.5 mg 10/04/17 09:00 10/06/17 13:05 Roxicodone *Ir* PO 7.5 mg QID SD Administration Oxycodone HCl 7.5 mg 10/06/17 17:00 10/08/17 08:39 Roxicodone *Ir* PO 7.5 mg QID SD Administration Pharmacy Consult 1 each 08/24/17 14:16 Pharmacy Consult - Fall Risk 08/24/17 14:17 ONE TIME ONE Pharmacy Consult 1 each 09/03/17 11:20 Pharmacy Consult - Fall Risk 09/03/17 11:21 ONE TIME ONE Pharmacy Consult 1 each 09/12/17 11:25 Pharmacy Consult - Fall Risk 09/12/17 11:26 ONE TIME ONE Pharmacy Consult 1 each 09/22/17 09:34 Pharmacy Consult - Fall Risk 09/22/17 09:35 ONE TIME ONE Pharmacy Consult each 09/30/17 10:25 Pharmacy Consult - Fall Risk 09/30/17 10:26 ONE TIME ONE Polyethylene Glycol 17 gm 08/24/17 09:30 09/20/17 09:25 Miralax PO Not Given DAILY SD Polyethylene Glycol 17 gm 10/05/17 09:00 Miralax PO DAILY SD Potassium Chloride 10 meq 08/24/17 08:00 09/05/17 08:45 K-Dur 10 Meq Tablet PO 10 meq WB SD Administration Potassium Chloride 20 meq 09/06/17 08:00 10/03/17 08:18 K-Dur 10 Meq Tablet PO 20 meq WB SD Administration Potassium Chloride 20 meq 10/04/17 08:15 10/06/17 08:05 K-Dur 20 Meq Tablet PO 20 meq WB SD Administration Senna/Docusate Sodium 2 tab 08/23/17 21:00 08/29/17 20:14 Senna Plus Tablet PO Not Given HS SD Sodium Chloride 10 ml 09/27/17 09:16 10/01/17 21:13 Iv Flush IV 10 ml PRN PRN Administration Flushing Tamsulosin HCl 0.4 mg 08/23/17 21:00 10/05/17 21:22 Flomax PO 0.4 mg HS SD Administration - Urinary Catheter Management Urethral Cath placed during this visit: no Results 10/07/17 05:09 10/07/17 05:09 Intake and Output 10/09/17 10/10/17 10/10/17 22:59 06:59 14:59 Intake Total 300 / 300 300 / 300 Balance 300 / 300 300 / 300 Intake: Oral 300 / 300 300 / 300 Other: Urine Color Yellow Urine Odor Normal # Incontinent Voids 1 Assessment and Plan - Assessment and Plan (1) Hypertension Current visit: Yes Status: Chronic (2) Diabetes mellitus type 2 in nonobese Current visit: Yes Status: Chronic (3) CAD (coronary artery disease) Current visit: Yes Status: Acute - Attestation Attestation Narrative: 10/10/17 12:38 Recommendation After examining the patient I agree with the above assessment. I am involved in the formulation of the patient's plan of care. Hospital Course Summary Disclaimer: The visit summary below is not to be considered part of the above Progress Note.
[2017-09-25] MEDS: NITROFURANTOIN (MACROBID) 100 MG CAPSULE PO SCH ×2 (08:11→17:31)
[2017-09-25] MEDS: LABETALOL 100 MG TABLET PO SCH ×2 (08:12→21:01)
[2017-09-25] MEDS: GABAPENTIN 100 MG CAPSULE PO SCH ×3 (08:12→21:01)
[2017-09-25] MEDS: GlipiZIDE 5 MG TABLET PO SCH ×2 (08:12→17:30)
[2017-09-25] MEDS: HYDRALAZINE 25 MG TABLET PO SCH ×3 (08:13→17:30)
[2017-09-25] MEDS: LEVETIRACETAM 500 MG TABLET PO SCH ×2 (08:13→21:02)
[2017-09-25] MEDS: LISINOPRIL 40 MG TABLET PO SCH (08:13)
[2017-09-25] MEDS: BACLOFEN 10 MG TABLET PO SCH ×3 (08:15→21:01)
[2017-09-25] MEDS: ASPIRIN *EC* 81 MG TABLET PO SCH (08:19)
[2017-09-25] MEDS: CHLORTHALIDONE 25 MG TABLET PO SCH (08:19)
[2017-09-25] MEDS: ENOXAPARIN 30 MG/0.3 ML INJECTION SQ SCH ×2 (10:14→21:00)
[2017-09-25] MEDS: DICLOFENAC 1% TOP GEL 100gm TP SCH ×4 (10:15→21:11)
--- NOTE | 2017-09-25 10:52 | IRU Progress Note ---
- Subjective/Serverity of Illness Date: 09/25/17 Hermes was reassessed in his room. He is able to perform more functional activities. Taping has occurred of the right shoulder which apparently has helped him. He was able to ambulate with supervision level only with a hemiwalker from his bed to the bathroom today. Continues to complain of headaches and other pains. He has an almost stereotypical response when I ask him if he has pains. He consistently points to the right side of his body and both knees. We did start Voltaren gel yesterday on the knees. Did not really complain of headache and I asked him if he was having pains. His blood pressures are improved. Perhaps the blood pressure elevation has been a factor in his headaches. Exam Vital Signs: Temperature 98.1 F 09/25/17 07:40 Pulse Rate 67 09/25/17 07:40 Respiratory Rate 16 09/25/17 07:40 Blood Pressure 180/85 H 09/25/17 07:40 Pulse Oximetry 94 09/25/17 07:40 Height/Weight/BMI: Height 1.83 m Weight 93.4 kg Body Mass Index 29.9 - Constitutional Present: mild distress (frequent reports of pain in the knees and right elbow and headache despite regular doses of oxycodone.), well nourished, well developed, cooperative - Routine HEENT Exam Eye: Present: EOMI ENT: Present: mucous membranes moist - Routine Neck Exam Present: supple - Routine Respiratory Exam Present: CTA bilaterally. Absent: wheezes - Routine Cardiovascular Exam Present: RRR, S1, S2. Absent: murmur - Routine Abdominal Exam Present: soft, normoactive bowel sounds, non distended. Absent: tenderness - Routine Extremities Exam Present: edema (improved right lower extremity edema), normal capillary refill - Routine Skin Exam Present: dry, warm - Routine Neurological Exam Present: alert, oriented X3, motor deficit (unchanged). Absent: CN II-XII intact - Routine Psychiatric Exam Present: anxious Comments: Very difficult to ascertain the location of his pain or the intensity of it. He continues to have a stereotypical response when I ask him if he is having pain. Uncertain if this is related to true pain versus anxiety versus stiffness versus his concern about the right hemiparesis. In any event he remains on multiple doses of oxycodone. IRU A/P (1) S/P hip hemiarthroplasty Problem details: Surgery done for subcapital , femoral neck Fx Current visit: Yes Status: Acute (2) Diabetes mellitus type 2 in nonobese Current visit: Yes Status: Chronic Blood sugars appear to be adequately controlled at present. (3) Hypertension Qualifiers: Hypertension type: essential hypertension Qualified Code(s): I10 - Essential (primary) hypertension Current visit: Yes Status: Chronic Blood pressure demonstrate improved control on labetalol. (4) Nondisplaced fracture of head of right radius Qualifiers: Encounter type: initial encounter Fracture type: closed Qualified Code(s) : S52.124A - Nondisplaced fracture of head of right radius, initial encounter for closed fracture Current visit: Yes Status: Acute (5) Toe abrasion, non-infected Current visit: Yes Status: Acute Reviewed his right toe abrasion today which appears to be stable and without evidence of inflammation. (6) Leukocytosis Qualifiers: Leukocytosis type: unspecified Qualified Code(s): D72.829 - Elevated white blood cell count, unspecified Current visit: Yes Status: Acute (7) Headache Qualifiers: Headache type: tension-type Headache chronicity pattern: chronic headache Current visit: Yes Status: Resolved Continues to complain of headaches for uncertain reasons. Due to his lack of ability to express himself specifically it is extremity difficult to ascertain the nature of the headaches. He did indicate previously that he has a chronic history of headaches. (8) UTI (urinary tract infection) Qualifiers: Urinary tract infection type: acute cystitis Hematuria presence: with hematuria Qualified Code(s): N30.01 - Acute cystitis with hematuria Current visit: Yes Status: Acute Patient is on nitrofurantoin which will complete on 09/30/2017. (9) Knee pain, bilateral Qualifiers: Chronicity: chronic Qualified Code(s): M25.561 - Pain in right knee; M25.562 - Pain in left knee; G89.29 - Other chronic pain Current visit: Yes Status: Chronic DVT Prophylaxis: Lovenox Resuscitation Status: Full Code - Course Hospital Course: Chucho Solis MD: 09/03/17 15:14 Pain in right elbow and right hip as anticipated. Blood sugars are controlled. Blood pressures remain a bit elevated. 09/04/17 12:44 Progressing with therapy. Blood sugars look excellent. Pain in right elbow seems to be a major issue. 09/06/17 11:50 Improving with therapy. Blood pressures remain elevated. Lasix has been increased. I will increase gabapentin and switch to oxycodone today. 09/07/17 11:20 Continues to have some edema in the right lower extremity. He is progressing with therapy with regard to ambulation. Pain management hopefully is improved with the use of oxycodone. 09/10/17 12:06 Pain management is difficult. We'll schedule the oxycodone. Blood pressures remain elevated likely related to pain management. He is voiding although does have occasional residuals identified. 09/11/17 11:58 Headache is resolved. Improved pain management with oxycodone regularly scheduled. Blood pressures are improved with regular doses of oxycodone. New evidence of abrasion to right great toe. 09/13/17 13:51 White count to 13,000. No evidence of source of infection at present. Sugars are well controlled. Cooperative with therapy. Headache returned but less intense. 09/14/17 11:37 Headache continues to come and go. Seems to be localized in right temporal area. We will check a sedimentation rate. Neurologically he is otherwise unchanged. 09/17/17 11:54 Headache reportedly resolved. No new neurologic changes. Pain management is a challenge. Blood pressures remain elevated although medications have been adjusted. 09/18/17 11:39 Headache appears to have resolved. Abrasion on toe improved. Edema right leg remains. Venous Doppler ordered. We will try to reduce pain medications. 09/20/17 11:48 Vomiting this morning. Anorectic now. Loose stools. Abdomen remained soft. Venous Doppler right leg negative. We will need to hold therapy. 09/21/17 10:48 UTI diagnosed. No further nausea or vomiting. Low-grade fever yesterday without recurrence. He is now on Cipro. He looks and feels better. 09/24/17 10:34 He was changed from Cipro to nitrofurantoin for E. faecalis UTI. Blood pressure management changed from metoprolol to labetalol. I will add on Voltaren gel for the knee pain. We had increased his oxycodone late last week. 09/25/17 10:54 Blood pressures improved. Continues to complain of a variety of pains mostly both knees, headache and right side of his body. He is cooperative with therapy and making progress. - Interventions to Obtain Goals PT Treatment Plan: Balance/Proprioception, Functional Activities, Gait Training , Patient/Family Education, Therapeutic Exercise OT Treatment Plan: ADL (Basic Care), Balance Training, IADL, Pt./Family Education, Ther. Exercise for ADL Goals Progress/Modifications: Patient was globally reassess today. He continues to complain of headaches and pain in both knees and the right elbow etc. He does have a stereotypical response when asked if he is having pain. He continues to move his left hand and arm gesturing to his right side as well as head as well as both knees. Etiology therefore very difficult to ascertain. He is on regular doses of oxycodone. I have tried reducing this dose and reducing the frequency but he seemed to have more discomfort. Management is difficult in this regard. He is cooperative with therapy and is making gains. He was able to ambulate with a hemiwalker with supervision level today.
[2017-09-25] MEDS: CYCLOBENZAPRINE 5 MG TABLET PO PRN (14:46)
[2017-09-25] MEDS: MAGNESIUM SULFATE 1gm PREMIX 1 GM/100 ML BAG IV SCH ×2 (16:51→18:04)
--- NOTE | 2017-09-25 18:11 | Progress Note ---
- Date 09/25/17 Subjective: Jorge is seen today and continues to complain of right sided pain. He was seen and evaluated by Dr. Oropeza given his uncontrolled blood pressure. The labetalol was increased to 200mg BID, the Lasix was changed to chlorthalidone and the norvasc was changed to nifedipine on 09/24/17. Monitoring blood pressure closely before additional changes are made. Appetite stable and urinary output adequate. Objective Vital signs: Temperature 97.8 F 09/25/17 15:36 Pulse Rate 80 09/25/17 15:36 Respiratory Rate 18 09/25/17 15:36 Blood Pressure 168/72 H 09/25/17 15:36 Pulse Oximetry 93 09/25/17 15:36 Height/Weight/BMI: Height 6 ft Weight 206 lb 2.115 oz Body Mass Index 29.9 - Constitutional Present: no acute distress, well nourished, well developed, cooperative - Routine HEENT Exam Head: Present: normocephalic, atraumatic Eye: Present: PERRL. Absent: conjunctival icterus ENT: Present: mucous membranes moist, oropharynx clear - Routine Respiratory Exam Present: CTA bilaterally. Absent: respiratory distress, wheezes - Routine Cardiovascular Exam Present: RRR, S1, S2 - Routine Abdominal Exam Present: soft, normoactive bowel sounds, non tender - Routine Extremities Exam Present: edema (trace), pulses intact - Routine Back/Spine/Pelvis Exam Back/Spine: Present: full ROM. Absent: vertebral tenderness - Routine Musculoskeletal Exam Musculoskeletal: Present: no clubbing or cyanosis, moving extremities well - Routine Skin Exam Present: intact, dry, warm Comments: Afebrile - Routine Neurological Exam Present: alert, hearing grossly intact - Routine Lymphatic Exam Lymphatic: Absent: lymphedema - Routine Psychiatric Exam Present: cooperative Results - Labs CBC & Chem 7: 09/24/17 04:16 09/25/17 08:51 Microbiology Results: Microbiology 09/21/17 06:13 Urine, Voided (Cc/notcc) Urine Culture - Final Enterococcus faecalis Assessment and Plan (1) S/P hip hemiarthroplasty Problem details: Surgery done for subcapital , femoral neck Fx Current visit: Yes Status: Acute Assessment and Plan: Impression n/v/diarrhea - 09/20/17-resolved Uncontrolled blood pressure -currently on hydralazine, clonidine, Norvasc, lisinopril, metoprolol Status post right hip hemiarthroplasty-repaired 08/20/[address] Minor Right nondisplaced radial head fracture - nonsurgical tx S/P Fall Hx of CVA with right hemiparesis Chronic dysphasia Coronary artery disease Bradycardia - likely secondary to multiple cardiac meds for tx of HTN-improved Diabetes -fair control on glipizide and sliding scale insulin Seizures Obstructive sleep apnea CAD with history of CABG, 2016 Plan - 09/25/17 Patient continues to struggle with pain control. Continue pain control and therapies per Dr. Briones. UTI diagnosed 09/21/17. UA revealed enterococcus faecalis sensitive to ampicillin, linezolid, nitrofurantoin, vancomycin. Continue nitrofurantoin per sensitivities. Blood sugars remain relatively stable. Continue to monitor closely. Blood pressure remains elevated. Dr. Oropeza recommended increasing labetalol to 200mg BID, changing the lasix to chlorthalidone and changing the norvasc to nifedipine. Continue to monitor closely. Appreciate cardiology's time and expertise. Resuscitation Status: Full Code - Time spent with patient Time with patient PN: 25 minutes - Physician Narrative Physician: Sandy Almonte MD Narrative: Date: 09/25/17 Time: 1807 Hospital Course Summary Disclaimer: The visit summary below is not to be considered part of the above Progress Note. 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 Patient continues to have uncontrolled hypertension 180s systolic. Medication list reviewed carefully along with marked from Gerald. Different beta jonathan was reconciled on admission from medication list. Toprol-XL discontinued, patient placed on metoprolol tartrate, Lopressor 50 milligrams 3 times a day. Continue with lisinopril 40, hydralazine 50mg 3 times a day. Hgb is has remained stable at 11.9. Patient is on Keppra for history of seizures. Patient also takes clarithromycin 500 twice a day. Brother does confirm patient was on this prior to hospitalization, however, exact reason is unknown Monitor Accu-Cheks and continue on metformin twice a day. Purmela as needed for postoperative pain control. Will add MiraLAX and senna plus twice a day for postoperative bowel motivation. Encouraged patient to work with PT and OT for ongoing strengthening At time of discharge medical care will return to primary care provider at [facility], Dr. Bro 08/25/2017 Patient was seen today secondary to reports of possible chest pain. Prior baseline is unknown, so will err on the side of caution. Start telemetry. Serial troponin. We'll obtain chest x-ray, as well as a right shoulder film due to concern for subluxation. GI upset is certainly a possibility, particularly since he is on clarithromycin. May need to get further information on that on Sunday from his PCP. We'll continue remainder current care. Assess lab in the morning for stability. Discussed with patient, he is in agreement with plan of care. 08/27/17 Overall appears to be medically stable. Given bradycardia will decreased Metoprolol to 50mg BID Will need to continue monitor BP. Did contact PCP office at [facility]- their old records from last January patient was not taking erythromycin. It is unclear exactly prescribed clarithromycin and for what reason. Will attempt to contact patient's brother regarding this medication. BGMs are well controlled on current regimen. Continue to encourage work with PT and OT for ongoing strengthening. 09/03/17 Sling to right arm - ortho recommends rechecking films ~09/11/17 HTN - increase hydralazine from 50 to 75 mg TID. Consider further w/u for HTN and r/o pheochromocytoma. He's on multiple classes of antiHTN with suboptimal control, including metoprolol, clonidine, lasix, furosemide, lisinopril + hydralazine. Bradycardia in the 50s precludes increasing BB. 09/05/17 Start bladder retraining. May pull catheter tomorrow if pt is having bladder filling sensation. Will give a second dose of Lasix now. Given his LE edema, HTN and (questionable) weight gain since admission, will increase his Lasix to 40mg q am (from 20mg q am) and follow weights, edema, BP and electrolytes. Increase KCl from 10mEq to 20mEq given the increase in Lasix dosing. Check daily weights. Weight on admission 100.3 and today is 113kg. Question accuracy of today's weight. Consider further w/u for HTN and r/o pheochromocytoma. He's on multiple classes of antiHTN with suboptimal control, including metoprolol, clonidine, lasix, furosemide, lisinopril + hydralazine. May need to clarify with PCP if prior workup for hypertension has been undertaken or which analytical data miner patient has seen. 09/08/17 Headley catheter dc'd 09/07/17 and he's been voiding since. Switching from hydrocodone to oxycodone, has been helpful for pain control. In addition, BP under better control. Continue hydralazine 75 mg and increased Lasix/KCl doses. Check BMP in am. Sinus aram on tele - will dc tele. 09/14/17 BP's are slightly elevated but likely r/t pain. He is already on 4 agents, will continue to monitor. Headache is not new. PT working with him in re: to possible muscle contraction etiology. Sinusitis would be in the DDx, but no c/o fever, sinus drainage, ST, etc. WBC down today from yesterday. 13.3-->11.0. BS's stable. Hgb stable. Wound team following wound on R great toe. 09/17/17 Blood pressures continue to run high. He remains bradycardic with heart rates in the 50s. Metoprolol reduced to 25 mg. Clonidine was started on 09/16/17. Monitor response before further adjustments are made. Awaiting insurance approval, and discharge plans are to go to [facility] and [facility]. Dr. Briones's note reviewed. Continue PT/OT. 09/19/17 Patient continues to struggle with pain control. Continue pain medications and therapy plan per Dr. Briones. Persistent edema to right leg (operative side). Doppler obtained 09/18/17 and was negative for DVT. Recommend elevation as able with compression stockings/ SCDs. Continue to monitor closely. Blood pressures remain elevated and variable with bradycardia in the 50s. Metoprolol reduced to 25 mg BID on 09/17/17. Clonidine TID was started on . Will increase amlodipine to 10mg daily in AM and change Clonidine to TID PRN. Continue home Lasix 40mg daily and lisinopril 40mg daily. Monitor weight closely for signs of fluid overload. Patient may need additional diuresis. Awaiting insurance approval, and discharge plans are to go to [facility]. Will recheck labs in AM to monitor blood counts, electrolytes and renal function. 09/20/17 Resume clonidine at 0.1mg BID in the event his sxs are r/t clonidine w/drawal. Continue amlodipine, Lasix and lisinopril. Check UA given the new onset of fever. If he continues to run fever, have diarrhea and has increase in WBC, will check for c diff. No cough or SOA. CBC and CMP in am. Hold metformin. NS 250cc bolus given and then tra 100cc/hr as pt isn't taking po well d/t nausea. PRN Zofran. 09/21/17 Cipro started for UTI. Culture pending. WBC is stable. Resume metformin in the am now that he is eating again. Continue to follow BP's. Amlodipine was increased to 10mg the day before yesterday. He likely had elevated BP yesterday d/t abrupt clonidine w/drawal and it was restarted at lower dose of 0.1mg BID. No changes today. 09/22/17 Continue with Cipro for treatment of UTI- C/S pending Data monitor blood sugars, metformin was started yesterday, 09/21. Will increase monitoring to 0.1 milligrams 3 times a day scheduled. May need to continue to increase this. There is when necessary available as needed for systolic greater than 160 Did ask nursing staff to contact Dr. Briones for further pain control if need be. Continue to follow carefully Plan - 09/23/17 Patient continues to struggle with pain control. Pain addressed by Dr. Briones and oxycodone 10mg increased to Q3H for additional pain control Continue pain control and therapies per Dr. Briones. UTI diagnosed 09/21/17. UA revealed enterococcus faecalis sensitive to ampicillin, linezolid, nitrofurantoin, vancomycin. Currently on cipro. Will discontinue cipro and initiate nitrofurantoin per sensitivities today. Blood sugars remain relatively stable. Continue to monitor closely. Blood pressures remain elevated despite multiple medications. Clonidine 0.1mg increased to TID on 09/22/17. Will continue to monitor closely with PRN clonidine as needed. Patient denies having analytical data miner. Will consult Dr. Oropeza for further evaluation and expertise. Recheck labs in AM to monitor blood counts, electrolytes and renal function.
[2017-09-25] MEDS: ATORVASTATIN 10 MG TABLET PO SCH (21:01)
[2017-09-25] MEDS: TAMSULOSIN 0.4 MG CAPSULE PO SCH (21:02)
[2017-09-26] MEDS: Oxycodone *IR* 5 MG TABLET PO SCH ×7 (03:36→20:19)
[2017-09-26] MEDS: LABETALOL 100 MG TABLET PO SCH ×2 (08:38→20:20)
[2017-09-26] MEDS: ENOXAPARIN 30 MG/0.3 ML INJECTION SQ SCH ×2 (08:38→20:22)
[2017-09-26] MEDS: NITROFURANTOIN (MACROBID) 100 MG CAPSULE PO SCH ×2 (08:39→17:34)
[2017-09-26] MEDS: HYDRALAZINE 25 MG TABLET PO SCH ×3 (08:39→17:34)
[2017-09-26] MEDS: BACLOFEN 10 MG TABLET PO SCH ×3 (08:39→20:20)
[2017-09-26] MEDS: LISINOPRIL 40 MG TABLET PO SCH (08:40)
[2017-09-26] MEDS: LEVETIRACETAM 500 MG TABLET PO SCH ×2 (08:40→20:20)
[2017-09-26] MEDS: CHLORTHALIDONE 25 MG TABLET PO SCH (08:40)
[2017-09-26] MEDS: GlipiZIDE 5 MG TABLET PO SCH ×2 (08:40→17:34)
[2017-09-26] MEDS: ASPIRIN *EC* 81 MG TABLET PO SCH (08:40)
[2017-09-26] MEDS: GABAPENTIN 100 MG CAPSULE PO SCH ×3 (08:40→20:19)
[2017-09-26] MEDS: DICLOFENAC 1% TOP GEL 100gm TP SCH ×4 (10:19→20:18)
[2017-09-26] MEDS: INSULIN ASPART 100unit/ml INJECTION SQ PRN (12:30)
--- NOTE | 2017-09-26 19:53 | Progress Note ---
Progress Note: Restart metformin and magnesium oxide which were originally held d/t pt having diarrhea. Diarrhea has resolved.
[2017-09-26] MEDS: ATORVASTATIN 10 MG TABLET PO SCH (20:20)
[2017-09-26] MEDS: TAMSULOSIN 0.4 MG CAPSULE PO SCH (20:20)
[2017-09-27] MEDS: Oxycodone *IR* 5 MG TABLET PO SCH ×5 (06:03→21:44)
[2017-09-27] MEDS: DICLOFENAC 1% TOP GEL 100gm TP SCH ×4 (08:49→21:41)
[2017-09-27] MEDS: NITROFURANTOIN (MACROBID) 100 MG CAPSULE PO SCH ×2 (08:50→17:56)
[2017-09-27] MEDS: BACLOFEN 10 MG TABLET PO SCH ×3 (08:51→21:39)
[2017-09-27] MEDS: HYDRALAZINE 25 MG TABLET PO SCH ×3 (08:53→17:56)
[2017-09-27] MEDS: GlipiZIDE 5 MG TABLET PO SCH ×2 (08:53→17:55)
[2017-09-27] MEDS: ASPIRIN *EC* 81 MG TABLET PO SCH (08:54)
[2017-09-27] MEDS: LEVETIRACETAM 500 MG TABLET PO SCH ×2 (08:54→21:42)
[2017-09-27] MEDS: CHLORTHALIDONE 25 MG TABLET PO SCH (08:54)
[2017-09-27] MEDS: GABAPENTIN 100 MG CAPSULE PO SCH ×3 (08:54→21:39)
[2017-09-27] MEDS: LISINOPRIL 40 MG TABLET PO SCH (08:55)
[2017-09-27] MEDS: ENOXAPARIN 30 MG/0.3 ML INJECTION SQ SCH ×2 (09:00→21:38)
[2017-09-27] MEDS: MAGNESIUM OXIDE 400 MG TABLET PO SCH ×2 (09:10→21:42)
[2017-09-27] MEDS: LABETALOL 100 MG TABLET PO SCH ×2 (09:10→21:42)
[2017-09-27] MEDS: METFORMIN 500 MG TABLET PO SCH ×2 (09:10→17:56)
--- NOTE | 2017-09-27 11:14 | IRU Progress Note ---
- Subjective/Serverity of Illness Date: 09/27/17 Hermes was interviewed and examined in his room with the nurse present. He continues to be very cooperative with therapy. He also continues to complain of pain. I attempted to help him localize where the pain is. He basically pointed once again to his entire right side including the right shoulder, right elbow, right knee. He then pointed to the left knee and the left abdomen. I asked him if it is worse in any one area and he shakes his head no. He states that he simply hurts all over. He remains afebrile. He has had a recent UTI and is on nitrofurantoin in this regard but has no other evidence of sepsis. He is eating and drinking adequately. Because of his prior stroke, it is extremely difficult to help him verbalize exactly where the discomfort is and the nature of it. I told him today that we would need to start cutting back on his pain medication. It is possible that he has some sort of underlying inflammatory arthritis although we have not shown or proven that. His sedimentation rate was elevated recently. Joints are not particularly warm nor red. Right lower extremity continues to be a bit puffy but previous venous Doppler study was negative. His blood sugars are reviewed. Metformin was recently restarted by the hospitalist service. His blood pressures have remained elevated. In this regard cardiology has seen him and medications have been adjusted. Specifically he was switched from metoprolol to labetalol and that was then increased to 200 mg twice daily. He was switched from amlodipine to nifedipine. Blood pressures remain in the 150 range. Right now he is receiving oxycodone 10 mg every 3 hours while awake (6 doses daily). I had reduced this from 15 mg every 3 hours previously. We'll therefore reduce this further from 6 tablets daily down to 4 tablets daily. In the "in between" times he is able to use Tylenol. At this point he should not be having severe pain from his recent fracture and repairs. Exam Vital Signs: Temperature 98.1 F 09/27/17 07:39 Pulse Rate 57 L 09/27/17 07:39 Respiratory Rate 18 09/27/17 09:09 Blood Pressure 154/75 H 09/27/17 07:39 Pulse Oximetry 100 09/27/17 07:39 Height/Weight/BMI: Height 1.83 m Weight 96.7 kg Body Mass Index 29.9 - Constitutional Present: mild distress (generalized pain), well nourished, well developed, average body habitus, cooperative - Routine HEENT Exam Eye: Present: EOMI ENT: Present: mucous membranes moist - Routine Neck Exam Present: supple - Routine Respiratory Exam Present: CTA bilaterally. Absent: wheezes - Routine Cardiovascular Exam Present: RRR, S1, S2, murmur (left sternal border). Absent: S3, S4 - Routine Abdominal Exam Present: soft, normoactive bowel sounds, non distended. Absent: tenderness - Routine Extremities Exam Present: edema (right lower extremity), normal capillary refill - Routine Skin Exam Present: dry, warm - Routine Neurological Exam Present: alert, oriented X3, motor deficit (as before, related to prior CVA). Absent: CN II-XII intact, normal speech - Routine Psychiatric Exam Present: cooperative, anxious Results IRU - Labs Labs: I have reviewed chart data. IRU A/P (1) S/P hip hemiarthroplasty Problem details: Surgery done for subcapital , femoral neck Fx Current visit: Yes Status: Acute Patient is stable and able to ambulate with a hemiwalker. He is doing well with regard to his right hip fracture. (2) Diabetes mellitus type 2 in nonobese Current visit: Yes Status: Chronic Blood sugars are doing well. (3) Hypertension Qualifiers: Hypertension type: essential hypertension Qualified Code(s): I10 - Essential (primary) hypertension Current visit: Yes Status: Chronic Multiple medication changes are noted. Blood pressures are borderline elevated. Perhaps improved. (4) Nondisplaced fracture of head of right radius Qualifiers: Encounter type: initial encounter Fracture type: closed Qualified Code(s) : S52.124A - Nondisplaced fracture of head of right radius, initial encounter for closed fracture Current visit: Yes Status: Acute (5) Toe abrasion, non-infected Current visit: Yes Status: Acute (6) Leukocytosis Qualifiers: Leukocytosis type: unspecified Qualified Code(s): D72.829 - Elevated white blood cell count, unspecified Current visit: Yes Status: Acute (7) Headache Qualifiers: Headache type: tension-type Headache chronicity pattern: chronic headache Current visit: Yes Status: Resolved (8) UTI (urinary tract infection) Qualifiers: Urinary tract infection type: acute cystitis Hematuria presence: with hematuria Qualified Code(s): N30.01 - Acute cystitis with hematuria Current visit: Yes Status: Acute (9) Knee pain, bilateral Qualifiers: Chronicity: chronic Qualified Code(s): M25.561 - Pain in right knee; M25.562 - Pain in left knee; G89.29 - Other chronic pain Current visit: Yes Status: Chronic As noted above, it is extremely difficult to pin down exactly where his pain is and what it is due to. He is using Voltaren gel on his knees and indicates this has provided some benefit. I'm wondering if he might have some sort of underlying inflammatory arthritis to account for his discomfort. However, I feel as though we need to work on reducing his narcotic intake and we will reduce his oxycodone from 6 tablets daily down to 4 doses daily. DVT Prophylaxis: Lovenox Resuscitation Status: Full Code - Course Hospital Course: Chucho Solis MD: 09/03/17 15:14 Pain in right elbow and right hip as anticipated. Blood sugars are controlled. Blood pressures remain a bit elevated. 09/04/17 12:44 Progressing with therapy. Blood sugars look excellent. Pain in right elbow seems to be a major issue. 09/06/17 11:50 Improving with therapy. Blood pressures remain elevated. Lasix has been increased. I will increase gabapentin and switch to oxycodone today. 09/07/17 11:20 Continues to have some edema in the right lower extremity. He is progressing with therapy with regard to ambulation. Pain management hopefully is improved with the use of oxycodone. 09/10/17 12:06 Pain management is difficult. We'll schedule the oxycodone. Blood pressures remain elevated likely related to pain management. He is voiding although does have occasional residuals identified. 09/11/17 11:58 Headache is resolved. Improved pain management with oxycodone regularly scheduled. Blood pressures are improved with regular doses of oxycodone. New evidence of abrasion to right great toe. 09/13/17 13:51 White count to 13,000. No evidence of source of infection at present. Sugars are well controlled. Cooperative with therapy. Headache returned but less intense. 09/14/17 11:37 Headache continues to come and go. Seems to be localized in right temporal area. We will check a sedimentation rate. Neurologically he is otherwise unchanged. 09/17/17 11:54 Headache reportedly resolved. No new neurologic changes. Pain management is a challenge. Blood pressures remain elevated although medications have been adjusted. 09/18/17 11:39 Headache appears to have resolved. Abrasion on toe improved. Edema right leg remains. Venous Doppler ordered. We will try to reduce pain medications. 09/20/17 11:48 Vomiting this morning. Anorectic now. Loose stools. Abdomen remained soft. Venous Doppler right leg negative. We will need to hold therapy. 09/21/17 10:48 UTI diagnosed. No further nausea or vomiting. Low-grade fever yesterday without recurrence. He is now on Cipro. He looks and feels better. 09/24/17 10:34 He was changed from Cipro to nitrofurantoin for E. faecalis UTI. Blood pressure management changed from metoprolol to labetalol. I will add on Voltaren gel for the knee pain. We had increased his oxycodone late last week. 09/25/17 10:54 Blood pressures improved. Continues to complain of a variety of pains mostly both knees, headache and right side of his body. He is cooperative with therapy and making progress. 09/27/17 11:18 Progressing with therapy. Continues to have chronic pain. Blood pressure medications are adjusted by hospitalists service. - Interventions to Obtain Goals PT Treatment Plan: Balance/Proprioception, Functional Activities, Gait Training , Patient/Family Education, Therapeutic Exercise OT Treatment Plan: ADL (Basic Care), Balance Training, IADL, Pt./Family Education, Ther. Exercise for ADL Goals Progress/Modifications: Besides the recent adjustments in blood pressure medications, we will reduce his oxycodone from 10 mg every 3 hours following (6 doses daily) down to 10 mg 4 times daily. In between these doses he can use Tylenol. Etiology of the pain is not clear to me. It seems to be fairly generalized. It is possible he has some underlying inflammatory arthritis process (his previous sedimentation rate was elevated). I'm reluctant to use prednisone however in view of his diabetic situation. We will continue to monitor and adjust medications as indicated. It is possible that he would benefit from a longer acting product such as a fentanyl patch although it is substantially more expensive.
--- NOTE | 2017-09-27 13:24 | Cardiology Progress Note ---
<Sharlene Currie - Last Filed: 09/28/17 15:08> Subjective Principal diagnosis: HTN Interval history: Hermes is seen in follow up for HTN. He is in the dinning room awaiting supper. He denies chest pain, pressure, palpitations, dizziness, nausea. Exam Vital signs: Temperature 98.1 F 09/27/17 07:39 Pulse Rate 57 L 09/27/17 07:39 Respiratory Rate 18 09/27/17 09:09 Blood Pressure 154/75 H 09/27/17 07:39 Pulse Oximetry 100 09/27/17 07:39 Inpatient Medications: Generic Name Dose Route Start Last Admin Trade Name Freq PRN Reason Stop Dose Admin Acetaminophen 650 mg 09/07/17 11:47 09/24/17 16:16 Tylenol PO 650 mg Q4H PRN Administration Pain Al Hydroxide/Mg Hydroxide 30 ml 08/25/17 10:42 08/25/17 10:48 Maalox Plus PO 30 ml Q3H PRN Administration Indigestion Aspirin 81 mg 08/24/17 09:00 09/27/17 08:54 Ecotrin PO 81 mg DAILY SD Administration Atorvastatin Calcium 10 mg 08/25/17 21:00 09/26/17 20:20 Lipitor PO 10 mg HS SD Administration Baclofen 5 mg 08/23/17 21:00 09/27/17 08:51 Lioresal PO 5 mg TID SD Administration Chlorthalidone 25 mg 09/25/17 08:00 09/27/17 08:54 Hygroton PO 25 mg WB SD Administration Clonidine HCl 0.1 mg 09/22/17 21:00 09/27/17 08:50 Catapres PO 0.1 mg TID SD Administration Cyclobenzaprine HCl 5 mg 08/24/17 21:24 09/25/17 14:46 Flexeril PO 5 mg TID PRN Administration Muscle spasm Diclofenac Sodium 1 applic 09/24/17 13:00 09/27/17 08:49 Voltaren TP 1 applic QID SD Administration Enoxaparin Sodium 30 mg 08/23/17 21:00 09/27/17 09:00 Lovenox SQ 30 mg BID SD Administration Gabapentin 200 mg 09/06/17 10:35 09/27/17 08:54 Neurontin PO 200 mg TID SD Administration Glipizide 5 mg 08/23/17 17:30 07/05/18 08:53 Glucotrol PO 5 mg BIDBS SD Administration Hydralazine HCl 75 mg 09/03/17 14:00 09/27/17 12:32 Apresoline PO 75 mg WM SD Administration Sodium Chloride 500 mls @ 0 mls/hr 09/25/17 16:58 Normal Saline IV .Q0M PRN Per Protocol Insulin Aspart 1 - 5 unit 08/23/17 17:18 09/26/17 12:30 Novolog SQ 1 unit SS PRN Administration Hyperglycemia Protocol Labetalol HCl 200 mg 09/24/17 21:00 09/27/17 09:10 Normodyne PO 200 mg BID SD Administration Levetiracetam 500 mg 08/23/17 21:00 09/27/17 08:54 Keppra PO 500 mg Q12HR SD Administration Lisinopril 40 mg 08/24/17 09:00 09/27/17 08:55 Prinivil PO 40 mg DAILY SD Administration Magnesium Hydroxide 30 ml 08/23/17 17:12 Mom PO DAILY PRN Constipation Magnesium Oxide 400 mg 08/23/17 21:00 09/27/17 09:10 Magox PO 400 mg BID SD Administration Metformin HCl 500 mg 08/23/17 17:30 09/27/17 09:10 Glucophage PO 500 mg BIDBS SD Administration Nifedipine 30 mg 09/27/17 13:30 Procardia Xl PO 09/27/17 13:31 O ONE Nifedipine 90 mg 09/28/17 09:00 Procardia Xl PO DAILY [facility] Nitrofurantoin Macrocrystals 100 mg 09/23/17 17:30 09/27/17 08:50 Macrobid PO 09/30/17 23:59 100 mg BIDWM SD Administration Ondansetron HCl 4 mg 09/20/17 14:17 Zofran IVP Q6H PRN Nausea &/or vomiting Oxycodone HCl 10 mg 09/27/17 13:00 Roxicodone *Ir* PO QID SD Polyethylene Glycol 17 gm 08/24/17 09:30 09/20/17 09:25 Miralax PO Not Given DAILY SD Potassium Chloride 20 meq 09/06/17 08:00 09/27/17 08:51 K-Dur 10 Meq Tablet PO 20 meq WB SD Administration Prochlorperazine 10 mg 09/20/17 10:52 09/20/17 11:02 Compazine PO 10 mg TID PRN Administration Senna/Docusate Sodium 2 tab 08/24/17 21:00 09/20/17 09:25 Senna Plus Tablet PO Not Given BID SD Sodium Chloride 10 ml 09/27/17 09:16 Iv Flush IV PRN PRN Flushing Tamsulosin HCl 0.4 mg 08/23/17 21:00 09/26/17 20:20 Flomax PO 0.4 mg HS SD Administration Discontinued Medications Generic Name Dose Route Start Last Admin Trade Name Freq PRN Reason Stop Dose Admin Hydrocodone Bitart/Acetaminophen 1 tab 08/23/17 17:09 08/26/17 04:14 [place] 5/325 PO 1 tab Q4H PRN Administration Pain Hydrocodone Bitart/Acetaminophen 1 - 2 tab 08/26/17 07:15 09/06/17 06:37 [place] 5/325 PO 2 tab Q4H PRN Administration Pain Amlodipine Besylate 5 mg 09/16/17 21:00 09/19/17 08:35 Norvasc PO 5 mg BID SD Administration Amlodipine Besylate 10 mg 09/20/17 09:00 09/24/17 08:19 Norvasc PO 10 mg DAILY SD Administration Atorvastatin Calcium 10 mg 08/23/17 21:00 08/24/17 21:09 Lipitor PO 10 mg HS SD Administration Ciprofloxacin 500 mg 09/21/17 09:00 09/23/17 08:18 Cipro 500 Mg PO 500 mg Q12HR SD Administration Clarithromycin 500 mg 08/23/17 21:00 08/24/17 08:49 Biaxin PO 500 mg BID SD Administration Clarithromycin 500 mg 08/24/17 17:30 08/25/17 09:12 Biaxin PO 500 mg BIDWM SD Administration Clonidine HCl 0.2 mg 08/23/17 21:00 09/16/17 15:40 Catapres PO 0.2 mg TID SD Administration Clonidine HCl 0.1 mg 09/16/17 21:00 09/19/17 08:35 Catapres PO 0.1 mg TID SD Administration Clonidine HCl 0.1 mg 09/19/17 14:08 09/22/17 15:29 Catapres PO 0.1 mg TID PRN Administration Clonidine HCl 0.1 mg 09/20/17 21:00 09/22/17 08:27 Catapres PO 0.1 mg BID SD Administration Clonidine HCl 0.1 mg 09/23/17 08:10 Catapres PO TID PRN GIVE ONLY IF SBP > 160. Furosemide 20 mg 08/24/17 09:00 09/05/17 08:46 Lasix 20 Mg Tab PO 20 mg DAILY SD Administration Furosemide 20 mg 09/05/17 16:24 09/05/17 17:35 Lasix 20 Mg Tab PO 09/05/17 16:25 20 mg O ONE Administration Furosemide 40 mg 09/06/17 07:00 09/24/17 08:19 Lasix 20 Mg Tab PO 40 mg DAILY SD Administration Gabapentin 100 mg 08/23/17 21:00 09/06/17 08:30 Neurontin PO 100 mg TID SD Administration Hydralazine HCl 50 mg 08/23/17 17:30 09/03/17 12:27 Apresoline PO 50 mg WM SD Administration Hydromorphone HCl 0.5 mg 08/24/17 21:27 09/06/17 09:50 Dilaudid IM 0.5 mg Q3H PRN Administration Pain uncontrolled by po meds Sodium Chloride 1,000 mls @ 100 mls/hr 09/20/17 14:15 09/21/17 17:19 Normal Saline IV Not Given .Q10H SD Sodium Chloride 1,000 mls @ 999.9 mls/hr 09/20/17 14:16 09/20/17 18:12 Normal Saline IV 09/20/17 15:15 750 mls/hr .Q1H ONE Infusion Magnesium Sulfate/Dextrose 1 gm in 100 mls @ 100 mls/hr 09/25/17 14:15 19:52 Mag Sulf 1gm Premix IV 09/25/17 16:14 Infused Q1H SD Infusion Ibuprofen 400 mg 09/10/17 13:58 09/13/17 15:15 Motrin PO 400 mg Q4H PRN Administration Headache /Pain Labetalol HCl 100 mg 09/23/17 21:00 09/24/17 20:10 Normodyne PO 09/24/17 21:00 Not Given BID SD Labetalol HCl 100 mg 09/24/17 11:33 09/24/17 12:25 Normodyne PO 09/24/17 11:34 100 mg O ONE Administration Lidocaine HCl 20 ml 08/23/17 22:09 08/23/17 22:39 Urojet MM 08/23/17 22:10 20 ml O ONE Administration Metoprolol Succinate 25 mg 08/23/17 21:00 08/24/17 08:53 Toprol Xl PO Not Given BID SD Metoprolol Succinate 50 mg 08/24/17 09:00 Toprol Xl PO DAILY SD Metoprolol Tartrate 50 mg 08/24/17 12:00 08/27/17 08:21 Lopressor PO 50 mg TIDWM SD Administration Metoprolol Tartrate 50 mg 08/27/17 17:30 09/16/17 09:06 Lopressor PO 50 mg BIDWM SD Administration Metoprolol Tartrate 25 mg 08/31/17 10:00 08/31/17 09:59 Lopressor PO 08/31/17 10:01 25 mg O ONE Administration Metoprolol Tartrate 25 mg 09/16/17 16:31 09/16/17 17:38 Lopressor PO 25 mg BIDWM SD Administration Metoprolol Tartrate 25 mg 09/17/17 08:00 09/23/17 08:17 Lopressor PO 25 mg BIDWM SD Administration Nifedipine 60 mg 09/25/17 09:00 09/27/17 08:50 Procardia Xl PO 60 mg DAILY SD Administration Nitrofurantoin Macrocrystals 100 mg 09/23/17 10:17 09/23/17 10:59 Macrobid PO 09/23/17 10:18 100 mg O ONE Administration Oxycodone HCl 15 mg 09/06/17 10:34 09/10/17 09:45 Roxicodone *Ir* PO 15 mg Q3H PRN Administration Pain Oxycodone HCl 15 mg 09/10/17 12:00 09/18/17 09:49 Roxicodone *Ir* PO 15 mg Q3HWA SD Administration Oxycodone HCl 10 mg 09/18/17 11:41 09/18/17 13:03 Roxicodone *Ir* PO Not Given Q3HWA SD Oxycodone HCl 10 mg 09/18/17 15:00 09/20/17 09:18 Roxicodone *Ir* PO 10 mg Q3HWA SD Administration Oxycodone HCl 10 mg 09/20/17 12:00 09/22/17 13:53 Roxicodone *Ir* PO 10 mg Q4H SD Administration Oxycodone HCl 10 mg 09/22/17 17:00 09/27/17 09:09 Roxicodone *Ir* PO 10 mg Q3HWA SD Administration Oxycodone HCl 5 mg 09/22/17 15:37 09/22/17 15:40 Roxicodone *Ir* PO 09/22/17 15:38 5 mg ONE TIME ONE Administration Pharmacy Consult 1 each 08/24/17 14:16 Pharmacy Consult - Fall Risk 08/24/17 14:17 ONE TIME ONE Pharmacy Consult 1 each 09/03/17 11:20 Pharmacy Consult - Fall Risk 09/03/17 11:21 ONE TIME ONE Pharmacy Consult 1 each 09/12/17 11:25 Pharmacy Consult - Fall Risk 09/12/17 11:26 ONE TIME ONE Pharmacy Consult 1 each 09/22/17 09:34 Pharmacy Consult - Fall Risk 09/22/17 09:35 ONE TIME ONE Potassium Chloride 10 meq 08/24/17 08:00 09/05/17 08:45 K-Dur 10 Meq Tablet PO 10 meq WB SD Administration Senna/Docusate Sodium 2 tab 08/23/17 21:00 08/29/17 20:14 Senna Plus Tablet PO Not Given HS SD - Constitutional no acute distress, well nourished, cooperative - Routine HEENT Exam Head: Present: normocephalic ENT: Present: mucous membranes moist - Routine Neck Exam Absent: JVD, carotid bruit - Routine Chest/Breast/Axilla Exam Chest wall: Absent: tenderness - Routine Respiratory Exam Present: CTA bilaterally. Absent: dyspnea, rales, wheezes - Routine Cardiovascular Exam Present: RRR, murmur - Routine Abdominal Exam Present: soft, non tender - Routine Extremities Exam Present: no edema - Routine Skin Exam Present: intact, dry, warm - Routine Neurological Exam Present: alert, oriented X3 - Routine Psychiatric Exam Present: normal affect, normal thought process - Urinary Catheter Management Urethral Cath placed during this visit: yes, but has since been removed by the nurse Insertion date: 08/23/17 Insertion time: 22:30 Removal date: 09/07/17 Removal time: 08:00 Results 09/24/17 04:16 09/25/17 08:51 Intake and Output 09/26/17 09/27/17 09/27/17 22:59 06:59 14:59 Intake Total 240 / 240 Output Total 750 / 750 300 / 300 Balance -750 / -750 -300 / -300 240 / 240 Intake: Oral 240 / 240 Output: Urine 750 / 750 300 / 300 Other: Urine Appearance Clear Clear Urine Color Bright Yellow Light Riri Yellow Urine Odor Strong Strong Stool Color Dennis Colored Stool Consistency Dry and Hard Formed Size of Bowel Movement Large # Voids 1 2 Assessment and Plan - Assessment and Plan (1) Hypertension Current visit: Yes Status: Chronic (2) Diabetes mellitus type 2 in nonobese Current visit: Yes Status: Chronic (3) CAD (coronary artery disease) Current visit: Yes Status: Acute - Assessment and Plan 09/23/17 Hypertension Current visit: Yes Status: Chronic - DC metoprolol and change to labetolol 100mg bid for improved bp control - Continue clonidine .1mg tid, norvasc 10mg and lisinopril 40mg daily - Will obtain a renal artery sono - Nursing to take bp in arm and thigh to rule out coarctation Diabetes mellitus type 2 in nonobese Current visit: Yes Status: Chronic CAD (coronary artery disease) Current visit: Yes Status: Acute 09/24/17 BP remains uncontrolled. - Increase Labetalol to 200mg BID - Renal US: No evidence of hemodynamically significant renal arterial stenosis. - Change Lasix to Chlorthalidone 25mg daily - Change Amlodipine to Nifedipine 60mg daily 09/25/17 BP remains elevated, will wait and watch given medication changes yesterday 09/27/17 B/P improving, Increase Nifedipine to 90mg daily Hospital Course Summary Disclaimer: The visit summary below is not to be considered part of the above Progress Note. 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 Patient continues to have uncontrolled hypertension 180s systolic. Medication list reviewed carefully along with marked from Gerald. Different beta jonathan was reconciled on admission from medication list. Toprol-XL discontinued, patient placed on metoprolol tartrate, Lopressor 50 milligrams 3 times a day. Continue with lisinopril 40, hydralazine 50mg 3 times a day. Hgb is has remained stable at 11.9. Patient is on Keppra for history of seizures. Patient also takes clarithromycin 500 twice a day. Brother does confirm patient was on this prior to hospitalization, however, exact reason is unknown Monitor Accu-Cheks and continue on metformin twice a day. [place] as needed for postoperative pain control. Will add MiraLAX and senna plus twice a day for postoperative bowel motivation. Encouraged patient to work with PT and OT for ongoing strengthening At time of discharge medical care will return to primary care provider at [facility], Dr. Bro 08/25/2017 Patient was seen today secondary to reports of possible chest pain. Prior baseline is unknown, so will err on the side of caution. Start telemetry. Serial troponin. We'll obtain chest x-ray, as well as a right shoulder film due to concern for subluxation. GI upset is certainly a possibility, particularly since he is on clarithromycin. May need to get further information on that on Sunday from his PCP. We'll continue remainder current care. Assess lab in the morning for stability. Discussed with patient, he is in agreement with plan of care. 08/27/17 Overall appears to be medically stable. Given bradycardia will decreased Metoprolol to 50mg BID Will need to continue monitor BP. Did contact PCP office at [facility]- their old records from last January patient was not taking erythromycin. It is unclear exactly prescribed clarithromycin and for what reason. Will attempt to contact patient's brother regarding this medication. BGMs are well controlled on current regimen. Continue to encourage work with PT and OT for ongoing strengthening. 09/03/17 Sling to right arm - ortho recommends rechecking films ~09/11/17 HTN - increase hydralazine from 50 to 75 mg TID. Consider further w/u for HTN and r/o pheochromocytoma. He's on multiple classes of antiHTN with suboptimal control, including metoprolol, clonidine, lasix, furosemide, lisinopril + hydralazine. Bradycardia in the 50s precludes increasing BB. 09/05/17 Start bladder retraining. May pull catheter tomorrow if pt is having bladder filling sensation. Will give a second dose of Lasix now. Given his LE edema, HTN and (questionable) weight gain since admission, will increase his Lasix to 40mg q am (from 20mg q am) and follow weights, edema, BP and electrolytes. Increase KCl from 10mEq to 20mEq given the increase in Lasix dosing. Check daily weights. Weight on admission 100.3 and today is 113kg. Question accuracy of today's weight. Consider further w/u for HTN and r/o pheochromocytoma. He's on multiple classes of antiHTN with suboptimal control, including metoprolol, clonidine, lasix, furosemide, lisinopril + hydralazine. May need to clarify with PCP if prior workup for hypertension has been undertaken or which electronic commerce specialist patient has seen. 09/08/17 Headley catheter dc'd 09/07/17 and he's been voiding since. Switching from hydrocodone to oxycodone, has been helpful for pain control. In addition, BP under better control. Continue hydralazine 75 mg and increased Lasix/KCl doses. Check BMP in am. Sinus aram on tele - will dc tele. 09/14/17 BP's are slightly elevated but likely r/t pain. He is already on 4 agents, will continue to monitor. Headache is not new. PT working with him in re: to possible muscle contraction etiology. Sinusitis would be in the DDx, but no c/o fever, sinus drainage, ST, etc. WBC down today from yesterday. 13.3-->11.0. BS's stable. Hgb stable. Wound team following wound on R great toe. 09/17/17 Blood pressures continue to run high. He remains bradycardic with heart rates in the 50s. Metoprolol reduced to 25 mg. Clonidine was started on 09/16/17. Monitor response before further adjustments are made. Awaiting insurance approval, and discharge plans are to go to [facility] and rehabilitation. Dr. Briones's note reviewed. Continue PT/OT. 09/19/17 Patient continues to struggle with pain control. Continue pain medications and therapy plan per Dr. Briones. Persistent edema to right leg (operative side). Doppler obtained 09/18/17 and was negative for DVT. Recommend elevation as able with compression stockings/ SCDs. Continue to monitor closely. Blood pressures remain elevated and variable with bradycardia in the 50s. Metoprolol reduced to 25 mg BID on 09/17/17. Clonidine TID was started on . Will increase amlodipine to 10mg daily in AM and change Clonidine to TID PRN. Continue home Lasix 40mg daily and lisinopril 40mg daily. Monitor weight closely for signs of fluid overload. Patient may need additional diuresis. Awaiting insurance approval, and discharge plans are to go to [facility] and rehabilitation. Will recheck labs in AM to monitor blood counts, electrolytes and renal function. 09/20/17 Resume clonidine at 0.1mg BID in the event his sxs are r/t clonidine w/drawal. Continue amlodipine, Lasix and lisinopril. Check UA given the new onset of fever. If he continues to run fever, have diarrhea and has increase in WBC, will check for c diff. No cough or SOA. CBC and CMP in am. Hold metformin. NS 250cc bolus given and then tra 100cc/hr as pt isn't taking po well d/t nausea. PRN Zofran. 09/21/17 Cipro started for UTI. Culture pending. WBC is stable. Resume metformin in the am now that he is eating again. Continue to follow BP's. Amlodipine was increased to 10mg the day before yesterday. He likely had elevated BP yesterday d/t abrupt clonidine w/drawal and it was restarted at lower dose of 0.1mg BID. No changes today. 09/22/17 Continue with Cipro for treatment of UTI- C/S pending Data monitor blood sugars, metformin was started yesterday, 09/21. Will increase monitoring to 0.1 milligrams 3 times a day scheduled. May need to continue to increase this. There is when necessary available as needed for systolic greater than 160 Did ask nursing staff to contact Dr. Briones for further pain control if need be. Continue to follow carefully Plan - 09/23/17 Patient continues to struggle with pain control. Pain addressed by Dr. Briones and oxycodone 10mg increased to Q3H for additional pain control Continue pain control and therapies per Dr. Briones. UTI diagnosed 09/21/17. UA revealed enterococcus faecalis sensitive to ampicillin, linezolid, nitrofurantoin, vancomycin. Currently on cipro. Will discontinue cipro and initiate nitrofurantoin per sensitivities today. Blood sugars remain relatively stable. Continue to monitor closely. Blood pressures remain elevated despite multiple medications. Clonidine 0.1mg increased to TID on 09/22/17. Will continue to monitor closely with PRN clonidine as needed. Patient denies having electronic commerce specialist. Will consult Dr. Oropeza for further evaluation and expertise. Recheck labs in AM to monitor blood counts, electrolytes and renal function. <Felix Oropeza - Last Filed: 10/10/17 12:46> Exam Vital signs: Temperature 98.4 F 10/10/17 08:00 Pulse Rate 68 10/10/17 08:00 Respiratory Rate 20 10/10/17 08:00 Blood Pressure 174/80 H 10/10/17 08:00 Pulse Oximetry 96 10/10/17 08:00 Inpatient Medications: Generic Name Dose Route Start Last Admin Trade Name Freq PRN Reason Stop Dose Admin Acetaminophen 650 mg 10/06/17 17:00 10/10/17 09:07 Tylenol Arthritis 650 Mg Sr PO 650 mg Q8HR SD Administration Al Hydroxide/Mg Hydroxide 30 ml 10/06/17 13:12 Maalox Plus PO Q3H PRN Indigestion Aspirin 81 mg 10/05/17 09:00 10/10/17 09:08 Ecotrin PO 81 mg DAILY SD Administration Atorvastatin Calcium 10 mg 10/06/17 21:00 10/09/17 20:27 Lipitor PO 10 mg HS SD Administration Baclofen 5 mg 10/06/17 15:00 10/10/17 09:08 Lioresal PO 5 mg TID SD Administration Chlorthalidone 25 mg 10/07/17 08:00 10/10/17 09:06 Hygroton PO 25 mg WB SD Administration Clonidine HCl 0.1 mg 10/06/17 15:00 10/10/17 09:08 Catapres PO 0.1 mg TID SD Administration Cyclobenzaprine HCl 5 mg 10/06/17 13:09 10/09/17 14:23 Flexeril PO 5 mg TID PRN Administration Muscle spasm Diclofenac Sodium 1 applic 09/24/17 13:00 10/10/17 12:25 Voltaren TP 1 applic QID SD Administration Gabapentin 200 mg 10/06/17 15:00 10/10/17 09:10 Neurontin PO 200 mg TID SD Administration Glipizide 5 mg 10/06/17 17:30 10/10/17 09:06 Glucotrol PO 5 mg BIDBS SD Administration Hydralazine HCl 75 mg 10/06/17 17:30 10/10/17 12:31 Apresoline PO 75 mg WM SD Administration Sodium Chloride 500 mls @ 0 mls/hr 10/06/17 13:14 Normal Saline IV .Q0M PRN Per Protocol Insulin Aspart 1 - 5 unit 10/06/17 13:11 Novolog SQ SS PRN Hyperglycemia Protocol Labetalol HCl 200 mg 10/06/17 21:00 10/10/17 09:10 Normodyne PO 200 mg BID SD Administration Levetiracetam 500 mg 10/06/17 21:00 10/10/17 09:10 Keppra PO 500 mg Q12HR SD Administration Lisinopril 40 mg 08/24/17 09:00 10/10/17 09:10 Prinivil PO 40 mg DAILY SD Administration Magnesium Hydroxide 30 ml 10/06/17 13:13 Mom PO DAILY PRN Constipation Magnesium Oxide 400 mg 10/06/17 21:00 10/10/17 09:10 Magox PO 400 mg BID SD Administration Metformin HCl 500 mg 10/06/17 17:30 10/10/17 09:07 Glucophage PO 500 mg BIDBS SD Administration Nifedipine 90 mg 10/07/17 09:00 10/10/17 09:11 Procardia Xl PO 90 mg DAILY SD Administration Ondansetron HCl 4 mg 10/06/17 13:14 Zofran IVP Q6H PRN Nausea &/or vomiting Oxycodone HCl 5 mg 10/08/17 13:00 10/10/17 12:25 Roxicodone *Ir* PO 5 mg QID SD Administration Polyethylene Glycol 17 gm 10/05/17 09:00 10/10/17 09:09 Miralax PO 17 gm DAILY SD Administration Potassium Chloride 20 meq 10/07/17 08:00 10/10/17 09:07 K-Dur 20 Meq Tablet PO 20 meq WB SD Administration Prochlorperazine 10 mg 09/20/17 10:52 09/20/17 11:02 Compazine PO 10 mg TID PRN Administration Senna/Docusate Sodium 2 tab 08/24/17 21:00 09/20/17 09:25 Senna Plus Tablet PO Not Given BID SD Sodium Chloride 10 ml 10/06/17 13:15 Iv Flush IV PRN PRN Flushing Tamsulosin HCl 0.4 mg 10/06/17 21:00 10/09/17 20:29 Flomax PO 0.4 mg HS SD Administration Discontinued Medications Generic Name Dose Route Start Last Admin Trade Name Freq PRN Reason Stop Dose Admin Acetaminophen 650 mg 09/07/17 11:47 10/01/17 10:07 Tylenol PO 650 mg Q4H PRN Administration Pain Acetaminophen 650 mg 10/01/17 17:00 10/06/17 08:06 Tylenol Arthritis 650 Mg Sr PO 650 mg Q8HR SD Administration Hydrocodone Bitart/Acetaminophen 1 tab 08/23/17 17:09 08/26/17 04:14 [place] 5/325 PO 1 tab Q4H PRN Administration Pain Hydrocodone Bitart/Acetaminophen 1 - 2 tab 08/26/17 07:15 09/06/17 06:37 [place] 5/325 PO 2 tab Q4H PRN Administration Pain Al Hydroxide/Mg Hydroxide 30 ml 08/25/17 10:42 08/25/17 10:48 Maalox Plus PO 30 ml Q3H PRN Administration Indigestion Amlodipine Besylate 5 mg 09/16/17 21:00 09/19/17 08:35 Norvasc PO 5 mg BID SD Administration Amlodipine Besylate 10 mg 09/20/17 09:00 09/24/17 08:19 Norvasc PO 10 mg DAILY SD Administration Aspirin 81 mg 08/24/17 09:00 10/04/17 08:39 Ecotrin PO 81 mg DAILY SD Administration Atorvastatin Calcium 10 mg 08/23/17 21:00 08/24/17 21:09 Lipitor PO 10 mg HS SD Administration Atorvastatin Calcium 10 mg 08/25/17 21:00 10/05/17 21:19 Lipitor PO 10 mg HS SD Administration Baclofen 5 mg 08/23/17 21:00 10/06/17 08:07 Lioresal PO 5 mg TID SD Administration Chlorthalidone 25 mg 09/25/17 08:00 10/06/17 08:06 Hygroton PO 25 mg WB SD Administration Ciprofloxacin 500 mg 09/21/17 09:00 09/23/17 08:18 Cipro 500 Mg PO 500 mg Q12HR SD Administration Clarithromycin 500 mg 08/23/17 21:00 08/24/17 08:49 Biaxin PO 500 mg BID SD Administration Clarithromycin 500 mg 08/24/17 17:30 08/25/17 09:12 Biaxin PO 500 mg BIDWM SD Administration Clonidine HCl 0.2 mg 08/23/17 21:00 09/16/17 15:40 Catapres PO 0.2 mg TID SD Administration Clonidine HCl 0.1 mg 09/16/17 21:00 09/19/17 08:35 Catapres PO 0.1 mg TID SD Administration Clonidine HCl 0.1 mg 09/19/17 14:08 09/22/17 15:29 Catapres PO 0.1 mg TID PRN Administration Clonidine HCl 0.1 mg 09/20/17 21:00 09/22/17 08:27 Catapres PO 0.1 mg BID SD Administration Clonidine HCl 0.1 mg 09/22/17 21:00 10/06/17 08:05 Catapres PO 0.1 mg TID SD Administration Clonidine HCl 0.1 mg 09/23/17 08:10 Catapres PO TID PRN GIVE ONLY IF SBP > 160. Cyclobenzaprine HCl 5 mg 08/24/17 21:24 10/05/17 01:23 Flexeril PO 5 mg TID PRN Administration Muscle spasm Enoxaparin Sodium 30 mg 08/23/17 21:00 09/28/17 08:40 Lovenox SQ 30 mg BID SD Administration Furosemide 20 mg 08/24/17 09:00 09/05/17 08:46 Lasix 20 Mg Tab PO 20 mg DAILY SD Administration Furosemide 20 mg 09/05/17 16:24 09/05/17 17:35 Lasix 20 Mg Tab PO 09/05/17 16:25 20 mg O ONE Administration Furosemide 40 mg 09/06/17 07:00 09/24/17 08:19 Lasix 20 Mg Tab PO 40 mg DAILY SD Administration Gabapentin 100 mg 08/23/17 21:00 09/06/17 08:30 Neurontin PO 100 mg TID SD Administration Gabapentin 200 mg 09/06/17 10:35 10/06/17 08:06 Neurontin PO 200 mg TID SD Administration Glipizide 5 mg 08/23/17 17:30 10/06/17 08:06 Glucotrol PO 5 mg BIDBS SD Administration Hydralazine HCl 50 mg 08/23/17 17:30 09/03/17 12:27 Apresoline PO 50 mg WM SD Administration Hydralazine HCl 75 mg 09/03/17 14:00 10/06/17 12:21 Apresoline PO 75 mg WM SD Administration Hydromorphone HCl 0.5 mg 08/24/17 21:27 09/06/17 09:50 Dilaudid IM 0.5 mg Q3H PRN Administration Pain uncontrolled by po meds Sodium Chloride 1,000 mls @ 100 mls/hr 09/20/17 14:15 09/21/17 17:19 Normal Saline IV Not Given .Q10H SD Sodium Chloride 1,000 mls @ 999.9 mls/hr 09/20/17 14:16 09/20/17 18:12 Normal Saline IV 09/20/17 15:15 750 mls/hr .Q1H ONE Infusion Magnesium Sulfate/Dextrose 1 gm in 100 mls @ 100 mls/hr 09/25/17 14:15 19:52 Mag Sulf 1gm Premix IV 09/25/17 16:14 Infused Q1H SD Infusion Sodium Chloride 500 mls @ 0 mls/hr 09/25/17 16:58 Normal Saline IV .Q0M PRN Per Protocol Ibuprofen 400 mg 09/10/17 13:58 09/13/17 15:15 Motrin PO 400 mg Q4H PRN Administration Headache /Pain Insulin Aspart 1 - 5 unit 08/23/17 17:18 10/01/17 21:25 Novolog SQ 1 unit SS PRN Administration Hyperglycemia Protocol Labetalol HCl 100 mg 09/23/17 21:00 09/24/17 20:10 Normodyne PO 09/24/17 21:00 Not Given BID SD Labetalol HCl 100 mg 09/24/17 11:33 09/24/17 12:25 Normodyne PO 09/24/17 11:34 100 mg O ONE Administration Labetalol HCl 200 mg 09/24/17 21:00 10/06/17 08:06 Normodyne PO 200 mg BID SD Administration Levetiracetam 500 mg 08/23/17 21:00 10/06/17 08:06 Keppra PO 500 mg Q12HR SD Administration Lidocaine HCl 20 ml 08/23/17 22:09 08/23/17 22:39 Urojet MM 08/23/17 22:10 20 ml O ONE Administration Magnesium Hydroxide 30 ml 08/23/17 17:12 Mom PO DAILY PRN Constipation Magnesium Oxide 400 mg 08/23/17 21:00 10/06/17 08:07 Magox PO 400 mg BID SD Administration Metformin HCl 500 mg 08/23/17 17:30 10/06/17 08:07 Glucophage PO 500 mg BIDBS SD Administration Metoprolol Succinate 25 mg 08/23/17 21:00 08/24/17 08:53 Toprol Xl PO Not Given BID SD Metoprolol Succinate 50 mg 08/24/17 09:00 Toprol Xl PO DAILY SD Metoprolol Tartrate 50 mg 08/24/17 12:00 08/27/17 08:21 Lopressor PO 50 mg TIDWM SD Administration Metoprolol Tartrate 50 mg 08/27/17 17:30 09/16/17 09:06 Lopressor PO 50 mg BIDWM SD Administration Metoprolol Tartrate 25 mg 08/31/17 10:00 08/31/17 09:59 Lopressor PO 08/31/17 10:01 25 mg O ONE Administration Metoprolol Tartrate 25 mg 09/16/17 16:31 09/16/17 17:38 Lopressor PO 25 mg BIDWM SD Administration Metoprolol Tartrate 25 mg 09/17/17 08:00 09/23/17 08:17 Lopressor PO 25 mg BIDWM SD Administration Nifedipine 60 mg 09/25/17 09:00 09/27/17 08:50 Procardia Xl PO 60 mg DAILY SD Administration Nifedipine 30 mg 09/27/17 13:30 09/27/17 14:04 Procardia Xl PO 09/27/17 13:31 30 mg O ONE Administration Nifedipine 90 mg 09/28/17 09:00 10/06/17 09:13 Procardia Xl PO 90 mg DAILY SD Administration Nitrofurantoin Macrocrystals 100 mg 09/23/17 17:30 09/30/17 17:06 Macrobid PO 09/30/17 23:59 100 mg BIDWM SD Administration Nitrofurantoin Macrocrystals 100 mg 09/23/17 10:17 09/23/17 10:59 Macrobid PO 09/23/17 10:18 100 mg O ONE Administration Ondansetron HCl 4 mg 09/20/17 14:17 Zofran IVP Q6H PRN Nausea &/or vomiting Oxycodone HCl 15 mg 09/06/17 10:34 09/10/17 09:45 Roxicodone *Ir* PO 15 mg Q3H PRN Administration Pain Oxycodone HCl 15 mg 09/10/17 12:00 09/18/17 09:49 Roxicodone *Ir* PO 15 mg Q3HWA SD Administration Oxycodone HCl 10 mg 09/18/17 11:41 09/18/17 13:03 Roxicodone *Ir* PO Not Given Q3HWA SD Oxycodone HCl 10 mg 09/18/17 15:00 09/20/17 09:18 Roxicodone *Ir* PO 10 mg Q3HWA SD Administration Oxycodone HCl 10 mg 09/20/17 12:00 09/22/17 13:53 Roxicodone *Ir* PO 10 mg Q4H SD Administration Oxycodone HCl 10 mg 09/22/17 17:00 09/27/17 09:09 Roxicodone *Ir* PO 10 mg Q3HWA SD Administration Oxycodone HCl 5 mg 09/22/17 15:37 09/22/17 15:40 Roxicodone *Ir* PO 09/22/17 15:38 5 mg ONE TIME ONE Administration Oxycodone HCl 10 mg 09/27/17 13:00 10/01/17 08:12 Roxicodone *Ir* PO 10 mg QID SD Administration Oxycodone HCl 7.5 mg 10/01/17 13:00 10/03/17 21:07 Roxicodone *Ir* PO 7.5 mg QID SD Administration Oxycodone HCl 7.5 mg 10/04/17 09:00 10/06/17 13:05 Roxicodone *Ir* PO 7.5 mg QID SD Administration Oxycodone HCl 7.5 mg 10/06/17 17:00 10/08/17 08:39 Roxicodone *Ir* PO 7.5 mg QID SD Administration Pharmacy Consult 1 each 08/24/17 14:16 Pharmacy Consult - Fall Risk 08/24/17 14:17 ONE TIME ONE Pharmacy Consult 1 each 09/03/17 11:20 Pharmacy Consult - Fall Risk 09/03/17 11:21 ONE TIME ONE Pharmacy Consult 1 each 09/12/17 11:25 Pharmacy Consult - Fall Risk 09/12/17 11:26 ONE TIME ONE Pharmacy Consult 1 each 09/22/17 09:34 Pharmacy Consult - Fall Risk 09/22/17 09:35 ONE TIME ONE Pharmacy Consult each 09/30/17 10:25 Pharmacy Consult - Fall Risk 09/30/17 10:26 ONE TIME ONE Polyethylene Glycol 17 gm 08/24/17 09:30 09/20/17 09:25 Miralax PO Not Given DAILY SD Polyethylene Glycol 17 gm 10/05/17 09:00 Miralax PO DAILY SD Potassium Chloride 10 meq 08/24/17 08:00 09/05/17 08:45 K-Dur 10 Meq Tablet PO 10 meq WB SD Administration Potassium Chloride 20 meq 09/06/17 08:00 10/03/17 08:18 K-Dur 10 Meq Tablet PO 20 meq WB SD Administration Potassium Chloride 20 meq 10/04/17 08:15 10/06/17 08:05 K-Dur 20 Meq Tablet PO 20 meq WB SD Administration Senna/Docusate Sodium 2 tab 08/23/17 21:00 08/29/17 20:14 Senna Plus Tablet PO Not Given HS SD Sodium Chloride 10 ml 09/27/17 09:16 10/01/17 21:13 Iv Flush IV 10 ml PRN PRN Administration Flushing Tamsulosin HCl 0.4 mg 08/23/17 21:00 10/05/17 21:22 Flomax PO 0.4 mg HS SD Administration - Urinary Catheter Management Urethral Cath placed during this visit: no Results 10/07/17 05:09 10/07/17 05:09 Intake and Output 10/09/17 10/10/17 10/10/17 22:59 06:59 14:59 Intake Total 300 / 300 300 / 300 Balance 300 / 300 300 / 300 Intake: Oral 300 / 300 300 / 300 Other: Urine Color Yellow Urine Odor Normal # Incontinent Voids 1 Assessment and Plan - Assessment and Plan (1) Hypertension Current visit: Yes Status: Chronic (2) Diabetes mellitus type 2 in nonobese Current visit: Yes Status: Chronic (3) CAD (coronary artery disease) Current visit: Yes Status: Acute - Attestation Attestation Narrative: 10/10/17 12:46 Recommendation After examining the patient I agree with the above assessment. I am involved in the formulation of the patient's plan of care. Hospital Course Summary Disclaimer: The visit summary below is not to be considered part of the above Progress Note.
[2017-09-27] MEDS: SALINE FLUSH 10ml SYRINGE IV PRN (21:38)
[2017-09-27] MEDS: ATORVASTATIN 10 MG TABLET PO SCH (21:39)
[2017-09-27] MEDS: TAMSULOSIN 0.4 MG CAPSULE PO SCH (21:42)
[2017-09-28] MEDS: CHLORTHALIDONE 25 MG TABLET PO SCH (08:37)
[2017-09-28] MEDS: GlipiZIDE 5 MG TABLET PO SCH ×2 (08:37→17:28)
[2017-09-28] MEDS: HYDRALAZINE 25 MG TABLET PO SCH ×3 (08:37→17:28)
[2017-09-28] MEDS: METFORMIN 500 MG TABLET PO SCH ×2 (08:37→17:28)
[2017-09-28] MEDS: ASPIRIN *EC* 81 MG TABLET PO SCH (08:38)
[2017-09-28] MEDS: BACLOFEN 10 MG TABLET PO SCH ×3 (08:38→21:24)
[2017-09-28] MEDS: NITROFURANTOIN (MACROBID) 100 MG CAPSULE PO SCH ×2 (08:38→17:28)
[2017-09-28] MEDS: DICLOFENAC 1% TOP GEL 100gm TP SCH ×4 (08:39→21:25)
[2017-09-28] MEDS: LISINOPRIL 40 MG TABLET PO SCH (08:40)
[2017-09-28] MEDS: ENOXAPARIN 30 MG/0.3 ML INJECTION SQ SCH (08:40)
[2017-09-28] MEDS: LEVETIRACETAM 500 MG TABLET PO SCH ×2 (08:40→21:26)
[2017-09-28] MEDS: GABAPENTIN 100 MG CAPSULE PO SCH ×3 (08:40→21:25)
[2017-09-28] MEDS: LABETALOL 100 MG TABLET PO SCH ×2 (08:40→21:26)
[2017-09-28] MEDS: Oxycodone *IR* 5 MG TABLET PO SCH ×4 (08:41→21:30)
[2017-09-28] MEDS: MAGNESIUM OXIDE 400 MG TABLET PO SCH ×2 (08:41→21:26)
--- NOTE | 2017-09-28 11:30 | IRU Progress Note ---
- Subjective/Serverity of Illness Date: 09/28/17 Hermes reports that his knees appear to be doing a bit better with regard to the Voltaren gel. We did reduce his OxyContin to 10 mg 4 times daily from about 6 times daily. Thus far, he seems to be tolerating this well. He does have Tylenol available in between times. His blood pressures continue to be a bit elevated but are improved. Cardiology has increased his nifedipine to 90 mg daily. Edema persists in the right lower extremity but he had a negative venous Doppler there previously. From a therapy standpoint he is able to ambulate with a hemiwalker. Is able to dress with standby assistance at times. Exam Vital Signs: Temperature 98.0 F 09/28/17 08:00 Pulse Rate 64 09/28/17 08:00 Respiratory Rate 16 09/28/17 08:00 Blood Pressure 139/71 09/28/17 08:00 Pulse Oximetry 99 09/28/17 08:00 Height/Weight/BMI: Height 1.83 m Weight 97.3 kg Body Mass Index 29.9 - Constitutional Present: no acute distress, well nourished, well developed, cooperative - Routine HEENT Exam Eye: Present: EOMI ENT: Present: mucous membranes moist, dentition normal - Routine Respiratory Exam Present: CTA bilaterally. Absent: wheezes - Routine Cardiovascular Exam Present: RRR, S1, S2, murmur (as before to perhaps less prominent.) - Routine Abdominal Exam Present: soft, normoactive bowel sounds, non distended. Absent: tenderness - Routine Extremities Exam Present: edema (right lower extremity as before.), normal capillary refill - Routine Skin Exam Present: dry, warm - Routine Neurological Exam Present: alert, CN II-XII intact, motor deficit (no change in right-sided weakness.). Absent: normal speech - Routine Psychiatric Exam Present: normal affect Results IRU - Labs Labs: I reviewed other providers notes (cardiology). Also reviewed labs, vital signs and other chart dated along with therapy notes. IRU A/P (1) S/P hip hemiarthroplasty Problem details: Surgery done for subcapital , femoral neck Fx Current visit: Yes Status: Acute Able to ambulate with hemiwalker. Improving in strength and confidence. (2) Diabetes mellitus type 2 in nonobese Current visit: Yes Status: Chronic (3) Hypertension Qualifiers: Hypertension type: essential hypertension Qualified Code(s): I10 - Essential (primary) hypertension Current visit: Yes Status: Chronic Blood pressures continue to be a bit elevated although improved. Nifedipine increased to 90 mg daily. (4) Nondisplaced fracture of head of right radius Qualifiers: Encounter type: initial encounter Fracture type: closed Qualified Code(s) : S52.124A - Nondisplaced fracture of head of right radius, initial encounter for closed fracture Current visit: Yes Status: Acute (5) Toe abrasion, non-infected Current visit: Yes Status: Acute (6) Leukocytosis Qualifiers: Leukocytosis type: unspecified Qualified Code(s): D72.829 - Elevated white blood cell count, unspecified Current visit: Yes Status: Acute (7) Headache Qualifiers: Headache type: tension-type Headache chronicity pattern: chronic headache Current visit: Yes Status: Resolved (8) UTI (urinary tract infection) Qualifiers: Urinary tract infection type: acute cystitis Hematuria presence: with hematuria Qualified Code(s): N30.01 - Acute cystitis with hematuria Current visit: Yes Status: Acute (9) Knee pain, bilateral Qualifiers: Chronicity: chronic Qualified Code(s): M25.561 - Pain in right knee; M25.562 - Pain in left knee; G89.29 - Other chronic pain Current visit: Yes Status: Chronic DVT Prophylaxis: Lovenox Resuscitation Status: Full Code - Course Hospital Course: Chucho Solis MD: 09/03/17 15:14 Pain in right elbow and right hip as anticipated. Blood sugars are controlled. Blood pressures remain a bit elevated. 09/04/17 12:44 Progressing with therapy. Blood sugars look excellent. Pain in right elbow seems to be a major issue. 09/06/17 11:50 Improving with therapy. Blood pressures remain elevated. Lasix has been increased. I will increase gabapentin and switch to oxycodone today. 09/07/17 11:20 Continues to have some edema in the right lower extremity. He is progressing with therapy with regard to ambulation. Pain management hopefully is improved with the use of oxycodone. 09/10/17 12:06 Pain management is difficult. We'll schedule the oxycodone. Blood pressures remain elevated likely related to pain management. He is voiding although does have occasional residuals identified. 09/11/17 11:58 Headache is resolved. Improved pain management with oxycodone regularly scheduled. Blood pressures are improved with regular doses of oxycodone. New evidence of abrasion to right great toe. 09/13/17 13:51 White count to 13,000. No evidence of source of infection at present. Sugars are well controlled. Cooperative with therapy. Headache returned but less intense. 09/14/17 11:37 Headache continues to come and go. Seems to be localized in right temporal area. We will check a sedimentation rate. Neurologically he is otherwise unchanged. 09/17/17 11:54 Headache reportedly resolved. No new neurologic changes. Pain management is a challenge. Blood pressures remain elevated although medications have been adjusted. 09/18/17 11:39 Headache appears to have resolved. Abrasion on toe improved. Edema right leg remains. Venous Doppler ordered. We will try to reduce pain medications. 09/20/17 11:48 Vomiting this morning. Anorectic now. Loose stools. Abdomen remained soft. Venous Doppler right leg negative. We will need to hold therapy. 09/21/17 10:48 UTI diagnosed. No further nausea or vomiting. Low-grade fever yesterday without recurrence. He is now on Cipro. He looks and feels better. 09/24/17 10:34 He was changed from Cipro to nitrofurantoin for E. faecalis UTI. Blood pressure management changed from metoprolol to labetalol. I will add on Voltaren gel for the knee pain. We had increased his oxycodone late last week. 09/25/17 10:54 Blood pressures improved. Continues to complain of a variety of pains mostly both knees, headache and right side of his body. He is cooperative with therapy and making progress. 09/27/17 11:18 Progressing with therapy. Continues to have chronic pain. Blood pressure medications are adjusted by hospitalists service. 09/28/17 11:30 Nifedipine increased to 90 mg daily. Making progress with therapy. Placement in progress. - Interventions to Obtain Goals PT Treatment Plan: Balance/Proprioception, Functional Activities, Gait Training , Patient/Family Education, Therapeutic Exercise OT Treatment Plan: ADL (Basic Care), Balance Training, IADL, Pt./Family Education, Ther. Exercise for ADL
--- NOTE | 2017-09-28 15:09 | Cardiology Progress Note ---
<Sharlene Currie - Last Filed: 10/01/17 19:44> Subjective Principal diagnosis: HTN Interval history: Hermes is seen in follow up for HTN. He is in his room on IRU. He denies chest pain , pressure, palpitations, dizziness, nausea. Exam Vital signs: Temperature 98.0 F 09/28/17 08:00 Pulse Rate 64 09/28/17 08:00 Respiratory Rate 16 09/28/17 08:00 Blood Pressure 139/71 09/28/17 08:00 Pulse Oximetry 99 09/28/17 08:00 Inpatient Medications: Generic Name Dose Route Start Last Admin Trade Name Freq PRN Reason Stop Dose Admin Acetaminophen 650 mg 09/07/17 11:47 09/24/17 16:16 Tylenol PO 650 mg Q4H PRN Administration Pain Al Hydroxide/Mg Hydroxide 30 ml 08/25/17 10:42 08/25/17 10:48 Maalox Plus PO 30 ml Q3H PRN Administration Indigestion Aspirin 81 mg 08/24/17 09:00 09/28/17 08:38 Ecotrin PO 81 mg DAILY SD Administration Atorvastatin Calcium 10 mg 08/25/17 21:00 09/27/17 21:39 Lipitor PO 10 mg HS SD Administration Baclofen 5 mg 08/23/17 21:00 09/28/17 08:38 Lioresal PO 5 mg TID SD Administration Chlorthalidone 25 mg 09/25/17 08:00 09/28/17 08:37 Hygroton PO 25 mg WB SD Administration Clonidine HCl 0.1 mg 09/22/17 21:00 09/28/17 08:39 Catapres PO 0.1 mg TID SD Administration Cyclobenzaprine HCl 5 mg 08/24/17 21:24 09/25/17 14:46 Flexeril PO 5 mg TID PRN Administration Muscle spasm Diclofenac Sodium 1 applic 09/24/17 13:00 09/28/17 12:36 Voltaren TP 1 applic QID SD Administration Gabapentin 200 mg 09/06/17 10:35 09/28/17 08:40 Neurontin PO 200 mg TID SD Administration Glipizide 5 mg 08/23/17 17:30 09/28/17 08:37 Glucotrol PO 5 mg BIDBS SD Administration Hydralazine HCl 75 mg 09/03/17 14:00 09/28/17 12:36 Apresoline PO 75 mg WM SD Administration Sodium Chloride 500 mls @ 0 mls/hr 09/25/17 16:58 Normal Saline IV .Q0M PRN Per Protocol Insulin Aspart 1 - 5 unit 08/23/17 17:18 09/26/17 12:30 Novolog SQ 1 unit SS PRN Administration Hyperglycemia Protocol Labetalol HCl 200 mg 09/24/17 21:00 09/28/17 08:40 Normodyne PO 200 mg BID SD Administration Levetiracetam 500 mg 08/23/17 21:00 09/28/17 08:40 Keppra PO 500 mg Q12HR SD Administration Lisinopril 40 mg 08/24/17 09:00 09/28/17 08:40 Prinivil PO 40 mg DAILY SD Administration Magnesium Hydroxide 30 ml 08/23/17 17:12 Mom PO DAILY PRN Constipation Magnesium Oxide 400 mg 08/23/17 21:00 09/28/17 08:41 Magox PO 400 mg BID SD Administration Metformin HCl 500 mg 08/23/17 17:30 09/28/17 08:37 Glucophage PO 500 mg BIDBS SD Administration Nifedipine 90 mg 09/28/17 09:00 09/28/17 08:41 Procardia Xl PO 90 mg DAILY SD Administration Nitrofurantoin Macrocrystals 100 mg 09/23/17 17:30 09/28/17 08:38 Macrobid PO 09/30/17 23:59 100 mg BIDWM SD Administration Ondansetron HCl 4 mg 09/20/17 14:17 Zofran IVP Q6H PRN Nausea &/or vomiting Oxycodone HCl 10 mg 09/27/17 13:00 09/28/17 12:36 Roxicodone *Ir* PO 10 mg QID SD Administration Polyethylene Glycol 17 gm 08/24/17 09:30 09/20/17 09:25 Miralax PO Not Given DAILY [facility] Potassium Chloride 20 meq 09/06/17 08:00 09/28/17 08:38 K-Dur 10 Meq Tablet PO 20 meq WB SD Administration Prochlorperazine 10 mg 09/20/17 10:52 09/20/17 11:02 Compazine PO 10 mg TID PRN Administration Senna/Docusate Sodium 2 tab 08/24/17 21:00 09/20/17 09:25 Senna Plus Tablet PO Not Given BID SD Sodium Chloride 10 ml 09/27/17 09:16 09/27/17 21:38 Iv Flush IV 10 ml PRN PRN Administration Flushing Tamsulosin HCl 0.4 mg 08/23/17 21:00 09/27/17 21:42 Flomax PO 0.4 mg HS SD Administration Discontinued Medications Generic Name Dose Route Start Last Admin Trade Name Didierq PRN Reason Stop Dose Admin Hydrocodone Bitart/Acetaminophen 1 tab 08/23/17 17:09 08/26/17 04:14 [place] 5/325 PO 1 tab Q4H PRN Administration Pain Hydrocodone Bitart/Acetaminophen 1 - 2 tab 08/26/17 07:15 09/06/17 06:37 [place] 5/325 PO 2 tab Q4H PRN Administration Pain Amlodipine Besylate 5 mg 09/16/17 21:00 09/19/17 08:35 Norvasc PO 5 mg BID SD Administration Amlodipine Besylate 10 mg 09/20/17 09:00 09/24/17 08:19 Norvasc PO 10 mg DAILY SD Administration Atorvastatin Calcium 10 mg 08/23/17 21:00 08/24/17 21:09 Lipitor PO 10 mg HS SD Administration Ciprofloxacin 500 mg 09/21/17 09:00 09/23/17 08:18 Cipro 500 Mg PO 500 mg Q12HR SD Administration Clarithromycin 500 mg 08/23/17 21:00 08/24/17 08:49 Biaxin PO 500 mg BID SD Administration Clarithromycin 500 mg 08/24/17 17:30 08/25/17 09:12 Biaxin PO 500 mg BIDWM SD Administration Clonidine HCl 0.2 mg 08/23/17 21:00 09/16/17 15:40 Catapres PO 0.2 mg TID SD Administration Clonidine HCl 0.1 mg 09/16/17 21:00 09/19/17 08:35 Catapres PO 0.1 mg TID SD Administration Clonidine HCl 0.1 mg 09/19/17 14:08 09/22/17 15:29 Catapres PO 0.1 mg TID PRN Administration Clonidine HCl 0.1 mg 09/20/17 21:00 09/22/17 08:27 Catapres PO 0.1 mg BID SD Administration Clonidine HCl 0.1 mg 09/23/17 08:10 Catapres PO TID PRN GIVE ONLY IF SBP > 160. Enoxaparin Sodium 30 mg 08/23/17 21:00 09/28/17 08:40 Lovenox SQ 30 mg BID SD Administration Furosemide 20 mg 08/24/17 09:00 09/05/17 08:46 Lasix 20 Mg Tab PO 20 mg DAILY SD Administration Furosemide 20 mg 09/05/17 16:24 09/05/17 17:35 Lasix 20 Mg Tab PO 09/05/17 16:25 20 mg O ONE Administration Furosemide 40 mg 09/06/17 07:00 09/24/17 08:19 Lasix 20 Mg Tab PO 40 mg DAILY SD Administration Gabapentin 100 mg 08/23/17 21:00 09/06/17 08:30 Neurontin PO 100 mg TID SD Administration Hydralazine HCl 50 mg 08/23/17 17:30 09/03/17 12:27 Apresoline PO 50 mg WM SD Administration Hydromorphone HCl 0.5 mg 08/24/17 21:27 09/06/17 09:50 Dilaudid IM 0.5 mg Q3H PRN Administration Pain uncontrolled by po meds Sodium Chloride 1,000 mls @ 100 mls/hr 09/20/17 14:15 09/21/17 17:19 Normal Saline IV Not Given .Q10H SD Sodium Chloride 1,000 mls @ 999.9 mls/hr 09/20/17 14:16 09/20/17 18:12 Normal Saline IV 09/20/17 15:15 750 mls/hr .Q1H ONE Infusion Magnesium Sulfate/Dextrose 1 gm in 100 mls @ 100 mls/hr 09/25/17 14:15 19:52 Mag Sulf 1gm Premix IV 09/25/17 16:14 Infused Q1H SD Infusion Ibuprofen 400 mg 09/10/17 13:58 09/13/17 15:15 Motrin PO 400 mg Q4H PRN Administration Headache /Pain Labetalol HCl 100 mg 09/23/17 21:00 09/24/17 20:10 Normodyne PO 09/24/17 21:00 Not Given BID SD Labetalol HCl 100 mg 09/24/17 11:33 09/24/17 12:25 Normodyne PO 09/24/17 11:34 100 mg O ONE Administration Lidocaine HCl 20 ml 08/23/17 22:09 08/23/17 22:39 Urojet MM 08/23/17 22:10 20 ml O ONE Administration Metoprolol Succinate 25 mg 08/23/17 21:00 08/24/17 08:53 Toprol Xl PO Not Given BID SD Metoprolol Succinate 50 mg 08/24/17 09:00 Toprol Xl PO DAILY SD Metoprolol Tartrate 50 mg 08/24/17 12:00 08/27/17 08:21 Lopressor PO 50 mg TIDWM SD Administration Metoprolol Tartrate 50 mg 08/27/17 17:30 09/16/17 09:06 Lopressor PO 50 mg BIDWM SD Administration Metoprolol Tartrate 25 mg 08/31/17 10:00 08/31/17 09:59 Lopressor PO 08/31/17 10:01 25 mg O ONE Administration Metoprolol Tartrate 25 mg 09/16/17 16:31 09/16/17 17:38 Lopressor PO 25 mg BIDWM SD Administration Metoprolol Tartrate 25 mg 09/17/17 08:00 09/23/17 08:17 Lopressor PO 25 mg BIDWM SD Administration Nifedipine 60 mg 09/25/17 09:00 09/27/17 08:50 Procardia Xl PO 60 mg DAILY SD Administration Nifedipine 30 mg 09/27/17 13:30 09/27/17 14:04 Procardia Xl PO 09/27/17 13:31 30 mg O ONE Administration Nitrofurantoin Macrocrystals 100 mg 09/23/17 10:17 09/23/17 10:59 Macrobid PO 09/23/17 10:18 100 mg O ONE Administration Oxycodone HCl 15 mg 09/06/17 10:34 09/10/17 09:45 Roxicodone *Ir* PO 15 mg Q3H PRN Administration Pain Oxycodone HCl 15 mg 09/10/17 12:00 09/18/17 09:49 Roxicodone *Ir* PO 15 mg Q3HWA SD Administration Oxycodone HCl 10 mg 09/18/17 11:41 09/18/17 13:03 Roxicodone *Ir* PO Not Given Q3HWA SD Oxycodone HCl 10 mg 09/18/17 15:00 09/20/17 09:18 Roxicodone *Ir* PO 10 mg Q3HWA SD Administration Oxycodone HCl 10 mg 09/20/17 12:00 09/22/17 13:53 Roxicodone *Ir* PO 10 mg Q4H SD Administration Oxycodone HCl 10 mg 09/22/17 17:00 09/27/17 09:09 Roxicodone *Ir* PO 10 mg Q3HWA SD Administration Oxycodone HCl 5 mg 09/22/17 15:37 09/22/17 15:40 Roxicodone *Ir* PO 09/22/17 15:38 5 mg ONE TIME ONE Administration Pharmacy Consult 1 each 08/24/17 14:16 Pharmacy Consult - Fall Risk 08/24/17 14:17 ONE TIME ONE Pharmacy Consult 1 each 09/03/17 11:20 Pharmacy Consult - Fall Risk 09/03/17 11:21 ONE TIME ONE Pharmacy Consult 1 each 09/12/17 11:25 Pharmacy Consult - Fall Risk 09/12/17 11:26 ONE TIME ONE Pharmacy Consult 1 each 09/22/17 09:34 Pharmacy Consult - Fall Risk 09/22/17 09:35 ONE TIME ONE Potassium Chloride 10 meq 08/24/17 08:00 09/05/17 08:45 K-Dur 10 Meq Tablet PO 10 meq WB SD Administration Senna/Docusate Sodium 2 tab 08/23/17 21:00 08/29/17 20:14 Senna Plus Tablet PO Not Given HS SD - Constitutional no acute distress, well nourished, cooperative - Routine HEENT Exam Head: Present: normocephalic ENT: Present: mucous membranes moist - Routine Neck Exam Absent: JVD, carotid bruit - Routine Chest/Breast/Axilla Exam Chest wall: Absent: tenderness - Routine Respiratory Exam Present: CTA bilaterally. Absent: dyspnea, rales, crackles - Routine Cardiovascular Exam Present: RRR, no murmur - Routine Abdominal Exam Present: soft, non tender - Routine Extremities Exam Present: no edema - Routine Skin Exam Present: intact, dry, warm - Routine Neurological Exam Present: alert - Routine Psychiatric Exam Present: normal affect - Urinary Catheter Management Urethral Cath placed during this visit: yes, but has since been removed by the nurse Insertion date: 08/23/17 Insertion time: 22:30 Removal date: 09/07/17 Removal time: 08:00 Results 10/01/17 16:51 10/01/17 16:51 Intake and Output 09/28/17 09/28/17 09/28/17 06:59 14:59 22:59 Intake Total 480 / 480 Output Total 800 / 800 Balance -800 / -800 480 / 480 Intake: Oral 480 / 480 Output: Urine 800 / 800 Other: Urine Appearance Clear Urine Color Light Riri Urine Odor Sweet # Voids 0 Assessment and Plan - Assessment and Plan (1) Hypertension Current visit: Yes Status: Chronic (2) Diabetes mellitus type 2 in nonobese Current visit: Yes Status: Chronic (3) CAD (coronary artery disease) Current visit: Yes Status: Acute - Assessment and Plan 09/23/17 Hypertension Current visit: Yes Status: Chronic - DC metoprolol and change to labetolol 100mg bid for improved bp control - Continue clonidine .1mg tid, norvasc 10mg and lisinopril 40mg daily - Will obtain a renal artery sono - Nursing to take bp in arm and thigh to rule out coarctation Diabetes mellitus type 2 in nonobese Current visit: Yes Status: Chronic CAD (coronary artery disease) Current visit: Yes Status: Acute 09/24/17 BP remains uncontrolled. - Increase Labetalol to 200mg BID - Renal US: No evidence of hemodynamically significant renal arterial stenosis. - Change Lasix to Chlorthalidone 25mg daily - Change Amlodipine to Nifedipine 60mg daily 09/25/17 BP remains elevated, will wait and watch given medication changes yesterday 09/27/17 B/P improving, Increase Nifedipine to 90mg daily 09/28/17 BP slowly improving, continue to monitor Hospital Course Summary Disclaimer: The visit summary below is not to be considered part of the above Progress Note. 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 Patient continues to have uncontrolled hypertension 180s systolic. Medication list reviewed carefully along with marked from Gerald. Different beta jonathan was reconciled on admission from medication list. Toprol-XL discontinued, patient placed on metoprolol tartrate, Lopressor 50 milligrams 3 times a day. Continue with lisinopril 40, hydralazine 50mg 3 times a day. Hgb is has remained stable at 11.9. Patient is on Keppra for history of seizures. Patient also takes clarithromycin 500 twice a day. Brother does confirm patient was on this prior to hospitalization, however, exact reason is unknown Monitor Accu-Cheks and continue on metformin twice a day. [place] as needed for postoperative pain control. Will add MiraLAX and senna plus twice a day for postoperative bowel motivation. Encouraged patient to work with PT and OT for ongoing strengthening At time of discharge medical care will return to primary care provider at [email or web address], Dr. Bro 08/25/2017 Patient was seen today secondary to reports of possible chest pain. Prior baseline is unknown, so will err on the side of caution. Start telemetry. Serial troponin. We'll obtain chest x-ray, as well as a right shoulder film due to concern for subluxation. GI upset is certainly a possibility, particularly since he is on clarithromycin. May need to get further information on that on Sunday from his PCP. We'll continue remainder current care. Assess lab in the morning for stability. Discussed with patient, he is in agreement with plan of care. 08/27/17 Overall appears to be medically stable. Given bradycardia will decreased Metoprolol to 50mg BID Will need to continue monitor BP. Did contact PCP office at [facility]- their old records from last January patient was not taking erythromycin. It is unclear exactly prescribed clarithromycin and for what reason. Will attempt to contact patient's brother regarding this medication. BGMs are well controlled on current regimen. Continue to encourage work with PT and OT for ongoing strengthening. 09/03/17 Sling to right arm - ortho recommends rechecking films ~09/11/17 HTN - increase hydralazine from 50 to 75 mg TID. Consider further w/u for HTN and r/o pheochromocytoma. He's on multiple classes of antiHTN with suboptimal control, including metoprolol, clonidine, lasix, furosemide, lisinopril + hydralazine. Bradycardia in the 50s precludes increasing BB. 09/05/17 Start bladder retraining. May pull catheter tomorrow if pt is having bladder filling sensation. Will give a second dose of Lasix now. Given his LE edema, HTN and (questionable) weight gain since admission, will increase his Lasix to 40mg q am (from 20mg q am) and follow weights, edema, BP and electrolytes. Increase KCl from 10mEq to 20mEq given the increase in Lasix dosing. Check daily weights. Weight on admission 100.3 and today is 113kg. Question accuracy of today's weight. Consider further w/u for HTN and r/o pheochromocytoma. He's on multiple classes of antiHTN with suboptimal control, including metoprolol, clonidine, lasix, furosemide, lisinopril + hydralazine. May need to clarify with PCP if prior workup for hypertension has been undertaken or which precipitate washer patient has seen. 09/08/17 Headley catheter dc'd 09/07/17 and he's been voiding since. Switching from hydrocodone to oxycodone, has been helpful for pain control. In addition, BP under better control. Continue hydralazine 75 mg and increased Lasix/KCl doses. Check BMP in am. Sinus aram on tele - will dc tele. 09/14/17 BP's are slightly elevated but likely r/t pain. He is already on 4 agents, will continue to monitor. Headache is not new. PT working with him in re: to possible muscle contraction etiology. Sinusitis would be in the DDx, but no c/o fever, sinus drainage, ST, etc. WBC down today from yesterday. 13.3-->11.0. BS's stable. Hgb stable. Wound team following wound on R great toe. 09/17/17 Blood pressures continue to run high. He remains bradycardic with heart rates in the 50s. Metoprolol reduced to 25 mg. Clonidine was started on 09/16/17. Monitor response before further adjustments are made. Awaiting insurance approval, and discharge plans are to go to [facility] and rehabilitation. Dr. Briones's note reviewed. Continue PT/OT. 09/19/17 Patient continues to struggle with pain control. Continue pain medications and therapy plan per Dr. Briones. Persistent edema to right leg (operative side). Doppler obtained 09/18/17 and was negative for DVT. Recommend elevation as able with compression stockings/ SCDs. Continue to monitor closely. Blood pressures remain elevated and variable with bradycardia in the 50s. Metoprolol reduced to 25 mg BID on 09/17/17. Clonidine TID was started on . Will increase amlodipine to 10mg daily in AM and change Clonidine to TID PRN. Continue home Lasix 40mg daily and lisinopril 40mg daily. Monitor weight closely for signs of fluid overload. Patient may need additional diuresis. Awaiting insurance approval, and discharge plans are to go to [facility] and [facility]. Will recheck labs in AM to monitor blood counts, electrolytes and renal function. 09/20/17 Resume clonidine at 0.1mg BID in the event his sxs are r/t clonidine w/drawal. Continue amlodipine, Lasix and lisinopril. Check UA given the new onset of fever. If he continues to run fever, have diarrhea and has increase in WBC, will check for c diff. No cough or SOA. CBC and CMP in am. Hold metformin. NS 250cc bolus given and then tra 100cc/hr as pt isn't taking po well d/t nausea. PRN Zofran. 09/21/17 Cipro started for UTI. Culture pending. WBC is stable. Resume metformin in the am now that he is eating again. Continue to follow BP's. Amlodipine was increased to 10mg the day before yesterday. He likely had elevated BP yesterday d/t abrupt clonidine w/drawal and it was restarted at lower dose of 0.1mg BID. No changes today. 09/22/17 Continue with Cipro for treatment of UTI- C/S pending Data monitor blood sugars, metformin was started yesterday, 09/21. Will increase monitoring to 0.1 milligrams 3 times a day scheduled. May need to continue to increase this. There is when necessary available as needed for systolic greater than 160 Did ask nursing staff to contact Dr. Briones for further pain control if need be. Continue to follow carefully Plan - 09/23/17 Patient continues to struggle with pain control. Pain addressed by Dr. Briones and oxycodone 10mg increased to Q3H for additional pain control Continue pain control and therapies per Dr. Briones. UTI diagnosed 09/21/17. UA revealed enterococcus faecalis sensitive to ampicillin, linezolid, nitrofurantoin, vancomycin. Currently on cipro. Will discontinue cipro and initiate nitrofurantoin per sensitivities today. Blood sugars remain relatively stable. Continue to monitor closely. Blood pressures remain elevated despite multiple medications. Clonidine 0.1mg increased to TID on 09/22/17. Will continue to monitor closely with PRN clonidine as needed. Patient denies having precipitate washer. Will consult Dr. Oropeza for further evaluation and expertise. Recheck labs in AM to monitor blood counts, electrolytes and renal function. <Felix Oropeza - Last Filed: 10/10/17 12:54> Exam Vital signs: Temperature 98.4 F 10/10/17 08:00 Pulse Rate 68 10/10/17 08:00 Respiratory Rate 20 10/10/17 08:00 Blood Pressure 174/80 H 10/10/17 08:00 Pulse Oximetry 96 10/10/17 08:00 Inpatient Medications: Generic Name Dose Route Start Last Admin Trade Name Freq PRN Reason Stop Dose Admin Acetaminophen 650 mg 10/06/17 17:00 10/10/17 09:07 Tylenol Arthritis 650 Mg Sr PO 650 mg Q8HR SD Administration Al Hydroxide/Mg Hydroxide 30 ml 10/06/17 13:12 Maalox Plus PO Q3H PRN Indigestion Aspirin 81 mg 10/05/17 09:00 10/10/17 09:08 Ecotrin PO 81 mg DAILY SD Administration Atorvastatin Calcium 10 mg 10/06/17 21:00 10/09/17 20:27 Lipitor PO 10 mg HS SD Administration Baclofen 5 mg 10/06/17 15:00 10/10/17 09:08 Lioresal PO 5 mg TID SD Administration Chlorthalidone 25 mg 10/07/17 08:00 10/10/17 09:06 [place]gro[place] PO 25 mg WB SD Administration Clonidine HCl 0.1 mg 10/06/17 15:00 10/10/17 09:08 Catapres PO 0.1 mg TID SD Administration Cyclobenzaprine HCl 5 mg 10/06/17 13:09 10/09/17 14:23 Flexeril PO 5 mg TID PRN Administration Muscle spasm Diclofenac Sodium 1 applic 09/24/17 13:00 10/10/17 12:25 Voltaren TP 1 applic QID SD Administration Gabapentin 200 mg 10/06/17 15:00 10/10/17 09:10 Neurontin PO 200 mg TID SD Administration Glipizide 5 mg 10/06/17 17:30 10/10/17 09:06 Glucotrol PO 5 mg BIDBS SD Administration Hydralazine HCl 75 mg 10/06/17 17:30 10/10/17 12:31 Apresoline PO 75 mg WM SD Administration Sodium Chloride 500 mls @ 0 mls/hr 10/06/17 13:14 Normal Saline IV .Q0M PRN Per Protocol Insulin Aspart 1 - 5 unit 10/06/17 13:11 Novolog SQ SS PRN Hyperglycemia Protocol Labetalol HCl 200 mg 10/06/17 21:00 10/10/17 09:10 Normodyne PO 200 mg BID SD Administration Levetiracetam 500 mg 10/06/17 21:00 10/10/17 09:10 Keppra PO 500 mg Q12HR SD Administration Lisinopril 40 mg 08/24/17 09:00 10/10/17 09:10 Prinivil PO 40 mg DAILY SD Administration Magnesium Hydroxide 30 ml 10/06/17 13:13 Mom PO DAILY PRN Constipation Magnesium Oxide 400 mg 10/06/17 21:00 10/10/17 09:10 Magox PO 400 mg BID SD Administration Metformin HCl 500 mg 10/06/17 17:30 10/10/17 09:07 Glucophage PO 500 mg BIDBS SD Administration Nifedipine 90 mg 10/07/17 09:00 10/10/17 09:11 Procardia Xl PO 90 mg DAILY SD Administration Ondansetron HCl 4 mg 10/06/17 13:14 Zofran IVP Q6H PRN Nausea &/or vomiting Oxycodone HCl 5 mg 10/08/17 13:00 10/10/17 12:25 Roxicodone *Ir* PO 5 mg QID SD Administration Polyethylene Glycol 17 gm 10/05/17 09:00 10/10/17 09:09 Miralax PO 17 gm DAILY SD Administration Potassium Chloride 20 meq 10/07/17 08:00 10/10/17 09:07 K-Dur 20 Meq Tablet PO 20 meq WB SD Administration Prochlorperazine 10 mg 09/20/17 10:52 09/20/17 11:02 Compazine PO 10 mg TID PRN Administration Senna/Docusate Sodium 2 tab 08/24/17 21:00 09/20/17 09:25 Senna Plus Tablet PO Not Given BID SD Sodium Chloride 10 ml 10/06/17 13:15 Iv Flush IV PRN PRN Flushing Tamsulosin HCl 0.4 mg 10/06/17 21:00 10/09/17 20:29 Flomax PO 0.4 mg HS SD Administration Discontinued Medications Generic Name Dose Route Start Last Admin Trade Name Freq PRN Reason Stop Dose Admin Acetaminophen 650 mg 09/07/17 11:47 10/01/17 10:07 Tylenol PO 650 mg Q4H PRN Administration Pain Acetaminophen 650 mg 10/01/17 17:00 10/06/17 08:06 Tylenol Arthritis 650 Mg Sr PO 650 mg Q8HR SD Administration Hydrocodone Bitart/Acetaminophen 1 tab 08/23/17 17:09 08/26/17 04:14 [place] 5/325 PO 1 tab Q4H PRN Administration Pain Hydrocodone Bitart/Acetaminophen 1 - 2 tab 08/26/17 07:15 09/06/17 06:37 [place] 5/325 PO 2 tab Q4H PRN Administration Pain Al Hydroxide/Mg Hydroxide 30 ml 08/25/17 10:42 08/25/17 10:48 Maalox Plus PO 30 ml Q3H PRN Administration Indigestion Amlodipine Besylate 5 mg 09/16/17 21:00 09/19/17 08:35 Norvasc PO 5 mg BID SD Administration Amlodipine Besylate 10 mg 09/20/17 09:00 09/24/17 08:19 Norvasc PO 10 mg DAILY DS Administration Aspirin 81 mg 08/24/17 09:00 10/04/17 08:39 Ecotrin PO 81 mg DAILY SD Administration Atorvastatin Calcium 10 mg 08/23/17 21:00 08/24/17 21:09 Lipitor PO 10 mg HS SD Administration Atorvastatin Calcium 10 mg 08/25/17 21:00 10/05/17 21:19 Lipitor PO 10 mg HS SD Administration Baclofen 5 mg 08/23/17 21:00 10/06/17 08:07 Lioresal PO 5 mg TID SD Administration Chlorthalidone 25 mg 09/25/17 08:00 10/06/17 08:06 [place] PO 25 mg WB SD Administration Ciprofloxacin 500 mg 09/21/17 09:00 09/23/17 08:18 Cipro 500 Mg PO 500 mg Q12HR SD Administration Clarithromycin 500 mg 08/23/17 21:00 08/24/17 08:49 Biaxin PO 500 mg BID SD Administration Clarithromycin 500 mg 08/24/17 17:30 08/25/17 09:12 Biaxin PO 500 mg BIDWM SD Administration Clonidine HCl 0.2 mg 08/23/17 21:00 09/16/17 15:40 Catapres PO 0.2 mg TID SD Administration Clonidine HCl 0.1 mg 09/16/17 21:00 09/19/17 08:35 Catapres PO 0.1 mg TID SD Administration Clonidine HCl 0.1 mg 09/19/17 14:08 09/22/17 15:29 Catapres PO 0.1 mg TID PRN Administration Clonidine HCl 0.1 mg 09/20/17 21:00 09/22/17 08:27 Catapres PO 0.1 mg BID SD Administration Clonidine HCl 0.1 mg 09/22/17 21:00 10/06/17 08:05 Catapres PO 0.1 mg TID SD Administration Clonidine HCl 0.1 mg 09/23/17 08:10 Catapres PO TID PRN GIVE ONLY IF SBP > 160. Cyclobenzaprine HCl 5 mg 08/24/17 21:24 10/05/17 01:23 Flexeril PO 5 mg TID PRN Administration Muscle spasm Enoxaparin Sodium 30 mg 08/23/17 21:00 09/28/17 08:40 Lovenox SQ 30 mg BID SD Administration Furosemide 20 mg 08/24/17 09:00 09/05/17 08:46 Lasix 20 Mg Tab PO 20 mg DAILY SD Administration Furosemide 20 mg 09/05/17 16:24 09/05/17 17:35 Lasix 20 Mg Tab PO 09/05/17 16:25 20 mg O ONE Administration Furosemide 40 mg 09/06/17 07:00 09/24/17 08:19 Lasix 20 Mg Tab PO 40 mg DAILY SD Administration Gabapentin 100 mg 08/23/17 21:00 09/06/17 08:30 Neurontin PO 100 mg TID SD Administration Gabapentin 200 mg 09/06/17 10:35 10/06/17 08:06 Neurontin PO 200 mg TID SD Administration Glipizide 5 mg 08/23/17 17:30 10/06/17 08:06 Glucotrol PO 5 mg BIDBS SD Administration Hydralazine HCl 50 mg 08/23/17 17:30 09/03/17 12:27 Apresoline PO 50 mg WM SD Administration Hydralazine HCl 75 mg 09/03/17 14:00 10/06/17 12:21 Apresoline PO 75 mg WM SD Administration Hydromorphone HCl 0.5 mg 08/24/17 21:27 09/06/17 09:50 Dilaudid IM 0.5 mg Q3H PRN Administration Pain uncontrolled by po meds Sodium Chloride 1,000 mls @ 100 mls/hr 09/20/17 14:15 09/21/17 17:19 Normal Saline IV Not Given .Q10H SD Sodium Chloride 1,000 mls @ 999.9 mls/hr 09/20/17 14:16 09/20/17 18:12 Normal Saline IV 09/20/17 15:15 750 mls/hr .Q1H ONE Infusion Magnesium Sulfate/Dextrose 1 gm in 100 mls @ 100 mls/hr 09/25/17 14:15 19:52 Mag Sulf 1gm Premix IV 09/25/17 16:14 Infused Q1H SD Infusion Sodium Chloride 500 mls @ 0 mls/hr 09/25/17 16:58 Normal Saline IV .Q0M PRN Per Protocol Ibuprofen 400 mg 09/10/17 13:58 09/13/17 15:15 Motrin PO 400 mg Q4H PRN Administration Headache /Pain Insulin Aspart 1 - 5 unit 08/23/17 17:18 10/01/17 21:25 Novolog SQ 1 unit SS PRN Administration Hyperglycemia Protocol Labetalol HCl 100 mg 09/23/17 21:00 09/24/17 20:10 Normodyne PO 09/24/17 21:00 Not Given BID SD Labetalol HCl 100 mg 09/24/17 11:33 09/24/17 12:25 Normodyne PO 09/24/17 11:34 100 mg O ONE Administration Labetalol HCl 200 mg 09/24/17 21:00 10/06/17 08:06 Normodyne PO 200 mg BID SD Administration Levetiracetam 500 mg 08/23/17 21:00 10/06/17 08:06 Keppra PO 500 mg Q12HR SD Administration Lidocaine HCl 20 ml 08/23/17 22:09 08/23/17 22:39 Urojet MM 08/23/17 22:10 20 ml O ONE Administration Magnesium Hydroxide 30 ml 08/23/17 17:12 Mom PO DAILY PRN Constipation Magnesium Oxide 400 mg 08/23/17 21:00 10/06/17 08:07 Magox PO 400 mg BID SD Administration Metformin HCl 500 mg 08/23/17 17:30 10/06/17 08:07 Glucophage PO 500 mg BIDBS SD Administration Metoprolol Succinate 25 mg 08/23/17 21:00 08/24/17 08:53 Toprol Xl PO Not Given BID SD Metoprolol Succinate 50 mg 08/24/17 09:00 Toprol Xl PO DAILY SD Metoprolol Tartrate 50 mg 08/24/17 12:00 08/27/17 08:21 Lopressor PO 50 mg TIDWM SD Administration Metoprolol Tartrate 50 mg 08/27/17 17:30 09/16/17 09:06 Lopressor PO 50 mg BIDWM SD Administration Metoprolol Tartrate 25 mg 08/31/17 10:00 08/31/17 09:59 Lopressor PO 08/31/17 10:01 25 mg O ONE Administration Metoprolol Tartrate 25 mg 09/16/17 16:31 09/16/17 17:38 Lopressor PO 25 mg BIDWM SD Administration Metoprolol Tartrate 25 mg 09/17/17 08:00 09/23/17 08:17 Lopressor PO 25 mg BIDWM SD Administration Nifedipine 60 mg 09/25/17 09:00 09/27/17 08:50 Procardia Xl PO 60 mg DAILY SD Administration Nifedipine 30 mg 09/27/17 13:30 09/27/17 14:04 Procardia Xl PO 09/27/17 13:31 30 mg O ONE Administration Nifedipine 90 mg 09/28/17 09:00 10/06/17 09:13 Procardia Xl PO 90 mg DAILY SD Administration Nitrofurantoin Macrocrystals 100 mg 09/23/17 17:30 09/30/17 17:06 Macrobid PO 09/30/17 23:59 100 mg BIDWM SD Administration Nitrofurantoin Macrocrystals 100 mg 09/23/17 10:17 09/23/17 10:59 Macrobid PO 09/23/17 10:18 100 mg O ONE Administration Ondansetron HCl 4 mg 09/20/17 14:17 Zofran IVP Q6H PRN Nausea &/or vomiting Oxycodone HCl 15 mg 09/06/17 10:34 09/10/17 09:45 Roxicodone *Ir* PO 15 mg Q3H PRN Administration Pain Oxycodone HCl 15 mg 09/10/17 12:00 09/18/17 09:49 Roxicodone *Ir* PO 15 mg Q3HWA SD Administration Oxycodone HCl 10 mg 09/18/17 11:41 09/18/17 13:03 Roxicodone *Ir* PO Not Given Q3HWA SD Oxycodone HCl 10 mg 09/18/17 15:00 09/20/17 09:18 Roxicodone *Ir* PO 10 mg Q3HWA SD Administration Oxycodone HCl 10 mg 09/20/17 12:00 09/22/17 13:53 Roxicodone *Ir* PO 10 mg Q4H SD Administration Oxycodone HCl 10 mg 09/22/17 17:00 09/27/17 09:09 Roxicodone *Ir* PO 10 mg Q3HWA SD Administration Oxycodone HCl 5 mg 09/22/17 15:37 09/22/17 15:40 Roxicodone *Ir* PO 09/22/17 15:38 5 mg ONE TIME ONE Administration Oxycodone HCl 10 mg 09/27/17 13:00 10/01/17 08:12 Roxicodone *Ir* PO 10 mg QID SD Administration Oxycodone HCl 7.5 mg 10/01/17 13:00 10/03/17 21:07 Roxicodone *Ir* PO 7.5 mg QID SD Administration Oxycodone HCl 7.5 mg 10/04/17 09:00 10/06/17 13:05 Roxicodone *Ir* PO 7.5 mg QID SD Administration Oxycodone HCl 7.5 mg 10/06/17 17:00 10/08/17 08:39 Roxicodone *Ir* PO 7.5 mg QID SD Administration Pharmacy Consult 1 each 08/24/17 14:16 Pharmacy Consult - Fall Risk 08/24/17 14:17 ONE TIME ONE Pharmacy Consult 1 each 09/03/17 11:20 Pharmacy Consult - Fall Risk 09/03/17 11:21 ONE TIME ONE Pharmacy Consult 1 each 09/12/17 11:25 Pharmacy Consult - Fall Risk 09/12/17 11:26 ONE TIME ONE Pharmacy Consult 1 each 09/22/17 09:34 Pharmacy Consult - Fall Risk 09/22/17 09:35 ONE TIME ONE Pharmacy Consult each 09/30/17 10:25 Pharmacy Consult - Fall Risk 09/30/17 10:26 ONE TIME ONE Polyethylene Glycol 17 gm 08/24/17 09:30 09/20/17 09:25 Miralax PO Not Given DAILY SD Polyethylene Glycol 17 gm 10/05/17 09:00 Miralax PO DAILY SD Potassium Chloride 10 meq 08/24/17 08:00 09/05/17 08:45 K-Dur 10 Meq Tablet PO 10 meq WB SD Administration Potassium Chloride 20 meq 09/06/17 08:00 10/03/17 08:18 K-Dur 10 Meq Tablet PO 20 meq WB SD Administration Potassium Chloride 20 meq 10/04/17 08:15 10/06/17 08:05 K-Dur 20 Meq Tablet PO 20 meq WB SD Administration Senna/Docusate Sodium 2 tab 08/23/17 21:00 08/29/17 20:14 Senna Plus Tablet PO Not Given HS SD Sodium Chloride 10 ml 09/27/17 09:16 10/01/17 21:13 Iv Flush IV 10 ml PRN PRN Administration Flushing Tamsulosin HCl 0.4 mg 08/23/17 21:00 10/05/17 21:22 Flomax PO 0.4 mg HS SD Administration - Urinary Catheter Management Urethral Cath placed during this visit: no Results 10/07/17 05:09 10/07/17 05:09 Intake and Output 10/09/17 10/10/17 10/10/17 22:59 06:59 14:59 Intake Total 300 / 300 300 / 300 Balance 300 / 300 300 / 300 Intake: Oral 300 / 300 300 / 300 Other: Urine Color Yellow Urine Odor Normal # Incontinent Voids 1 Assessment and Plan - Assessment and Plan (1) Hypertension Current visit: Yes Status: Chronic (2) Diabetes mellitus type 2 in nonobese Current visit: Yes Status: Chronic (3) CAD (coronary artery disease) Current visit: Yes Status: Acute - Attestation Attestation Narrative: 10/10/17 12:54 Recommendation After examining the patient I agree with the above assessment. I am involved in the formulation of the patient's plan of care. Hospital Course Summary Disclaimer: The visit summary below is not to be considered part of the above Progress Note.
[2017-09-28] MEDS: ACETAMINOPHEN 325 MG TABLET PO PRN (15:33)
[2017-09-28] MEDS: ATORVASTATIN 10 MG TABLET PO SCH (21:24)
[2017-09-28] MEDS: TAMSULOSIN 0.4 MG CAPSULE PO SCH (21:26)
[2017-09-28] MEDS: SALINE FLUSH 10ml SYRINGE IV PRN (21:31)
[2017-09-29] MEDS: SALINE FLUSH 10ml SYRINGE IV PRN (08:23)
[2017-09-29] MEDS: DICLOFENAC 1% TOP GEL 100gm TP SCH ×4 (08:23→21:05)
[2017-09-29] MEDS: METFORMIN 500 MG TABLET PO SCH ×2 (08:23→17:22)
[2017-09-29] MEDS: HYDRALAZINE 25 MG TABLET PO SCH ×3 (08:24→17:22)
[2017-09-29] MEDS: BACLOFEN 10 MG TABLET PO SCH ×3 (08:25→21:03)
[2017-09-29] MEDS: LEVETIRACETAM 500 MG TABLET PO SCH ×2 (08:25→21:07)
[2017-09-29] MEDS: CHLORTHALIDONE 25 MG TABLET PO SCH (08:25)
[2017-09-29] MEDS: GABAPENTIN 100 MG CAPSULE PO SCH ×3 (08:25→21:06)
[2017-09-29] MEDS: ASPIRIN *EC* 81 MG TABLET PO SCH (08:25)
[2017-09-29] MEDS: NITROFURANTOIN (MACROBID) 100 MG CAPSULE PO SCH ×2 (08:26→17:23)
[2017-09-29] MEDS: LISINOPRIL 40 MG TABLET PO SCH (08:26)
[2017-09-29] MEDS: GlipiZIDE 5 MG TABLET PO SCH ×2 (08:26→17:22)
[2017-09-29] MEDS: LABETALOL 100 MG TABLET PO SCH ×2 (08:26→21:10)
[2017-09-29] MEDS: MAGNESIUM OXIDE 400 MG TABLET PO SCH ×2 (08:26→21:08)
[2017-09-29] MEDS: Oxycodone *IR* 5 MG TABLET PO SCH ×4 (08:27→21:10)
[2017-09-29] MEDS: ATORVASTATIN 10 MG TABLET PO SCH (21:03)
[2017-09-29] MEDS: TAMSULOSIN 0.4 MG CAPSULE PO SCH (21:10)
[2017-09-29] MEDS: CYCLOBENZAPRINE 5 MG TABLET PO PRN (21:12)
[2017-09-30] MEDS: ACETAMINOPHEN 325 MG TABLET PO PRN ×2 (06:13→14:25)
[2017-09-30] MEDS: DICLOFENAC 1% TOP GEL 100gm TP SCH ×4 (08:20→21:43)
[2017-09-30] MEDS: NITROFURANTOIN (MACROBID) 100 MG CAPSULE PO SCH ×2 (08:22→17:06)
[2017-09-30] MEDS: GABAPENTIN 100 MG CAPSULE PO SCH ×3 (08:22→20:49)
[2017-09-30] MEDS: METFORMIN 500 MG TABLET PO SCH ×2 (08:23→17:06)
[2017-09-30] MEDS: HYDRALAZINE 25 MG TABLET PO SCH ×3 (08:23→17:06)
[2017-09-30] MEDS: GlipiZIDE 5 MG TABLET PO SCH ×2 (08:23→17:06)
[2017-09-30] MEDS: LEVETIRACETAM 500 MG TABLET PO SCH ×2 (08:23→21:44)
[2017-09-30] MEDS: LISINOPRIL 40 MG TABLET PO SCH (08:24)
[2017-09-30] MEDS: LABETALOL 100 MG TABLET PO SCH ×2 (08:24→20:50)
[2017-09-30] MEDS: MAGNESIUM OXIDE 400 MG TABLET PO SCH ×2 (08:24→20:51)
[2017-09-30] MEDS: BACLOFEN 10 MG TABLET PO SCH ×3 (08:25→20:48)
[2017-09-30] MEDS: ASPIRIN *EC* 81 MG TABLET PO SCH (08:25)
[2017-09-30] MEDS: CHLORTHALIDONE 25 MG TABLET PO SCH (08:25)
[2017-09-30] MEDS: Oxycodone *IR* 5 MG TABLET PO SCH ×4 (08:26→20:47)
[2017-09-30] MEDS ORDERED: FALL RISK - PHARMACY CONSULT MC ONE (10:25)
[2017-09-30] MEDS: ATORVASTATIN 10 MG TABLET PO SCH (20:48)
[2017-09-30] MEDS: TAMSULOSIN 0.4 MG CAPSULE PO SCH (20:51)
[2017-09-30] MEDS: CYCLOBENZAPRINE 5 MG TABLET PO PRN (20:52)
[2017-09-30] MEDS: INSULIN ASPART 100unit/ml INJECTION SQ PRN (20:52)
[2017-10-01] MEDS: MAGNESIUM OXIDE 400 MG TABLET PO SCH ×2 (08:12→21:10)
[2017-10-01] MEDS: Oxycodone *IR* 5 MG TABLET PO SCH ×4 (08:12→21:11)
[2017-10-01] MEDS: BACLOFEN 10 MG TABLET PO SCH ×3 (08:12→21:09)
[2017-10-01] MEDS: GlipiZIDE 5 MG TABLET PO SCH ×2 (08:12→18:21)
[2017-10-01] MEDS: GABAPENTIN 100 MG CAPSULE PO SCH ×3 (08:12→21:10)
[2017-10-01] MEDS: ASPIRIN *EC* 81 MG TABLET PO SCH (08:13)
[2017-10-01] MEDS: LISINOPRIL 40 MG TABLET PO SCH (08:13)
[2017-10-01] MEDS: HYDRALAZINE 25 MG TABLET PO SCH ×3 (08:13→18:21)
[2017-10-01] MEDS: LEVETIRACETAM 500 MG TABLET PO SCH ×2 (08:13→21:10)
[2017-10-01] MEDS: METFORMIN 500 MG TABLET PO SCH ×2 (08:13→18:21)
[2017-10-01] MEDS: CHLORTHALIDONE 25 MG TABLET PO SCH (08:13)
[2017-10-01] MEDS: LABETALOL 100 MG TABLET PO SCH ×2 (08:13→21:10)
[2017-10-01] MEDS: DICLOFENAC 1% TOP GEL 100gm TP SCH ×4 (10:06→21:10)
[2017-10-01] MEDS: ACETAMINOPHEN 325 MG TABLET PO PRN (10:07)
--- NOTE | 2017-10-01 10:34 | IRU Progress Note ---
- Subjective/Serverity of Illness Date: 10/01/17 Hermes as tolerated to his 10 mg of oxycodone IR 4 times daily adequately. He indicates the pain is reasonably well controlled although again difficult to assess. He seems comfortable at present. We will reduce this to 7.5 mg if it is possible to break the tablets. He is able to eat and drink adequately. He is participating with therapy. Exam Vital Signs: Temperature 97.8 F 10/01/17 07:45 Pulse Rate 70 10/01/17 07:45 Respiratory Rate 18 10/01/17 07:45 Blood Pressure 143/88 H 10/01/17 07:45 Pulse Oximetry 98 10/01/17 07:45 Height/Weight/BMI: Height 1.83 m Weight 99.7 kg Body Mass Index 29.9 - Constitutional Present: no acute distress, well nourished, well developed, cooperative - Routine HEENT Exam Eye: Present: EOMI ENT: Present: mucous membranes moist, dentition normal - Routine Respiratory Exam Present: CTA bilaterally. Absent: wheezes - Routine Cardiovascular Exam Present: RRR, S1, S2, murmur - Routine Abdominal Exam Present: soft, normoactive bowel sounds, non distended. Absent: tenderness - Routine Extremities Exam Present: edema, normal capillary refill - Routine Skin Exam Present: dry, warm - Routine Neurological Exam Present: alert, oriented X3, CN II-XII intact - Routine Psychiatric Exam Present: normal affect, cooperative, anxious IRU A/P (1) S/P hip hemiarthroplasty Problem details: Surgery done for subcapital , femoral neck Fx Current visit: Yes Status: Acute Continues to participate with therapy pending dismissal. Pain management has been difficult because of difficulty in assessing. We will go down to 7.5 mg of oxycodone 4 times daily if possible. (2) Diabetes mellitus type 2 in nonobese Current visit: Yes Status: Chronic (3) Hypertension Qualifiers: Hypertension type: essential hypertension Qualified Code(s): I10 - Essential (primary) hypertension Current visit: Yes Status: Chronic (4) Nondisplaced fracture of head of right radius Qualifiers: Encounter type: initial encounter Fracture type: closed Qualified Code(s) : S52.124A - Nondisplaced fracture of head of right radius, initial encounter for closed fracture Current visit: Yes Status: Acute The fracture of the head of the right radius appears to be a source of significant discomfort. However, it is not worse than previously. (5) Toe abrasion, non-infected Current visit: Yes Status: Acute (6) Leukocytosis Qualifiers: Leukocytosis type: unspecified Qualified Code(s): D72.829 - Elevated white blood cell count, unspecified Current visit: Yes Status: Acute (7) Headache Qualifiers: Headache type: tension-type Headache chronicity pattern: chronic headache Current visit: Yes Status: Resolved (8) UTI (urinary tract infection) Qualifiers: Urinary tract infection type: acute cystitis Hematuria presence: with hematuria Qualified Code(s): N30.01 - Acute cystitis with hematuria Current visit: Yes Status: Acute (9) Knee pain, bilateral Qualifiers: Chronicity: chronic Qualified Code(s): M25.561 - Pain in right knee; M25.562 - Pain in left knee; G89.29 - Other chronic pain Current visit: Yes Status: Chronic DVT Prophylaxis: Lovenox Resuscitation Status: Full Code - Course Hospital Course: Chucho Solis MD: 09/03/17 15:14 Pain in right elbow and right hip as anticipated. Blood sugars are controlled. Blood pressures remain a bit elevated. 09/04/17 12:44 Progressing with therapy. Blood sugars look excellent. Pain in right elbow seems to be a major issue. 09/06/17 11:50 Improving with therapy. Blood pressures remain elevated. Lasix has been increased. I will increase gabapentin and switch to oxycodone today. 09/07/17 11:20 Continues to have some edema in the right lower extremity. He is progressing with therapy with regard to ambulation. Pain management hopefully is improved with the use of oxycodone. 09/10/17 12:06 Pain management is difficult. We'll schedule the oxycodone. Blood pressures remain elevated likely related to pain management. He is voiding although does have occasional residuals identified. 09/11/17 11:58 Headache is resolved. Improved pain management with oxycodone regularly scheduled. Blood pressures are improved with regular doses of oxycodone. New evidence of abrasion to right great toe. 09/13/17 13:51 White count to 13,000. No evidence of source of infection at present. Sugars are well controlled. Cooperative with therapy. Headache returned but less intense. 09/14/17 11:37 Headache continues to come and go. Seems to be localized in right temporal area. We will check a sedimentation rate. Neurologically he is otherwise unchanged. 09/17/17 11:54 Headache reportedly resolved. No new neurologic changes. Pain management is a challenge. Blood pressures remain elevated although medications have been adjusted. 09/18/17 11:39 Headache appears to have resolved. Abrasion on toe improved. Edema right leg remains. Venous Doppler ordered. We will try to reduce pain medications. 09/20/17 11:48 Vomiting this morning. Anorectic now. Loose stools. Abdomen remained soft. Venous Doppler right leg negative. We will need to hold therapy. 09/21/17 10:48 UTI diagnosed. No further nausea or vomiting. Low-grade fever yesterday without recurrence. He is now on Cipro. He looks and feels better. 09/24/17 10:34 He was changed from Cipro to nitrofurantoin for E. faecalis UTI. Blood pressure management changed from metoprolol to labetalol. I will add on Voltaren gel for the knee pain. We had increased his oxycodone late last week. 09/25/17 10:54 Blood pressures improved. Continues to complain of a variety of pains mostly both knees, headache and right side of his body. He is cooperative with therapy and making progress. 09/27/17 11:18 Progressing with therapy. Continues to have chronic pain. Blood pressure medications are adjusted by hospitalists service. 09/28/17 11:30 Nifedipine increased to 90 mg daily. Making progress with therapy. Placement in progress. 10/01/17 10:33 Blood pressure significantly improved. Continues to have pain but seems comfortable with current dosage. We will reduce to 7.5 mg oxycodone 4 times daily. We'll also make sure he is receiving regular doses of Tylenol. - Interventions to Obtain Goals PT Treatment Plan: Balance/Proprioception, Functional Activities, Gait Training , Patient/Family Education, Therapeutic Exercise OT Treatment Plan: ADL (Basic Care), Balance Training, IADL, Pt./Family Education, Ther. Exercise for ADL Goals Progress/Modifications: Part is spinning with therapy and able to ambulate with hemiwalker. Blood pressures are improved. Today we'll reduce oxycodone IR to 7.5 mg 4 times daily and make sure he is getting Tylenol on a routine basis.
[2017-10-01] MEDS: CYCLOBENZAPRINE 5 MG TABLET PO PRN (11:55)
--- NOTE | 2017-10-01 13:09 | IRU Team Meeting ---
IRU Team Meeting - Nursing Bladder Assistive Devices Utilized:: Medication, Absorbent Pad Bladder Management Level of Assist: Stand By Assist/Supervision Bladder Frequency of Accidents: No accidents Number of Bladder Accidents: 1 Bowel Assistive Devices Utilized:: Absorbent Pad Bowel Management Level of Assist: Modified Independent Bowel Frequency of Accidents: No accidents Number of Bowel Accidents: 1 Vital Signs: Vital Signs - 24 hr 09/30/17 16:00 09/30/17 19:11 10/01/17 07:45 Temperature 97.5 F 98.0 F 97.8 F Pulse Rate 64 64 70 Respiratory Rate 16 18 18 Blood Pressure 129/68 129/72 143/88 H Pulse Oximetry 97 100 98 Current Medications: Acetaminophen (Tylenol Arthritis 650 Mg Sr) 650 mg PO Q8HR [facility] Al Hydroxide/Mg Hydroxide (Maalox Plus) 30 ml PO Q3H PRN PRN Reason: Indigestion Last Admin: 08/25/17 10:48 Dose: 30 ml Aspirin (Ecotrin) 81 mg PO DAILY [facility] Last Admin: 10/01/17 08:13 Dose: 81 mg Atorvastatin Calcium (Lipitor) 10 mg PO HS [facility] Last Admin: 09/30/17 20:48 Dose: 10 mg Baclofen (Lioresal) 5 mg PO TID [facility] Last Admin: 10/01/17 08:12 Dose: 5 mg Chlorthalidone (Hygroton) 25 mg PO WB [facility] Last Admin: 10/01/17 08:13 Dose: 25 mg Clonidine HCl (Catapres) 0.1 mg PO TID [facility] Last Admin: 10/01/17 08:14 Dose: 0.1 mg Cyclobenzaprine HCl (Flexeril) 5 mg PO TID PRN PRN Reason: Muscle spasm Last Admin: 10/01/17 11:55 Dose: 5 mg Diclofenac Sodium (Voltaren) 1 applic TP QID [facility] Last Admin: 10/01/17 10:06 Dose: 1 applic Gabapentin (Neurontin) 200 mg PO TID [facility] Last Admin: 10/01/17 08:12 Dose: 200 mg Glipizide (Glucotrol) 5 mg PO BIDBS [facility] Last Admin: 10/01/17 08:12 Dose: 5 mg Hydralazine HCl (Apresoline) 75 mg PO WM [facility] Last Admin: 10/01/17 11:56 Dose: 75 mg Sodium Chloride (Normal Saline) 500 mls @ 0 mls/hr IV .Q0M PRN PRN Reason: Per Protocol Insulin Aspart (Novolog) 1 - 5 unit SQ SS PRN; Protocol PRN Reason: Hyperglycemia Last Admin: 09/30/17 20:52 Dose: 1 unit Labetalol HCl (Normodyne) 200 mg PO BID [facility] Last Admin: 10/01/17 08:13 Dose: 200 mg Levetiracetam (Keppra) 500 mg PO Q12HR [facility] Last Admin: 10/01/17 08:13 Dose: 500 mg Lisinopril (Prinivil) 40 mg PO DAILY [facility] Last Admin: 10/01/17 08:13 Dose: 40 mg Magnesium Hydroxide (Mom) 30 ml PO DAILY PRN PRN Reason: Constipation Magnesium Oxide (Magox) 400 mg PO BID [facility] Last Admin: 10/01/17 08:12 Dose: 400 mg Metformin HCl (Glucophage) 500 mg PO BIDBS [facility] Last Admin: 10/01/17 08:13 Dose: 500 mg Nifedipine (Procardia Xl) 90 mg PO DAILY [facility] Last Admin: 10/01/17 09:22 Dose: 90 mg Ondansetron HCl (Zofran) 4 mg IVP Q6H PRN PRN Reason: Nausea &/or vomiting Oxycodone HCl (Roxicodone *Ir*) 7.5 mg PO QID [facility] Polyethylene Glycol (Miralax) 17 gm PO DAILY [facility] Last Admin: 09/20/17 09:25 Dose: Not Given Potassium Chloride (K-Dur 10 Meq Tablet) 20 meq PO WB [facility] Last Admin: 10/01/17 08:11 Dose: 20 meq Prochlorperazine (Compazine) 10 mg PO TID PRN Last Admin: 09/20/17 11:02 Dose: 10 mg Senna/Docusate Sodium (Senna Plus Tablet) 2 tab PO BID [facility] Last Admin: 09/20/17 09:25 Dose: Not Given Sodium Chloride (Iv Flush) 10 ml IV PRN PRN PRN Reason: Flushing Last Admin: 09/29/17 08:23 Dose: 10 ml Tamsulosin HCl (Flomax) 0.4 mg PO HS [facility] Last Admin: 09/30/17 20:51 Dose: 0.4 mg Current Medical Issues: Right hip fracture repair, right radial head fracture, hypertension, diabetes mellitus type 2, previous stroke Comments: I certify that I personally led the interdisciplinary team meeting and agree with comments, barriers and goals indicated. Team meeting was held in the patient's room with the patient and the following family members present: Patient alone Mr. Ling's blood pressure medications have been adjusted. His blood pressures are doing much better. Pain management has been difficult because of his difficulty in describing where and how much pain he has. We have been able to reduce the oxycodone down to 10 mg 4 times daily and today we are reducing it to 7.5 mg 4 times daily plus prescribing regular doses of Tylenol. His blood sugars are controlled. - Physical Therapy Bed, Chair, Wheelchair Transfer Assist: Stand By Assist/Supervision Ambulation Ability: Stand By Assist/Supervision Ambulation Distance: 183 Wheelchair Propulsion Ability: Modified Independent Wheelchair Propulsion Distance: 164 Stair Climbing Ability: Total Assistance, 1 Person Assist Number of Steps Climbed: 4 Car Transfer Ability: Stand By Assist/Supervision Comments: Patient is able to ambulate and propel wheelchair with good distance with standby assistance. He is able to ambulate with a hemiwalker with supervision. - Occupational Therapy Eating Ability: Modified Independent Grooming Ability: Independent Bathing Ability: Stand By Assist/Supervision Upper Body Dressing Ability: Independent Lower Body Dressing Ability: Moderate Assistance Tub Transfer Assist: Stand By Assist/Supervision Toileting Assist: Moderate Assistance Toilet Transfer Assist: Stand By Assist/Supervision, Minimal Assistance Comments: Patient has demonstrated improvements in activity tolerance and his ability to walk and maneuver with a hemiwalker. He is independent for upper body dressing and grooming and modified independent for eating. Lower body dressing requires moderate assistance. - Goals Physical Therapy Goals: 09/04/17 Goals: 1.) Ambulation going 150 feet with supervision. - met. 10/01/17 Goals: 1.) Discharge Planning Occupational Therapy Goals: OT goal 10/01/17. 1.) Lower body dressing with supervision.- continue (min to mod assist). 2.) Toileting with supervision. - continue (min assist). 3.) Perform microwaveable meal with supervision. 4.) Discharge planning. - Barriers to Discharge Barriers to Attaining Goals: Weakness (to address reduced strength, progressive resistive exercises are offered.), Endurance (to address reduced endurance, fewer rest breaks and increased activity time are offered.), Medical Limitation (edema right lower extremity and prior stroke along with ongoing joint pains.) - Care Plan Anticipated Length of Stay (days): 1 Anticipated DC Destination: Correction/Facility, Other I have led this team conference and agree with the plan.
--- NOTE | 2017-10-01 19:48 | Cardiology Progress Note ---
<Sharlene Currie - Last Filed: 10/02/17 10:28> Subjective Principal diagnosis: HTN Interval history: Hermes is seen in follow up for HTN. He is in his room on IRU. He reports knee pain but denies chest pain, pressure, palpitations, dizziness, nausea. Exam Vital signs: Temperature 98.6 F 10/01/17 19:43 Pulse Rate 67 10/01/17 19:43 Respiratory Rate 20 10/01/17 19:43 Blood Pressure 157/85 H 10/01/17 19:43 Pulse Oximetry 100 10/01/17 19:43 Inpatient Medications: Generic Name Dose Route Start Last Admin Trade Name Freq PRN Reason Stop Dose Admin Acetaminophen 650 mg 10/01/17 17:00 10/01/17 18:22 Tylenol Arthritis 650 Mg Sr PO 650 mg Q8HR SD Administration Al Hydroxide/Mg Hydroxide 30 ml 08/25/17 10:42 08/25/17 10:48 Maalox Plus PO 30 ml Q3H PRN Administration Indigestion Aspirin 81 mg 08/24/17 09:00 10/01/17 08:13 Ecotrin PO 81 mg DAILY SD Administration Atorvastatin Calcium 10 mg 08/25/17 21:00 09/30/17 20:48 Lipitor PO 10 mg HS SD Administration Baclofen 5 mg 08/23/17 21:00 10/01/17 15:15 Lioresal PO 5 mg TID SD Administration Chlorthalidone 25 mg 09/25/17 08:00 10/01/17 08:13 Hygroton PO 25 mg WB SD Administration Clonidine HCl 0.1 mg 09/22/17 21:00 10/01/17 15:15 Catapres PO 0.1 mg TID SD Administration Cyclobenzaprine HCl 5 mg 08/24/17 21:24 10/01/17 11:55 Flexeril PO 5 mg TID PRN Administration Muscle spasm Diclofenac Sodium 1 applic 09/24/17 13:00 10/01/17 18:21 Voltaren TP 1 applic QID SD Administration Gabapentin 200 mg 09/06/17 10:35 10/01/17 15:15 Neurontin PO 200 mg TID SD Administration Glipizide 5 mg 08/23/17 17:30 10/01/17 18:21 Glucotrol PO 5 mg BIDBS SD Administration Hydralazine HCl 75 mg 09/03/17 14:00 10/01/17 18:21 Apresoline PO 75 mg WM SD Administration Sodium Chloride 500 mls @ 0 mls/hr 09/25/17 16:58 Normal Saline IV .Q0M PRN Per Protocol Insulin Aspart 1 - 5 unit 08/23/17 17:18 09/30/17 20:52 Novolog SQ 1 unit SS PRN Administration Hyperglycemia Protocol Labetalol HCl 200 mg 09/24/17 21:00 10/01/17 08:13 Normodyne PO 200 mg BID SD Administration Levetiracetam 500 mg 08/23/17 21:00 10/01/17 08:13 Keppra PO 500 mg Q12HR SD Administration Lisinopril 40 mg 08/24/17 09:00 10/01/17 08:13 Prinivil PO 40 mg DAILY SD Administration Magnesium Hydroxide 30 ml 08/23/17 17:12 Mom PO DAILY PRN Constipation Magnesium Oxide 400 mg 08/23/17 21:00 10/01/17 08:12 Magox PO 400 mg BID SD Administration Metformin HCl 500 mg 08/23/17 17:30 10/01/17 18:21 Glucophage PO 500 mg BIDBS SD Administration Nifedipine 90 mg 09/28/17 09:00 10/01/17 09:22 Procardia Xl PO 90 mg DAILY SD Administration Ondansetron HCl 4 mg 09/20/17 14:17 Zofran IVP Q6H PRN Nausea &/or vomiting Oxycodone HCl 7.5 mg 10/01/17 13:00 10/01/17 18:21 Roxicodone *Ir* PO 7.5 mg QID SD Administration Polyethylene Glycol 17 gm 08/24/17 09:30 09/20/17 09:25 Miralax PO Not Given DAILY SD Potassium Chloride 20 meq 09/06/17 08:00 10/01/17 08:11 K-Dur 10 Meq Tablet PO 20 meq WB SD Administration Prochlorperazine 10 mg 09/20/17 10:52 09/20/17 11:02 Compazine PO 10 mg TID PRN Administration Senna/Docusate Sodium 2 tab 08/24/17 21:00 09/20/17 09:25 Senna Plus Tablet PO Not Given BID SD Sodium Chloride 10 ml 09/27/17 09:16 09/29/17 08:23 Iv Flush IV 10 ml PRN PRN Administration Flushing Tamsulosin HCl 0.4 mg 08/23/17 21:00 09/30/17 20:51 Flomax PO 0.4 mg HS SD Administration Discontinued Medications Generic Name Dose Route Start Last Admin Trade Name Freq PRN Reason Stop Dose Admin Acetaminophen 650 mg 09/07/17 11:47 10/01/17 10:07 Tylenol PO 650 mg Q4H PRN Administration Pain Hydrocodone Bitart/Acetaminophen 1 tab 08/23/17 17:09 08/26/17 04:14 [place] 5/325 PO 1 tab Q4H PRN Administration Pain Hydrocodone Bitart/Acetaminophen 1 - 2 tab 08/26/17 07:15 09/06/17 06:37 [place] 5/325 PO 2 tab Q4H PRN Administration Pain Amlodipine Besylate 5 mg 09/16/17 21:00 09/19/17 08:35 Norvasc PO 5 mg BID SD Administration Amlodipine Besylate 10 mg 09/20/17 09:00 09/24/17 08:19 Norvasc PO 10 mg DAILY SD Administration Atorvastatin Calcium 10 mg 08/23/17 21:00 08/24/17 21:09 Lipitor PO 10 mg HS SD Administration Ciprofloxacin 500 mg 09/21/17 09:00 09/23/17 08:18 Cipro 500 Mg PO 500 mg Q12HR SD Administration Clarithromycin 500 mg 08/23/17 21:00 08/24/17 08:49 Biaxin PO 500 mg BID SD Administration Clarithromycin 500 mg 08/24/17 17:30 08/25/17 09:12 Biaxin PO 500 mg BIDWM SD Administration Clonidine HCl 0.2 mg 08/23/17 21:00 09/16/17 15:40 Catapres PO 0.2 mg TID SD Administration Clonidine HCl 0.1 mg 09/16/17 21:00 09/19/17 08:35 Catapres PO 0.1 mg TID SD Administration Clonidine HCl 0.1 mg 09/19/17 14:08 09/22/17 15:29 Catapres PO 0.1 mg TID PRN Administration Clonidine HCl 0.1 mg 09/20/17 21:00 09/22/17 08:27 Catapres PO 0.1 mg BID SD Administration Clonidine HCl 0.1 mg 09/23/17 08:10 Catapres PO TID PRN GIVE ONLY IF SBP > 160. Enoxaparin Sodium 30 mg 08/23/17 21:00 09/28/17 08:40 Lovenox SQ 30 mg BID SD Administration Furosemide 20 mg 08/24/17 09:00 09/05/17 08:46 Lasix 20 Mg Tab PO 20 mg DAILY SD Administration Furosemide 20 mg 09/05/17 16:24 09/05/17 17:35 Lasix 20 Mg Tab PO 09/05/17 16:25 20 mg O ONE Administration Furosemide 40 mg 09/06/17 07:00 09/24/17 08:19 Lasix 20 Mg Tab PO 40 mg DAILY SD Administration Gabapentin 100 mg 08/23/17 21:00 09/06/17 08:30 Neurontin PO 100 mg TID SD Administration Hydralazine HCl 50 mg 08/23/17 17:30 09/03/17 12:27 Apresoline PO 50 mg WM SD Administration Hydromorphone HCl 0.5 mg 08/24/17 21:27 09/06/17 09:50 Dilaudid IM 0.5 mg Q3H PRN Administration Pain uncontrolled by po meds Sodium Chloride 1,000 mls @ 100 mls/hr 09/20/17 14:15 09/21/17 17:19 Normal Saline IV Not Given .Q10H SD Sodium Chloride 1,000 mls @ 999.9 mls/hr 09/20/17 14:16 09/20/17 18:12 Normal Saline IV 09/20/17 15:15 750 mls/hr .Q1H ONE Infusion Magnesium Sulfate/Dextrose 1 gm in 100 mls @ 100 mls/hr 09/25/17 14:15 19:52 Mag Sulf 1gm Premix IV 09/25/17 16:14 Infused Q1H SD Infusion Ibuprofen 400 mg 09/10/17 13:58 09/13/17 15:15 Motrin PO 400 mg Q4H PRN Administration Headache /Pain Labetalol HCl 100 mg 09/23/17 21:00 09/24/17 20:10 Normodyne PO 09/24/17 21:00 Not Given BID SD Labetalol HCl 100 mg 09/24/17 11:33 09/24/17 12:25 Normodyne PO 09/24/17 11:34 100 mg O ONE Administration Lidocaine HCl 20 ml 08/23/17 22:09 08/23/17 22:39 Urojet MM 08/23/17 22:10 20 ml O ONE Administration Metoprolol Succinate 25 mg 08/23/17 21:00 08/24/17 08:53 Toprol Xl PO Not Given BID SD Metoprolol Succinate 50 mg 08/24/17 09:00 Toprol Xl PO DAILY SD Metoprolol Tartrate 50 mg 08/24/17 12:00 08/27/17 08:21 Lopressor PO 50 mg TIDWM SD Administration Metoprolol Tartrate 50 mg 08/27/17 17:30 09/16/17 09:06 Lopressor PO 50 mg BIDWM SD Administration Metoprolol Tartrate 25 mg 08/31/17 10:00 08/31/17 09:59 Lopressor PO 08/31/17 10:01 25 mg O ONE Administration Metoprolol Tartrate 25 mg 09/16/17 16:31 09/16/17 17:38 Lopressor PO 25 mg BIDWM SD Administration Metoprolol Tartrate 25 mg 09/17/17 08:00 09/23/17 08:17 Lopressor PO 25 mg BIDWM SD Administration Nifedipine 60 mg 09/25/17 09:00 09/27/17 08:50 Procardia Xl PO 60 mg DAILY SD Administration Nifedipine 30 mg 09/27/17 13:30 09/27/17 14:04 Procardia Xl PO 09/27/17 13:31 30 mg O ONE Administration Nitrofurantoin Macrocrystals 100 mg 09/23/17 17:30 09/30/17 17:06 Macrobid PO 09/30/17 23:59 100 mg BIDWM SD Administration Nitrofurantoin Macrocrystals 100 mg 09/23/17 10:17 09/23/17 10:59 Macrobid PO 09/23/17 10:18 100 mg O ONE Administration Oxycodone HCl 15 mg 09/06/17 10:34 09/10/17 09:45 Roxicodone *Ir* PO 15 mg Q3H PRN Administration Pain Oxycodone HCl 15 mg 09/10/17 12:00 09/18/17 09:49 Roxicodone *Ir* PO 15 mg Q3HWA SD Administration Oxycodone HCl 10 mg 09/18/17 11:41 09/18/17 13:03 Roxicodone *Ir* PO Not Given Q3HWA SD Oxycodone HCl 10 mg 09/18/17 15:00 09/20/17 09:18 Roxicodone *Ir* PO 10 mg Q3HWA SD Administration Oxycodone HCl 10 mg 09/20/17 12:00 09/22/17 13:53 Roxicodone *Ir* PO 10 mg Q4H SD Administration Oxycodone HCl 10 mg 09/22/17 17:00 09/27/17 09:09 Roxicodone *Ir* PO 10 mg Q3HWA SD Administration Oxycodone HCl 5 mg 09/22/17 15:37 09/22/17 15:40 Roxicodone *Ir* PO 09/22/17 15:38 5 mg ONE TIME ONE Administration Oxycodone HCl 10 mg 09/27/17 13:00 10/01/17 08:12 Roxicodone *Ir* PO 10 mg QID SD Administration Pharmacy Consult 1 each 08/24/17 14:16 Pharmacy Consult - Fall Risk 08/24/17 14:17 ONE TIME ONE Pharmacy Consult 1 each 09/03/17 11:20 Pharmacy Consult - Fall Risk 09/03/17 11:21 ONE TIME ONE Pharmacy Consult 1 each 09/12/17 11:25 Pharmacy Consult - Fall Risk 09/12/17 11:26 ONE TIME ONE Pharmacy Consult 1 each 09/22/17 09:34 Pharmacy Consult - Fall Risk 09/22/17 09:35 ONE TIME ONE Pharmacy Consult each 09/30/17 10:25 Pharmacy Consult - Fall Risk 09/30/17 10:26 ONE TIME ONE Potassium Chloride 10 meq 08/24/17 08:00 09/05/17 08:45 K-Dur 10 Meq Tablet PO 10 meq WB SD Administration Senna/Docusate Sodium 2 tab 08/23/17 21:00 08/29/17 20:14 Senna Plus Tablet PO Not Given HS SD - Constitutional no acute distress, well nourished, cooperative - Routine HEENT Exam Head: Present: normocephalic ENT: Present: mucous membranes moist - Routine Neck Exam Absent: JVD, carotid bruit - Routine Chest/Breast/Axilla Exam Chest wall: Absent: tenderness - Routine Respiratory Exam Present: CTA bilaterally. Absent: dyspnea, rales, wheezes - Routine Cardiovascular Exam Present: RRR, no murmur - Routine Abdominal Exam Present: soft, non tender - Routine Extremities Exam Present: no edema - Routine Skin Exam Present: intact, dry, warm - Routine Neurological Exam Present: alert - Routine Psychiatric Exam Present: normal affect - Urinary Catheter Management Urethral Cath placed during this visit: yes, but has since been removed by the nurse Insertion date: 08/23/17 Insertion time: 22:30 Removal date: 09/07/17 Removal time: 08:00 Results 10/01/17 16:51 10/01/17 16:51 CBC 10/01/17 Range/Units 16:51 WBC 7.1 (4.5-11.0) T/MM3 RBC 4.24 L (4.50-5.90) M/MM3 Hgb 12.9 L (13.5-17.5) GM/DL Hct 37.9 L (41-53) % Plt Count 450 H D (130-400) T/MM3 Neut # (Auto) 3.9 (1.8-7.7) T/MM3 Lymph # (Auto) 2.2 (1-4.8) T/MM3 [place] # (Auto) 0.4 (0-0.8) T/MM3 Eos # (Auto) 0.6 H (0-0.5) T/MM3 Baso # (Auto) 0.0 (0-0.2) T/MM3 Comprehensive Metabolic Panel 10/01/17 Range/Units 16:51 Sodium 142 (136-146) MEQ/L Potassium 4.2 (3.6-5) MEQ/L Chloride 102 (98-107) MEQ/L Carbon Dioxide 30 (22-30) MEQ/L BUN 21.0 H (9-20) MG/DL Creatinine 0.8 (0.8-1.5) mg/dL Glucose 93 (75-110) MG/DL Calcium 8.9 (8.4-10.2) MG/DL Intake and Output 10/01/17 10/01/17 10/01/17 06:59 14:59 22:59 Intake Total 540 / 540 Balance 540 / 540 Intake: Oral 540 / 540 Other: Urine Color Yellow # Voids 1 1 # Incontinent Voids 1 Weight 215 lb 6.266 oz Patient Weight 10/02/17 06:59 Weight 215 lb 6.266 oz Assessment and Plan - Assessment and Plan (1) Hypertension Current visit: Yes Status: Chronic (2) Diabetes mellitus type 2 in nonobese Current visit: Yes Status: Chronic (3) CAD (coronary artery disease) Current visit: Yes Status: Acute - Assessment and Plan 09/23/17 Hypertension Current visit: Yes Status: Chronic - DC metoprolol and change to labetolol 100mg bid for improved bp control - Continue clonidine .1mg tid, norvasc 10mg and lisinopril 40mg daily - Will obtain a renal artery sono - Nursing to take bp in arm and thigh to rule out coarctation Diabetes mellitus type 2 in nonobese Current visit: Yes Status: Chronic CAD (coronary artery disease) Current visit: Yes Status: Acute 09/24/17 BP remains uncontrolled. - Increase Labetalol to 200mg BID - Renal US: No evidence of hemodynamically significant renal arterial stenosis. - Change Lasix to Chlorthalidone 25mg daily - Change Amlodipine to Nifedipine 60mg daily 09/25/17 BP remains elevated, will wait and watch given medication changes yesterday 09/27/17 B/P improving, Increase Nifedipine to 90mg daily 09/28/17 BP slowly improving, continue to monitor 10/01/17 BP trending down, no change to current therapy. Please feel free to call with any further questions or concerns Hospital Course Summary Disclaimer: The visit summary below is not to be considered part of the above Progress Note. 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 Patient continues to have uncontrolled hypertension 180s systolic. Medication list reviewed carefully along with marked from Gerald. Different beta jonathan was reconciled on admission from medication list. Toprol-XL discontinued, patient placed on metoprolol tartrate, Lopressor 50 milligrams 3 times a day. Continue with lisinopril 40, hydralazine 50mg 3 times a day. Hgb is has remained stable at 11.9. Patient is on Keppra for history of seizures. Patient also takes clarithromycin 500 twice a day. Brother does confirm patient was on this prior to hospitalization, however, exact reason is unknown Monitor Accu-Cheks and continue on metformin twice a day. [place] as needed for postoperative pain control. Will add MiraLAX and senna plus twice a day for postoperative bowel motivation. Encouraged patient to work with PT and OT for ongoing strengthening At time of discharge medical care will return to primary care provider at [facility], Dr. Bro 08/25/2017 Patient was seen today secondary to reports of possible chest pain. Prior baseline is unknown, so will err on the side of caution. Start telemetry. Serial troponin. We'll obtain chest x-ray, as well as a right shoulder film due to concern for subluxation. GI upset is certainly a possibility, particularly since he is on clarithromycin. May need to get further information on that on Sunday from his PCP. We'll continue remainder current care. Assess lab in the morning for stability. Discussed with patient, he is in agreement with plan of care. 08/27/17 Overall appears to be medically stable. Given bradycardia will decreased Metoprolol to 50mg BID Will need to continue monitor BP. Did contact PCP office at [facility]- their old records from last January patient was not taking erythromycin. It is unclear exactly prescribed clarithromycin and for what reason. Will attempt to contact patient's brother regarding this medication. BGMs are well controlled on current regimen. Continue to encourage work with PT and OT for ongoing strengthening. 09/03/17 Sling to right arm - ortho recommends rechecking films ~09/11/17 HTN - increase hydralazine from 50 to 75 mg TID. Consider further w/u for HTN and r/o pheochromocytoma. He's on multiple classes of antiHTN with suboptimal control, including metoprolol, clonidine, lasix, furosemide, lisinopril + hydralazine. Bradycardia in the 50s precludes increasing BB. 09/05/17 Start bladder retraining. May pull catheter tomorrow if pt is having bladder filling sensation. Will give a second dose of Lasix now. Given his LE edema, HTN and (questionable) weight gain since admission, will increase his Lasix to 40mg q am (from 20mg q am) and follow weights, edema, BP and electrolytes. Increase KCl from 10mEq to 20mEq given the increase in Lasix dosing. Check daily weights. Weight on admission 100.3 and today is 113kg. Question accuracy of today's weight. Consider further w/u for HTN and r/o pheochromocytoma. He's on multiple classes of antiHTN with suboptimal control, including metoprolol, clonidine, lasix, furosemide, lisinopril + hydralazine. 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 09/08/17 [place]ley catheter dc'd 09/07/17 and he's been voiding since. Switching from hydrocodone to oxycodone, has been helpful for pain control. In addition, BP under better control. Continue hydralazine 75 mg and increased Lasix/KCl doses. Check BMP in am. Sinus aram on tele - will dc tele. 09/14/17 BP's are slightly elevated but likely r/t pain. He is already on 4 agents, will continue to monitor. Headache is not new. PT working with him in re: to possible muscle contraction etiology. Sinusitis would be in the DDx, but no c/o fever, sinus drainage, ST, etc. WBC down today from yesterday. 13.3-->11.0. BS's stable. Hgb stable. Wound team following wound on R great toe. 09/17/17 Blood pressures continue to run high. He remains bradycardic with heart rates in the 50s. Metoprolol reduced to 25 mg. Clonidine was started on 09/16/17. Monitor response before further adjustments are made. Awaiting insurance approval, and discharge plans are to go to [facility] and rehabilitation. Dr. Briones's note reviewed. Continue PT/OT. 09/19/17 Patient continues to struggle with pain control. Continue pain medications and therapy plan per Dr. Briones. Persistent edema to right leg (operative side). Doppler obtained 09/18/17 and was negative for DVT. Recommend elevation as able with compression stockings/ SCDs. Continue to monitor closely. Blood pressures remain elevated and variable with bradycardia in the 50s. Metoprolol reduced to 25 mg BID on 09/17/17. Clonidine TID was started on . Will increase amlodipine to 10mg daily in AM and change Clonidine to TID PRN. Continue home Lasix 40mg daily and lisinopril 40mg daily. Monitor weight closely for signs of fluid overload. Patient may need additional diuresis. Awaiting insurance approval, and discharge plans are to go to [facility] and [facility]. Will recheck labs in AM to monitor blood counts, electrolytes and renal function. 09/20/17 Resume clonidine at 0.1mg BID in the event his sxs are r/t clonidine w/drawal. Continue amlodipine, Lasix and lisinopril. Check UA given the new onset of fever. If he continues to run fever, have diarrhea and has increase in WBC, will check for c diff. No cough or SOA. CBC and CMP in am. Hold metformin. NS 250cc bolus given and then tra 100cc/hr as pt isn't taking po well d/t nausea. PRN Zofran. 09/21/17 Cipro started for UTI. Culture pending. WBC is stable. Resume metformin in the am now that he is eating again. Continue to follow BP's. Amlodipine was increased to 10mg the day before yesterday. He likely had elevated BP yesterday d/t abrupt clonidine w/drawal and it was restarted at lower dose of 0.1mg BID. No changes today. 09/22/17 Continue with Cipro for treatment of UTI- C/S pending Data monitor blood sugars, metformin was started yesterday, 09/21. Will increase monitoring to 0.1 milligrams 3 times a day scheduled. May need to continue to increase this. There is when necessary available as needed for systolic greater than 160 Did ask nursing staff to contact Dr. Briones for further pain control if need be. Continue to follow carefully Plan - 09/23/17 Patient continues to struggle with pain control. Pain addressed by Dr. Briones and oxycodone 10mg increased to Q3H for additional pain control Continue pain control and therapies per Dr. Briones. UTI diagnosed 09/21/17. UA revealed enterococcus faecalis sensitive to ampicillin, linezolid, nitrofurantoin, vancomycin. Currently on cipro. Will discontinue cipro and initiate nitrofurantoin per sensitivities today. Blood sugars remain relatively stable. Continue to monitor closely. Blood pressures remain elevated despite multiple medications. Clonidine 0.1mg increased to TID on 09/22/17. Will continue to monitor closely with PRN clonidine as needed. 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 Will consult Dr. Oropeza for further evaluation and expertise. Recheck labs in AM to monitor blood counts, electrolytes and renal function. <Felix Oropeza - Last Filed: 10/10/17 13:00> Exam Vital signs: Temperature 98.4 F 10/10/17 08:00 Pulse Rate 68 10/10/17 08:00 Respiratory Rate 20 10/10/17 08:00 Blood Pressure 174/80 H 10/10/17 08:00 Pulse Oximetry 96 10/10/17 08:00 Inpatient Medications: Generic Name Dose Route Start Last Admin Trade Name Freq PRN Reason Stop Dose Admin Acetaminophen 650 mg 10/06/17 17:00 10/10/17 09:07 Tylenol Arthritis 650 Mg Sr PO 650 mg Q8HR SD Administration Al Hydroxide/Mg Hydroxide 30 ml 10/06/17 13:12 Maalox Plus PO Q3H PRN Indigestion Aspirin 81 mg 10/05/17 09:00 10/10/17 09:08 Ecotrin PO 81 mg DAILY SD Administration Atorvastatin Calcium 10 mg 10/06/17 21:00 10/09/17 20:27 Lipitor PO 10 mg HS SD Administration Baclofen 5 mg 10/06/17 15:00 10/10/17 09:08 Lioresal PO 5 mg TID SD Administration Chlorthalidone 25 mg 10/07/17 08:00 10/10/17 09:06 [place]gro[place] PO 25 mg WB SD Administration Clonidine HCl 0.1 mg 10/06/17 15:00 10/10/17 09:08 Catapres PO 0.1 mg TID SD Administration Cyclobenzaprine HCl 5 mg 10/06/17 13:09 10/09/17 14:23 Flexeril PO 5 mg TID PRN Administration Muscle spasm Diclofenac Sodium 1 applic 09/24/17 13:00 10/10/17 12:25 Voltaren TP 1 applic QID SD Administration Gabapentin 200 mg 10/06/17 15:00 10/10/17 09:10 Neurontin PO 200 mg TID SD Administration Glipizide 5 mg 10/06/17 17:30 10/10/17 09:06 Glucotrol PO 5 mg BIDBS SD Administration Hydralazine HCl 75 mg 10/06/17 17:30 10/10/17 12:31 Apresoline PO 75 mg WM SD Administration Sodium Chloride 500 mls @ 0 mls/hr 10/06/17 13:14 Normal Saline IV .Q0M PRN Per Protocol Insulin Aspart 1 - 5 unit 10/06/17 13:11 Novolog SQ SS PRN Hyperglycemia Protocol Labetalol HCl 200 mg 10/06/17 21:00 10/10/17 09:10 Normodyne PO 200 mg BID SD Administration Levetiracetam 500 mg 10/06/17 21:00 10/10/17 09:10 Keppra PO 500 mg Q12HR SD Administration Lisinopril 40 mg 08/24/17 09:00 10/10/17 09:10 Prinivil PO 40 mg DAILY SD Administration Magnesium Hydroxide 30 ml 10/06/17 13:13 Mom PO DAILY PRN Constipation Magnesium Oxide 400 mg 10/06/17 21:00 10/10/17 09:10 Magox PO 400 mg BID SD Administration Metformin HCl 500 mg 10/06/17 17:30 10/10/17 09:07 Glucophage PO 500 mg BIDBS SD Administration Nifedipine 90 mg 10/07/17 09:00 10/10/17 09:11 Procardia Xl PO 90 mg DAILY SD Administration Ondansetron HCl 4 mg 10/06/17 13:14 Zofran IVP Q6H PRN Nausea &/or vomiting Oxycodone HCl 5 mg 10/08/17 13:00 10/10/17 12:25 Roxicodone *Ir* PO 5 mg QID SD Administration Polyethylene Glycol 17 gm 10/05/17 09:00 10/10/17 09:09 Miralax PO 17 gm DAILY SD Administration Potassium Chloride 20 meq 10/07/17 08:00 10/10/17 09:07 K-Dur 20 Meq Tablet PO 20 meq WB SD Administration Prochlorperazine 10 mg 09/20/17 10:52 09/20/17 11:02 Compazine PO 10 mg TID PRN Administration Senna/Docusate Sodium 2 tab 08/24/17 21:00 09/20/17 09:25 Senna Plus Tablet PO Not Given BID SD Sodium Chloride 10 ml 10/06/17 13:15 Iv Flush IV PRN PRN Flushing Tamsulosin HCl 0.4 mg 10/06/17 21:00 10/09/17 20:29 Flomax PO 0.4 mg HS SD Administration Discontinued Medications Generic Name Dose Route Start Last Admin Trade Name Freq PRN Reason Stop Dose Admin Acetaminophen 650 mg 09/07/17 11:47 10/01/17 10:07 Tylenol PO 650 mg Q4H PRN Administration Pain Acetaminophen 650 mg 10/01/17 17:00 10/06/17 08:06 Tylenol Arthritis 650 Mg Sr PO 650 mg Q8HR SD Administration Hydrocodone Bitart/Acetaminophen 1 tab 08/23/17 17:09 08/26/17 04:14 [place] 5/325 PO 1 tab Q4H PRN Administration Pain Hydrocodone Bitart/Acetaminophen 1 - 2 tab 08/26/17 07:15 09/06/17 06:37 [place] 5/325 PO 2 tab Q4H PRN Administration Pain Al Hydroxide/Mg Hydroxide 30 ml 08/25/17 10:42 08/25/17 10:48 Maalox Plus PO 30 ml Q3H PRN Administration Indigestion Amlodipine Besylate 5 mg 09/16/17 21:00 09/19/17 08:35 Norvasc PO 5 mg BID SD Administration Amlodipine Besylate 10 mg 09/20/17 09:00 09/24/17 08:19 Norvasc PO 10 mg DAILY SD Administration Aspirin 81 mg 08/24/17 09:00 10/04/17 08:39 Ecotrin PO 81 mg DAILY SD Administration Atorvastatin Calcium 10 mg 08/23/17 21:00 08/24/17 21:09 Lipitor PO 10 mg HS SD Administration Atorvastatin Calcium 10 mg 08/25/17 21:00 10/05/17 21:19 Lipitor PO 10 mg HS SD Administration Baclofen 5 mg 08/23/17 21:00 10/06/17 08:07 Lioresal PO 5 mg TID SD Administration Chlorthalidone 25 mg 09/25/17 08:00 10/06/17 08:06 [place] PO 25 mg WB SD Administration Ciprofloxacin 500 mg 09/21/17 09:00 09/23/17 08:18 Cipro 500 Mg PO 500 mg Q12HR SD Administration Clarithromycin 500 mg 08/23/17 21:00 08/24/17 08:49 Biaxin PO 500 mg BID SD Administration Clarithromycin 500 mg 08/24/17 17:30 08/25/17 09:12 Biaxin PO 500 mg BIDWM SD Administration Clonidine HCl 0.2 mg 08/23/17 21:00 09/16/17 15:40 Catapres PO 0.2 mg TID SD Administration Clonidine HCl 0.1 mg 09/16/17 21:00 09/19/17 08:35 Catapres PO 0.1 mg TID SD Administration Clonidine HCl 0.1 mg 09/19/17 14:08 09/22/17 15:29 Catapres PO 0.1 mg TID PRN Administration Clonidine HCl 0.1 mg 09/20/17 21:00 09/22/17 08:27 Catapres PO 0.1 mg BID SD Administration Clonidine HCl 0.1 mg 09/22/17 21:00 10/06/17 08:05 Catapres PO 0.1 mg TID SD Administration Clonidine HCl 0.1 mg 09/23/17 08:10 Catapres PO TID PRN GIVE ONLY IF SBP > 160. Cyclobenzaprine HCl 5 mg 08/24/17 21:24 10/05/17 01:23 Flexeril PO 5 mg TID PRN Administration Muscle spasm Enoxaparin Sodium 30 mg 08/23/17 21:00 09/28/17 08:40 Lovenox SQ 30 mg BID SD Administration Furosemide 20 mg 08/24/17 09:00 09/05/17 08:46 Lasix 20 Mg Tab PO 20 mg DAILY SD Administration Furosemide 20 mg 09/05/17 16:24 09/05/17 17:35 Lasix 20 Mg Tab PO 09/05/17 16:25 20 mg O ONE Administration Furosemide 40 mg 09/06/17 07:00 09/24/17 08:19 Lasix 20 Mg Tab PO 40 mg DAILY SD Administration Gabapentin 100 mg 08/23/17 21:00 09/06/17 08:30 Neurontin PO 100 mg TID SD Administration Gabapentin 200 mg 09/06/17 10:35 10/06/17 08:06 Neurontin PO 200 mg TID SD Administration Glipizide 5 mg 08/23/17 17:30 10/06/17 08:06 Glucotrol PO 5 mg BIDBS SD Administration Hydralazine HCl 50 mg 08/23/17 17:30 09/03/17 12:27 Apresoline PO 50 mg WM SD Administration Hydralazine HCl 75 mg 09/03/17 14:00 10/06/17 12:21 Apresoline PO 75 mg WM SD Administration Hydromorphone HCl 0.5 mg 08/24/17 21:27 09/06/17 09:50 Dilaudid IM 0.5 mg Q3H PRN Administration Pain uncontrolled by po meds Sodium Chloride 1,000 mls @ 100 mls/hr 09/20/17 14:15 09/21/17 17:19 Normal Saline IV Not Given .Q10H SD Sodium Chloride 1,000 mls @ 999.9 mls/hr 09/20/17 14:16 09/20/17 18:12 Normal Saline IV 09/20/17 15:15 750 mls/hr .Q1H ONE Infusion Magnesium Sulfate/Dextrose 1 gm in 100 mls @ 100 mls/hr 09/25/17 14:15 19:52 Mag Sulf 1gm Premix IV 09/25/17 16:14 Infused Q1H SD Infusion Sodium Chloride 500 mls @ 0 mls/hr 09/25/17 16:58 Normal Saline IV .Q0M PRN Per Protocol Ibuprofen 400 mg 09/10/17 13:58 09/13/17 15:15 Motrin PO 400 mg Q4H PRN Administration Headache /Pain Insulin Aspart 1 - 5 unit 08/23/17 17:18 10/01/17 21:25 Novolog SQ 1 unit SS PRN Administration Hyperglycemia Protocol Labetalol HCl 100 mg 09/23/17 21:00 09/24/17 20:10 Normodyne PO 09/24/17 21:00 Not Given BID SD Labetalol HCl 100 mg 09/24/17 11:33 09/24/17 12:25 Normodyne PO 09/24/17 11:34 100 mg O ONE Administration Labetalol HCl 200 mg 09/24/17 21:00 10/06/17 08:06 Normodyne PO 200 mg BID SD Administration Levetiracetam 500 mg 08/23/17 21:00 10/06/17 08:06 Keppra PO 500 mg Q12HR SD Administration Lidocaine HCl 20 ml 08/23/17 22:09 08/23/17 22:39 Urojet MM 08/23/17 22:10 20 ml O ONE Administration Magnesium Hydroxide 30 ml 08/23/17 17:12 Mom PO DAILY PRN Constipation Magnesium Oxide 400 mg 08/23/17 21:00 10/06/17 08:07 Magox PO 400 mg BID SD Administration Metformin HCl 500 mg 08/23/17 17:30 10/06/17 08:07 Glucophage PO 500 mg BIDBS SD Administration Metoprolol Succinate 25 mg 08/23/17 21:00 08/24/17 08:53 Toprol Xl PO Not Given BID SD Metoprolol Succinate 50 mg 08/24/17 09:00 Toprol Xl PO DAILY SD Metoprolol Tartrate 50 mg 08/24/17 12:00 08/27/17 08:21 Lopressor PO 50 mg TIDWM SD Administration Metoprolol Tartrate 50 mg 08/27/17 17:30 09/16/17 09:06 Lopressor PO 50 mg BIDWM SD Administration Metoprolol Tartrate 25 mg 08/31/17 10:00 08/31/17 09:59 Lopressor PO 08/31/17 10:01 25 mg O ONE Administration Metoprolol Tartrate 25 mg 09/16/17 16:31 09/16/17 17:38 Lopressor PO 25 mg BIDWM SD Administration Metoprolol Tartrate 25 mg 09/17/17 08:00 09/23/17 08:17 Lopressor PO 25 mg BIDWM SD Administration Nifedipine 60 mg 09/25/17 09:00 09/27/17 08:50 Procardia Xl PO 60 mg DAILY SD Administration Nifedipine 30 mg 09/27/17 13:30 09/27/17 14:04 Procardia Xl PO 09/27/17 13:31 30 mg O ONE Administration Nifedipine 90 mg 09/28/17 09:00 10/06/17 09:13 Procardia Xl PO 90 mg DAILY [facility] Administration Nitrofurantoin Macrocrystals 100 mg 09/23/17 17:30 09/30/17 17:06 Macrobid PO 09/30/17 23:59 100 mg BIDWM SD Administration Nitrofurantoin Macrocrystals 100 mg 09/23/17 10:17 09/23/17 10:59 Macrobid PO 09/23/17 10:18 100 mg O ONE Administration Ondansetron HCl 4 mg 09/20/17 14:17 Zofran IVP Q6H PRN Nausea &/or vomiting Oxycodone HCl 15 mg 09/06/17 10:34 09/10/17 09:45 Roxicodone *Ir* PO 15 mg Q3H PRN Administration Pain Oxycodone HCl 15 mg 09/10/17 12:00 09/18/17 09:49 Roxicodone *Ir* PO 15 mg Q3HWA SD Administration Oxycodone HCl 10 mg 09/18/17 11:41 09/18/17 13:03 Roxicodone *Ir* PO Not Given Q3HWA SD Oxycodone HCl 10 mg 09/18/17 15:00 09/20/17 09:18 Roxicodone *Ir* PO 10 mg Q3HWA SD Administration Oxycodone HCl 10 mg 09/20/17 12:00 09/22/17 13:53 Roxicodone *Ir* PO 10 mg Q4H SD Administration Oxycodone HCl 10 mg 09/22/17 17:00 09/27/17 09:09 Roxicodone *Ir* PO 10 mg Q3HWA SD Administration Oxycodone HCl 5 mg 09/22/17 15:37 09/22/17 15:40 Roxicodone *Ir* PO 09/22/17 15:38 5 mg ONE TIME ONE Administration Oxycodone HCl 10 mg 09/27/17 13:00 10/01/17 08:12 Roxicodone *Ir* PO 10 mg QID SD Administration Oxycodone HCl 7.5 mg 10/01/17 13:00 10/03/17 21:07 Roxicodone *Ir* PO 7.5 mg QID SD Administration Oxycodone HCl 7.5 mg 10/04/17 09:00 10/06/17 13:05 Roxicodone *Ir* PO 7.5 mg QID SD Administration Oxycodone HCl 7.5 mg 10/06/17 17:00 10/08/17 08:39 Roxicodone *Ir* PO 7.5 mg QID SD Administration Pharmacy Consult 1 each 08/24/17 14:16 Pharmacy Consult - Fall Risk 08/24/17 14:17 ONE TIME ONE Pharmacy Consult 1 each 09/03/17 11:20 Pharmacy Consult - Fall Risk 09/03/17 11:21 ONE TIME ONE Pharmacy Consult 1 each 09/12/17 11:25 Pharmacy Consult - Fall Risk 09/12/17 11:26 ONE TIME ONE Pharmacy Consult 1 each 09/22/17 09:34 Pharmacy Consult - Fall Risk 09/22/17 09:35 ONE TIME ONE Pharmacy Consult each 09/30/17 10:25 Pharmacy Consult - Fall Risk 09/30/17 10:26 ONE TIME ONE Polyethylene Glycol 17 gm 08/24/17 09:30 09/20/17 09:25 Miralax PO Not Given DAILY SD Polyethylene Glycol 17 gm 10/05/17 09:00 Miralax PO DAILY SD Potassium Chloride 10 meq 08/24/17 08:00 09/05/17 08:45 K-Dur 10 Meq Tablet PO 10 meq WB SD Administration Potassium Chloride 20 meq 09/06/17 08:00 10/03/17 08:18 K-Dur 10 Meq Tablet PO 20 meq WB SD Administration Potassium Chloride 20 meq 10/04/17 08:15 10/06/17 08:05 K-Dur 20 Meq Tablet PO 20 meq WB SD Administration Senna/Docusate Sodium 2 tab 08/23/17 21:00 08/29/17 20:14 Senna Plus Tablet PO Not Given HS SD Sodium Chloride 10 ml 09/27/17 09:16 10/01/17 21:13 Iv Flush IV 10 ml PRN PRN Administration Flushing Tamsulosin HCl 0.4 mg 08/23/17 21:00 10/05/17 21:22 Flomax PO 0.4 mg HS SD Administration - Urinary Catheter Management Urethral Cath placed during this visit: no Results 10/07/17 05:09 10/07/17 05:09 Intake and Output 10/09/17 10/10/17 10/10/17 22:59 06:59 14:59 Intake Total 300 / 300 300 / 300 Balance 300 / 300 300 / 300 Intake: Oral 300 / 300 300 / 300 Other: Urine Color Yellow Urine Odor Normal # Incontinent Voids 1 Assessment and Plan - Assessment and Plan (1) Hypertension Current visit: Yes Status: Chronic (2) Diabetes mellitus type 2 in nonobese Current visit: Yes Status: Chronic (3) CAD (coronary artery disease) Current visit: Yes Status: Acute - Attestation Attestation Narrative: 10/10/17 13:00 Recommendation After examining the patient I agree with the above assessment. I am involved in the formulation of the patient's plan of care. Hospital Course Summary Disclaimer: The visit summary below is not to be considered part of the above Progress Note.
[2017-10-01] MEDS: ATORVASTATIN 10 MG TABLET PO SCH (21:09)
[2017-10-01] MEDS: TAMSULOSIN 0.4 MG CAPSULE PO SCH (21:12)
[2017-10-01] MEDS: SALINE FLUSH 10ml SYRINGE IV PRN (21:13)
[2017-10-01] MEDS: INSULIN ASPART 100unit/ml INJECTION SQ PRN (21:25)
[2017-10-02] MEDS: HYDRALAZINE 25 MG TABLET PO SCH ×3 (08:23→17:17)
[2017-10-02] MEDS: Oxycodone *IR* 5 MG TABLET PO SCH ×4 (08:23→21:52)
[2017-10-02] MEDS: LABETALOL 100 MG TABLET PO SCH ×2 (08:25→21:55)
[2017-10-02] MEDS: GABAPENTIN 100 MG CAPSULE PO SCH ×3 (08:25→21:54)
[2017-10-02] MEDS: ASPIRIN *EC* 81 MG TABLET PO SCH (08:26)
[2017-10-02] MEDS: LISINOPRIL 40 MG TABLET PO SCH (08:26)
[2017-10-02] MEDS: GlipiZIDE 5 MG TABLET PO SCH ×2 (08:26→17:17)
[2017-10-02] MEDS: CHLORTHALIDONE 25 MG TABLET PO SCH (08:26)
[2017-10-02] MEDS: LEVETIRACETAM 500 MG TABLET PO SCH ×2 (08:26→21:55)
[2017-10-02] MEDS: METFORMIN 500 MG TABLET PO SCH ×2 (08:27→17:17)
[2017-10-02] MEDS: MAGNESIUM OXIDE 400 MG TABLET PO SCH ×2 (08:27→21:55)
[2017-10-02] MEDS: BACLOFEN 10 MG TABLET PO SCH ×3 (08:27→21:54)
--- NOTE | 2017-10-02 11:23 | IRU Progress Note ---
- Subjective/Serverity of Illness Date: 10/02/17 Hermes continues to be cooperative with therapy. He is doing well with his progress. Pain appears to be adequately controlled although, as mentioned previously, it is extremely difficult to assess. His blood pressures were doing better but are now back up a bit. Exam Vital Signs: Temperature 97.8 F 10/02/17 08:00 Pulse Rate 67 10/02/17 08:00 Respiratory Rate 16 10/02/17 08:00 Blood Pressure 164/83 H 10/02/17 08:00 Pulse Oximetry 98 10/02/17 08:00 Height/Weight/BMI: Height 1.83 m Weight 97.8 kg Body Mass Index 29.9 - Constitutional Present: no acute distress, well nourished, well developed, cooperative - Routine HEENT Exam Eye: Present: EOMI ENT: Present: mucous membranes moist, dentition normal - Routine Neck Exam Present: supple - Routine Respiratory Exam Present: CTA bilaterally. Absent: wheezes - Routine Cardiovascular Exam Present: RRR, S1, S2. Absent: murmur - Routine Abdominal Exam Present: soft, normoactive bowel sounds, non distended. Absent: tenderness - Routine Extremities Exam Present: normal capillary refill - Routine Skin Exam Present: dry, warm - Routine Neurological Exam Present: alert, oriented X3, CN II-XII intact, motor deficit (unchanged). Absent: normal speech - Routine Psychiatric Exam Present: normal affect, cooperative IRU A/P (1) S/P hip hemiarthroplasty Problem details: Surgery done for subcapital , femoral neck Fx Current visit: Yes Status: Acute Cooperative with therapy and able to ambulate with hemiwalker. (2) Diabetes mellitus type 2 in nonobese Current visit: Yes Status: Chronic (3) Hypertension Qualifiers: Hypertension type: essential hypertension Qualified Code(s): I10 - Essential (primary) hypertension Current visit: Yes Status: Chronic Blood pressures are back up a bit. Cardiology following. (4) Nondisplaced fracture of head of right radius Qualifiers: Encounter type: initial encounter Fracture type: closed Qualified Code(s) : S52.124A - Nondisplaced fracture of head of right radius, initial encounter for closed fracture Current visit: Yes Status: Acute (5) Toe abrasion, non-infected Current visit: Yes Status: Acute (6) Leukocytosis Qualifiers: Leukocytosis type: unspecified Qualified Code(s): D72.829 - Elevated white blood cell count, unspecified Current visit: Yes Status: Acute (7) Headache Qualifiers: Headache type: tension-type Headache chronicity pattern: chronic headache Current visit: Yes Status: Resolved (8) UTI (urinary tract infection) Qualifiers: Urinary tract infection type: acute cystitis Hematuria presence: with hematuria Qualified Code(s): N30.01 - Acute cystitis with hematuria Current visit: Yes Status: Acute (9) Knee pain, bilateral Qualifiers: Chronicity: chronic Qualified Code(s): M25.561 - Pain in right knee; M25.562 - Pain in left knee; G89.29 - Other chronic pain Current visit: Yes Status: Chronic DVT Prophylaxis: Lovenox Resuscitation Status: Full Code - Course Hospital Course: Chucho Solis MD: 09/03/17 15:14 Pain in right elbow and right hip as anticipated. Blood sugars are controlled. Blood pressures remain a bit elevated. 09/04/17 12:44 Progressing with therapy. Blood sugars look excellent. Pain in right elbow seems to be a major issue. 09/06/17 11:50 Improving with therapy. Blood pressures remain elevated. Lasix has been increased. I will increase gabapentin and switch to oxycodone today. 09/07/17 11:20 Continues to have some edema in the right lower extremity. He is progressing with therapy with regard to ambulation. Pain management hopefully is improved with the use of oxycodone. 09/10/17 12:06 Pain management is difficult. We'll schedule the oxycodone. Blood pressures remain elevated likely related to pain management. He is voiding although does have occasional residuals identified. 09/11/17 11:58 Headache is resolved. Improved pain management with oxycodone regularly scheduled. Blood pressures are improved with regular doses of oxycodone. New evidence of abrasion to right great toe. 09/13/17 13:51 White count to 13,000. No evidence of source of infection at present. Sugars are well controlled. Cooperative with therapy. Headache returned but less intense. 09/14/17 11:37 Headache continues to come and go. Seems to be localized in right temporal area. We will check a sedimentation rate. Neurologically he is otherwise unchanged. 09/17/17 11:54 Headache reportedly resolved. No new neurologic changes. Pain management is a challenge. Blood pressures remain elevated although medications have been adjusted. 09/18/17 11:39 Headache appears to have resolved. Abrasion on toe improved. Edema right leg remains. Venous Doppler ordered. We will try to reduce pain medications. 09/20/17 11:48 Vomiting this morning. Anorectic now. Loose stools. Abdomen remained soft. Venous Doppler right leg negative. We will need to hold therapy. 09/21/17 10:48 UTI diagnosed. No further nausea or vomiting. Low-grade fever yesterday without recurrence. He is now on Cipro. He looks and feels better. 09/24/17 10:34 He was changed from Cipro to nitrofurantoin for E. faecalis UTI. Blood pressure management changed from metoprolol to labetalol. I will add on Voltaren gel for the knee pain. We had increased his oxycodone late last week. 09/25/17 10:54 Blood pressures improved. Continues to complain of a variety of pains mostly both knees, headache and right side of his body. He is cooperative with therapy and making progress. 09/27/17 11:18 Progressing with therapy. Continues to have chronic pain. Blood pressure medications are adjusted by hospitalists service. 09/28/17 11:30 Nifedipine increased to 90 mg daily. Making progress with therapy. Placement in progress. 10/01/17 10:33 Blood pressure significantly improved. Continues to have pain but seems comfortable with current dosage. We will reduce to 7.5 mg oxycodone 4 times daily. We'll also make sure he is receiving regular doses of Tylenol. 10/02/17 11:23 Cooperative with therapy. Blood pressures are again elevated. Awaiting placement. - Interventions to Obtain Goals PT Treatment Plan: Balance/Proprioception, Functional Activities, Gait Training , Patient/Family Education, Therapeutic Exercise OT Treatment Plan: ADL (Basic Care), Balance Training, IADL, Pt./Family Education, Ther. Exercise for ADL
[2017-10-02] MEDS: DICLOFENAC 1% TOP GEL 100gm TP SCH ×3 (12:23→21:52)
[2017-10-02] MEDS: CYCLOBENZAPRINE 5 MG TABLET PO PRN (12:23)
[2017-10-02] MEDS: ATORVASTATIN 10 MG TABLET PO SCH (21:53)
[2017-10-02] MEDS: TAMSULOSIN 0.4 MG CAPSULE PO SCH (21:55)
[2017-10-03] MEDS: DICLOFENAC 1% TOP GEL 100gm TP SCH ×6 (08:12→21:06)
[2017-10-03] MEDS: Oxycodone *IR* 5 MG TABLET PO SCH ×4 (08:13→21:07)
[2017-10-03] MEDS: GABAPENTIN 100 MG CAPSULE PO SCH ×3 (08:15→21:06)
[2017-10-03] MEDS: LISINOPRIL 40 MG TABLET PO SCH (08:16)
[2017-10-03] MEDS: CHLORTHALIDONE 25 MG TABLET PO SCH (08:16)
[2017-10-03] MEDS: LEVETIRACETAM 500 MG TABLET PO SCH ×2 (08:16→21:06)
[2017-10-03] MEDS: METFORMIN 500 MG TABLET PO SCH ×2 (08:16→17:03)
[2017-10-03] MEDS: BACLOFEN 10 MG TABLET PO SCH ×3 (08:17→21:04)
[2017-10-03] MEDS: ASPIRIN *EC* 81 MG TABLET PO SCH (08:17)
[2017-10-03] MEDS: HYDRALAZINE 25 MG TABLET PO SCH ×3 (08:19→17:02)
[2017-10-03] MEDS: LABETALOL 100 MG TABLET PO SCH ×2 (08:19→21:06)
[2017-10-03] MEDS: GlipiZIDE 5 MG TABLET PO SCH ×2 (08:20→17:03)
[2017-10-03] MEDS: MAGNESIUM OXIDE 400 MG TABLET PO SCH ×2 (08:20→21:06)
--- NOTE | 2017-10-03 12:03 | IRU Progress Note ---
- Subjective/Serverity of Illness Date: 10/03/17 Hermes continues to do well with therapy and make progress. Dismissal is pending safe discharge plan. He denies any problems at patient and seems to be tolerating the reduced dose of oxycodone without difficulty. Denies any abdominal pain or chest pains. Blood pressures remain borderline elevated but are improved overall. Exam Vital Signs: Temperature 97.7 F 10/03/17 08:00 Pulse Rate 63 10/03/17 08:00 Respiratory Rate 18 10/03/17 08:00 Blood Pressure 147/78 H 10/03/17 08:00 Pulse Oximetry 97 10/03/17 08:00 Height/Weight/BMI: Height 1.83 m Weight 97.1 kg Body Mass Index 29.9 - Constitutional Present: no acute distress, well nourished, well developed, cooperative - Routine HEENT Exam Eye: Present: EOMI ENT: Present: mucous membranes moist, dentition normal - Routine Respiratory Exam Present: CTA bilaterally. Absent: wheezes - Routine Cardiovascular Exam Present: RRR. Absent: murmur - Routine Abdominal Exam Present: soft, normoactive bowel sounds, non distended. Absent: tenderness - Routine Extremities Exam Present: edema (RLE), normal capillary refill - Routine Skin Exam Present: dry, warm - Routine Neurological Exam Present: alert, oriented X3, CN II-XII intact, motor deficit (Right upper ext and right leg as before) - Routine Psychiatric Exam Present: normal affect, cooperative IRU A/P (1) S/P hip hemiarthroplasty Problem details: Surgery done for subcapital , femoral neck Fx Current visit: Yes Status: Acute Patient is stable from a clinical standpoint. Continues to work with therapy. (2) Diabetes mellitus type 2 in nonobese Current visit: Yes Status: Chronic Blood sugars are doing well. (3) Hypertension Qualifiers: Hypertension type: essential hypertension Qualified Code(s): I10 - Essential (primary) hypertension Current visit: Yes Status: Chronic (4) Nondisplaced fracture of head of right radius Qualifiers: Encounter type: initial encounter Fracture type: closed Qualified Code(s) : S52.124A - Nondisplaced fracture of head of right radius, initial encounter for closed fracture Current visit: Yes Status: Acute (5) Toe abrasion, non-infected Current visit: Yes Status: Acute (6) Leukocytosis Qualifiers: Leukocytosis type: unspecified Qualified Code(s): D72.829 - Elevated white blood cell count, unspecified Current visit: Yes Status: Acute (7) Headache Qualifiers: Headache type: tension-type Headache chronicity pattern: chronic headache Current visit: Yes Status: Resolved (8) UTI (urinary tract infection) Qualifiers: Urinary tract infection type: acute cystitis Hematuria presence: with hematuria Qualified Code(s): N30.01 - Acute cystitis with hematuria Current visit: Yes Status: Acute (9) Knee pain, bilateral Qualifiers: Chronicity: chronic Qualified Code(s): M25.561 - Pain in right knee; M25.562 - Pain in left knee; G89.29 - Other chronic pain Current visit: Yes Status: Chronic DVT Prophylaxis: Lovenox Resuscitation Status: Full Code - Course Hospital Course: Chucho Solis MD: 09/03/17 15:14 Pain in right elbow and right hip as anticipated. Blood sugars are controlled. Blood pressures remain a bit elevated. 09/04/17 12:44 Progressing with therapy. Blood sugars look excellent. Pain in right elbow seems to be a major issue. 09/06/17 11:50 Improving with therapy. Blood pressures remain elevated. Lasix has been increased. I will increase gabapentin and switch to oxycodone today. 09/07/17 11:20 Continues to have some edema in the right lower extremity. He is progressing with therapy with regard to ambulation. Pain management hopefully is improved with the use of oxycodone. 09/10/17 12:06 Pain management is difficult. We'll schedule the oxycodone. Blood pressures remain elevated likely related to pain management. He is voiding although does have occasional residuals identified. 09/11/17 11:58 Headache is resolved. Improved pain management with oxycodone regularly scheduled. Blood pressures are improved with regular doses of oxycodone. New evidence of abrasion to right great toe. 09/13/17 13:51 White count to 13,000. No evidence of source of infection at present. Sugars are well controlled. Cooperative with therapy. Headache returned but less intense. 09/14/17 11:37 Headache continues to come and go. Seems to be localized in right temporal area. We will check a sedimentation rate. Neurologically he is otherwise unchanged. 09/17/17 11:54 Headache reportedly resolved. No new neurologic changes. Pain management is a challenge. Blood pressures remain elevated although medications have been adjusted. 09/18/17 11:39 Headache appears to have resolved. Abrasion on toe improved. Edema right leg remains. Venous Doppler ordered. We will try to reduce pain medications. 09/20/17 11:48 Vomiting this morning. Anorectic now. Loose stools. Abdomen remained soft. Venous Doppler right leg negative. We will need to hold therapy. 09/21/17 10:48 UTI diagnosed. No further nausea or vomiting. Low-grade fever yesterday without recurrence. He is now on Cipro. He looks and feels better. 09/24/17 10:34 He was changed from Cipro to nitrofurantoin for E. faecalis UTI. Blood pressure management changed from metoprolol to labetalol. I will add on Voltaren gel for the knee pain. We had increased his oxycodone late last week. 09/25/17 10:54 Blood pressures improved. Continues to complain of a variety of pains mostly both knees, headache and right side of his body. He is cooperative with therapy and making progress. 09/27/17 11:18 Progressing with therapy. Continues to have chronic pain. Blood pressure medications are adjusted by hospitalists service. 09/28/17 11:30 Nifedipine increased to 90 mg daily. Making progress with therapy. Placement in progress. 10/01/17 10:33 Blood pressure significantly improved. Continues to have pain but seems comfortable with current dosage. We will reduce to 7.5 mg oxycodone 4 times daily. We'll also make sure he is receiving regular doses of Tylenol. 10/02/17 11:23 Cooperative with therapy. Blood pressures are again elevated. Awaiting placement. 10/03/17 12:03 Patient clinically stable at present. Blood sugars doing well. Cooperative with therapy. - Interventions to Obtain Goals PT Treatment Plan: Balance/Proprioception, Functional Activities, Gait Training , Patient/Family Education, Therapeutic Exercise OT Treatment Plan: ADL (Basic Care), Balance Training, IADL, Pt./Family Education, Ther. Exercise for ADL
[2017-10-03] MEDS: ATORVASTATIN 10 MG TABLET PO SCH (21:04)
[2017-10-03] MEDS: TAMSULOSIN 0.4 MG CAPSULE PO SCH (21:07)
[2017-10-04] MEDS: CHLORTHALIDONE 25 MG TABLET PO SCH (08:37)
[2017-10-04] MEDS: GlipiZIDE 5 MG TABLET PO SCH ×2 (08:37→17:35)
[2017-10-04] MEDS: METFORMIN 500 MG TABLET PO SCH ×2 (08:38→17:36)
[2017-10-04] MEDS: HYDRALAZINE 25 MG TABLET PO SCH ×3 (08:38→17:35)
[2017-10-04] MEDS: ASPIRIN *EC* 81 MG TABLET PO SCH (08:39)
[2017-10-04] MEDS: BACLOFEN 10 MG TABLET PO SCH ×3 (08:39→20:56)
[2017-10-04] MEDS: DICLOFENAC 1% TOP GEL 100gm TP SCH ×4 (08:39→20:56)
[2017-10-04] MEDS: LEVETIRACETAM 500 MG TABLET PO SCH ×2 (08:40→20:59)
[2017-10-04] MEDS: GABAPENTIN 100 MG CAPSULE PO SCH ×3 (08:40→20:57)
[2017-10-04] MEDS: LABETALOL 100 MG TABLET PO SCH ×2 (08:40→20:59)
[2017-10-04] MEDS: LISINOPRIL 40 MG TABLET PO SCH (08:40)
[2017-10-04] MEDS: Oxycodone *IR* 5 MG TABLET PO SCH ×4 (08:41→21:01)
[2017-10-04] MEDS: MAGNESIUM OXIDE 400 MG TABLET PO SCH ×2 (08:41→20:59)
--- NOTE | 2017-10-04 12:11 | Progress Note ---
- Date 10/04/17 Subjective: I watched Jorge, ambulate down the main [place] of the hospital using a walker. He walked to the front of the hospital and about a third of the way back before he needed to sit in the wheelchair. By the time he returned back to his room, he was complaining of bilateral knee pain, entire right leg pain, and right arm pain. He rates his pain at about an 8 out of 10. The pain medicine has been only somewhat helpful. He otherwise has been doing well and denies any new complaints. He has been eating and drinking well. Last bowel movement was on 01/10. Objective Vital signs: Temperature 97.6 F 10/04/17 08:00 Pulse Rate 64 10/04/17 08:00 Respiratory Rate 16 10/04/17 08:00 Blood Pressure 145/73 H 10/04/17 08:00 Pulse Oximetry 97 10/04/17 08:00 Height/Weight/BMI: Height 1.83 m Weight 97.1 kg Body Mass Index 29.9 - Constitutional Present: no acute distress, well nourished, well developed - Routine HEENT Exam Head: Present: normocephalic Eye: Present: PERRL. Absent: conjunctival icterus, scleral injection - Routine Respiratory Exam Present: CTA bilaterally - Routine Cardiovascular Exam Present: RRR, S1, S2 - Routine Abdominal Exam Present: soft, normoactive bowel sounds, non distended, non tender - Routine Extremities Exam Present: edema (1+ bilateral lower extremity) - Routine Musculoskeletal Exam Musculoskeletal: Present: other (right arm is in a sling) - Routine Skin Exam Present: intact, dry, warm - Routine Neurological Exam Present: alert, oriented X3, motor deficit (right arm, right leg) - Routine Psychiatric Exam Present: normal affect, cooperative Results - Labs CBC & Chem 7: 10/01/17 16:51 10/01/17 16:51 Microbiology Results: Microbiology 09/21/17 06:13 Urine, Voided (Cc/notcc) Urine Culture - Final Enterococcus faecalis Assessment and Plan (1) S/P hip hemiarthroplasty Problem details: Surgery done for subcapital , femoral neck Fx Current visit: Yes Status: Acute Assessment and Plan: Impression n/v/diarrhea - 09/20/17-resolved Uncontrolled blood pressure -currently on hydralazine, clonidine, Norvasc, lisinopril, metoprolol Status post right hip hemiarthroplasty-repaired 08/20/[address] Minor Right nondisplaced radial head fracture - nonsurgical tx S/P Fall Hx of CVA with right hemiparesis Enterococcus UTI, treated with 7 day course of nitrofurantoin Chronic dysphasia Coronary artery disease Bradycardia - likely secondary to multiple cardiac meds for tx of HTN-improved Diabetes -fair control on glipizide and sliding scale insulin Seizures Obstructive sleep apnea CAD with history of CABG, 2016 Plan - 10/04/17 Defer pain management to attending. Blood pressure has been trending down. Seen by cardiology on 10/01/17 and they recommend continue current therapy. Nitrofurantoin course has been completed. Discharge is pending a safe plan. Dr. Briones' and cardiology notes reviewed. - Physician Narrative Narrative: Date: 10/04/17 Time: 1205 Hospital Course Summary Disclaimer: The visit summary below is not to be considered part of the above Progress Note. 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 Patient continues to have uncontrolled hypertension 180s systolic. Medication list reviewed carefully along with marked from Gerald. Different beta jonathan was reconciled on admission from medication list. Toprol-XL discontinued, patient placed on metoprolol tartrate, Lopressor 50 milligrams 3 times a day. Continue with lisinopril 40, hydralazine 50mg 3 times a day. Hgb is has remained stable at 11.9. Patient is on Keppra for history of seizures. Patient also takes clarithromycin 500 twice a day. Brother does confirm patient was on this prior to hospitalization, however, exact reason is unknown Monitor Accu-Cheks and continue on metformin twice a day. Chester as needed for postoperative pain control. Will add MiraLAX and senna plus twice a day for postoperative bowel motivation. Encouraged patient to work with PT and OT for ongoing strengthening At time of discharge medical care will return to primary care provider at [facility], Dr. Bro 08/25/2017 Patient was seen today secondary to reports of possible chest pain. Prior baseline is unknown, so will err on the side of caution. Start telemetry. Serial troponin. We'll obtain chest x-ray, as well as a right shoulder film due to concern for subluxation. GI upset is certainly a possibility, particularly since he is on clarithromycin. May need to get further information on that on Sunday from his PCP. We'll continue remainder current care. Assess lab in the morning for stability. Discussed with patient, he is in agreement with plan of care. 08/27/17 Overall appears to be medically stable. Given bradycardia will decreased Metoprolol to 50mg BID Will need to continue monitor BP. Did contact PCP office at [facility]- their old records from last January patient was not taking erythromycin. It is unclear exactly prescribed clarithromycin and for what reason. Will attempt to contact patient's brother regarding this medication. BGMs are well controlled on current regimen. Continue to encourage work with PT and OT for ongoing strengthening. 09/03/17 Sling to right arm - ortho recommends rechecking films ~09/11/17 HTN - increase hydralazine from 50 to 75 mg TID. Consider further w/u for HTN and r/o pheochromocytoma. He's on multiple classes of antiHTN with suboptimal control, including metoprolol, clonidine, lasix, furosemide, lisinopril + hydralazine. Bradycardia in the 50s precludes increasing BB. 09/05/17 Start bladder retraining. May pull catheter tomorrow if pt is having bladder filling sensation. Will give a second dose of Lasix now. Given his LE edema, HTN and (questionable) weight gain since admission, will increase his Lasix to 40mg q am (from 20mg q am) and follow weights, edema, BP and electrolytes. Increase KCl from 10mEq to 20mEq given the increase in Lasix dosing. Check daily weights. Weight on admission 100.3 and today is 113kg. Question accuracy of today's weight. Consider further w/u for HTN and r/o pheochromocytoma. He's on multiple classes of antiHTN with suboptimal control, including metoprolol, clonidine, lasix, furosemide, lisinopril + hydralazine. May need to clarify with PCP if prior workup for hypertension has been undertaken or which home visits nurse patient has seen. 09/08/17 Headley catheter dc'd 09/07/17 and he's been voiding since. Switching from hydrocodone to oxycodone, has been helpful for pain control. In addition, BP under better control. Continue hydralazine 75 mg and increased Lasix/KCl doses. Check BMP in am. Sinus aram on tele - will dc tele. 09/14/17 BP's are slightly elevated but likely r/t pain. He is already on 4 agents, will continue to monitor. Headache is not new. PT working with him in re: to possible muscle contraction etiology. Sinusitis would be in the DDx, but no c/o fever, sinus drainage, ST, etc. WBC down today from yesterday. 13.3-->11.0. BS's stable. Hgb stable. Wound team following wound on R great toe. 09/17/17 Blood pressures continue to run high. He remains bradycardic with heart rates in the 50s. Metoprolol reduced to 25 mg. Clonidine was started on 09/16/17. Monitor response before further adjustments are made. Awaiting insurance approval, and discharge plans are to go to [facility]. Dr. Briones's note reviewed. Continue PT/OT. 09/19/17 Patient continues to struggle with pain control. Continue pain medications and therapy plan per Dr. Briones. Persistent edema to right leg (operative side). Doppler obtained 09/18/17 and was negative for DVT. Recommend elevation as able with compression stockings/ SCDs. Continue to monitor closely. Blood pressures remain elevated and variable with bradycardia in the 50s. Metoprolol reduced to 25 mg BID on 09/17/17. Clonidine TID was started on . Will increase amlodipine to 10mg daily in AM and change Clonidine to TID PRN. Continue home Lasix 40mg daily and lisinopril 40mg daily. Monitor weight closely for signs of fluid overload. Patient may need additional diuresis. Awaiting insurance approval, and discharge plans are to go to [facility]. Will recheck labs in AM to monitor blood counts, electrolytes and renal function. 09/20/17 Resume clonidine at 0.1mg BID in the event his sxs are r/t clonidine w/drawal. Continue amlodipine, Lasix and lisinopril. Check UA given the new onset of fever. If he continues to run fever, have diarrhea and has increase in WBC, will check for c diff. No cough or SOA. CBC and CMP in am. Hold metformin. NS 250cc bolus given and then tra 100cc/hr as pt isn't taking po well d/t nausea. PRN Zofran. 09/21/17 Cipro started for UTI. Culture pending. WBC is stable. Resume metformin in the am now that he is eating again. Continue to follow BP's. Amlodipine was increased to 10mg the day before yesterday. He likely had elevated BP yesterday d/t abrupt clonidine w/drawal and it was restarted at lower dose of 0.1mg BID. No changes today. 09/22/17 Continue with Cipro for treatment of UTI- C/S pending Data monitor blood sugars, metformin was started yesterday, 09/21. Will increase monitoring to 0.1 milligrams 3 times a day scheduled. May need to continue to increase this. There is when necessary available as needed for systolic greater than 160 Did ask nursing staff to contact Dr. Briones for further pain control if need be. Continue to follow carefully Plan - 09/23/17 Patient continues to struggle with pain control. Pain addressed by Dr. Briones and oxycodone 10mg increased to Q3H for additional pain control Continue pain control and therapies per Dr. Briones. UTI diagnosed 09/21/17. UA revealed enterococcus faecalis sensitive to ampicillin, linezolid, nitrofurantoin, vancomycin. Currently on cipro. Will discontinue cipro and initiate nitrofurantoin per sensitivities today. Blood sugars remain relatively stable. Continue to monitor closely. Blood pressures remain elevated despite multiple medications. Clonidine 0.1mg increased to TID on 09/22/17. Will continue to monitor closely with PRN clonidine as needed. Patient denies having home visits nurse. Will consult Dr. Oropeza for further evaluation and expertise. Recheck labs in AM to monitor blood counts, electrolytes and renal function. 10/04/17 Defer pain management to attending. Blood pressure has been trending down. Seen by cardiology on 10/01/17 and they recommend continue current therapy. Nitrofurantoin course has been completed. Discharge is pending a safe plan.
[2017-10-04] MEDS: ATORVASTATIN 10 MG TABLET PO SCH (20:56)
[2017-10-04] MEDS: TAMSULOSIN 0.4 MG CAPSULE PO SCH (21:02)
[2017-10-05] MEDS: CYCLOBENZAPRINE 5 MG TABLET PO PRN (01:23)
[2017-10-05] MEDS: METFORMIN 500 MG TABLET PO SCH ×2 (08:58→17:28)
[2017-10-05] MEDS: CHLORTHALIDONE 25 MG TABLET PO SCH (08:58)
[2017-10-05] MEDS: HYDRALAZINE 25 MG TABLET PO SCH ×3 (08:58→17:27)
[2017-10-05] MEDS: GlipiZIDE 5 MG TABLET PO SCH ×2 (08:58→17:27)
[2017-10-05] MEDS ORDERED: POLYETHYL. GLYCOL 3350 BOTTLE 238 GM PO SCH (09:00)
[2017-10-05] MEDS: BACLOFEN 10 MG TABLET PO SCH ×3 (09:00→21:20)
[2017-10-05] MEDS: ASPIRIN *EC* 81 MG TABLET PO SCH (09:00)
[2017-10-05] MEDS: LABETALOL 100 MG TABLET PO SCH ×2 (09:01→21:21)
[2017-10-05] MEDS: LEVETIRACETAM 500 MG TABLET PO SCH ×2 (09:01→21:22)
[2017-10-05] MEDS: DICLOFENAC 1% TOP GEL 100gm TP SCH ×4 (09:01→21:18)
[2017-10-05] MEDS: LISINOPRIL 40 MG TABLET PO SCH (09:01)
[2017-10-05] MEDS: GABAPENTIN 100 MG CAPSULE PO SCH ×3 (09:01→21:23)
[2017-10-05] MEDS: MAGNESIUM OXIDE 400 MG TABLET PO SCH ×2 (09:02→21:21)
[2017-10-05] MEDS: Oxycodone *IR* 5 MG TABLET PO SCH ×4 (09:02→21:18)
[2017-10-05] MEDS: POLYETHYL GLYCOL 3350 17gm PACKET PO SCH (09:03)
--- NOTE | 2017-10-05 11:24 | IRU Progress Note ---
- Subjective/Serverity of Illness Date: 10/05/17 Mr. Ling was interviewed and examined in his room. He continually points to his right eye. Since he is unable to speak directly, through a series of multiple choice questions, it is determined that he likely has diplopia. However it is not possible to demonstrate disconjugate gaze at this time. In addition, even though he tested his vision by asking him how many fingers I was holding up, due to his aphasia, it is not possible for him to appropriately respond. Sclerae are perhaps minimally injected. No purulence is noted. He denies pain in the eye. Etiology not clear of what he is concerned about at present. I discussed with the hospitalist service and they will evaluate him as well. Neurologically he remains unchanged. Continues to cooperate with therapy. Review blood pressures indicates good control at present. His blood sugars are also doing well. Clinically he is unchanged other than the fact that he is pointing to his right eye. Exam Vital Signs: Temperature 97.9 F 10/04/17 19:38 Pulse Rate 63 10/05/17 10:20 Respiratory Rate 16 10/05/17 10:20 Blood Pressure 138/76 10/05/17 10:20 Pulse Oximetry 97 10/05/17 10:20 Height/Weight/BMI: Height 1.83 m Weight 100.9 kg Body Mass Index 29.9 - Constitutional Present: moderate distress (re: right eye. ), well nourished, well developed, obese, cooperative - Routine HEENT Exam Head: Present: normocephalic, atraumatic Eye: Present: EOMI (no evidence of disconjugate gaze is present upon my examination.), PERRL (patient Looking at the light directly. However pupils are equal and equally reactive to light.) ENT: Present: mucous membranes moist, dentition normal Comments: I attempted to check his vision by asking him how many fingers I was holding up with each eye independently. Due to his lack of speaking ability I was unable to determine the answer to this. - Routine Neck Exam Present: supple - Routine Respiratory Exam Present: CTA bilaterally. Absent: wheezes - Routine Cardiovascular Exam Present: RRR, S1, S2. Absent: murmur - Routine Abdominal Exam Present: soft, normoactive bowel sounds, non distended. Absent: tenderness - Routine Extremities Exam Present: edema (right lower ext), normal capillary refill - Routine Skin Exam Present: dry, warm - Routine Neurological Exam Present: alert, motor deficit (unchanged weakness right lower extremity and right upper extremity.). Absent: CN II-XII intact - Routine Psychiatric Exam Present: normal affect, anxious Results IRU - Labs Labs: Have review blood sugars, vital signs and other providers notes. IRU A/P (1) S/P hip hemiarthroplasty Problem details: Surgery done for subcapital , femoral neck Fx Current visit: Yes Status: Acute Clinically he is stable with regard to the right hip arthroplasty. He is able to ambulate with a hemiwalker. (2) Diabetes mellitus type 2 in nonobese Current visit: Yes Status: Chronic Blood sugars are well controlled. (3) Hypertension Qualifiers: Hypertension type: essential hypertension Qualified Code(s): I10 - Essential (primary) hypertension Current visit: Yes Status: Chronic Review blood pressures indicates much better control at present. (4) Nondisplaced fracture of head of right radius Qualifiers: Encounter type: initial encounter Fracture type: closed Qualified Code(s) : S52.124A - Nondisplaced fracture of head of right radius, initial encounter for closed fracture Current visit: Yes Status: Acute (5) Toe abrasion, non-infected Current visit: Yes Status: Acute (6) Leukocytosis Qualifiers: Leukocytosis type: unspecified Qualified Code(s): D72.829 - Elevated white blood cell count, unspecified Current visit: Yes Status: Acute (7) Headache Qualifiers: Headache type: tension-type Headache chronicity pattern: chronic headache Current visit: Yes Status: Resolved (8) UTI (urinary tract infection) Qualifiers: Urinary tract infection type: acute cystitis Hematuria presence: with hematuria Qualified Code(s): N30.01 - Acute cystitis with hematuria Current visit: Yes Status: Resolved (9) Knee pain, bilateral Qualifiers: Chronicity: chronic Qualified Code(s): M25.561 - Pain in right knee; M25.562 - Pain in left knee; G89.29 - Other chronic pain Current visit: Yes Status: Chronic (10) Diplopia Current visit: Yes Status: Acute This is a presumptive diagnosis based on multiple choice questions I asked him. Does not appear to be related to pain. I do not see evidence of disconjugate gaze. Unable to assess his vision adequately. Have discussed with the hospitalist service as well. DVT Prophylaxis: Lovenox Resuscitation Status: Full Code - Course Hospital Course: Chucho Solis MD: 09/03/17 15:14 Pain in right elbow and right hip as anticipated. Blood sugars are controlled. Blood pressures remain a bit elevated. 09/04/17 12:44 Progressing with therapy. Blood sugars look excellent. Pain in right elbow seems to be a major issue. 09/06/17 11:50 Improving with therapy. Blood pressures remain elevated. Lasix has been increased. I will increase gabapentin and switch to oxycodone today. 09/07/17 11:20 Continues to have some edema in the right lower extremity. He is progressing with therapy with regard to ambulation. Pain management hopefully is improved with the use of oxycodone. 09/10/17 12:06 Pain management is difficult. We'll schedule the oxycodone. Blood pressures remain elevated likely related to pain management. He is voiding although does have occasional residuals identified. 09/11/17 11:58 Headache is resolved. Improved pain management with oxycodone regularly scheduled. Blood pressures are improved with regular doses of oxycodone. New evidence of abrasion to right great toe. 09/13/17 13:51 White count to 13,000. No evidence of source of infection at present. Sugars are well controlled. Cooperative with therapy. Headache returned but less intense. 09/14/17 11:37 Headache continues to come and go. Seems to be localized in right temporal area. We will check a sedimentation rate. Neurologically he is otherwise unchanged. 09/17/17 11:54 Headache reportedly resolved. No new neurologic changes. Pain management is a challenge. Blood pressures remain elevated although medications have been adjusted. 09/18/17 11:39 Headache appears to have resolved. Abrasion on toe improved. Edema right leg remains. Venous Doppler ordered. We will try to reduce pain medications. 09/20/17 11:48 Vomiting this morning. Anorectic now. Loose stools. Abdomen remained soft. Venous Doppler right leg negative. We will need to hold therapy. 09/21/17 10:48 UTI diagnosed. No further nausea or vomiting. Low-grade fever yesterday without recurrence. He is now on Cipro. He looks and feels better. 09/24/17 10:34 He was changed from Cipro to nitrofurantoin for E. faecalis UTI. Blood pressure management changed from metoprolol to labetalol. I will add on Voltaren gel for the knee pain. We had increased his oxycodone late last week. 09/25/17 10:54 Blood pressures improved. Continues to complain of a variety of pains mostly both knees, headache and right side of his body. He is cooperative with therapy and making progress. 09/27/17 11:18 Progressing with therapy. Continues to have chronic pain. Blood pressure medications are adjusted by hospitalists service. 09/28/17 11:30 Nifedipine increased to 90 mg daily. Making progress with therapy. Placement in progress. 10/01/17 10:33 Blood pressure significantly improved. Continues to have pain but seems comfortable with current dosage. We will reduce to 7.5 mg oxycodone 4 times daily. We'll also make sure he is receiving regular doses of Tylenol. 10/02/17 11:23 Cooperative with therapy. Blood pressures are again elevated. Awaiting placement. 10/03/17 12:03 Patient clinically stable at present. Blood sugars doing well. Cooperative with therapy. 10/05/17 11:26 Apparently new onset of diplopia involving the right eye which he points to. Uncertain etiology. Neurologically unchanged. Blood pressures improved. - Interventions to Obtain Goals PT Treatment Plan: Balance/Proprioception, Functional Activities, Gait Training , Patient/Family Education, Therapeutic Exercise OT Treatment Plan: ADL (Basic Care), Balance Training, IADL, Pt./Family Education, Ther. Exercise for ADL Goals Progress/Modifications: Hermes is pointing to his right eye. Apparently he does not have pain based on yes and no answers. He appears to have double vision. Etiology is not clear. I am unable to demonstrate clearcut disconjugate gaze. I am unable to test his vision adequately due to his aphasia. I discussed with the hospitalist service who will assess him as well. His blood pressures are actually doing better. Blood sugars are doing well. Continue therapy for the time being.
[2017-10-05] MEDS: ATORVASTATIN 10 MG TABLET PO SCH (21:19)
[2017-10-05] MEDS: TAMSULOSIN 0.4 MG CAPSULE PO SCH (21:22)
[2017-10-06] MEDS: HYDRALAZINE 25 MG TABLET PO SCH ×3 (08:05→17:48)
[2017-10-06] MEDS: LABETALOL 100 MG TABLET PO SCH ×2 (08:06→21:06)
[2017-10-06] MEDS: LEVETIRACETAM 500 MG TABLET PO SCH ×2 (08:06→21:07)
[2017-10-06] MEDS: CHLORTHALIDONE 25 MG TABLET PO SCH (08:06)
[2017-10-06] MEDS: LISINOPRIL 40 MG TABLET PO SCH (08:06)
[2017-10-06] MEDS: ASPIRIN *EC* 81 MG TABLET PO SCH (08:06)
[2017-10-06] MEDS: GABAPENTIN 100 MG CAPSULE PO SCH ×3 (08:06→21:07)
[2017-10-06] MEDS: GlipiZIDE 5 MG TABLET PO SCH ×2 (08:06→17:49)
[2017-10-06] MEDS: METFORMIN 500 MG TABLET PO SCH ×2 (08:07→17:49)
[2017-10-06] MEDS: MAGNESIUM OXIDE 400 MG TABLET PO SCH ×2 (08:07→21:31)
[2017-10-06] MEDS: BACLOFEN 10 MG TABLET PO SCH ×3 (08:07→21:08)
[2017-10-06] MEDS: DICLOFENAC 1% TOP GEL 100gm TP SCH ×4 (08:08→21:29)
[2017-10-06] MEDS: POLYETHYL GLYCOL 3350 17gm PACKET PO SCH (08:32)
[2017-10-06] MEDS: Oxycodone *IR* 5 MG TABLET PO SCH ×4 (09:13→21:10)
[2017-10-06] MEDS ORDERED: INSULIN ASPART 100unit/ml INJECTION SQ PRN (13:11)
[2017-10-06] MEDS ORDERED: MAG-AL + SIM ORAL LIQUID 30ml PO PRN (13:12)
[2017-10-06] MEDS ORDERED: ONDANSETRON 4 MG/2 ML INJECTION IVP PRN (13:14)
[2017-10-06] MEDS ORDERED: SALINE FLUSH 10ml SYRINGE IV PRN (13:15)
[2017-10-06] MEDS: TAMSULOSIN 0.4 MG CAPSULE PO SCH (21:08)
[2017-10-06] MEDS: CYCLOBENZAPRINE 5 MG TABLET PO PRN (21:10)
[2017-10-06] MEDS: ATORVASTATIN 10 MG TABLET PO SCH (21:14)
[2017-10-07] MEDS: POLYETHYL GLYCOL 3350 17gm PACKET PO SCH (08:36)
[2017-10-07] MEDS: METFORMIN 500 MG TABLET PO SCH ×2 (08:36→17:13)
[2017-10-07] MEDS: GlipiZIDE 5 MG TABLET PO SCH ×2 (08:36→17:13)
[2017-10-07] MEDS: CHLORTHALIDONE 25 MG TABLET PO SCH (08:36)
[2017-10-07] MEDS: Oxycodone *IR* 5 MG TABLET PO SCH ×4 (08:37→21:45)
[2017-10-07] MEDS: HYDRALAZINE 25 MG TABLET PO SCH ×3 (08:37→17:13)
[2017-10-07] MEDS: MAGNESIUM OXIDE 400 MG TABLET PO SCH ×2 (08:38→21:46)
[2017-10-07] MEDS: GABAPENTIN 100 MG CAPSULE PO SCH ×3 (08:38→21:42)
[2017-10-07] MEDS: LEVETIRACETAM 500 MG TABLET PO SCH ×2 (08:38→21:43)
[2017-10-07] MEDS: BACLOFEN 10 MG TABLET PO SCH ×3 (08:39→21:41)
[2017-10-07] MEDS: LISINOPRIL 40 MG TABLET PO SCH (08:39)
[2017-10-07] MEDS: LABETALOL 100 MG TABLET PO SCH ×2 (08:39→21:42)
[2017-10-07] MEDS: ASPIRIN *EC* 81 MG TABLET PO SCH (08:40)
[2017-10-07] MEDS: DICLOFENAC 1% TOP GEL 100gm TP SCH ×4 (09:33→21:40)
[2017-10-07] MEDS: ATORVASTATIN 10 MG TABLET PO SCH (21:41)
[2017-10-07] MEDS: TAMSULOSIN 0.4 MG CAPSULE PO SCH (21:46)
[2017-10-08] MEDS: HYDRALAZINE 25 MG TABLET PO SCH ×3 (07:31→17:41)
[2017-10-08] MEDS: CHLORTHALIDONE 25 MG TABLET PO SCH (07:31)
[2017-10-08] MEDS: Oxycodone *IR* 5 MG TABLET PO SCH ×4 (08:39→22:06)
[2017-10-08] MEDS: POLYETHYL GLYCOL 3350 17gm PACKET PO SCH (08:39)
[2017-10-08] MEDS: LABETALOL 100 MG TABLET PO SCH ×2 (08:40→22:05)
[2017-10-08] MEDS: LISINOPRIL 40 MG TABLET PO SCH (08:41)
[2017-10-08] MEDS: MAGNESIUM OXIDE 400 MG TABLET PO SCH ×2 (08:41→22:06)
[2017-10-08] MEDS: GABAPENTIN 100 MG CAPSULE PO SCH ×3 (08:41→22:05)
[2017-10-08] MEDS: BACLOFEN 10 MG TABLET PO SCH ×3 (08:41→22:04)
[2017-10-08] MEDS: LEVETIRACETAM 500 MG TABLET PO SCH ×2 (08:41→22:06)
[2017-10-08] MEDS: GlipiZIDE 5 MG TABLET PO SCH ×2 (08:42→17:42)
[2017-10-08] MEDS: METFORMIN 500 MG TABLET PO SCH ×2 (08:42→17:42)
[2017-10-08] MEDS: ASPIRIN *EC* 81 MG TABLET PO SCH (08:42)
[2017-10-08] MEDS: DICLOFENAC 1% TOP GEL 100gm TP SCH ×4 (09:58→22:04)
--- NOTE | 2017-10-08 12:25 | IRU Progress Note ---
- Subjective/Serverity of Illness Date: 10/08/17 On Sunday Hermes had tried to indicate to us that he was having a problem with his right eye. He denied pain at that time. Based on a multiple choice series of questions, it appeared to be related to double vision. However today he indicates the eye is better. He is unable to state exactly what the problem is. I asked him if it was double vision and he initially said yes and he said no. I asked him if there was pain and he said there was not. I asked him if it was cloudy and he said yes and then shook his head. It is extremely difficult to assess what is going on. His pupils are equal and equally reactive to light. Assessment of extraocular muscle movement indicates that it is full bilaterally without evidence of disconjugate gaze. There may be some slight nystagmus. Sclera is not injected and light really does not bother his eye. Secondly, he points to his right ankle. I removed his shoe and sock. The right great toe wound is doing well. No evidence of infection. Main concern on his part is that of the right ankle. I believe that he likely has some underlying significant arthritis, possibly even inflammatory in origin. When I mentioned the word arthritis he seemed to respond to that so perhaps he has been told that in the past. Unfortunately we're limited on what we can give him in this regard. His blood sugars are reviewed and are doing well. He is doing well with therapy for both PT and OT. Exam Vital Signs: Temperature 97.8 F 10/08/17 07:25 Pulse Rate 68 10/08/17 07:25 Respiratory Rate 18 10/08/17 07:25 Blood Pressure 138/81 10/08/17 10:59 Pulse Oximetry 100 10/08/17 07:25 Height/Weight/BMI: Height 1.83 m Weight 99 kg Body Mass Index 29.9 - Constitutional Present: mild distress (right ankle, right eye???), well nourished, well developed, cooperative - Routine HEENT Exam Eye: Present: EOMI ENT: Present: mucous membranes moist, dentition normal - Routine Respiratory Exam Present: CTA bilaterally. Absent: wheezes - Routine Cardiovascular Exam Present: RRR, S1, S2. Absent: murmur - Routine Abdominal Exam Present: soft, normoactive bowel sounds, non distended. Absent: tenderness - Routine Extremities Exam Present: normal capillary refill - Routine Skin Exam Present: dry, warm - Routine Neurological Exam Present: alert, motor deficit (unchanged). Absent: CN II-XII intact - Routine Psychiatric Exam Present: normal affect IRU A/P (1) S/P hip hemiarthroplasty Problem details: Surgery done for subcapital , femoral neck Fx Current visit: Yes Status: Acute He is able to ambulate with a hemiwalker and is cooperative. (2) Diabetes mellitus type 2 in nonobese Current visit: Yes Status: Chronic His blood sugars are doing well. (3) Hypertension Qualifiers: Hypertension type: essential hypertension Qualified Code(s): I10 - Essential (primary) hypertension Current visit: Yes Status: Chronic Blood pressures remain variable. At times they are down (normal). (4) Nondisplaced fracture of head of right radius Qualifiers: Encounter type: initial encounter Fracture type: closed Qualified Code(s) : S52.124A - Nondisplaced fracture of head of right radius, initial encounter for closed fracture Current visit: Yes Status: Acute (5) Toe abrasion, non-infected Current visit: Yes Status: Acute (6) Leukocytosis Qualifiers: Leukocytosis type: unspecified Qualified Code(s): D72.829 - Elevated white blood cell count, unspecified Current visit: Yes Status: Acute (7) Headache Qualifiers: Headache type: tension-type Headache chronicity pattern: chronic headache Current visit: Yes Status: Resolved (8) UTI (urinary tract infection) Qualifiers: Urinary tract infection type: acute cystitis Hematuria presence: with hematuria Qualified Code(s): N30.01 - Acute cystitis with hematuria Current visit: Yes Status: Resolved (9) Knee pain, bilateral Qualifiers: Chronicity: chronic Qualified Code(s): M25.561 - Pain in right knee; M25.562 - Pain in left knee; G89.29 - Other chronic pain Current visit: Yes Status: Chronic (10) Diplopia Current visit: Yes Status: Acute DVT Prophylaxis: Lovenox Resuscitation Status: Full Code - Course Hospital Course: Chucho Solis MD: 09/03/17 15:14 Pain in right elbow and right hip as anticipated. Blood sugars are controlled. Blood pressures remain a bit elevated. 09/04/17 12:44 Progressing with therapy. Blood sugars look excellent. Pain in right elbow seems to be a major issue. 09/06/17 11:50 Improving with therapy. Blood pressures remain elevated. Lasix has been increased. I will increase gabapentin and switch to oxycodone today. 09/07/17 11:20 Continues to have some edema in the right lower extremity. He is progressing with therapy with regard to ambulation. Pain management hopefully is improved with the use of oxycodone. 09/10/17 12:06 Pain management is difficult. We'll schedule the oxycodone. Blood pressures remain elevated likely related to pain management. He is voiding although does have occasional residuals identified. 09/11/17 11:58 Headache is resolved. Improved pain management with oxycodone regularly scheduled. Blood pressures are improved with regular doses of oxycodone. New evidence of abrasion to right great toe. 09/13/17 13:51 White count to 13,000. No evidence of source of infection at present. Sugars are well controlled. Cooperative with therapy. Headache returned but less intense. 09/14/17 11:37 Headache continues to come and go. Seems to be localized in right temporal area. We will check a sedimentation rate. Neurologically he is otherwise unchanged. 09/17/17 11:54 Headache reportedly resolved. No new neurologic changes. Pain management is a challenge. Blood pressures remain elevated although medications have been adjusted. 09/18/17 11:39 Headache appears to have resolved. Abrasion on toe improved. Edema right leg remains. Venous Doppler ordered. We will try to reduce pain medications. 09/20/17 11:48 Vomiting this morning. Anorectic now. Loose stools. Abdomen remained soft. Venous Doppler right leg negative. We will need to hold therapy. 09/21/17 10:48 UTI diagnosed. No further nausea or vomiting. Low-grade fever yesterday without recurrence. He is now on Cipro. He looks and feels better. 09/24/17 10:34 He was changed from Cipro to nitrofurantoin for E. faecalis UTI. Blood pressure management changed from metoprolol to labetalol. I will add on Voltaren gel for the knee pain. We had increased his oxycodone late last week. 09/25/17 10:54 Blood pressures improved. Continues to complain of a variety of pains mostly both knees, headache and right side of his body. He is cooperative with therapy and making progress. 09/27/17 11:18 Progressing with therapy. Continues to have chronic pain. Blood pressure medications are adjusted by hospitalists service. 09/28/17 11:30 Nifedipine increased to 90 mg daily. Making progress with therapy. Placement in progress. 10/01/17 10:33 Blood pressure significantly improved. Continues to have pain but seems comfortable with current dosage. We will reduce to 7.5 mg oxycodone 4 times daily. We'll also make sure he is receiving regular doses of Tylenol. 10/02/17 11:23 Cooperative with therapy. Blood pressures are again elevated. Awaiting placement. 10/03/17 12:03 Patient clinically stable at present. Blood sugars doing well. Cooperative with therapy. 10/05/17 11:26 Apparently new onset of diplopia involving the right eye which he points to. Uncertain etiology. Neurologically unchanged. Blood pressures improved. 10/08/17 12:25 Continues to do well with therapy. Right eye issue remains uncertain as to the nature. Clinically I do not see any physical exam evidence of a right eye problem. - Interventions to Obtain Goals PT Treatment Plan: Balance/Proprioception, Functional Activities, Gait Training , Patient/Family Education, Therapeutic Exercise OT Treatment Plan: ADL (Basic Care), Balance Training, IADL, Pt./Family Education, Ther. Exercise for ADL
--- NOTE | 2017-10-08 13:13 | IRU Team Meeting ---
IRU Team Meeting - Nursing Bladder Assistive Devices Utilized:: Medication, Absorbent Pad Bladder Management Level of Assist: Modified Independent Bladder Frequency of Accidents: No accidents Number of Bladder Accidents: 1 Bowel Assistive Devices Utilized:: Medication Bowel Management Level of Assist: Modified Independent Bowel Frequency of Accidents: No accidents Number of Bowel Accidents: 1 Vital Signs: Vital Signs - 24 hr 10/07/17 16:00 10/07/17 19:31 10/08/17 07:25 Temperature 97.8 F 98.1 F 97.8 F Pulse Rate 62 61 68 Respiratory Rate 20 16 18 Blood Pressure 177/98 H 159/96 H 180/90 H Pulse Oximetry 100 97 100 10/08/17 10:59 Temperature Pulse Rate Respiratory Rate Blood Pressure 138/81 Pulse Oximetry Current Medications: Acetaminophen (Tylenol Arthritis 650 Mg Sr) 650 mg PO Q8HR [facility] Last Admin: 10/08/17 08:42 Dose: 650 mg Al Hydroxide/Mg Hydroxide (Maalox Plus) 30 ml PO Q3H PRN PRN Reason: Indigestion Aspirin (Ecotrin) 81 mg PO DAILY [facility] Last Admin: 10/08/17 08:42 Dose: 81 mg Atorvastatin Calcium (Lipitor) 10 mg PO HS [facility] Last Admin: 10/07/17 21:41 Dose: 10 mg Baclofen (Lioresal) 5 mg PO TID [facility] Last Admin: 10/08/17 08:41 Dose: 5 mg Chlorthalidone (Hygroton) 25 mg PO WB [facility] Last Admin: 10/08/17 07:31 Dose: 25 mg Clonidine HCl (Catapres) 0.1 mg PO TID [facility] Last Admin: 10/08/17 08:41 Dose: 0.1 mg Cyclobenzaprine HCl (Flexeril) 5 mg PO TID PRN PRN Reason: Muscle spasm Last Admin: 10/06/17 21:10 Dose: 5 mg Diclofenac Sodium (Voltaren) 1 applic TP QID [facility] Last Admin: 10/08/17 09:58 Dose: 1 applic Gabapentin (Neurontin) 200 mg PO TID [facility] Last Admin: 10/08/17 08:41 Dose: 200 mg Glipizide (Glucotrol) 5 mg PO BIDBS [facility] Last Admin: 10/08/17 08:42 Dose: 5 mg Hydralazine HCl (Apresoline) 75 mg PO WM [facility] Last Admin: 10/08/17 12:11 Dose: 75 mg Sodium Chloride (Normal Saline) 500 mls @ 0 mls/hr IV .Q0M PRN Insulin Aspart (Novolog) 1 - 5 unit SQ SS PRN; Protocol PRN Reason: Hyperglycemia Labetalol HCl (Normodyne) 200 mg PO BID [facility] Last Admin: 10/08/17 08:40 Dose: 200 mg Levetiracetam (Keppra) 500 mg PO Q12HR [facility] Last Admin: 10/08/17 08:41 Dose: 500 mg Lisinopril (Prinivil) 40 mg PO DAILY [facility] Last Admin: 10/08/17 08:41 Dose: 40 mg Magnesium Hydroxide (Mom) 30 ml PO DAILY PRN PRN Reason: Constipation Magnesium Oxide (Magox) 400 mg PO BID [facility] Last Admin: 10/08/17 08:41 Dose: 400 mg Metformin HCl (Glucophage) 500 mg PO BIDBS [facility] Last Admin: 10/08/17 08:42 Dose: 500 mg Nifedipine (Procardia Xl) 90 mg PO DAILY [facility] Last Admin: 10/08/17 08:43 Dose: 90 mg Ondansetron HCl (Zofran) 4 mg IVP Q6H PRN PRN Reason: Nausea &/or vomiting Oxycodone HCl (Roxicodone *Ir*) 5 mg PO QID [facility] Last Admin: 10/08/17 12:11 Dose: 5 mg Polyethylene Glycol (Miralax) 17 gm PO DAILY [facility] Last Admin: 10/08/17 08:39 Dose: 17 gm Potassium Chloride (K-Dur 20 Meq Tablet) 20 meq PO WB [facility] Last Admin: 10/08/17 08:42 Dose: 20 meq Prochlorperazine (Compazine) 10 mg PO TID PRN Last Admin: 09/20/17 11:02 Dose: 10 mg Senna/Docusate Sodium (Senna Plus Tablet) 2 tab PO BID [facility] Last Admin: 09/20/17 09:25 Dose: Not Given Sodium Chloride (Iv Flush) 10 ml IV PRN PRN PRN Reason: Flushing Tamsulosin HCl (Flomax) 0.4 mg PO HS [facility] Last Admin: 10/07/17 21:46 Dose: 0.4 mg Current Medical Issues: Right hip ORIF, Right radial head fracture, DM II, Hypertension, Remote hx of CVA Comments: I certify that I personally led the interdisciplinary team meeting and agree with comments, barriers and goals indicated. Team meeting was held in the patient's room with the patient and the following family members present: patient alone Hermes has had a problem with his right eye late last week. It is better. The nature of the problem is uncertain as he is unable to describe it. It is not related to pain nor photophobia. Exam has been negative. Otherwise his blood pressures remain labile. At times they are adequately controlled at other times they are elevated. His blood sugars are excellent. - Physical Therapy Bed, Chair, Wheelchair Transfer Assist: Modified Independent Ambulation Ability: Modified Independent Ambulation Distance: 465 Wheelchair Propulsion Ability: Modified Independent Wheelchair Propulsion Distance: 300 Stair Climbing Ability: Stand By Assist/Supervision Number of Steps Climbed: 12 Car Transfer Ability: Stand By Assist/Supervision Comments: Hermes has met all of his goals for physical therapy. - Occupational Therapy Eating Ability: Stand By Assist/Supervision Grooming Ability: Independent Bathing Ability: Stand By Assist/Supervision Upper Body Dressing Ability: Independent Lower Body Dressing Ability: Minimal Assistance Tub Transfer Assist: Contact Guard Assistance Toileting Assist: Stand By Assist/Supervision Toilet Transfer Assist: Stand By Assist/Supervision Comments: Patient was able to do simple meal prep with supervision. He is able to perform ADL routine with minimum assistance to independent level. - Goals Physical Therapy Goals: 10/08/17 Goals: Met all goals. 1.) Discharge Planning Occupational Therapy Goals: OT goal 10/01/17, 10/08/17. 1.) Lower body dressing with supervision.- continue (min assist). 2.) Toileting with supervision. - goal met. 3.) Perform microwaveable meal with supervision. - goal met. 4.) Discharge planning. - Barriers to Discharge Barriers to Attaining Goals: Other (hip precautions: I will contact his surgeon in this regard. Otherwise, safe discharge plan.) - Care Plan Anticipated Length of Stay (days): 2 Anticipated DC Destination: Group Home/Facility, Other I have led this team conference and agree with the plan. Interventions/Goals: Hermes is made progress with therapy. Anticipate safe transfer to nursing facility in a couple of days.
--- NOTE | 2017-10-08 13:48 | Progress Note ---
Progress Note: I called Dr. Minor's office ([phone]) regarding his hip precautions. He is now [address]. Minor's nurse called back to the rehabilitation floor and spoke with SANJUANA Wall. She indicates that the hip precautions can be lifted after 6 weeks although general caution should be undertaken. In addition, appt was made for October 26 and we'll arrange this with the nursing facility.
--- NOTE | 2017-10-08 17:06 | Progress Note ---
- Date 10/08/17 Subjective: Hermes was watching TV in his room. He was sitting in his wheelchair. His knees continue to cause pain but his right arm is improving. He denies any SOA or chest pain. He states that he's been eating well and denies abd pain. His legs are swollen but he thinks they are stable and no worse. He informed me he is planning on being discharged on 10/10 to [facility]. Objective Vital signs: Temperature 97.8 F 10/08/17 15:59 Pulse Rate 62 10/08/17 15:59 Respiratory Rate 20 10/08/17 15:59 Blood Pressure 150/81 H 10/08/17 15:59 Pulse Oximetry 99 10/08/17 15:59 Height/Weight/BMI: Height 1.83 m Weight 99.9 kg Body Mass Index 29.9 - Constitutional Present: no acute distress, well nourished, well developed - Routine HEENT Exam Head: Present: normocephalic Eye: Absent: conjunctival icterus, scleral injection - Routine Respiratory Exam Present: CTA bilaterally - Routine Cardiovascular Exam Present: RRR, S1, S2 - Routine Abdominal Exam Present: soft, normoactive bowel sounds, non distended, non tender - Routine Extremities Exam Present: edema (BLE, right arm) Comments: Right arm is in a sling - Routine Skin Exam Present: intact, dry, warm - Routine Neurological Exam Present: alert, oriented X3, motor deficit (right side). Absent: moving all extremities, normal speech (expressive aphasia) Results - Labs CBC & Chem 7: 10/07/17 05:09 10/07/17 05:09 Microbiology Results: Microbiology 09/21/17 06:13 Urine, Voided (Cc/notcc) Urine Culture - Final Enterococcus faecalis Assessment and Plan (1) S/P hip hemiarthroplasty Problem details: Surgery done for subcapital , femoral neck Fx Current visit: Yes Status: Acute Assessment and Plan: Impression n/v/diarrhea - 09/20/17-resolved Uncontrolled blood pressure -currently on hydralazine, clonidine, Norvasc, lisinopril, metoprolol Status post right hip hemiarthroplasty-repaired 08/20/[address] Minor Right nondisplaced radial head fracture - nonsurgical tx S/P Fall Hx of CVA with right hemiparesis Enterococcus UTI, treated with 7 day course of nitrofurantoin Chronic dysphasia Coronary artery disease Bradycardia - likely secondary to multiple cardiac meds for tx of HTN-improved Diabetes -fair control on glipizide and sliding scale insulin Seizures Obstructive sleep apnea CAD with history of CABG, 2015 Plan - 10/08/17 Pt reported right eye c/o to Dr. Briones earlier today but this was not a primary concern during this visit. BP elevated - current meds reviewed. Chlorthalidone 25 mg daily was added yesterday per cardiology. This was updated on his discharge med rec. DC planned for 10/10/17 - [facility]. Resuscitation Status: Full Code - Physician Narrative Narrative: Date: 10/08/17 Time: 1701 Hospital Course Summary Disclaimer: The visit summary below is not to be considered part of the above Progress Note. 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 Patient continues to have uncontrolled hypertension 180s systolic. Medication list reviewed carefully along with marked from Gerald. Different beta jonathan was reconciled on admission from medication list. Toprol-XL discontinued, patient placed on metoprolol tartrate, Lopressor 50 milligrams 3 times a day. Continue with lisinopril 40, hydralazine 50mg 3 times a day. Hgb is has remained stable at 11.9. Patient is on Keppra for history of seizures. Patient also takes clarithromycin 500 twice a day. Brother does confirm patient was on this prior to hospitalization, however, exact reason is unknown Monitor Accu-Cheks and continue on metformin twice a day. [place] as needed for postoperative pain control. Will add MiraLAX and senna plus twice a day for postoperative bowel motivation. Encouraged patient to work with PT and OT for ongoing strengthening At time of discharge medical care will return to [facility], Dr. Bro 08/25/2017 Patient was seen today secondary to reports of possible chest pain. Prior baseline is unknown, so will err on the side of caution. Start telemetry. Serial troponin. We'll obtain chest x-ray, as well as a right shoulder film due to concern for subluxation. GI upset is certainly a possibility, particularly since he is on clarithromycin. May need to get further information on that on Sunday from his PCP. We'll continue remainder current care. Assess lab in the morning for stability. Discussed with patient, he is in agreement with plan of care. 08/27/17 Overall appears to be medically stable. Given bradycardia will decreased Metoprolol to 50mg BID Will need to continue monitor BP. Did contact PCP office at [facility]- their old records from last January patient was not taking erythromycin. It is unclear exactly prescribed clarithromycin and for what reason. Will attempt to contact patient's brother regarding this medication. BGMs are well controlled on current regimen. Continue to encourage work with PT and OT for ongoing strengthening. 09/03/17 Sling to right arm - ortho recommends rechecking films ~09/11/17 HTN - increase hydralazine from 50 to 75 mg TID. Consider further w/u for HTN and r/o pheochromocytoma. He's on multiple classes of antiHTN with suboptimal control, including metoprolol, clonidine, lasix, furosemide, lisinopril + hydralazine. Bradycardia in the 50s precludes increasing BB. 09/05/17 Start bladder retraining. May pull catheter tomorrow if pt is having bladder filling sensation. Will give a second dose of Lasix now. Given his LE edema, HTN and (questionable) weight gain since admission, will increase his Lasix to 40mg q am (from 20mg q am) and follow weights, edema, BP and electrolytes. Increase KCl from 10mEq to 20mEq given the increase in Lasix dosing. Check daily weights. Weight on admission 100.3 and today is 113kg. Question accuracy of today's weight. Consider further w/u for HTN and r/o pheochromocytoma. He's on multiple classes of antiHTN with suboptimal control, including metoprolol, clonidine, lasix, furosemide, lisinopril + hydralazine. 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 09/08/17 Headley catheter dc'd 09/07/17 and he's been voiding since. Switching from hydrocodone to oxycodone, has been helpful for pain control. In addition, BP under better control. Continue hydralazine 75 mg and increased Lasix/KCl doses. Check BMP in am. Sinus aram on tele - will dc tele. 09/14/17 BP's are slightly elevated but likely r/t pain. He is already on 4 agents, will continue to monitor. Headache is not new. PT working with him in re: to possible muscle contraction etiology. Sinusitis would be in the DDx, but no c/o fever, sinus drainage, ST, etc. WBC down today from yesterday. 13.3-->11.0. BS's stable. Hgb stable. Wound team following wound on R great toe. 09/17/17 Blood pressures continue to run high. He remains bradycardic with heart rates in the 50s. Metoprolol reduced to 25 mg. Clonidine was started on 09/16/17. Monitor response before further adjustments are made. Awaiting insurance approval, and discharge plans are to go to [facility]. Dr. Briones's note reviewed. Continue PT/OT. 09/19/17 Patient continues to struggle with pain control. Continue pain medications and therapy plan per Dr. Briones. Persistent edema to right leg (operative side). Doppler obtained 09/18/17 and was negative for DVT. Recommend elevation as able with compression stockings/ SCDs. Continue to monitor closely. Blood pressures remain elevated and variable with bradycardia in the 50s. Metoprolol reduced to 25 mg BID on 09/17/17. Clonidine TID was started on . Will increase amlodipine to 10mg daily in AM and change Clonidine to TID PRN. Continue home Lasix 40mg daily and lisinopril 40mg daily. Monitor weight closely for signs of fluid overload. Patient may need additional diuresis. Awaiting insurance approval, and discharge plans are to go to [facility]. Will recheck labs in AM to monitor blood counts, electrolytes and renal function. 09/20/17 Resume clonidine at 0.1mg BID in the event his sxs are r/t clonidine w/drawal. Continue amlodipine, Lasix and lisinopril. Check UA given the new onset of fever. If he continues to run fever, have diarrhea and has increase in WBC, will check for c diff. No cough or SOA. CBC and CMP in am. Hold metformin. NS 250cc bolus given and then tra 100cc/hr as pt isn't taking po well d/t nausea. PRN Zofran. 09/21/17 Cipro started for UTI. Culture pending. WBC is stable. Resume metformin in the am now that he is eating again. Continue to follow BP's. Amlodipine was increased to 10mg the day before yesterday. He likely had elevated BP yesterday d/t abrupt clonidine w/drawal and it was restarted at lower dose of 0.1mg BID. No changes today. 09/22/17 Continue with Cipro for treatment of UTI- C/S pending Data monitor blood sugars, metformin was started yesterday, 09/21. Will increase monitoring to 0.1 milligrams 3 times a day scheduled. May need to continue to increase this. There is when necessary available as needed for systolic greater than 160 Did ask nursing staff to contact Dr. Briones for further pain control if need be. Continue to follow carefully Plan - 09/23/17 Patient continues to struggle with pain control. Pain addressed by Dr. Briones and oxycodone 10mg increased to Q3H for additional pain control Continue pain control and therapies per Dr. Briones. UTI diagnosed 09/21/17. UA revealed enterococcus faecalis sensitive to ampicillin, linezolid, nitrofurantoin, vancomycin. Currently on cipro. Will discontinue cipro and initiate nitrofurantoin per sensitivities today. Blood sugars remain relatively stable. Continue to monitor closely. Blood pressures remain elevated despite multiple medications. Clonidine 0.1mg increased to TID on 09/22/17. Will continue to monitor closely with PRN clonidine as needed. 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 Will consult Dr. Oropeza for further evaluation and expertise. Recheck labs in AM to monitor blood counts, electrolytes and renal function. 10/04/17 Defer pain management to attending. Blood pressure has been trending down. Seen by cardiology on 10/01/17 and they recommend continue current therapy. Nitrofurantoin course has been completed. Discharge is pending a safe plan. 10/08/17 Pt reported right eye c/o to Dr. Briones earlier today but this was not a primary concern during this visit. BP elevated - current meds reviewed. Chlorthalidone 25 mg daily was added yesterday per cardiology. This was updated on his discharge med rec. DC planned for 10/10/17 - [facility].
[2017-10-08] MEDS: ATORVASTATIN 10 MG TABLET PO SCH (22:04)
[2017-10-08] MEDS: TAMSULOSIN 0.4 MG CAPSULE PO SCH (22:06)
[2017-10-09] MEDS: GABAPENTIN 100 MG CAPSULE PO SCH ×3 (08:19→20:28)
[2017-10-09] MEDS: HYDRALAZINE 25 MG TABLET PO SCH ×3 (08:19→17:21)
[2017-10-09] MEDS: LISINOPRIL 40 MG TABLET PO SCH (08:20)
[2017-10-09] MEDS: LABETALOL 100 MG TABLET PO SCH ×2 (08:20→20:29)
[2017-10-09] MEDS: MAGNESIUM OXIDE 400 MG TABLET PO SCH ×2 (08:21→20:29)
[2017-10-09] MEDS: METFORMIN 500 MG TABLET PO SCH ×2 (08:21→17:21)
[2017-10-09] MEDS: BACLOFEN 10 MG TABLET PO SCH ×3 (08:21→20:27)
[2017-10-09] MEDS: CHLORTHALIDONE 25 MG TABLET PO SCH (08:21)
[2017-10-09] MEDS: LEVETIRACETAM 500 MG TABLET PO SCH ×2 (08:22→20:29)
[2017-10-09] MEDS: GlipiZIDE 5 MG TABLET PO SCH ×2 (08:22→17:21)
[2017-10-09] MEDS: ASPIRIN *EC* 81 MG TABLET PO SCH (08:28)
[2017-10-09] MEDS: Oxycodone *IR* 5 MG TABLET PO SCH ×4 (08:30→20:29)
[2017-10-09] MEDS: DICLOFENAC 1% TOP GEL 100gm TP SCH ×4 (09:40→20:28)
[2017-10-09] MEDS: POLYETHYL GLYCOL 3350 17gm PACKET PO SCH (09:42)
--- NOTE | 2017-10-09 11:25 | IRU Progress Note ---
- Subjective/Serverity of Illness Date: 10/09/17 Hermes indicates that his right eye is no longer bothering him. Continues to point to the right elbow and right knee as the primary area of discomfort. Edema noted but unchanged. He is cooperative with therapy and is now modified independent to independent for OT and PT. Anticipate successful transfer to long -term care soon. Medically he is stable and his blood pressures are improved. Exam Vital Signs: Temperature 98.4 F 10/09/17 07:49 Pulse Rate 68 10/09/17 07:49 Respiratory Rate 16 10/09/17 07:49 Blood Pressure 163/93 H 10/09/17 07:49 Pulse Oximetry 99 10/09/17 07:49 Height/Weight/BMI: Height 1.83 m Weight 99.9 kg Body Mass Index 29.9 - Constitutional Present: well nourished, well developed, cooperative - Routine HEENT Exam Eye: Present: EOMI ENT: Present: mucous membranes moist, dentition normal - Routine Respiratory Exam Present: CTA bilaterally. Absent: wheezes - Routine Cardiovascular Exam Present: RRR, S1, S2. Absent: murmur - Routine Abdominal Exam Present: soft, normoactive bowel sounds, non distended. Absent: tenderness - Routine Extremities Exam Present: edema, normal capillary refill - Routine Skin Exam Present: dry, warm - Routine Neurological Exam Present: alert, oriented X3, motor deficit (as before). Absent: CN II-XII intact, normal speech - Routine Psychiatric Exam Present: normal affect IRU A/P (1) S/P hip hemiarthroplasty Problem details: Surgery done for subcapital , femoral neck Fx Current visit: Yes Status: Acute Patient is doing well and is stable for dismissal when arrangements can be made to safe discharge location. (2) Diabetes mellitus type 2 in nonobese Current visit: Yes Status: Chronic Blood sugars are doing well. (3) Hypertension Qualifiers: Hypertension type: essential hypertension Qualified Code(s): I10 - Essential (primary) hypertension Current visit: Yes Status: Chronic Blood pressures are variable but demonstrate improved control. (4) Nondisplaced fracture of head of right radius Qualifiers: Encounter type: initial encounter Fracture type: closed Qualified Code(s) : S52.124A - Nondisplaced fracture of head of right radius, initial encounter for closed fracture Current visit: Yes Status: Acute (5) Toe abrasion, non-infected Current visit: Yes Status: Acute (6) Leukocytosis Qualifiers: Leukocytosis type: unspecified Qualified Code(s): D72.829 - Elevated white blood cell count, unspecified Current visit: Yes Status: Acute (7) Headache Qualifiers: Headache type: tension-type Headache chronicity pattern: chronic headache Current visit: Yes Status: Resolved (8) UTI (urinary tract infection) Qualifiers: Urinary tract infection type: acute cystitis Hematuria presence: with hematuria Qualified Code(s): N30.01 - Acute cystitis with hematuria Current visit: Yes Status: Resolved (9) Knee pain, bilateral Qualifiers: Chronicity: chronic Qualified Code(s): M25.561 - Pain in right knee; M25.562 - Pain in left knee; G89.29 - Other chronic pain Current visit: Yes Status: Chronic (10) Diplopia Current visit: Yes Status: Resolved It is not at all clear that he actually experienced diplopia. That was a diagnosis we felt as though was most likely based on his shaking his head yes or no to multiple-choice questions. He did deny any pain in the eye. It could have been more of a blurred vision. Examination failed to demonstrate definite diplopia/disconjugate gaze and his pupils were equal and equally reactive without evidence of pain with light exposure. This is improved at the present time. DVT Prophylaxis: Lovenox Resuscitation Status: Full Code - Course Hospital Course: Chucho Solis MD: 09/03/17 15:14 Pain in right elbow and right hip as anticipated. Blood sugars are controlled. Blood pressures remain a bit elevated. 09/04/17 12:44 Progressing with therapy. Blood sugars look excellent. Pain in right elbow seems to be a major issue. 09/06/17 11:50 Improving with therapy. Blood pressures remain elevated. Lasix has been increased. I will increase gabapentin and switch to oxycodone today. 09/07/17 11:20 Continues to have some edema in the right lower extremity. He is progressing with therapy with regard to ambulation. Pain management hopefully is improved with the use of oxycodone. 09/10/17 12:06 Pain management is difficult. We'll schedule the oxycodone. Blood pressures remain elevated likely related to pain management. He is voiding although does have occasional residuals identified. 09/11/17 11:58 Headache is resolved. Improved pain management with oxycodone regularly scheduled. Blood pressures are improved with regular doses of oxycodone. New evidence of abrasion to right great toe. 09/13/17 13:51 White count to 13,000. No evidence of source of infection at present. Sugars are well controlled. Cooperative with therapy. Headache returned but less intense. 09/14/17 11:37 Headache continues to come and go. Seems to be localized in right temporal area. We will check a sedimentation rate. Neurologically he is otherwise unchanged. 09/17/17 11:54 Headache reportedly resolved. No new neurologic changes. Pain management is a challenge. Blood pressures remain elevated although medications have been adjusted. 09/18/17 11:39 Headache appears to have resolved. Abrasion on toe improved. Edema right leg remains. Venous Doppler ordered. We will try to reduce pain medications. 09/20/17 11:48 Vomiting this morning. Anorectic now. Loose stools. Abdomen remained soft. Venous Doppler right leg negative. We will need to hold therapy. 09/21/17 10:48 UTI diagnosed. No further nausea or vomiting. Low-grade fever yesterday without recurrence. He is now on Cipro. He looks and feels better. 09/24/17 10:34 He was changed from Cipro to nitrofurantoin for E. faecalis UTI. Blood pressure management changed from metoprolol to labetalol. I will add on Voltaren gel for the knee pain. We had increased his oxycodone late last week. 09/25/17 10:54 Blood pressures improved. Continues to complain of a variety of pains mostly both knees, headache and right side of his body. He is cooperative with therapy and making progress. 09/27/17 11:18 Progressing with therapy. Continues to have chronic pain. Blood pressure medications are adjusted by hospitalists service. 09/28/17 11:30 Nifedipine increased to 90 mg daily. Making progress with therapy. Placement in progress. 10/01/17 10:33 Blood pressure significantly improved. Continues to have pain but seems comfortable with current dosage. We will reduce to 7.5 mg oxycodone 4 times daily. We'll also make sure he is receiving regular doses of Tylenol. 10/02/17 11:23 Cooperative with therapy. Blood pressures are again elevated. Awaiting placement. 10/03/17 12:03 Patient clinically stable at present. Blood sugars doing well. Cooperative with therapy. 10/05/17 11:26 Apparently new onset of diplopia involving the right eye which he points to. Uncertain etiology. Neurologically unchanged. Blood pressures improved. 10/08/17 12:25 Continues to do well with therapy. Right eye issue remains uncertain as to the nature. Clinically I do not see any physical exam evidence of a right eye problem. 10/09/17 11:25 Doing well with therapy and is now independent to modified independent. Blood sugars are doing well. Blood pressures remain variable. Does not indicate any right eye problem today upon direct questioning. - Interventions to Obtain Goals PT Treatment Plan: Balance/Proprioception, Functional Activities, Gait Training , Patient/Family Education, Therapeutic Exercise OT Treatment Plan: ADL (Basic Care), Balance Training, IADL, Pt./Family Education, Ther. Exercise for ADL Goals Progress/Modifications: She is ready for dismissal when safe discharge plan is available.
[2017-10-09] MEDS: CYCLOBENZAPRINE 5 MG TABLET PO PRN (14:23)
[2017-10-09] MEDS: ATORVASTATIN 10 MG TABLET PO SCH (20:27)
[2017-10-09] MEDS: TAMSULOSIN 0.4 MG CAPSULE PO SCH (20:29)
[2017-10-10] MEDS: HYDRALAZINE 25 MG TABLET PO SCH ×3 (09:06→17:22)
[2017-10-10] MEDS: GlipiZIDE 5 MG TABLET PO SCH ×2 (09:06→17:23)
[2017-10-10] MEDS: CHLORTHALIDONE 25 MG TABLET PO SCH (09:06)
[2017-10-10] MEDS: METFORMIN 500 MG TABLET PO SCH ×2 (09:07→17:22)
[2017-10-10] MEDS: BACLOFEN 10 MG TABLET PO SCH ×3 (09:08→21:31)
[2017-10-10] MEDS: ASPIRIN *EC* 81 MG TABLET PO SCH (09:08)
[2017-10-10] MEDS: POLYETHYL GLYCOL 3350 17gm PACKET PO SCH (09:09)
[2017-10-10] MEDS: DICLOFENAC 1% TOP GEL 100gm TP SCH ×4 (09:09→21:33)
[2017-10-10] MEDS: LISINOPRIL 40 MG TABLET PO SCH (09:10)
[2017-10-10] MEDS: LABETALOL 100 MG TABLET PO SCH ×2 (09:10→21:29)
[2017-10-10] MEDS: GABAPENTIN 100 MG CAPSULE PO SCH ×3 (09:10→21:30)
[2017-10-10] MEDS: LEVETIRACETAM 500 MG TABLET PO SCH ×2 (09:10→21:32)
[2017-10-10] MEDS: MAGNESIUM OXIDE 400 MG TABLET PO SCH ×2 (09:10→21:32)
[2017-10-10] MEDS: Oxycodone *IR* 5 MG TABLET PO SCH ×4 (09:11→21:32)
--- NOTE | 2017-10-10 11:42 | IRU Progress Note ---
- Subjective/Serverity of Illness Date: 10/10/17 Hermes continues to do extremely well with therapy. Medically he is stable although blood pressures continue to be difficult to manage. His medications have been adjusted by cardiology and the hospitalists. His blood sugars are doing well. The right eye appears to be much improved. He denies any pain in it. There may be some decreased vision but this is extremely difficult to assess in view of his difficulty with expressing himself. Pupils are equal and there is no photophobia. Exam Vital Signs: Temperature 98.4 F 10/10/17 08:00 Pulse Rate 68 10/10/17 08:00 Respiratory Rate 20 10/10/17 08:00 Blood Pressure 174/80 H 10/10/17 08:00 Pulse Oximetry 96 10/10/17 08:00 Height/Weight/BMI: Height 1.83 m Weight 101 kg Body Mass Index 29.9 - Constitutional Present: no acute distress, well nourished, well developed - Routine HEENT Exam Eye: Present: EOMI ENT: Present: mucous membranes moist, dentition normal - Routine Respiratory Exam Present: CTA bilaterally. Absent: wheezes - Routine Cardiovascular Exam Present: RRR. Absent: murmur - Routine Abdominal Exam Present: soft, normoactive bowel sounds, non distended. Absent: tenderness - Routine Extremities Exam Present: normal capillary refill - Routine Skin Exam Present: dry, warm - Routine Neurological Exam Present: alert, oriented X3, motor deficit. Absent: CN II-XII intact, normal speech - Routine Psychiatric Exam Present: normal affect IRU A/P (1) S/P hip hemiarthroplasty Problem details: Surgery done for subcapital , femoral neck Fx Current visit: Yes Status: Acute Functionally the patient is doing well and is stable for transfer to long-term care. (2) Diabetes mellitus type 2 in nonobese Current visit: Yes Status: Chronic Blood sugars are doing well. (3) Hypertension Qualifiers: Hypertension type: essential hypertension Qualified Code(s): I10 - Essential (primary) hypertension Current visit: Yes Status: Chronic Blood pressures are labile and difficult to control. (4) Nondisplaced fracture of head of right radius Qualifiers: Encounter type: initial encounter Fracture type: closed Qualified Code(s) : S52.124A - Nondisplaced fracture of head of right radius, initial encounter for closed fracture Current visit: Yes Status: Acute (5) Toe abrasion, non-infected Current visit: Yes Status: Acute (6) Leukocytosis Qualifiers: Leukocytosis type: unspecified Qualified Code(s): D72.829 - Elevated white blood cell count, unspecified Current visit: Yes Status: Acute (7) Headache Qualifiers: Headache type: tension-type Headache chronicity pattern: chronic headache Current visit: Yes Status: Resolved (8) UTI (urinary tract infection) Qualifiers: Urinary tract infection type: acute cystitis Hematuria presence: with hematuria Qualified Code(s): N30.01 - Acute cystitis with hematuria Current visit: Yes Status: Resolved (9) Knee pain, bilateral Qualifiers: Chronicity: chronic Qualified Code(s): M25.561 - Pain in right knee; M25.562 - Pain in left knee; G89.29 - Other chronic pain Current visit: Yes Status: Chronic (10) Diplopia Current visit: Yes Status: Resolved DVT Prophylaxis: Lovenox Resuscitation Status: Full Code - Course Hospital Course: Chucho Solis MD: 09/03/17 15:14 Pain in right elbow and right hip as anticipated. Blood sugars are controlled. Blood pressures remain a bit elevated. 09/04/17 12:44 Progressing with therapy. Blood sugars look excellent. Pain in right elbow seems to be a major issue. 09/06/17 11:50 Improving with therapy. Blood pressures remain elevated. Lasix has been increased. I will increase gabapentin and switch to oxycodone today. 09/07/17 11:20 Continues to have some edema in the right lower extremity. He is progressing with therapy with regard to ambulation. Pain management hopefully is improved with the use of oxycodone. 09/10/17 12:06 Pain management is difficult. We'll schedule the oxycodone. Blood pressures remain elevated likely related to pain management. He is voiding although does have occasional residuals identified. 09/11/17 11:58 Headache is resolved. Improved pain management with oxycodone regularly scheduled. Blood pressures are improved with regular doses of oxycodone. New evidence of abrasion to right great toe. 09/13/17 13:51 White count to 13,000. No evidence of source of infection at present. Sugars are well controlled. Cooperative with therapy. Headache returned but less intense. 09/14/17 11:37 Headache continues to come and go. Seems to be localized in right temporal area. We will check a sedimentation rate. Neurologically he is otherwise unchanged. 09/17/17 11:54 Headache reportedly resolved. No new neurologic changes. Pain management is a challenge. Blood pressures remain elevated although medications have been adjusted. 09/18/17 11:39 Headache appears to have resolved. Abrasion on toe improved. Edema right leg remains. Venous Doppler ordered. We will try to reduce pain medications. 09/20/17 11:48 Vomiting this morning. Anorectic now. Loose stools. Abdomen remained soft. Venous Doppler right leg negative. We will need to hold therapy. 09/21/17 10:48 UTI diagnosed. No further nausea or vomiting. Low-grade fever yesterday without recurrence. He is now on Cipro. He looks and feels better. 09/24/17 10:34 He was changed from Cipro to nitrofurantoin for E. faecalis UTI. Blood pressure management changed from metoprolol to labetalol. I will add on Voltaren gel for the knee pain. We had increased his oxycodone late last week. 09/25/17 10:54 Blood pressures improved. Continues to complain of a variety of pains mostly both knees, headache and right side of his body. He is cooperative with therapy and making progress. 09/27/17 11:18 Progressing with therapy. Continues to have chronic pain. Blood pressure medications are adjusted by hospitalists service. 09/28/17 11:30 Nifedipine increased to 90 mg daily. Making progress with therapy. Placement in progress. 10/01/17 10:33 Blood pressure significantly improved. Continues to have pain but seems comfortable with current dosage. We will reduce to 7.5 mg oxycodone 4 times daily. We'll also make sure he is receiving regular doses of Tylenol. 10/02/17 11:23 Cooperative with therapy. Blood pressures are again elevated. Awaiting placement. 10/03/17 12:03 Patient clinically stable at present. Blood sugars doing well. Cooperative with therapy. 10/05/17 11:26 Apparently new onset of diplopia involving the right eye which he points to. Uncertain etiology. Neurologically unchanged. Blood pressures improved. 10/08/17 12:25 Continues to do well with therapy. Right eye issue remains uncertain as to the nature. Clinically I do not see any physical exam evidence of a right eye problem. 10/09/17 11:25 Doing well with therapy and is now independent to modified independent. Blood sugars are doing well. Blood pressures remain variable. Does not indicate any right eye problem today upon direct questioning. 10/10/17 11:42 Anticipate successful and safe transfer to long-term care tomorrow. - Interventions to Obtain Goals PT Treatment Plan: Balance/Proprioception, Functional Activities, Gait Training , Patient/Family Education, Therapeutic Exercise OT Treatment Plan: ADL (Basic Care), Balance Training, IADL, Pt./Family Education, Ther. Exercise for ADL
--- NOTE | 2017-10-10 14:23 | Extended Care Facility Orders ---
Admission Orders Admit to:: [facility] Allergies/Adverse Reactions: Allergies codeine Allergy (Verified 10/26/16 22:56) Penicillins Allergy (Verified 10/26/16 22:56) Sulfa (Sulfonamide Antibiotics) Allergy (Verified 10/26/16 22:56) Admitting Diagnosis: recovering from hip surgery Admitting Physician: Chucho Solis MD Attending Physician: Chucho Solis MD Code Status: Full Code Anticiapted Length of Stay: greater than 30 days Rehab Potential: fair Rehab Prognosis: fair Diet: 08/23/17 Dinner Consistent Carbohydrate Diet [DIET] Calorie Level: 2000 Wound/Incision Care: Keep right hip wound clean and dry. May use Facility Protocol or Standing Orders: Yes May have flu vaccine: Yes Correction Certification: I certify that SNF services are not required. Indication for Correction: Not Applicable - Additional Information In Event of Arrest: Start CPR,call 911,send patient to the ER Resident is Aware of Diagnosis: Yes Referrals: Shaheed Minor MD [Physician] - (F/U appt 10/26/17, 11:15am with Mounika Meyer APRN) Anirudh Bro DO [Physician] - 2 Weeks (f/u with PCP 1-2 weeks after discharge from IRU. )
[2017-10-10] MEDS: CYCLOBENZAPRINE 5 MG TABLET PO PRN ×2 (16:02→21:32)
[2017-10-10 19:48] VITALS: TEMP 98.3
[2017-10-10] MEDS: ATORVASTATIN 10 MG TABLET PO SCH (21:30)
[2017-10-10] MEDS: TAMSULOSIN 0.4 MG CAPSULE PO SCH (21:32)
[2017-10-11] MEDS: METFORMIN 500 MG TABLET PO SCH (07:53)
[2017-10-11] MEDS: POLYETHYL GLYCOL 3350 17gm PACKET PO SCH ×2 (07:53→08:09)
[2017-10-11] MEDS: ASPIRIN *EC* 81 MG TABLET PO SCH ×2 (07:53→08:05)
[2017-10-11] MEDS: Oxycodone *IR* 5 MG TABLET PO SCH ×3 (07:53→12:24)
[2017-10-11] MEDS: BACLOFEN 10 MG TABLET PO SCH ×2 (07:54→08:08)
[2017-10-11] MEDS: GABAPENTIN 100 MG CAPSULE PO SCH ×2 (07:54→08:08)
[2017-10-11] MEDS: LABETALOL 100 MG TABLET PO SCH ×2 (07:54→08:09)
[2017-10-11] MEDS: LISINOPRIL 40 MG TABLET PO SCH ×2 (07:55→08:09)
[2017-10-11 07:56] VITALS: BP 158/83; PULSE 62; RESP 18; O2SAT 100
[2017-10-11] MEDS: MAGNESIUM OXIDE 400 MG TABLET PO SCH ×2 (07:56→08:09)
[2017-10-11] MEDS: HYDRALAZINE 25 MG TABLET PO SCH ×2 (07:56→12:24)
[2017-10-11] MEDS: LEVETIRACETAM 500 MG TABLET PO SCH ×2 (07:56→08:09)
[2017-10-11] MEDS: CHLORTHALIDONE 25 MG TABLET PO SCH (07:57)
[2017-10-11] MEDS: GlipiZIDE 5 MG TABLET PO SCH (07:57)
[2017-10-11] MEDS: DICLOFENAC 1% TOP GEL 100gm TP SCH (09:15)
--- NOTE | 2017-10-11 10:42 | IRU Progress Note ---
- Subjective/Serverity of Illness Date: 10/11/17 Hermes was reassessed in his room. He appears to be comfortable transferring to [facility] and rehabilitation today. I asked him about his eye. Unfortunately he is not able to tell me specifically how he feels in this regard. I specifically asked him if it was hurting and he shook his head no. He continues to gesture in the area around the eye and not the eye proper. His pupils remain equal and there is no photophobia. There is no evidence of scleral injection. There is no evidence of infection. I told him that if it continues he will likely need to see an eye doctor. Otherwise he is doing well. His lungs remain clear. His blood sugars are doing well. Exam Vital Signs: Temperature 98.3 F 10/11/17 08:19 Pulse Rate 62 10/11/17 08:19 Respiratory Rate 18 10/11/17 08:19 Blood Pressure 158/83 H 10/11/17 08:19 Pulse Oximetry 100 10/11/17 08:19 Height/Weight/BMI: Height 1.83 m Weight 100.6 kg Body Mass Index 29.9 - Constitutional Present: no acute distress, well nourished, well developed, cooperative - Routine HEENT Exam Eye: Present: EOMI ENT: Present: mucous membranes moist, dentition normal - Routine Respiratory Exam Present: CTA bilaterally. Absent: wheezes - Routine Cardiovascular Exam Present: RRR, S1, S2. Absent: murmur - Routine Abdominal Exam Present: soft, normoactive bowel sounds, non distended. Absent: tenderness - Routine Extremities Exam Present: edema, normal capillary refill - Routine Skin Exam Present: dry, warm - Routine Neurological Exam Present: alert, oriented X3, CN II-XII intact, motor deficit (as before; affecting right side ) - Routine Psychiatric Exam Present: normal affect IRU A/P (1) S/P hip hemiarthroplasty Problem details: Surgery done for subcapital , femoral neck Fx Current visit: Yes Status: Acute Patient is clinically stable from his right hip hemiarthroplasty. He has been well with therapy. He will follow-up with Dr. Minor. (2) Diabetes mellitus type 2 in nonobese Current visit: Yes Status: Chronic His blood sugars are doing well. (3) Hypertension Qualifiers: Hypertension type: essential hypertension Qualified Code(s): I10 - Essential (primary) hypertension Current visit: Yes Status: Chronic (4) Nondisplaced fracture of head of right radius Qualifiers: Encounter type: initial encounter Fracture type: closed Qualified Code(s) : S52.124A - Nondisplaced fracture of head of right radius, initial encounter for closed fracture Current visit: Yes Status: Acute (5) Toe abrasion, non-infected Current visit: Yes Status: Acute (6) Leukocytosis Qualifiers: Leukocytosis type: unspecified Qualified Code(s): D72.829 - Elevated white blood cell count, unspecified Current visit: Yes Status: Acute (7) Headache Qualifiers: Headache type: tension-type Headache chronicity pattern: chronic headache Current visit: Yes Status: Resolved (8) UTI (urinary tract infection) Qualifiers: Urinary tract infection type: acute cystitis Hematuria presence: with hematuria Qualified Code(s): N30.01 - Acute cystitis with hematuria Current visit: Yes Status: Resolved (9) Knee pain, bilateral Qualifiers: Chronicity: chronic Qualified Code(s): M25.561 - Pain in right knee; M25.562 - Pain in left knee; G89.29 - Other chronic pain Current visit: Yes Status: Chronic (10) Diplopia Current visit: Yes Status: Resolved DVT Prophylaxis: Lovenox Resuscitation Status: Full Code - Course Hospital Course: Chucho Solis MD: 09/03/17 15:14 Pain in right elbow and right hip as anticipated. Blood sugars are controlled. Blood pressures remain a bit elevated. 09/04/17 12:44 Progressing with therapy. Blood sugars look excellent. Pain in right elbow seems to be a major issue. 09/06/17 11:50 Improving with therapy. Blood pressures remain elevated. Lasix has been increased. I will increase gabapentin and switch to oxycodone today. 09/07/17 11:20 Continues to have some edema in the right lower extremity. He is progressing with therapy with regard to ambulation. Pain management hopefully is improved with the use of oxycodone. 09/10/17 12:06 Pain management is difficult. We'll schedule the oxycodone. Blood pressures remain elevated likely related to pain management. He is voiding although does have occasional residuals identified. 09/11/17 11:58 Headache is resolved. Improved pain management with oxycodone regularly scheduled. Blood pressures are improved with regular doses of oxycodone. New evidence of abrasion to right great toe. 09/13/17 13:51 White count to 13,000. No evidence of source of infection at present. Sugars are well controlled. Cooperative with therapy. Headache returned but less intense. 09/14/17 11:37 Headache continues to come and go. Seems to be localized in right temporal area. We will check a sedimentation rate. Neurologically he is otherwise unchanged. 09/17/17 11:54 Headache reportedly resolved. No new neurologic changes. Pain management is a challenge. Blood pressures remain elevated although medications have been adjusted. 09/18/17 11:39 Headache appears to have resolved. Abrasion on toe improved. Edema right leg remains. Venous Doppler ordered. We will try to reduce pain medications. 09/20/17 11:48 Vomiting this morning. Anorectic now. Loose stools. Abdomen remained soft. Venous Doppler right leg negative. We will need to hold therapy. 09/21/17 10:48 UTI diagnosed. No further nausea or vomiting. Low-grade fever yesterday without recurrence. He is now on Cipro. He looks and feels better. 09/24/17 10:34 He was changed from Cipro to nitrofurantoin for E. faecalis UTI. Blood pressure management changed from metoprolol to labetalol. I will add on Voltaren gel for the knee pain. We had increased his oxycodone late last week. 09/25/17 10:54 Blood pressures improved. Continues to complain of a variety of pains mostly both knees, headache and right side of his body. He is cooperative with therapy and making progress. 09/27/17 11:18 Progressing with therapy. Continues to have chronic pain. Blood pressure medications are adjusted by hospitalists service. 09/28/17 11:30 Nifedipine increased to 90 mg daily. Making progress with therapy. Placement in progress. 10/01/17 10:33 Blood pressure significantly improved. Continues to have pain but seems comfortable with current dosage. We will reduce to 7.5 mg oxycodone 4 times daily. We'll also make sure he is receiving regular doses of Tylenol. 10/02/17 11:23 Cooperative with therapy. Blood pressures are again elevated. Awaiting placement. 10/03/17 12:03 Patient clinically stable at present. Blood sugars doing well. Cooperative with therapy. 10/05/17 11:26 Apparently new onset of diplopia involving the right eye which he points to. Uncertain etiology. Neurologically unchanged. Blood pressures improved. 10/08/17 12:25 Continues to do well with therapy. Right eye issue remains uncertain as to the nature. Clinically I do not see any physical exam evidence of a right eye problem. 10/09/17 11:25 Doing well with therapy and is now independent to modified independent. Blood sugars are doing well. Blood pressures remain variable. Does not indicate any right eye problem today upon direct questioning. 10/10/17 11:42 Anticipate successful and safe transfer to long-term care tomorrow. 10/11/17 10:42 Patient is medically stable for transfer to [facility] and rehabilitation. - Interventions to Obtain Goals PT Treatment Plan: Balance/Proprioception, Functional Activities, Gait Training , Patient/Family Education, Therapeutic Exercise OT Treatment Plan: ADL (Basic Care), Balance Training, IADL, Pt./Family Education, Ther. Exercise for ADL
--- NOTE | 2017-10-11 16:06 | Discharge Summary ---
Discharge Information Date of admission: 08/23/17 14:58 Anticipated date of discharge: 10/11/17 Attending Physician: Chucho Solis MD Consults: 08/23/17 15:47 Physician Consult [CONS] Routine Consulting Provider: Franco Figueredo Reason For Exam: medical management Ordering Provider has Notified Inside Wirer: No 08/23/17 17:21 Physician Consult [CONS] Routine Consulting Provider: Angel Mon Reason For Exam: Diabetic mgmt Ordering Provider has Notified Inside Wirer: No 08/29/17 08:56 Physician Consult [CONS] Routine Consulting Provider: Jorge Angel Reason For Exam: Fracture to Lt elbow Ordering Provider has Notified Inside Wirer: Yes 08/30/17 05:38 Wound [facility]in Clinic Consult [CONS] Routine Reason for consultation: Redness with small open spot to buttock. 08/30/17 09:22 Physician Consult [CONS] Routine Consulting Provider: [facility] Reason For Exam: placement options Ordering Provider has Notified Inside Wirer: Yes 08/31/17 12:00 Physician Consult [CONS] Routine Consulting Provider: Milton Estrella Reason For Exam: placement options Ordering Provider has Notified Inside Wirer: Yes Physician [Physician Consult] [CONS] Routine Consulting Provider: Mulu Cantrell Reason For Exam: placement options Ordering Provider has Notified Inside Wirer: Yes 09/04/17 16:55 Physician Consult [CONS] [facility] Reason For Exam: placement options Ordering Provider has Notified Inside Wirer: Yes 09/11/17 10:51 Wound Vein Clinic Consult [CONS] Routine Reason for consultation: New wound right great toe (accidental strike with walker) 09/23/17 10:35 Physician Consult [CONS] Routine Consulting Provider: Felix Oropeza Reason For Exam: uncontrolled hypertension Ordering Provider has Notified Inside Wirer: Yes - Discharge Diagnosis (1) S/P hip hemiarthroplasty Status: Acute (2) Diabetes mellitus type 2 in nonobese Status: Chronic (3) Hypertension Status: Chronic (4) Nondisplaced fracture of head of right radius Status: Acute (5) Toe abrasion, non-infected Status: Acute (6) Leukocytosis Status: Acute (7) Knee pain, bilateral Status: Chronic 1. Status post open right hip hemiarthroplasty following fracture 2. Diabetes mellitus type 2, controlled, without complications, not on long- term insuline 3. Nondisplaced fracture of head of right radius, conservative management recommended without surgery 4. Benign essential hypertension, difficult to control and labile 5. Bilateral knee pain due to underlying osteoarthritis - Laboratory Labs: 10/07/17 05:09 10/07/17 05:09 - Microbiology Microbiology 09/21/17 06:13 Urine, Voided (Cc/notcc) Urine Culture - Final Enterococcus faecalis History of Present Illness HPI: Mr. Ling is a 47-year-old male with remote history of right hemiparesis secondary to a stroke. He fell on 08/19/2017 with resultant right hip fracture. He was transferred to [facility] and on 08/20/2017 underwent a right hip hemiarthroplasty by Dr. Minor. He had significantly elevated blood pressures in the postoperative timeframe and has diabetes mellitus. He had multiple functional deficits and for this reason was transferred to [facility] to acute inpatient rehabilitation for a multidisciplinary approach to his recovery. Hospital Course This is a general summary of the patient's hospital course. For more details refer to the complete medical record. Mr. Ling was admitted to acute inpatient rehabilitation at [facility] on 08/23/2017. He was followed by the hospitalist service, subsequently Dr. Briones, and Dr. Oropeza from cardiology for his blood pressure. His blood pressures remained elevated and were difficult to control. Ultimately medications were adjusted and his blood pressures came down into the 120-130 range systolic. In addition his blood sugars were monitored and his insulin adjusted. Chest radiograph on 08/25/2017 was normal. Shoulder x-ray on the right on 2017 was performed due to discomfort. This showed no acute abnormalities. However right elbow x-ray on 08/28/2017 demonstrated a nondisplaced radial head fracture with a small elbow joint effusion. No dislocation was noted. He was seen in consultation by Dr. Angel in this regard and a sling was placed. Nonoperative treatment was recommended. Right hip radiograph was obtained on 08/30/2017 demonstrating postoperative changes of right hip replacement without evidence of hardware loosening nor failure. He was seen by wound care for a buttock lesion which was treated appropriately. He was also seen by them for an abrasion on the right great toe. This was not infected and was treated locally. His hemoglobin was 12.4 and his white count 8100 on 09/24/2017. Platelet count was 121,000. Magnesium was slightly low at 1.5 normal being 1.6 or greater. Creatinine was normal at 0.8 on 09/25/2017. Albumin was low at 3.2. TSH was normal at 1.81. Urinalysis on 09/21/2017 was consistent with an acute urinary tract infection. Culture grew Enterococcus faecalis and he was treated with nitrofurantoin. Pain management was difficult due to his inability to express exactly where and what type of pain he was having. He frequently and almost incessantly pointed to the entire right side of his body when he was asked about pain. He pointed to his shoulder, his elbow, his hip, both knees and ultimately pointed to the left abdomen as well. We did increase his oxycodone to 10 mg every 3 hours while awake. Subsequently he was able to reduce this and upon dismissal is on oxycodone IR 5 mg 4 times daily as needed plus Tylenol sustained release 650 mg every 8 hours. It is anticipated that his pain level is due to the right elbow, right hip and possibly underlying inflammatory arthritis although this has not been confirmed. He did complain of a problem with his right eye or right periorbital area. Because of his a fees he was extremely difficult to diagnose this. His pupils remained equal and there was no disconjugate gaze. Sclerae were not injected. He denied any pain in the eye. Initially there was concern that this could represent diplopia although it is not at all clear that that was the issue. If he continues to have symptoms of problems with the right eye it is recommended that he see an systems administration analyst or preparation department supervisor in follow-up. Clinically we could not find a reason for this. The following levels of functional competence are to be considered preliminary information. The reader is encouraged to refer to actual therapy notes and reports for specific details. The patient was followed by physical therapy while on acute inpatient rehabilitation. At the conclusion of his stay, the following functional competencies were identified: He is standby assist to modified independent for transfers. He is able to ambulate with a hemiwalker over 500 and even 600 feet at modified independent level. The patient was followed by occupational therapy while on acute inpatient rehabilitation. At the conclusion of his stay, the following functional competencies were identified: He is independent for eating and grooming. Requires standby assistance for bathing. He is independent for upper body dressing and modified independent for lower body dressing. He is modified independent for toileting assistance. He was transferred to long-term care at [facility] and rehabilitation. He is felt to be medically stable at this time. Hospital course: Impression Uncontrolled blood pressure Status post right humeral arthroplasty-repaired 08/20/17 Fall Hx of CVA with right hemiparesis Chronic dysphasia Coronary artery disease Hypertension Diabetes Seizures Obstructive sleep apnea Plan Agree with admission to inpatient rehabilitation for ongoing strengthening and improved function. Patient continues to have uncontrolled hypertension 180s systolic. Medication list reviewed carefully along with marked from Gerald. Different beta jonathan was reconciled on admission from medication list. Toprol-XL discontinued, patient placed on metoprolol tartrate, Lopressor 50 milligrams 3 times a day. Continue with lisinopril 40, hydralazine 50mg 3 times a day. Hgb is has remained stable at 11.9. Patient is on Keppra for history of seizures. Patient also takes clarithromycin 500 twice a day. Brother does confirm patient was on this prior to hospitalization, however, exact reason is unknown Monitor Accu-Cheks and continue on metformin twice a day. [place] as needed for postoperative pain control. Will add MiraLAX and senna plus twice a day for postoperative bowel motivation. Encouraged patient to work with PT and OT for ongoing strengthening At time of discharge medical care will return to primary care provider at [facility], Dr. Bro 08/25/2017 Patient was seen today secondary to reports of possible chest pain. Prior baseline is unknown, so will err on the side of caution. Start telemetry. Serial troponin. We'll obtain chest x-ray, as well as a right shoulder film due to concern for subluxation. GI upset is certainly a possibility, particularly since he is on clarithromycin. May need to get further information on that on Sunday from his PCP. We'll continue remainder current care. Assess lab in the morning for stability. Discussed with patient, he is in agreement with plan of care. 08/27/17 Overall appears to be medically stable. Given bradycardia will decreased Metoprolol to 50mg BID Will need to continue monitor BP. Did contact PCP office at [facility]- their old records from last January patient was not taking erythromycin. It is unclear exactly prescribed clarithromycin and for what reason. Will attempt to contact patient's brother regarding this medication. BGMs are well controlled on current regimen. Continue to encourage work with PT and OT for ongoing strengthening. 09/03/17 Sling to right arm - ortho recommends rechecking films ~09/11/17 HTN - increase hydralazine from 50 to 75 mg TID. Consider further w/u for HTN and r/o pheochromocytoma. He's on multiple classes of antiHTN with suboptimal control, including metoprolol, clonidine, lasix, furosemide, lisinopril + hydralazine. Bradycardia in the 50s precludes increasing BB. 09/05/17 Start bladder retraining. May pull catheter tomorrow if pt is having bladder filling sensation. Will give a second dose of Lasix now. Given his LE edema, HTN and (questionable) weight gain since admission, will increase his Lasix to 40mg q am (from 20mg q am) and follow weights, edema, BP and electrolytes. Increase KCl from 10mEq to 20mEq given the increase in Lasix dosing. Check daily weights. Weight on admission 100.3 and today is 113kg. Question accuracy of today's weight. Consider further w/u for HTN and r/o pheochromocytoma. He's on multiple classes of antiHTN with suboptimal control, including metoprolol, clonidine, lasix, furosemide, lisinopril + hydralazine. May need to clarify with PCP if prior workup for hypertension has been undertaken or which tearoom host/hostess patient has seen. 09/08/17 Headley catheter dc'd 09/07/17 and he's been voiding since. Switching from hydrocodone to oxycodone, has been helpful for pain control. In addition, BP under better control. Continue hydralazine 75 mg and increased Lasix/KCl doses. Check BMP in am. Sinus aram on tele - will dc tele. 09/14/17 BP's are slightly elevated but likely r/t pain. He is already on 4 agents, will continue to monitor. Headache is not new. PT working with him in re: to possible muscle contraction etiology. Sinusitis would be in the DDx, but no c/o fever, sinus drainage, ST, etc. WBC down today from yesterday. 13.3-->11.0. BS's stable. Hgb stable. Wound team following wound on R great toe. 09/17/17 Blood pressures continue to run high. He remains bradycardic with heart rates in the 50s. Metoprolol reduced to 25 mg. Clonidine was started on 09/16/17. Monitor response before further adjustments are made. Awaiting insurance approval, and discharge plans are to go to [facility]. Dr. Briones's note reviewed. Continue PT/OT. 09/19/17 Patient continues to struggle with pain control. Continue pain medications and therapy plan per Dr. Briones. Persistent edema to right leg (operative side). Doppler obtained 09/18/17 and was negative for DVT. Recommend elevation as able with compression stockings/ SCDs. Continue to monitor closely. Blood pressures remain elevated and variable with bradycardia in the 50s. Metoprolol reduced to 25 mg BID on 09/17/17. Clonidine TID was started on . Will increase amlodipine to 10mg daily in AM and change Clonidine to TID PRN. Continue home Lasix 40mg daily and lisinopril 40mg daily. Monitor weight closely for signs of fluid overload. Patient may need additional diuresis. Awaiting insurance approval, and [facility] Will recheck labs in AM to monitor blood counts, electrolytes and renal function. 09/20/17 Resume clonidine at 0.1mg BID in the event his sxs are r/t clonidine w/drawal. Continue amlodipine, Lasix and lisinopril. Check UA given the new onset of fever. If he continues to run fever, have diarrhea and has increase in WBC, will check for c diff. No cough or SOA. CBC and CMP in am. Hold metformin. NS 250cc bolus given and then tra 100cc/hr as pt isn't taking po well d/t nausea. PRN Zofran. 09/21/17 Cipro started for UTI. Culture pending. WBC is stable. Resume metformin in the am now that he is eating again. Continue to follow BP's. Amlodipine was increased to 10mg the day before yesterday. He likely had elevated BP yesterday d/t abrupt clonidine w/drawal and it was restarted at lower dose of 0.1mg BID. No changes today. 09/22/17 Continue with Cipro for treatment of UTI- C/S pending Data monitor blood sugars, metformin was started yesterday, 09/21. Will increase monitoring to 0.1 milligrams 3 times a day scheduled. May need to continue to increase this. There is when necessary available as needed for systolic greater than 160 Did ask nursing staff to contact Dr. Briones for further pain control if need be. Continue to follow carefully Plan - 09/23/17 Patient continues to struggle with pain control. Pain addressed by Dr. Briones and oxycodone 10mg increased to Q3H for additional pain control Continue pain control and therapies per Dr. Briones. UTI diagnosed 09/21/17. UA revealed enterococcus faecalis sensitive to ampicillin, linezolid, nitrofurantoin, vancomycin. Currently on cipro. Will discontinue cipro and initiate nitrofurantoin per sensitivities today. Blood sugars remain relatively stable. Continue to monitor closely. Blood pressures remain elevated despite multiple medications. Clonidine 0.1mg increased to TID on 09/22/17. Will continue to monitor closely with PRN clonidine as needed. Patient denies having tearoom host/hostess. Will consult Dr. Oropeza for further evaluation and expertise. Recheck labs in AM to monitor blood counts, electrolytes and renal function. 10/04/17 Defer pain management to attending. Blood pressure has been trending down. Seen by cardiology on 10/01/17 and they recommend continue current therapy. Nitrofurantoin course has been completed. Discharge is pending a safe plan. 10/08/17 Pt reported right eye c/o to Dr. Briones earlier today but this was not a primary concern during this visit. BP elevated - current meds reviewed. Chlorthalidone 25 mg daily was added yesterday per cardiology. This was updated on his discharge med rec. DC planned for 10/10/17 - [facility]. Time spent with patient: greater than 35 minutes Resuscitation Status: Full Code Discharge Plan - Med Rec/Dispo Referrals/Follow Up: Shaheed Minor MD [Physician] - (F/U appt 10/26/17, 11:15am with Mounika Meyer APRN) Anirudh Bro DO [Physician] - 2 Weeks (f/u with PCP 1-2 weeks after discharge from IRU. ) Prescriptions: New Gabapentin [Neurontin] 200 mg PO TID cap Labetalol [Normodyne] 200 mg PO BID tab Metformin [Glucophage] 500 mg PO BIDBS tab NIFEdipine [Nifedipine ER] 90 mg PO DAILY tab.er.24 PEG 3350 17gm PACKET [Miralax] 17 gm PO DAILY packet Potassium Chloride [K-DUR 20 mEq Tablet] 20 meq PO WB tab GlipiZIDE [Glucotrol] 5 mg PO BIDBS tab Acetaminophen SR [Tylenol Arthritis 650 MG SR] 650 mg PO Q8HR tab Diclofenac Top Gel [Voltaren] 1 applicatio TP QID tube Oxycodone *IR* [Roxicodone *Ir*] 5 mg PO QID PRN #60 tab PRN Reason: Pain Hydralazine [Apresoline] 75 mg PO WM tab CloNIDine [Catapres] 0.1 mg PO TID tab Continue Magnesium Oxide [Magnesium] 400 mg PO BID Lisinopril [Prinivil] 40 mg PO DAILY levETIRAcetam [Keppra Xr] 500 mg PO Q12HR Aspirin [Adult Low Dose Aspirin EC] 81 mg PO DAILY Atorvastatin Calcium 10 mg PO HS Baclofen [Lioresal] 5 mg PO TID Tamsulosin [Flomax] 0.4 mg PO HS Discontinued Potassium Chloride [K-Dur] 10 meq PO DAILY Furosemide [Lasix] 20 mg PO DAILY glipiZIDE [Glipizide] 5 mg PO BID Metformin HCl [Fortamet] 500 mg PO BID Metoprolol Succinate 25 mg PO BID Hydralazine HCl 50 mg PO TID Gabapentin [Neurontin] 100 mg PO TID clarithromycin 500 mg tablet 500 mg PO BID - Disposition 04 To [facility] Home/Facility - Dismissal Complete Discharge Instructions are:: Complete
--- NOTE | 2017-10-11 16:16 | Letter to Referring Physician ---
Dear Dr. Bro, This is a brief note to bring you up-to-date on the status of Jorge Ling and his stay on the acute inpatient rehabilitation unit at [facility]. As you are likely aware, this patient was admitted to the [facility] on for repair of right hip fracture by Dr. Minor. He underwent a right hip hemiarthroplasty. The patient was stabilized while on the acute level and admitted to inpatient rehabilitation unit at [facility] on August 23, 2017. While on inpatient rehabilitation, this patient was seen by occupational therapy and physical therapy and improved overall in their functional ability. We also monitored and managed the patient's diabetes and hypertension while on Acute Rehab. Please see a copy of the history and physical examination as well as discharge summary faxed separately for further details. It is noted that Hermes complained of a problem with his right eye. Initially I thought this might be diplopia but this was never confirmed. He denied any pain. Due to his significant aphasia, it was extremely difficult to diagnose his problem. Clinically his pupils were equal and equally round. The sclerae were clear. There was no disconjugate gaze. If he continues to complain of his right eye, outpatient evaluation by an market risk analyst or international editorial producer would be indicated. He was felt to be stable from a clinical standpoint and was transferred to [facility] on the afternoon of 10/11/2017. Thank you for allowing us to be involved in this nice patient's care. Please contact me directly should you have any questions regarding their stay on the inpatient rehabilitation unit. Sincerely, Sage Briones M.D.
--- NOTE | 2017-10-11 22:23 | Progress Note ---
Progress Note: Patient seen briefly prior to discharge this morning. He indicated he was having some ongoing discomfort in his knees and right shoulder but indicated no dyspnea. Ongoing dysarthria. Patient gestures to indicate responses. No verbal responses. Temperature 98.3, blood pressure 158/83 this morning NAD, alert Respirations nonlabored, good airflow, breath sounds clear Right arm in sling, right hemiparesis persists. Stable for discharge blood pressure remains suboptimally controlled but has improved.; Diabetes well controlled. Chart plan reviewed with Dr. Briones yesterday. Dx-right hip fracture, status post hemiarthroplasty, history stroke with right hemiparesis, hypertension, diabetes mellitus, right radial head fracture
== END 2017-10-11 14:50 | DRG 560 ==
PROVIDERS: ADMIT Orthopaedic Surgery; ATTEND Orthopaedic Surgery